=== PATIENT | female | born 1990 | race African-American/Black ===

== ENCOUNTER → 2022-02-22 | Outpatient (CLI) | payer MEDICAID, SELFPAY ==
--- NOTE | 2022-02-22 12:18 | US_ITS ---
STUDY: SECOND AND THIRD TRIMESTER OBSTETRICAL ULTRASOUND - LIMITED REASON FOR EXAM: Female, 32 years old. anatomy PRIOR ULTRASOUND: None. TECHNIQUE: Transabdominal TECHNICAL QUALITY: Adequate. FINDINGS: There is a single intrauterine fetus. The fetus is in a cephalic presentation. There is demonstrated cardiac activity with a heart rate of 144 bpm. There is a normal amniotic fluid volume. The largest amniotic fluid pocket measures 4.2 cm. The amniotic fluid index (VIVIANA) is 9.5 cm. The placenta is posterior in location and is not low lying. There are Grade 1 placental changes. The cervix measures cm in length: 5.1. BIOMETRY: BPD: 65 mm: 26 weeks, 2 days HC: 246 mm: 26 weeks, 5 days AC: 223 mm: 26 weeks, 4 days FL: 48 mm: 25 weeks, 6 days CI: 77 FL/AC: 21 FL/BPD: 72 HC/AC: 1.11 age by current US: 26 weeks, 0 days. ELISSA by current US: 11.8.22. Estimated weight: 935 grams, +/- 140 grams, 44.27 %. Age by LMP: 26 weeks, 2 days. ELISSA by LMP: 11.6.22. ANATOMY: Gender: Male Cranium: Normal lateral ventricles. Normal choroid plexus. Normal cerebellum. Normal cisterna magna. Normal face, nose and lips. Chest: Normal 4-chamber heart. Abdomen/Pelvis: Normal diaphragm. Normal stomach. Normal abdominal wall. Normal cord insertion. Normal 3 vessel cord. Normal kidneys. Normal bladder. Spine: Normal cervical spine. Normal thoracic spine. Normal lumbar spine. Normal sacrum. Extremities: Normal bilateral upper extremities. Normal bilateral lower extremities. US/OB Anatomy Scan IMPRESSION: There is a single live intrauterine with a heart rate of 144 bpm. age by current US: 26 weeks, 0 days. ELISSA by current US: 11.8.22. Estimated weight: 935 grams, +/- 140 grams, 44.27 %. Electronically Signed: Yony Sy MD at 16:20 EDT ,
== END | disposition home or self-care (01) ==
PROVIDERS: Visit Provider Obstetrics & Gynecology
DX: Z34.93 Encounter for supervision of normal pregnancy, unspecified, third trimester (principal)
CPT/HCPCS: 76805; 76817

== ENCOUNTER → 2022-02-26 | Outpatient (CLI) | payer MEDICAID, SELFPAY ==
[2022-02-26 12:20] LABS: Absolute Lymphocyte Count 2.56 X10^3/uL (0.83-4.51); Absolute Neutrophil Count 4.5 X10^3/uL (2.0-7.7); Basophil# 0.03 X10^3/uL; Basophil% 0.4 % (0-1); Eosinophil# 0.16 X10^3/uL; Hematocrit 31.3 % (37-47); Hemoglobin 9.9 g/dL (12.0-15.0); Lymphocyte # 2.56 X10^3/ul (0.83-4.51); Lymphocyte % 31.5 % (19-41); Mean Corp Hgb Conc 31.6 g/dL (32-36); Mean Corpuscular Hgb 28.3 pg (27.0-32.0); Mean Corpuscular Volume 89.4 fL (81-99); Mean Platelet Vol. 9.5 fl (6.2-12.0); Monocyte# 0.83 X10^3/uL; Monocyte% 10.2 % (0-10); NRBC Flagged by Analyzer 0 % (0-5); Neutrophil # 4.49 X10^3/uL (2.7-7.7); Neutrophil % 55.2 % (47-70); Platelet Count 293 K/mm3 (150-450); RBC Distribution Width CV 12.5 % (11.6-14.6); RBC Distribution Width SD 40.8 fl (35.1-43.9); White Blood Count 8.1 K/mm3 (4.4-11.0)
[2022-02-26 12:30] LABS: Glucose Challenge Gest 1H 50g 120 mg/dL (70-140)
== END | disposition home or self-care (01) ==
LOC: LAB 11:53
PROVIDERS: Visit Provider Obstetrics & Gynecology
DX: O09.90 Supervision of high risk pregnancy, unspecified, unspecified trimester (principal); Z3A.00 Weeks of gestation of pregnancy not specified
CPT/HCPCS: 36415; 82950; 85025

== ENCOUNTER 2022-02-28 03:36 | Outpatient (CLI) | payer MEDICAID, SELFPAY ==
[2022-02-28 03:53] VITALS: BMI 30.3
[2022-02-28 03:56] VITALS: BP 108/57; PULSE 91
[2022-02-28 03:57] VITALS: TEMP 36.7; O2SAT 99
[2022-02-28 04:15] LABS: Color, Urine Yellow (Yellow); Glucose, Dipstick Normal (Normal); Ketone-Dipstick Negative (Negative); Leukocyte Esterase-Dipstick 500 /ul (Negative); Nitrite-Dipstick Negative (Negative); Occult Blood-Urine Negative /ul (Negative); Protein-Dipstick Negative (Negative); Urine Bilirubin Dipstick Negative (Negative); Urine Clarity Sl. Cloudy (Clear); Urine Urobilinogen Normal (Normal)
[2022-02-28 04:16] LABS: Mucous, Urine 0 SEEN /hpf (<or=2+); Red Blood Cells-Urine 0 SEEN /hpf (0-5)
[2022-02-28 04:35] LABS: ROM Internal Control Test YES-OK TO RESULT pt. (Internal QC); ROM Patient Test Negative (Negative)
[2022-02-28 04:36] LABS: Bacteria 2+ /hpf (None Seen); Squamous Epithelial Cells - UA 5-10 SEEN /hpf (5-10); White Blood Cells 10-25 SEEN /hpf (0-5)
[2022-02-28] MEDS: Acetaminophen 500 MG Tablet 1000 MG PO (05:00)
[2022-02-28] MEDS: Nitrofurantoin Macrocrystals 100 MG Capsule PO (05:01)
--- NOTE | 2022-03-12 06:26 | OB.TRI.HP_ITS ---
HPI - General General Date of Admission: 02/28/22 Date of Service: 02/28/22 Chief Complaint: abdominal pain in HPI Narrative CHERYL HILTON, is a 32y/o @ 27 weeks 1 day who presents to L&D with the complaint of possible leaking fluid and lower pelvic pain and pressure Maternal Data Information ELISSA Calculator Estimated Delivery Date Method Current WG Current Estimate 05/29/22 LMP (Certain) 28w 6d PFSH PFSH Medical History Anemia Supervision of high-risk Home Medications docosahexaenoic acid 200 mg capsule ( DHA) 200 mg PO DAILY 02/08/22 [History Last Taken 02/27/22 22:00] nitrofurantoin monohydrate/macrocrystals 100 mg capsule (Macrobid) 100 mg PO BID #14 caps 02/28/22 [Rx Last Taken Unknown] Allergy/AdvReac Type Severity Reaction Status Date / Time No Known Allergies Allergy Verified 03/09/22 15:51 Family History Mother Hypertension Social History Smoking Status: Former smoker alcohol intake: never substance use type: does not use caffeine: Yes what type of physical activity do you participate in: none seatbelt use: always do you feel safe at home: Yes additional social history: - Dillan History 5 Elective abortions Hx Para 2 Spontaneous abortions Hx # Term Pregnancies Ectopic pregnancies Hx # Pregnancies Multiple births # of living children Past Pregnancies Del. Date Name GA/Weeks Outcome Route Bth Weight Infant Gen Labor Lgth Anesthesia Del Locatn Provider FOB 05/04/10 Jennifer 40 live - full term Female none Taiban Crane 02/21/21 Narindermicheldean 40 live - full term Female none [place] Delivery Date: 05/04/10 Last Updated by: Sandhya Hart No issues during or delivery Delivery Date: 02/21/21 Last Updated by: Sandhya Hart No issues during or delivery. Per patient child had water in kidney Visit Details Expected Delivery Route/Plan Labor Preferences- CB/BF classes: [] labor support person: [] labor intervention preferences: [] pain management options preferred: [] cut cord/dad catch: [] : [] PP control planned: [] discussed possible routes of delivery and associated risks: [] special requests: [] Plans Covid status: [] Flu vaccine: [] Tdap vaccine: [] Rhogam: [] LARC form signed: [] Problem list reviewed and updated with the most current plan of care details and appropriate orders placed. Relevant counseling for the gestational age provided. Continue routine care and follow up unless otherwise noted in visit notes/problem list details OB Flowsheet Initial Weight: Not Recorded Date -?-?-?-?-?-?-?-?-?-?-?-?- EGA Weight BP Urine Prot -?-?-?-?-?-?-?-?-?-?-?-?- Glucose FHR FuHt Pres Dilation -?-?-?-?-?-?-?-?-?-?-?-?- Effaced St Visit Note 02/08/22 -?-?-?-?-?-?-?-?-?-?-?-?- 24w 2d 170 lb 2 oz 100/62 -?-?-?-?-?-?-?-?-?-?-?-?- 155 -?-?-?-?-?-?-?-?-?-?-?-?- JV- new transfer of care from [place]. She is due for a repeat anatomy scan and glucola order. pt will work with nacho (social work) to help with figuring out insurance or payment plan. She does not have a SS# but does have a green card. was told that does not qualify for [place] medicaid. 03/09/22 -?-?-?-?-?-?-?-?-?-?-?-?- 28w 3d 172 lb 109/66 Negative -?-?-?-?-?-?-?-?-?-?-?-?- Negative 160 28 -?-?-?-?-?-?-?-?-?-?-?-?- JV_ normal gluco la, pt to decide on tdap. ROS Constitutional Constitutional: Reports systems reviewed and no addt'l complaints, except as documented Gastrointestinal Gastrointestinal: Denies bloating, constipation, cramping, diarrhea, nausea or vomiting Genitourinary Genitourinary: Reports other Details: Denies vaginal odor, vaginal bleeding, or vaginal discharge ; Denies difficulty urinating or flank pain Physical Exam HEENT normocephalic Resp normal respiratory effort and normal air movement no CVA tenderness Extremity normal to inspection General Extremity: edema bilateral (trace ) NST FHR Rate Baby A Baseline: 140 Variability:: Moderate Accelerations:: 10 x 10 Decelerations:: None NST Reactive:: Yes FHR Category:: Category I Assessment & Plan (1) Pelvic pain affecting : PLAN: possible UTI based on UA (500 leukocytes) Rom plus was negative, no contractions noted on monitor will treat for possible UTI and await culture PTL precautions discussed return to office in 1-2 weeks or sooner as needed (2) Anemia: COMMENT: supplement iron (3) Supervision of high-risk : COMMENT: , 2 prior vaginal deliveries at term h/o 2 miscarriages. (4) : QUALIFIERS: Weeks of gestation: 28 weeks Qualified Code(s): Z3A.28 - 28 weeks gestation of COMMENT: nl anatomy, ELISSA 06/08/22 Charges/Coding Multi Select Codes Visit Charges Office Visit/Consults: 39869 OV L3 Est Urinary/Genital Urinary/Genital CPT Codes: 19952-18 non-stress test Interp
== END 2022-02-28 05:05 | disposition home or self-care (01) ==
LOC: WPOUT 03:44 → WP 03:44
PROVIDERS: Visit Provider Obstetrics & Gynecology
DX: O99.891 Other specified diseases and conditions complicating pregnancy (principal); R10.2 Pelvic and perineal pain; O99.013 Anemia complicating pregnancy, third trimester; O26.23 Pregnancy care for patient with recurrent pregnancy loss, third trimester; Z3A.28 28 weeks gestation of pregnancy; Z87.891 Personal history of nicotine dependence
CPT/HCPCS: 59025; 59050; 81001; 84112; 99218; G0378

== ENCOUNTER → 2022-04-13 | Outpatient (CLI) | payer MEDICAID, SELFPAY ==
[2022-04-13 09:20] LABS: Absolute Lymphocyte Count 2.53 X10^3/uL (0.83-4.51); Absolute Neutrophil Count 5.1 X10^3/uL (2.0-7.7); Basophil# 0.03 X10^3/uL; Basophil% 0.3 % (0-1); Eosinophils% 2.3 % (0-5); Hematocrit 32.9 % (37-47); Hemoglobin 10.4 g/dL (12.0-15.0); Lymphocyte # 2.53 X10^3/ul (0.83-4.51); Lymphocyte % 29.2 % (19-41); Mean Corp Hgb Conc 31.6 g/dL (32-36); Mean Corpuscular Volume 88.4 fL (81-99); Mean Platelet Vol. 9.4 fl (6.2-12.0); Monocyte# 0.72 X10^3/uL; Monocyte% 8.3 % (0-10); NRBC Flagged by Analyzer 0 % (0-5); Neutrophil # 5.11 X10^3/uL (2.7-7.7); Neutrophil % 59.2 % (47-70); Platelet Count 289 K/mm3 (150-450); RBC Distribution Width CV 12.7 % (11.6-14.6); Red Blood Count 3.72 M/mm3 (4.2-5.4); White Blood Count 8.7 K/mm3 (4.4-11.0)
== END | disposition home or self-care (01) ==
LOC: PAVLAB 09:10
PROVIDERS: Referring Provider Registered Nurse; Visit Provider Registered Nurse
DX: D64.9 Anemia, unspecified (principal)
CPT/HCPCS: 36415; 85025

== ENCOUNTER → 2022-05-02 | Outpatient (CLI) | payer MEDICAID, SELFPAY ==
[2022-05-02 09:10] LABS: Absolute Lymphocyte Count 2.81 X10^3/uL (0.83-4.51); Absolute Neutrophil Count 3.5 X10^3/uL (2.0-7.7); Basophil# 0.03 X10^3/uL; Basophil% 0.4 % (0-1); Eosinophil# 0.15 X10^3/uL; Eosinophils% 2.1 % (0-5); Hematocrit 31.9 % (37-47); Hemoglobin 10.1 g/dL (12.0-15.0); Lymphocyte # 2.81 X10^3/ul (0.83-4.51); Lymphocyte % 39.4 % (19-41); Mean Corp Hgb Conc 31.7 g/dL (32-36); Mean Corpuscular Hgb 27.7 pg (27.0-32.0); Mean Corpuscular Volume 87.4 fL (81-99); Mean Platelet Vol. 9.8 fl (6.2-12.0); Monocyte# 0.65 X10^3/uL; Monocyte% 9.1 % (0-10); NRBC Flagged by Analyzer 0 % (0-5); Neutrophil # 3.46 X10^3/uL (2.7-7.7); Neutrophil % 48.6 % (47-70); Platelet Count 240 K/mm3 (150-450); RBC Distribution Width CV 13.1 % (11.6-14.6); RBC Distribution Width SD 41.5 fl (35.1-43.9); Red Blood Count 3.65 M/mm3 (4.2-5.4); White Blood Count 7.1 K/mm3 (4.4-11.0)
[2022-05-02 09:31] LABS: Protein, Urine (Random) 21.1 mg/dL (<11.9); Protein:Creat Ratio 131 mg/g CRE (0-200)
[2022-05-02 09:40] LABS: ALB/GLOB Ratio 0.7 RATIO (0.9-2.4); AST(SGOT) 24 U/L (15-37); Alanine Aminotransfer ALT/SGPT 24 U/L (13-56); Albumin, Serum 2.7 g/dL (3.2-5.0); Alkaline Phosphatase 137 U/L (45-117); Anion Gap 10 (5-15); BUN 5 mg/dL (7-18); BUN/Creat Ratio 7.8 RATIO (10-20); Calcium,Total 8.5 mg/dL (8.5-10.1); Chloride 108 mmol/L (98-107); Creatinine, Serum 0.64 mg/dL (0.55-1.02); EST Glomerular Filtration Rate 115 mL/min (>60); Est Glom Filt Rate - Afr Amer 139 mL/min (>60); Globulin 4.1 g/dL (2.2-4.2); Glucose 84 mg/dL (74-106); Potassium 3.5 mmol/L (3.5-5.1); Protein, Total 6.8 g/dL (6.4-8.2); Sodium Level 140 mmol/L (136-145)
== END | disposition home or self-care (01) ==
PROVIDERS: Referring Provider Registered Nurse; Visit Provider Registered Nurse
DX: O09.90 Supervision of high risk pregnancy, unspecified, unspecified trimester (principal); Z3A.00 Weeks of gestation of pregnancy not specified
CPT/HCPCS: 36415; 80053; 82570; 84156; 85025; 87081

== ENCOUNTER 2022-05-23 13:41 | Inpatient (IN) | payer MEDICAID, SELFPAY ==
[2022-05-23] VITALS (8 sets, daily range): BP systolic 101–124; BP diastolic 49–76; PULSE 70–98; RESP 16; TEMP 36.1–37.1; BMI 31.6
[2022-05-23] MEDS: Lactated Ringers 1,000 ML 50 ML IV (14:10)
[2022-05-23 14:29] LABS: Absolute Lymphocyte Count 3.45 X10^3/uL (0.83-4.51); Absolute Neutrophil Count 5.1 X10^3/uL (2.0-7.7); Basophil# 0.04 X10^3/uL; Basophil% 0.4 % (0-1); Eosinophil# 0.07 X10^3/uL; Eosinophils% 0.7 % (0-5); Hematocrit 33.6 % (37-47); Lymphocyte # 3.45 X10^3/ul (0.83-4.51); Lymphocyte % 36.2 % (19-41); Mean Corp Hgb Conc 32.7 g/dL (32-36); Mean Corpuscular Hgb 28.1 pg (27.0-32.0); Mean Corpuscular Volume 85.9 fL (81-99); Mean Platelet Vol. 10.6 fl (6.2-12.0); Monocyte# 0.79 X10^3/uL; Monocyte% 8.3 % (0-10); NRBC Flagged by Analyzer 0 % (0-5); Neutrophil # 5.14 X10^3/uL (2.7-7.7); POSITIVE COUNT YES; RBC Distribution Width CV 13.8 % (11.6-14.6); RBC Distribution Width SD 42.6 fl (35.1-43.9); Red Blood Count 3.91 M/mm3 (4.2-5.4); White Blood Count 9.5 K/mm3 (4.4-11.0)
[2022-05-23 14:53] LABS: Differential Indicated SCAN CRITERIA MET; Platelet Estimate ADEQUATE (ADEQ)
[2022-05-23] MEDS: Oxytocin 10 UNITS/ML Vial IM (15:05)
--- NOTE | 2022-05-23 15:57 | OP.PCM_ITS ---
Assessment & Plan (1) Headache: COMMENT: s/sx of PEC 05/02. headache not improved with tylenol, RUQ pain, visual changes. PEC workup initiated outpatient labs, normotensive. negative PEC work up (2) Supervision of high-risk : COMMENT: , 2 prior vaginal deliveries at term h/o 1 miscarriages. h/o with G1 in [place] (3) : QUALIFIERS: Weeks of gestation: 39 weeks Qualified Code(s): Z3 A.39 - 39 weeks gestation of COMMENT: nl anatomy, genetic testing nl, ELISSA 06/08/22 requesting Ariadna BARRETT at delivery Maternal Data Information ELISSA Calculator Estimated Delivery Date Method Current WG Current Estimate 05/29/22 LMP (Certain) 39w 1d Vaginal Delivery Maternal Presentation Maternal Presentation: Active Labor and Spontaneous Rupture of Membranes Operative Information Date of Procedure: 05/23/22 Pre-Operative Diagnosis: labor Post-Operative Diagnosis: Surgery / Procedure Performed: Spontaneous Vaginal Delivery Type of Anesthesia: None Estimated Blood Loss: 150 Time of Delivery: 14:46 Findings Description of Procedure: Patient began pushing and delivered the head in the EUGENE presentation. The head was delivered atraumatically and a loose nuchal cord ?1 was identified and easily reduced over the 's head. The anterior and posterior shoulders delivered without complication followed by the rest of the and the was placed on the maternal abdomen. Delayed cord clamping was employed for approximately 3 minutes. Cord was clamped and cut and gentle traction was applied to the cord and the placenta delivered spontaneously immediately following it was noted to be intact with three-vessel cord. Pitocin 10U IM provided for AMTS. The perineum and vagina were inspected and noted to have no laceration. EBL was 150 cc. Patient and infant tolerated delivery well.entered recovery phase in stable condition bonding skin to skin. Presentation: Vertex Amniotic Membrane Rupture Type: Spontaneous Amniotic Fluid Description: Clear Placental Delivery Description: Spontaneous Placenta Disposition: [facility] Cord Vessel Description: 3 Vessels Cord Entanglement: Around neck x 1, loose Nuchal Cord Compression: Without compression Infant A Gender: Male (1 minute): 8 (5 minute): 9 Delayed Cord Clamping: Yes Post Vaginal Delivery Medications Given After Delivery: - (IM pitocin) Episiotomy Description: None Laceration: None Complication Complications: None Multi Select Codes Urinary/Genital Urinary/Genital CPT Codes: 77788 Vaginal Delivery global pkg (ATTN [employer] CNM DELIVERY)
--- NOTE | 2022-05-23 16:02 | HP.PCM.OB_ITS ---
HPI - General General Date of Admission: 05/23/22 HPI Narrative CHERYL HILTON, is a 32 F at 39weeks who presents in active labor. uncomplicated transfer of care at 24 weeks from [place]. checked by RN 7cm. Maternal Data Information ELISSA Calculator Estimated Delivery Date Method Current WG Current Estimate 05/29/22 LMP (Certain) 39w 1d Final ELISSA Source: LMP PFSH PFSH Medical History Anemia Supervision of high-risk Home Medications docosahexaenoic acid 200 mg capsule ( DHA) 200 mg PO DAILY Check with primary doctor 02/08/22 [History Last Taken 05/22/22 09:00] ferrous sulfate 325 mg (65 mg iron) tablet 325 mg PO DAILY Check with primary doctor 05/23/22 [History Last Taken 05/22/22 08:00] Allergy/AdvReac Type Severity Reaction Status Date / Time No Known Allergies Allergy Verified 05/23/22 14:32 Family History Mother Hypertension no significant family history no surgical history Social History Smoking Status: Former smoker alcohol intake: never substance use type: does not use caffeine: Yes what type of physical activity do you participate in: none seatbelt use: always do you feel safe at home: Yes additional social history: - [place]illan History 5 Elective abortions Hx Para 3 Spontaneous abortions 1 Hx # Term Pregnancies Ectopic pregnancies Hx # Pregnancies Multiple births # of living children 2 Past Pregnancies Del. Date Name GA/Weeks Outcome Route Bth Weight Gen Labor Lgth Anesthesia Del Locatn Provider FOB 05/04/10 Jennifer 40 live - full term Female none [facility] 02/21/21 Gareth 40 live - full term Female none [place] Delivery Date: 05/04/10 Last Updated by: Sandhya Hart No issues during or delivery Delivery Date: 02/21/21 Last Updated by: Sandhya Hart No issues during or delivery. Per patient child had water in kidney Visit Details Expected Delivery Route/Plan Labor Preferences- CB/BF classes: none labor support person: Dillan labor intervention preferences:minimal pain management options preferred: nitrous oxide cut cord/dad catch:yes : PP control planned: Sang at 6weeks discussed possible routes of delivery and associated risks: [] special requests: [Ariadna at delivery] Plans Covid status: [] Flu vaccine:declines Tdap vaccine: obtained Rhogam: n/a LARC form signed:completed 04/13 Problem list reviewed and updated with the most current plan of care details and appropriate orders placed. Relevant counseling for the gestational age provided. Continue routine care and follow up unless otherwise noted in visit notes/problem list details OB Flowsheet Initial Weight: Not Recorded Date -?-?-?-?-?-?-?-?-?-?-?-?- EGA Weight BP Urine Prot -?-?-?-?-?-?-?-?-?-?-?-?- Glucose FHR FuHt Pres Dilation -?-?-?-?-?-?-?-?-?-?-?-?- Effaced St Visit Note 02/08/22 -?-?-?-?-?-?-?-?-?-?-?-?- 24w 2d 170 lb 2 oz 100/62 -?-?-?-?-?-?-?-?-?-?-?-?- 155 -?-?-?-?-?-?-?-?-?-?-?-?- JV- new transfer of care from [place]. She is due for a repeat anatomy scan and glucola order. pt will work with nacho (social work) to help with figuring out insurance or payment plan. She does not have a SS# but does have a green card. was told that does not qualify for [place] medicaid. 03/09/22 -?-?-?-?-?-?-?-?-?-?-?-?- 28w 3d 172 lb 109/66 Negative -?-?-?-?-?-?-?-?-?-?-?-?- Negative 160 28 -?-?-?-?-?-?-?-?-?-?-?-?- JV_ normal gluco la pt to decide on tdap. 03/31/22 -?-?-?-?-?-?-?-?-?-?-?-?- 31w 4d 174 lb 8 oz 115/70 Nega tive -?-?-?-?-?-?-?-?-?-?-?-?- Negative 147 30 -?-?-?-?-?-?-?-?-?-?-?-?- JV- rpt cbc next visit. pt is taking iron. if still low will order iron studies. encourage pelvic support belt 04/13/22 -?-?-?-?-?-?-?-?-?-?-?-?- 33w 3d 174 lb 8 oz 116/76 -?-?-?-?-?-?-?-?-?-?-?-?- 140 33 Cephalic -?-?-?-?-?-?-?-?-?-?-?-?- LC- cbc ordered, taking iron. active fetus. occ tightening, not consistent. reviewed PTL s/sx. LARC signed. 04/25/22 -?-?-?-?-?-?-?-?-?-?-?-?- 35w 1d 176 lb 116/72 Negative -?-?-?-?-?-?-?-?-?-?-?-?- Negative 142 35 Cephalic -?-?-?-?-?-?-?-?-?-?-?-?- LC- doing well. ready for baby. +FM, denies consistent ctx, no lof, vb. gbs next visit. 05/02/22 -?-?-?-?-?-?-?-?-?-?-?-?- 36w 1d 179 lb 2 oz 110/66 Nega tive -?-?-?-?-?-?-?-?-?-?-?-?- Negative 140 36 Cephalic 0 -?-?-?-?-?-?-?-?-?-?-?-?- 0 -3 LC- +FM, n o ctx, lof, vb. having headaches not improved with tylenol, spots in vision, right epigastric pain. normal reflexes. sending down to lab for stat PEC labs. LC- +FM, no ctx, lof, vb. kaur ving headaches not improved with tylenol, spots in vision, right epigastric pain. normal reflexes. sending down to lab for stat PEC labs. d/w Dr. Noriega who agrees with plan. 05/11/22 -?-?-?-?-?-?-?-?-?-?-?-?- 37w 3d 176 lb 8 oz 118/68 Nega tive -?-?-?-?-?-?-?-?-?-?-?-?- Negative 143 37 Cephalic 0 .5 -?-?-?-?-?-?-?-?-?-?-?-?- 20 -3 LC- +FM, n o ctx,lof,vb. labor precautions reviewed, will start on EPO. 05/18/22 -?-?-?-?-?-?-?-?-?-?-?-?- 38w 3d 178 lb 118/62 Negative -?-?-?-?-?-?-?-?-?-?-?-?- Negative 140 38 Cephalic 1 .5 -?-?-?-?-?-?-?-?-?-?-?-?- 50 -2 LC- no ctx ,vb,lof. good FM. cervix is soft, still posterior. 05/23/22 -?-?-?-?-?-?-?-?-?-?-?-?- 39w 1d 179 lb 4 oz 115/74 Nega tive -?-?-?-?-?-?-?-?-?-?-?-?- Negative 145 39 Cephalic 3 -?-?-?-?-?-?-?-?-?-?-?-?- 70 -2 LC. no con sistent ctx, no lof/vb. good FM. membrane swept performed today. soft, posterior. labor comfort techniques reviewed for home. 05/23/22 -?-?-?-?-?-?-?-?-?-?-?-?- 39w 1d 179 lb 114/73 124/74 -?--?-?-?-?-?-?-?-?-?-?-?- -?-?-?-?-?-?-?-?-?-?-?-?- NST FHR Rate Baby A Baseline: 140 Variability:: Moderate Accelerations:: 15 x 15 Decelerations:: None NST Reactive:: Yes FHR Category:: Category I ROS Constitutional Constitutional: Reports systems reviewed and no addt'l complaints, except as documented Gastrointestinal Gastrointestinal: Denies bloating, constipation, cramping, diarrhea, nausea or vomiting Genitourinary Genitourinary: Reports other Details: Denies vaginal odor, vaginal bleeding, or vaginal discharge ; Denies difficulty urinating or flank pain Vital Signs Vital Signs Vital Signs: 05/23/22 15:43 05/23/22 15:43 05/23/22 15:58 Pulse Rate 98 Blood Pressure 114/73 124/74 H BP Systolic 114 124 BP Diastolic 73 74 05/23/22 15:58 Pulse Rate 94 Blood Pressure BP Systolic BP Diastolic Weight Weight: 179 lb Body Mass Index (BMI) 31.6 Physical Exam Const alert, oriented x3 and no apparent distress General Appearance: cooperative, comfortable and well kempt; Negative for in distress Orientation / Consciousness: awake and oriented to person Exam Limitations: no limitations HEENT normocephalic Mouth: oral and palatal mucosa normal Neck full ROM and thyroid normal Chest inspection of chest normal Resp normal respiratory effort Effort and Inspection: able to speak in complete sentences and symmetric chest movement Cardio regular rate Peripheral Pulses: pulses 2+ throughout GI normal to inspection, nondistended, normoactive bowel sounds Inspection: gravid no CVA tenderness and appearance of the vagina normal External Female Exam: normal appearance of the urethra; Negative for external lesion OB / External & Speculum: external exam normal Manual OB Exam: estimated gestational size appropriate and presentation cephalic Uterus Palpation: Negative for uterus tender Extremity normal to inspection Skin no rashes or lesions noted Neuro deep tendon reflexes 2+ bilaterally and gait normal Motor Exam: strength 5/5 throughout and clonus absent Psych Activity / Motor Behavior: appropriate eye contact Speech: normal speech Labs Labs Labs: Blood Type AB POSITIVE Antibody Screen NEGATIVE Hct 33.6 % (37-47) L Hgb 11.0 g/dL (12.0-15.0) L Pap Smear Negative Obstetrics US Glucose 1 Hr 50 gm 120 mg/dL (70-140) 10/27/2021 negative VDRL/HIV/hep B/hep C/rubella immune pap UTD Assessment & Plan (1) Supervision of high-risk : COMMENT: , 2 prior vaginal deliveries at term h/o 1 miscarriages. h/o with G1 in [place] (2) : QUALIFIERS: Weeks of gestation: 39 weeks Qualified Code(s): Z3A.39 - 39 weeks gestation of COMMENT: nl anatomy, genetic testing nl, ELISSA 06/08/22 requesting Ariadna BARRETT at delivery PLAN: Plan Patient presents: IAL Pain management: Nitrous oxide. GBS negative Management of any complications: none I have reviewed the [facility] and made any clinically relevant updates.
[2022-05-23 21:07] LABS: Chlamydia Trachomatis by PCR Negative (Negative); Neisserai gonorrhoeae by PCR Negative (Negative); Probe Check PASS; Sample Adequacy Control PASS; Specimen Processing Control PASS
[2022-05-23] MEDS: Acetaminophen 500 MG Tablet PO (21:27)
[2022-05-24] MEDS: Ibuprofen 600 MG Tablet PO ×2 (03:28→13:30)
[2022-05-24 03:34] VITALS: BP 104/59; PULSE 85; RESP 16; TEMP 36.6
[2022-05-24 08:00] VITALS: BP 103/56; PULSE 100; RESP 16; TEMP 36.6; O2SAT 98
--- NOTE | 2022-05-24 08:11 | PCM.PN.OB ---
Subjective Subjective Patient doing well without complaints. Tolerating PO. Ambulating and voiding without difficulty. Feeding well. Denies chest pain, shortness of breath, calf pain/swelling, fevers, chills, lightheadedness. Objective Data Objective Data Vital Signs: Vital Signs Temp Pulse Resp BP Pulse Ox O2 Del Method 97.8 F 100 16 103/56 L 98 Room Air 05/24/22 08:00 05/24/22 08:00 05/24/22 08:00 05/24/22 08:00 05/24/22 08:00 05/24/22 08:00 Oxygen Delivery Method Room Air Weight: 179 lb Body Mass Index (BMI) 31.6 Intake & Output: Intake and Output for Last 24 Hours 05/22/22 05/23/22 05/24/22 23:59 23:59 23:59 Intake Total Output Total 600 / 600 Balance -570 / -570 Lab / Micro Data Result Diagrams: 05/23/22 14:10 Labs: Laboratory Results - last 24 hr 05/23/22 14:10: WBC 9.5, RBC 3.91 L, Hgb 11.0 L, Hct 33.6 L, MCV 85.9, MCH 28.1, MCHC 32.7, RDW Std Deviation 42.6, RDW Coeff of Bee 13.8, Plt Count TNP, MPV 10.6, Immature Gran % (Auto) 0.400, Neut % (Auto) 54.0, Lymph % (Auto) 36.2, [place] % (Auto) 8.3, Eos % (Auto) 0.7, Baso % (Auto) 0.4, Absolute Neuts (auto) 5.1, Absolute Lymphs (auto) 3.45, Nucleated RBC % 0, Platelet Estimate ADEQUATE 05/23/22 14:10: Blood Type AB POSITIVE, Antibody Screen NEGATIVE 05/23/22 18:00: Chlam trachomat DNA PCR Negative, N.gonorrhoeae DNA (PCR) Negative Micro: Microbiology 05/23/22 14:10 Nasal Secretion SARS-CoV-2 Antigen (Rapid) - Final Physical Exam Const alert and oriented x3 HEENT normocephalic Eyes PERRL Neck full ROM Resp normal respiratory effort GI soft to palpation GI Narrative: FF below U Assessment & Plan (1) (spontaneous vaginal delivery): COMMENT: 05/23/22 boy-Steven RODRÍGUEZ PLAN: Plan s/p PPD # 1 1. routine post delivery care 2. breast feeding- support given 3. rh positive 4. rubella immune 5. home today
[2022-05-24] MEDS: Acetaminophen 500 MG Tablet PO (08:32)
--- NOTE | 2022-05-24 10:01 | DCINST_ITS ---
Discharge Instructions Diet Discharge Diet: No restrictions Activity Discharge Activity: Return to Normal Activity and May Take a Tub Bath (after 2 weeks) May resume sexual activity in: 6 weeks and - (after 6 week visit) Weight Bearing Status: Full weight bearing Dressing / Incision Call your doctor if your incision/area has: Sudden Increased Bleeding, Increased Pain/ Swelling and Foul Smelling Discharge Call your doctor if you observe: Fever of 101 or Higher, Coldness, Increased Pain, Numbness or Tingling, Change in Color, Inability to urinate, Inability to have a bowel movement, Using more than 1 pad per hour, Shortness of breath, Dizziness, Fainting spells, Chest pain, Calf discomfort and Uncontrolled pain Follow Up Care Test Results: Test results from this visit will be discussed in further detail at your follow- up appointment, if applicable. Discharge Plan Admission Admit Date/Time: 05/23/22 13:41 Attending Provider: Ariadna San Primary Care Provider: Guerrero Physician,Ange Primary Discharge Orders/Prescriptions Prescriptions: No Action DHA 200 mg capsule 200 mg PO DAILY ferrous sulfate 325 mg (65 mg iron) tablet 325 mg PO DAILY Referrals / Follow Up: Care Physician,No Primary [Primary Care Provider] - Disposition Disposition (needs filled in before D/C Order can be placed): Home, Self Care
[2022-05-24 13:24] VITALS: BP 110/53; PULSE 106; RESP 16; TEMP 36.9; O2SAT 100
[2022-05-24 16:00] VITALS: BP 106/61; PULSE 92; RESP 16; TEMP 36.5; O2SAT 99
--- NOTE | 2022-05-24 18:15 | CASEMGMT ---
Social Work Labor and Delivery Records reviewed after initial consult due to mother of baby (MOB) answering yes to food insecurity question. Noted that family lives in [place], [place], MOB immigrated to the [place] from [place], moved from [place] to [place] during this with a late transfer of care at 24 weeks. This assembly instructions writer researched resources for [facility] to be able to provide to family for food assistance and other social service agencies. Additional consult then placed today due to PHQ9 trigger. PHQ9 Score is 12, falling in the moderate range of depression. Researched mental health treatment options for this family as well. This assembly instructions writer to room to see mother of baby/patient for consult and assessment. Found patient room empty. Spoke with gas analyst to find that patient had been discharged. Due to patient being discharged without social work consult completed will attempt to try patient at home to explore whether basic resources are in place for this family, as well as knowledge of resources for depression. -VIVI Wheatley, LOADER HELPER
== END 2022-05-24 17:15 | disposition home or self-care (01) | DRG 560 ==
LOC: WPOUT 13:47 → WP 13:48 → WPOUT 13:56 → WP 13:56
PROVIDERS: Admitting Provider Registered Nurse; Referring Provider Registered Nurse; Visit Provider Registered Nurse
DX: O42.90 Premature rupture of membranes, unspecified as to length of time between rupture and onset of labor, unspecified weeks of gestation (principal); Z37.0 Single live birth; O26.23 Pregnancy care for patient with recurrent pregnancy loss, third trimester; O99.892 Other specified diseases and conditions complicating childbirth; R51.9 Headache, unspecified; O99.02 Anemia complicating childbirth; O69.81X0 Labor and delivery complicated by cord around neck, without compression, not applicable or unspecified; Z3A.39 39 weeks gestation of pregnancy; Z87.891 Personal history of nicotine dependence
CPT/HCPCS: 59025; 59050; 85025; 86850; 86900; 86901; 87426; 87491; 87591; 99218; J7120; G0378

== ENCOUNTER → 2022-09-07 | Outpatient (CLI) | payer MEDICAID, SELFPAY ==
[2022-09-07 12:06] LABS: Absolute Lymphocyte Count 3.17 X10^3/uL (0.83-4.51); Absolute Neutrophil Count 2.4 X10^3/uL (2.0-7.7); Basophil# 0.03 X10^3/uL; Basophil% 0.5 % (0-1); Eosinophil# 0.21 X10^3/uL; Eosinophils% 3.4 % (0-5); Hematocrit 36.2 % (37-47); Lymphocyte # 3.17 X10^3/ul (0.83-4.51); Lymphocyte % 51.1 % (19-41); Mean Corp Hgb Conc 30.4 g/dL (32-36); Mean Corpuscular Hgb 26.6 pg (27.0-32.0); Mean Corpuscular Volume 87.7 fL (81-99); Mean Platelet Vol. 8.7 fl (6.2-12.0); Monocyte# 0.39 X10^3/uL; Monocyte% 6.3 % (0-10); NRBC Flagged by Analyzer 0 % (0-5); Neutrophil # 2.38 X10^3/uL (2.7-7.7); Neutrophil % 38.4 % (47-70); Platelet Count 303 K/mm3 (150-450); RBC Distribution Width CV 13.3 % (11.6-14.6); RBC Distribution Width SD 42.6 fl (35.1-43.9); Red Blood Count 4.13 M/mm3 (4.2-5.4); White Blood Count 6.2 K/mm3 (4.4-11.0)
[2022-09-07 12:27] LABS: AST(SGOT) 16 U/L (15-37); Bilirubin, Direct 0.15 mg/dL (0.00-0.30); LDH 202 U/L (84-246)
== END | disposition home or self-care (01) ==
PROVIDERS: Referring Provider Registered Nurse; Visit Provider Registered Nurse
DX: Z39.2 Encounter for routine postpartum follow-up (principal); Z30.9 Encounter for contraceptive management, unspecified; D64.9 Anemia, unspecified
CPT/HCPCS: 36415; 82247; 82248; 83615; 84450; 85025

== ENCOUNTER → 2022-09-16 | Outpatient (CLI) | payer MEDICAID, SELFPAY ==
--- NOTE | 2022-09-16 15:13 | US_ITS ---
INDICATION: pelvic pain EXAMINATION: Ultrasound US Pelvis Non OB Complete With Transvaginal Imaging TECHNIQUE: Transabdominal and transvaginal pelvic ultrasound was performed. Grayscale, spectral waveform, and color flow Doppler evaluation of the adnexa. COMPARISON: None. FINDINGS: UTERUS: The uterus measures 7.8 x 3.3 x 5.4 cm. The myometrium is mildly heterogenous. There is no uterine mass. The endometrial stripe measures 3.6 mm in AP diameter which is within normal limits. RIGHT OVARY: The right ovary measures 3.2 x 1.5 x 1.4 cm. Non-enlarged, normal echogenicity. There is normal arterial inflow and venous outflow present in the right ovary. LEFT OVARY: The left ovary measures 3.1 x 1.7 x 1.6 cm. Non-enlarged, normal echogenicity. There is normal arterial inflow and venous outflow present in the left ovary. FREE FLUID: None. US/Pelvic (Non ) IMPRESSION: Mildly heterogenous myometrium may be secondary to adenomyosis. Electronically Signed: Bhavna Kaufman MD at 10:29 EST ,
== END | disposition home or self-care (01) ==
LOC: US 15:12
PROVIDERS: Referring Provider Registered Nurse; Visit Provider Registered Nurse
DX: Z39.2 Encounter for routine postpartum follow-up (principal); Z30.9 Encounter for contraceptive management, unspecified; D64.9 Anemia, unspecified
CPT/HCPCS: 76830; 76856

== ENCOUNTER → 2024-05-30 | Outpatient (CLI) | payer MEDICAID, SELFPAY ==
[2024-06-03 21:07] LABS: Chlamydia By Nucleic Acid AMP Negative (Negative); Gonococcus By Nucleic Acid AMP Negative (Negative)
== END | disposition home or self-care (01) ==
LOC: BWCLAB 13:53 → LABSPEC 13:53
PROVIDERS: Referring Provider Advanced Practice Midwife; Visit Provider Advanced Practice Midwife
DX: O09.90 Supervision of high risk pregnancy, unspecified, unspecified trimester (principal); Z3A.39 39 weeks gestation of pregnancy
CPT/HCPCS: 87086; 87491; 87591

== ENCOUNTER → 2024-06-28 | Outpatient (CLI) | payer MEDICAID, SELFPAY ==
[2024-06-28 16:07] LABS: Absolute Lymphocyte Count 2.52 X10^3/uL (0.83-4.51); Absolute Neutrophil Count 4.7 X10^3/uL (2.0-7.7); Basophil# 0.03 X10^3/uL; Basophil% 0.4 % (0-1); Eosinophil# 0.13 X10^3/uL; Eosinophils% 1.6 % (0-5); Hematocrit 33.1 % (37-47); Hemoglobin 10.5 g/dL (12.0-15.0); Lymphocyte # 2.52 X10^3/ul (0.83-4.51); Lymphocyte % 31.6 % (19-41); Mean Corp Hgb Conc 31.7 g/dL (32-36); Mean Corpuscular Hgb 27.5 pg (27.0-32.0); Mean Corpuscular Volume 86.6 fL (81-99); Mean Platelet Vol. 9.4 fl (6.2-12.0); Monocyte# 0.56 X10^3/uL; NRBC Flagged by Analyzer 0 % (0-5); Neutrophil # 4.71 X10^3/uL (2.7-7.7); Neutrophil % 59.1 % (47-70); Platelet Count 340 K/mm3 (150-450); RBC Distribution Width CV 12.4 % (11.6-14.6); RBC Distribution Width SD 39.4 fl (35.1-43.9); Red Blood Count 3.82 M/mm3 (4.2-5.4)
[2024-06-28 17:06] LABS: HIV - WCH Non-Reactive (Nonreactive); Hepatitis B Surface Antigen Non-Reactive (Nonreactive); Hepatitis C Antibody Non-Reactive (Nonreactive); Rubella IgG Reactive (Nonreactive); Syphilis Antibodies Non-reactive
== END | disposition home or self-care (01) ==
LOC: BWCLAB 14:08
PROVIDERS: Advanced Practice Midwife; Referring Provider Obstetrics & Gynecology; Visit Provider Obstetrics & Gynecology
DX: O09.90 Supervision of high risk pregnancy, unspecified, unspecified trimester (principal); Z3A.39 39 weeks gestation of pregnancy
CPT/HCPCS: 36415; 85025; 86703; 86762; 86780; 86803; 86850; 86900; 86901; 87340

== ENCOUNTER → 2024-08-30 | Outpatient (CLI) | payer MEDICAID, SELFPAY ==
--- NOTE | 2024-08-30 13:32 | US_ITS ---
PROCEDURE: ultrasound. REASON FOR EXAM: Anatomy scan. COMPARISON: None available. FINDINGS Single live intrauterine gestation in breech presentation. The cervix is 5.1 cm, closed. The placenta is anterior. The distal tip of the placenta extends within 3.2 cm of the internal cervical os. No gross anomalies are demonstrated. heart rate 155 beats per minute. Amniotic fluid level is subjectively normal with a maximum vertical pocket of 5.7 cm. Biparietal diameter 5.4 cm. Head circumference 20 cm. Abdominal circumference 16.7 cm. Femur length 3.5 cm. Facial features appear intact. There appears to be a three-vessel cord and a suggestion of a four-chamber heart. cord insertion unremarkable. Visualized extremities and spine grossly unremarkable. Portions of the umbilical cord are present near the upper thorax/cervical region. US/OB Anatomy w/ Transvaginal IMPRESSION: Single live intrauterine gestation in breech presentation. Estimated gestation al age by ultrasound 21 weeks, 5 days. Estimated date of confinement 01/05/2025. No gross anomalies are demonstrated. Subjectively normal amniotic fluid level. Portions of the umbilical cord are present near the upper thorax/cervical regio n, but do not appear closely approximated to the skin. Anterior placenta. The distal tip of the placenta extends within 3.2 cm of the internal cervical os. Reading Location: [facility]
== END | disposition home or self-care (01) ==
LOC: US 13:31
PROVIDERS: Referring Provider Obstetrics & Gynecology; Visit Provider Obstetrics & Gynecology
DX: O09.90 Supervision of high risk pregnancy, unspecified, unspecified trimester (principal); Z3A.00 Weeks of gestation of pregnancy not specified
CPT/HCPCS: 76805; 76817

== ENCOUNTER 2024-10-16 10:55 | Outpatient (CLI) | payer MEDICAID, SELFPAY ==
[2024-10-16 11:15] VITALS: BMI 32.4
[2024-10-16 11:19] VITALS: BP 102/58; PULSE 106; RESP 16; TEMP 36.6
[2024-10-16 12:03] LABS: Color, Urine Yellow (Yellow); Glucose, Dipstick Normal (Normal); Ketone-Dipstick Negative (Negative); Leukocyte Esterase-Dipstick 25 /ul (Negative); Nitrite-Dipstick Negative (Negative); Occult Blood-Urine 10 /ul (Negative); Protein-Dipstick 30 mg/dl (Negative); Urine Bilirubin Dipstick Negative (Negative); Urine Clarity Sl. Cloudy (Clear); Urine Urobilinogen Normal (Normal); Urine pH 6.5 (5.0 - 8.0)
[2024-10-16 12:23] LABS: Hematocrit 29.9 % (37-47); Hemoglobin 9.7 g/dL (12.0-15.0); Mean Corp Hgb Conc 32.4 g/dL (32-36); Mean Corpuscular Hgb 27.7 pg (27.0-32.0); Mean Corpuscular Volume 85.4 fL (81-99); Platelet Count 293 K/mm3 (150-450); RBC Distribution Width CV 12.8 % (11.6-14.6); RBC Distribution Width SD 39.3 fl (35.1-43.9); White Blood Count 9.4 K/mm3 (4.4-11.0)
--- NOTE | 2024-10-16 12:38 | OB.TRI.HP_ITS ---
HPI - General HPI Narrative CHERYL FRY, is a 34 y/o who presents to L&D with right lower side pain radiating across her abdomen. Feels like a burning sensation. no lof, vaginal bleeding, or dec fm. no flank pain, fevers, nausea, vomiting, or diarrhea. Maternal Data Information ELISSA Calculator Estimated Delivery Date Method Current WG Current Estimate 01/05/25 Ultrasound #1 28w 3d PFSH PFSH Medical History Pelvic pain Adenomyosis of uterus (spontaneous vaginal delivery) Pelvic pain affecting Anemia Supervision of high-risk Home Medications ?Medication ?Instructions ?Recorded ?Last Taken ?Type docosahexaenoic acid 200 mg 200 mg PO DAILY Check with primary 02/08/22 05/22/22 09:00 History capsule ( [facility]) doctor cyclobenzaprine 10 mg tablet 10 mg PO TID PRN muscle s pasm #30 10/04/24 10/16/24 02:00 Rx tabs nitrofurantoin 100 mg PO BID #14 caps 10/16 Unknown Rx monohydrate/macrocrystals 100 mg capsule (Macrobid) Allergy/AdvReac Type Severity Reaction Status Date / Time No Known Allergies Allergy Verified 10/16/24 11:19 Family History Mother Hypertension Uncle CVA (cerebral vascular accident) Social History adopted: No household members: family housing: house number of children: 3 current occupational status: employed and unemployed current occupation: [employer] current occupational exposures/hazards: No pets and animals: Yes history of recent travel: No sexually active: Yes Smoking Status: Former smoker second hand exposure: No alcohol intake: never details: not while substance use type: does not use well-balanced diet: rarely or never caffeine: Yes what type of physical activity do you participate in: none seatbelt use: always do you feel safe at home: Yes additional social history: Yue Grimaldo History 6 Elective abortions Hx Para 4 Spontaneous abortions 1 Hx # Term Pregnancies Ectopic pregnancies Hx # Pregnancies Multiple births # of living children 4 Past Pregnancies Del. Date Name GA/Weeks Outcome Route Bth Weight Infant Gen Labor Lgth Anesthesia Del Locatn Provider FOB 07/24/08 delivered 2009 son 1 week 40 live - full term 05/04/10 Jennifer 40 live - full term Female none Sarina Cross 02/21/21 Gareth 40 live - full term Female none SERINA Grimaldo 05/23/22 Rashida 40 live - full term 7lb6oz Male [facility] Jaswinder Delivery Date: 05/04/10 Last Updated by: Sandhya Hart No issues during or delivery Delivery Date: 02/21/21 Last Updated by: Sandhya Hart No issues during or delivery. Per patient child had water in kidney Delivery Date: 05/23/22 Last Updated by: Zee BEEBE Visit Details Expected Delivery Route/Plan Labor Preferences- CB/BF classes: [] labor support person: [] labor intervention preferences: [] pain management options preferred: [] cut cord/dad catch: [] : [] PP control planned:pp tubal desired. discussed possible routes of delivery and associated risks: [] special requests: [] Plans Covid status: declines Flu vaccine: declines Tdap vaccine: declines Rhogam: na LARC form signed: [] Problem list reviewed and updated with the most current plan of care details and appropriate orders placed. Relevant counseling for the gestational age provided. Continue routine care and follow up unless otherwise noted in visit notes/problem list details OB Flowsheet Initial Weight: 178 lb Date -?-?-?-?-?-?-?-?-?-?-?-?- EGA Weight BP Urine Prot -?-?-?-?-?-?-?-?-?-?-?-?- Glucose FHR FuHt Pres Dilation -?-?-?-?-?-?-?-?-?-?-?-?- Effaced St Visit Note 05/30/24 -?-?-?--?-?-?-?-?-?-?-?-?- 8w 4d 178 lb (+0 oz) 98/64 -?-?-?-?-?-?-?-?-?-?-?-?- 175 -?-?-?-?-?-?-?-?-?-?-?-?- KW- CRL cons wit h PCC US per pt. Accepts NIPT. 06/28/24 -?-?-?-?-?-?-?-?-?-?-?-?- 12w 5d 175 lb 6 oz (-2 lb 10 oz) 95/59 Trace -?-?-?-?-?-?-?-?-?-?-?-?- Negative 157 -?-?-?-?-?-?-?-?-?-?-?-?- JV- pt complains of lower pelvic cramping and nausea. sending in zofran and recommending tylenol. ultrasound today appears normal. CRL measuring 13 weeks. nipt and carrier screen ordered. 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 no uti symptoms. 09/20/24 -?-?-?-?-?-?-?-?-?-?-?-?- 24w 5d 179 lb 8 oz (+1 lb 8 oz) 93/59 Negative -?-?-?-?-?-?-?-?-?-?-?-?- Negative 150 24 -?-?-?-?-?-?-?-?-?-?-?-?- LC-no vb/crampin g. LC-no vb/cramping. normal an atomy. 28 week labs ordered. plans to decline tdap. 10/04/24 -?-?-?-?-?-?-?-?-?-?-?-?- 26w 5d 179 lb 8 oz (+1 lb 8 oz) 179 lb 8 oz (+1 lb 8 oz) Negative -?-?-?-?-?-?-?-?-?-?-?-?- Negative 145 27 -?-?-?-?-?-?-?-?-?-?-?-?- SM- no vb lof go od fm no regualr ctx co pelvic pubic symphi=ysis pain and low back pain, unable to do exercises suggested, declined PT consult, recommend chiropractor. ROS Constitutional Constitutional: Reports systems reviewed and no addt'l complaints, except as documented Gastrointestinal Gastrointestinal: Denies bloating, constipation, cramping, diarrhea, nausea or vomiting Genitourinary Genitourinary: Reports other Details: Denies vaginal odor, vaginal bleeding, or vaginal discharge ; Denies difficulty urinating or flank pain NST FHR Rate Baby A Baseline: 150 Variability:: Moderate Accelerations:: 15 x 15 Decelerations:: None NST Reactive:: Yes and Appropriate for gestational age FHR Category:: Category I Uterine Activity:: no contractions Assessment & Plan (1) Right lower quadrant abdominal pain affecting : PLAN: normal white count urine shows signs of a UTI. starting macrobid and sending for culture Ok to dc to home return if develops flank pain or fever or unable to keep antibiotic down. Charges/Coding Multi Select Codes Urinary/Genital Urinary/Genital CPT Codes: 77134-90 non-stress test Interp
[2024-10-16] MEDS: Nitrofurantoin Macrocrystals 100 MG Capsule PO (12:57)
== END 2024-10-16 13:00 | disposition home or self-care (01) ==
LOC: WPOUT 11:04 → WP 11:05
PROVIDERS: Referring Provider Obstetrics & Gynecology; Visit Provider Obstetrics & Gynecology
DX: O99.891 Other specified diseases and conditions complicating pregnancy (principal); R10.31 Right lower quadrant pain; Z3A.28 28 weeks gestation of pregnancy
CPT/HCPCS: 59050; 81002; 85027; 87086; 99221; G0378

== ENCOUNTER → 2024-10-18 | Outpatient (CLI) | payer MEDICAID, SELFPAY ==
[2024-10-18 12:21] LABS: Absolute Lymphocyte Count 2.75 X10^3/uL (0.83-4.51); Basophil# 0.03 X10^3/uL; Basophil% 0.3 % (0-1); Eosinophil# 0.23 X10^3/uL; Eosinophils% 2.6 % (0-5); Hematocrit 30.5 % (37-47); Lymphocyte # 2.75 X10^3/ul (0.83-4.51); Lymphocyte % 31.6 % (19-41); Mean Corp Hgb Conc 32.8 g/dL (32-36); Mean Corpuscular Hgb 28.2 pg (27.0-32.0); Mean Corpuscular Volume 86.2 fL (81-99); Mean Platelet Vol. 9.9 fl (6.2-12.0); Monocyte# 0.63 X10^3/uL; Monocyte% 7.2 % (0-10); NRBC Flagged by Analyzer 0 % (0-5); Neutrophil # 4.95 X10^3/uL (2.7-7.7); Neutrophil % 57.1 % (47-70); Platelet Count 328 K/mm3 (150-450); RBC Distribution Width SD 40.5 fl (35.1-43.9); Red Blood Count 3.54 M/mm3 (4.2-5.4); White Blood Count 8.7 K/mm3 (4.4-11.0)
[2024-10-18 13:12] LABS: Syphilis Antibodies Nonreactive (Nonreactive)
[2024-10-18 13:31] LABS: Glucose Challenge Gest 1H 50g 130 mg/dL (70-140); HIV Nonreactive (Nonreactive)
[2024-10-18 13:43] LABS: Ferritin 27 ng/mL (22-378); Iron 45 ug/dL (50-170); Iron Binding Capacity,Total 424 ug/dL (250-450); Iron Binding Capacity,Unsat 379 ug/dL (228-428)
== END | disposition home or self-care (01) ==
PROVIDERS: Nurse Practitioner Women's Health; Referring Provider Registered Nurse; Visit Provider Registered Nurse
DX: O99.019 Anemia complicating pregnancy, unspecified trimester (principal); Z3A.00 Weeks of gestation of pregnancy not specified; Z13.1 Encounter for screening for diabetes mellitus
CPT/HCPCS: 36415; 82728; 82950; 83540; 83550; 85025; 86703; 86780

== ENCOUNTER → 2024-12-03 | Outpatient (CLI) | payer MEDICAID, SELFPAY ==
[2024-12-03 11:56] LABS: Absolute Lymphocyte Count 2.68 X10^3/uL (0.83-4.51); Absolute Neutrophil Count 5.6 X10^3/uL (2.0-7.7); Basophil# 0.03 X10^3/uL; Basophil% 0.3 % (0-1); Eosinophil# 0.21 X10^3/uL; Eosinophils% 2.2 % (0-5); Hematocrit 29.8 % (37-47); Hemoglobin 9.5 g/dL (12.0-15.0); Lymphocyte # 2.68 X10^3/ul (0.83-4.51); Lymphocyte % 28.4 % (19-41); Mean Corp Hgb Conc 31.9 g/dL (32-36); Mean Corpuscular Hgb 26.9 pg (27.0-32.0); Mean Corpuscular Volume 84.4 fL (81-99); Mean Platelet Vol. 10.2 fl (6.2-12.0); Monocyte# 0.85 X10^3/uL; NRBC Flagged by Analyzer 0 % (0-5); Neutrophil # 5.58 X10^3/uL (2.7-7.7); Platelet Count 287 K/mm3 (150-450); RBC Distribution Width CV 13.5 % (11.6-14.6); RBC Distribution Width SD 41.9 fl (35.1-43.9); Red Blood Count 3.53 M/mm3 (4.2-5.4); White Blood Count 9.5 K/mm3 (4.4-11.0)
== END | disposition home or self-care (01) ==
PROVIDERS: Referring Provider Registered Nurse; Visit Provider Registered Nurse
DX: D50.9 Iron deficiency anemia, unspecified (principal)
CPT/HCPCS: 36415; 85025

== ENCOUNTER → 2024-12-13 | Outpatient (CLI) | payer MEDICAID, SELFPAY | END | disposition home or self-care (01) | LOC: LABSPEC 10:55 | PROVIDERS: Referring Provider Obstetrics & Gynecology; Visit Provider Obstetrics & Gynecology | DX: O09.93 Supervision of high risk pregnancy, unspecified, third trimester (principal); Z3A.00 Weeks of gestation of pregnancy not specified | CPT/HCPCS: 87081 ==

== ENCOUNTER → 2024-12-20 | Outpatient (CLI) | payer MEDICAID, SELFPAY ==
--- NOTE | 2024-12-20 13:11 | US_ITS ---
PROCEDURE: OB LIMITED WITH BIOMETRICS 12/20/2024 REASON FOR EXAM: PELVIC PAIN IN TECHNIQUE: High resolution obstetric ultrasound performed using a 2D transducer. Standard views obtained, including biometry, FINDINGS Transabdominal imaging. Single live intrauterine with cardiac activity 157 beats per minute. Presentation is cephalic. Cervix not visualized. VIVIANA 10.5 cm. Maximum vertical pocket 3.6 cm. Grade 1 anterior placenta appears within limits. Not low-lying. DIMENSIONS: Biparietal Diameter: 9.1 cm/37 weeks 9 days, 53% Head Circumference: 32.6 cm/37 weeks 0 days, 14% Abdominal Circumference: 39.9 cm/37 weeks 6 days, 70% Femur Length: 7.1 cm/36 weeks 4 days, 23% FL/AC 21%, FL/BPD 78%, FL/HC 22%, CI 81%, HC/AC 0.96 ESTIMATED WEIGHT: 3230 g +/-484 g ESTIMATED WEIGHT PERCENTILE (24+ weeks): 55% Estimated age by current ultrasound 37 weeks 1 day, ELISSA 01/09/2025 age by LMP 37 weeks 5 days, ELISSA 01/05/2025 US/OB Limited With Biometrics IMPRESSION: Single live intrauterine with biometry as above. Reading Location: [id number]
[2024-12-23 22:06] LABS: Chlamydia By Nucleic Acid AMP Negative (Negative); Gonococcus By Nucleic Acid AMP Negative (Negative)
== END | disposition home or self-care (01) ==
LOC: US 13:10
PROVIDERS: Registered Nurse; PCP Physician Assistant; Referring Provider Obstetrics & Gynecology; Visit Provider Obstetrics & Gynecology
DX: O26.893 Other specified pregnancy related conditions, third trimester (principal); R10.2 Pelvic and perineal pain; Z3A.00 Weeks of gestation of pregnancy not specified; Z20.2 Contact with and (suspected) exposure to infections with a predominantly sexual mode of transmission
CPT/HCPCS: 76816; 87491; 87591

== ENCOUNTER 2024-12-28 13:15 | Outpatient (CLI) | payer MEDICAID, SELFPAY ==
[2024-12-28 13:29] VITALS: BP 117/71; PULSE 101; PULSE 75; O2SAT 81; O2SAT 99
--- OUTSIDE RECORDS SUMMARY | 2024-12-28 13:31 | XMS RPT_ITS | CCD ---
Author Organization [facility] Care Team Providers Care Block Sealer Name Role Phone Care Physician, No Primary Primary Care Provider Unavailable Care Physician, No Primary Referring Provider Un available Dr. Felicity Vaca Attending Provider Dr. Felicity Vaca Other Provider ARNOLD San Attending Provider Care Physician, No Primary Primary Care Provider Unavailable Care Physician, No Primary Referring Provider Un available ARNOLD San Attending Provider ARNOLD San Admit Provider ARNOLD San Referring Provider ARNOLD San Other Provider Luke HELP DESK SUPPORT, HELP DESK SUPPORT-C Halina Attending Provider Tony HELP DESK SUPPORT, HELP DESK SUPPORT-C Alicia Attending Provider Unavailable Primary Care Provider UnavailDAYSI Rothman Referring Unavailable Rosalva Ridley PA-C Primary Care Provider RABIA RUGGIERO Attending Unavailable RABIA RUGGIERO Referring Unavailable ROSALVA RIDLEY Referring Unavailable ROSALVA RIDLEY F Primary Care Unavailable ROSALVA RIDLEY PA-C Primary Care Physician ROSALVA RIDLEY PA-C Primary Care Unavailable LORI HERNDON Attending LORI Fowler Attending ROSALVA Galo PA-C Primary Care Unavailable ROSALVA RIDLEY PA-C Primary Care Unavailable LORI HERNDON Attending Marianna GILLILAND MD, RUTH Hernández Attending Unavailable RIDLEY PA-C, ROSALVA F Primary Care Unavailable RIDLEY PA-C, ROSALVA F Primary Care Unavailable BEITLER LOAD BLOCKER-CNM, LORI Barboza Attending Unav ailable RIDLEY PA-C, ROSALVA F Primary Care Unavailable BEITLER LOAD BLOCKER-CNM, LORI Barboza Attending Unav ailable RIDLEY PA-C, ROSALVA F Primary Care Unavailable FABIAN MERINO, SCOTT Moore Attending Unavailable MIKALA MERINO, JOSÉ English Attending Unavailable RIDLEY PA-C, ROSALVA F Primary Care Unavailable Care Physician, No Primary Primary Care Provider Unavailable Care Physician, No Primary Referring Provider Un available Dr. Felicity Vaca DO Attending Provider Dr. Felicity Vaca DO Referring Provider Leann MERINO, Dr. Nicole Attending Provider Dr. Bonnie Noriega MD Referring Provider [phone] Ariadna San CNM Attending Provider [phone] Dr. Felicity Vaca DO Other Provider [phone] Halina Cee Attending Provider [phone] Ariadna San CNM Referring Provider [phone] Care Physician, No Primary Primary Care Provider Unavailable Care Physician, No Primary Referring Provider Un available Dr. Bonnie Noriega MD Attending Provider [phone] Dr. Felicity Vaca DO Attending Provider Dr. Felicity Vaca DO Referring Provider Dr. Arpita Servin DC Attending Provider [phone] Care Physician, No Primary Primary Care Unava ilable Steffi Jackson Attending Unavailable Steffi Jackson Referring Unavailable Care Physician, No Primary Referring Unava ilable Bonnie Noriega Attending Unavailable Care Physician, No Primary Primary Care Unava ilable Care Physician, No Primary Referring Unava ilable Halina Butler NP Attending Unavailable Care Physician, No Primary Primary Care Unava ilable Care Physician, No Primary Referring Unava ilable Bonnie Noriega Attending Unavailable Care Physician, No Primary Primary Care Unava ilable Care Physician, No Primary Primary Care Unava ilable Ariadna San Attending Unavailable Ariadna San Referring Unavailable Care Physician, No Primary Referring Unava ilable Care Physician, No Primary Primary Care Unava ilable DosArpita wilkins Attending Unavailable Felicity Vaca Attending Unavailabl e Care Physician, No Primary Referring Unava ilable Care Physician, No Primary Referring Unava ilable Care Physician, No Primary Primary Care Unava ilable DosArpita wilkins Attending Unavailable Care Physician, No Primary Referring Unava ilable Care Physician, No Primary Primary Care Unava ilable Ariadna San Attending Unavailable Care Physician, No Primary Referring Unava ilable Care Physician, No Primary Primary Care Unava ilable DosArpita wilkins Attending Unavailable Care Physician, No Primary Referring Unava ilable Care Physician, No Primary Primary Care Unava ilable DosArpita wilkins Attending Unavailable Care Physician, No Primary Referring Unava ilable Arpita Servin Attending Unavailable Felicity Vaca Referring Unavailabl e Felicity Vaca Attending Unavailabl e Care Physician, No Primary Primary Care Unava ilable Felicity Vaca Referring Unavailabl e Felicity Vaca Attending Unavailabl e Care Physician, No Primary Primary Care Unava ilable Ariadna San Referring Unavailable Ariadna San Attending Unavailable Felicity Vaca Referring Unavailabl e Rosalva Ridley Primary Care Unavailable Felicity Vaca Attending Unavailabl e Care Physician, No Primary Referring Unava ilable Care Physician, No Primary Primary Care Unava ilable Ariadna San Attending Unavailable Care Physician, No Primary Primary Care Unava ilable Care Physician, No Primary Referring Unava ilable Felicity Vaca Attending Unavailabl e Care Physician, No Primary Primary Care Unava ilable Care Physician, No Primary Referring Unava ilable Steffi Jackson Attending Unavailable Care Physician, No Primary Referring Unava ilable Bonnie Noriega Attending Unavailable Care Physician, No Primary Primary Care Unava ilable Care Physician, No Primary Referring Unava ilable Care Physician, No Primary Primary Care Unava ilable Ariadna San Attending Unavailable Felicity Vaca Referring Unavailabl e Care Physician, No Primary Primary Care Unava ilable Arpita Servin Attending Unavailable Felicity Vaca Attending Unavailabl e Care Physician, No Primary Referring Unava ilable Care Physician, No Primary Primary Care Unava ilable Bri Cortes, Felicity Referring Unavailabl e Vande Velshayne, Felicity Consulting Unavailabl e Vande Velde, Felicity Attending Unavailabl e Care Physician, No Primary Primary Care Unava ilable Rosalva Ridley Primary Care Unavailable Care Physician, No Primary Referring Unava ilable Ariadna San Attending Unavailable Rosalva Ridley Primary Care Unavailable Care Physician, No Primary Referring Unava ilable Arpita Servin Attending Unavailable Care Physician, No Primary Referring Unava ilable Ariadna San Attending Unavailable Bonnie Noriega Referring Unavailable Bonnie Noriega Attending Unavailable Care Physician, No Primary Primary Care Unava ilable Vande Velde, Felicity Referring Unavailabl e Vande Velde, Felicity Attending Unavailabl e Care Physician, No Primary Primary Care Unava ilable Care Physician, No Primary Primary Care Provider Unavailable Leann MERNIO, Dr. Nicole Attending Provider [phone] Care Physician, No Primary Referring Provider Un available Rosalva Zhang Primary Care Provider [phone] Medications Current Medications Medication Drug Class(es) Dates Sig (Normalized) Sig (Original) Albuterol (Eqv-ProAir HFA) 90 mcg/inh inhalation aerosol (4 sources) Start: 06-05-2024 Albuterol (Eqv-ProAir HFA) 90 mcg/inh inhalation aerosol 0 Refill(s) Start Date: 06/05/24 Status: Ordered Repeat number: 1 Start: 06-05-2024 Albuterol (Eqv -ProAir HFA) 90 mcg/inh inhalation aerosol 0 Refill(s) Start Date: 06/05/24 Status: Ordered Alive Gummies (4 sources) Start: 06-05-2024 Alive Gummies Chewed, qDay, 0 Refill(s) Start Date: 06/05/24 Status: Ordered Repeat number: 1 Start: 06-05-2024 Alive Gummies Chewed, qDay, 0 Refill(s) Start Date: 06/05/24 Status: Ordered ascorbic acid 250 mg oral tablet (2 sources) Vitamin C Start: 07-03-2024 ascorbic acid 250 mg oral tablet Dose : 250 mg = 1 tab(s), Oral, qDay, # 90 tab(s), 0 Refill(s), Pharmacy: [facility]/pharmacy #[id number], 162.6, cm, 07/03/24 9:22:00 EST, Height, kg, 06/14/24 9:42:00 EST, Dosing Weight Start Date: 07/03/24 Status: Ordered Quantity: 90.0 Unit: tab(s) Repeat number: 1 B Complex 50 oral tablet (2 sources) Start: 07-03-2024 take 1 tablet by mouth once daily B Complex 50 oral tablet Dose = 1 tab(s), Oral, Daily, # 90 tab(s), 0 Refill(s), Pharmacy: [facility]/pharmacy #[id number], 162.6, cm, 07/03/24 9:22:00 EST, Height, kg, 06/14/24 9:42:00 EST, Dosing Weight Start Date: 07/03/24 Status: Ordered Quantity: 90.0 Unit: tab(s) Repeat number: 1 Breast Pump device (9 sources) Start: 11-29-2024 Breast Pump device Active 0 .ROUTE .MEDSUPPLY November 29, 2024 12:00am As directed cyclobenzaprine hydrochloride 10 mg oral tablet (11 sources) Muscle Relaxant Start: 10-04-2024 take 1 tablet by mouth three times daily as needed for muscle spasms Cyclobenzaprine 10 mg tablet Active 10 mg PO THREE TIMES A DAY as needed for muscle spasm October 04, 2024 12:00am diphenhydrAMINE hydrochloride 25 mg oral tablet (4 sources) Histamine-1 Receptor Antagonist Start: 06-05-2024 Unisom 25mg oral tablet Dose : 25 mg = 1 tab(s), Oral, qHS, PRN as needed for insomnia, # 30 tab(s), 5 Refill(s), Pharmacy: [facility]/pharmacy #[id number], Secondary amenorrhea, 164, cm, 06/05/24 14:37:00 EST, Height Start Date: 06/05/24 Status: Ordered Quantity: 30.0 Unit: tab(s) Repeat number: 6 Indication: Secondary amenorrhea docosahexaenoic acid 200 mg oral capsule (15 sources) Start: 02-08-2022 take 1 capsule by mouth once daily Docosahexaenoic Acid ( Dha) 200 mg capsule Active 200 mg PO DAILY February 08, 2022 12:00am docusate sodium 100 mg oral capsule (18 sources) Start: 06-05-2024 Colace 100 mg oral capsule Dose : 100 mg = 1 cap(s), Oral, BID, PRN as needed for constipation, # 20 cap(s), 0 Refill(s), Pharmacy: [facility]/pharmacy #[id number], 162.6, cm, 07/03/24 9:22:00 EST, Height, kg, 06/14/24 9:42:00 EST, Dosing Weight Start Date: 07/03/24 Status: Ordered Quantity: 20.0 Unit: cap(s) Repeat number: 1 Start: 09-07-2022 End: 12-22-2022 take 1 capsule by mouth twice daily Docusate Sodium (Colace) 100 mg capsule Discontinued 100 mg PO TWICE A DAY 60 September 07, 2022 1:00am December 22, 2022 11:30am ferrous sulfate 324 mg delay ed release oral tablet (20 sources) Start: 07-03-2024 ferrous sulfat e 324 mg (65 mg elemental iron) oral delayed release tablet Dose : 324 mg = 1 tab(s), Oral, qDay, # 90 tab(s), 0 Refill(s), Pharmacy: [facility]/pharmacy #[id number], 162.6, cm, 07/03/24 9:22:00 EST, Height, kg, 06/14/24 9:42:00 EST, Dosing Weight Start Date: 07/03/24 Status: Ordered Quantity: 90.0 Unit: tab(s) Repeat number: 1 Start: 06-13-2022 End: 05-30-2024 take 1 tablet by mouth once daily Ferrous Sulfate 325 mg (65 mg iron) tablet Discontinued 0 .ROUTE .COMPLEX June 13, 2022 1:20pm May 30, 2024 1:02pm TAKE 1 TABLET BY MOUTH DAILY. Start: 05-02-2022 End: 06-13-2022 take 1 tablet by mouth once daily Ferrous Sulfate 325 mg (65 mg iron) tablet Discontinued 325 mg PO DAILY May 23, 2022 2:33pm June 13, 2022 1:20pm hydrOXYzine pamoate 50 mg oral capsule (9 sources) Antihistamine Start: 11-05-2024 take 1 capsule by mouth at bedtime Hydroxyzine Pamoate 50 mg capsule Active 50 mg PO AT BEDTIME November 05, 2024 12:00am pyridoxine hydrochloride 25 mg oral tablet (4 sources) Start: 06-05-2024 pyridoxine 25 mg oral tablet Dose : 25 mg = 1 tab(s), Oral, TID, # 100 tab(s), 6 Refill(s), Pharmacy: [facility]/pharmacy #[id number], Secondary amenorrhea, 164, cm, 06/05/24 14:37:00 EST, Height Start Date: 06/05/24 Status: Ordered Quantity: 100.0 Unit: tab(s) Repeat number: 7 Indication: Secondary amenorrhea Completed/Discontinued Medications Medication Drug Class(es) Dates Sig (Normalized) Sig (Original) Norethindrone-E.Estrad iol-Iron (11 sources) Estrogen Start: 08-16-19 End: 05-30-20 take 1 tablet by mouth once daily Norethindrone-E.Estrad iol-Iron (Lo Loestrin Fe) 1 mg-10 mcg (24)/10 mcg (2) tablet Discontinued 1 {tbl} PO DAILY August 16, 2023 1:00am May 30, 2024 1:02pm fluconazole 100 mg oral tablet (12 sources) Azole Antifungal Start: 08-16-19 End: 12-23-19 Fluconazole 100 mg tablet Discontinued 100 mg PO DAILY August 16, 2022 1:00am December 22, 2022 11:30am take 4 tablets on day one, then one tablet daily until 7 days without any symptoms 1 ml medroxyPROGESTERone acetate 150 mg/ml prefilled syringe (12 sources) Progestin Start: 06-29-20 End: 07-20-20 inject 150 mg by intramuscular injection every three months Medroxyprogesterone (Depo-Provera) 150 mg/mL syringe Discontinued 150 mg IM every 3 months June 29, 2022 1:00am July 20, 2023 2:08pm metroNIDAZOLE 500 mg oral tablet (11 sources) Nitroimidazole Antimicrobial Start: 07-20-20 End: 07-27-19 take 1 tablet by mouth twice daily Metronidazole 500 mg tablet Discontinued 500 mg PO TWICE A DAY 14 July 20, 2023 1:00am July 26, 2023 1:00am July 27, 2023 1:04am naproxen 500 mg oral tablet (11 sources) Nonsteroidal Anti-inflammatory Drug Start: 07-20-20 End: 05-30-20 take 1 tablet by mouth every twelve hours at mealtime Naproxen 500 mg tablet Discontinued 500 mg PO Q12H July 20, 2023 1:00am May 30, 2024 1:02pm administer with food or milk nitrofurantoin, macrocrystals 25 mg / nitrofurantoin, monohydrate 75 mg oral capsule (20 sources) Nitrofuran Antibacterial Start: 10-17-19 End: 11-06-19 take 1 capsule by mouth twice daily at mealtime Nitrofurantoin Monohyd/M-Cryst (Macrobid) 100 mg capsule Discontinued 100 mg PO TWICE A DAY October 16, 2024 12:00am November 05, 2024 9:42am must administer with a meal/food Start: 02-28-2022 End: 04-13-2022 take 1 capsule by mouth twice daily at mealtime Nitrofurantoin Monohyd/M-Cryst (Macrobid) 100 mg capsule Discontinued 100 mg PO TWICE A DAY February 28, 2022 12:00am April 13, 2022 8:24am must administer with a meal/food ondansetron 4 mg disintegrating oral tablet (17 sources) Serotonin-3 Receptor Antagonist Start: 06-28-2024 End: 10-16-2024 take 1 tablet by mouth every eight hours as needed for nausea and vomiting Ondansetron 4 mg tablet,disintegrating Discontinued 4 mg PO Q8H as needed for nausea and vomiting June 28, 2024 1:00am October 16, 2024 11:22am Start: 06-14-2024 End: 06-19-2024 ondansetron 4 mg oral tablet , disintegrating Dose : 4 mg = 1 tab(s), Oral, q8h, PRN Nausea/Vomiting, X 5 day(s), # 8 tab(s), 0 Refill(s), 06/19/24 12:32:00 PM EST, Pharmacy: [facility]/pharmacy #[id number], 162.6, cm, 06/14/24 9:42:00 EST, Height, kg, 06/14/24 9:42:00 EST, Dosing Weight Start Date: 06/14/24 Stop Date: 06/19/24 Status: Ordered Start: 06-05-2024 End: 08-23-2024 Zofran 4 mg oral tablet Dose : 4 mg = 1 tab(s), Oral, q6h, PRN Nausea/Vomiting, # 20 tab(s), 0 Refill(s), 08/23/24 4:52:00 PM EST, [id number], Secondary amenorrhea, 164, cm, 06/05/24 14:37:00 EST, Height Start Date: 06/05/24 Stop Date: 08/23/24 Status: Ordered Quantity: 20.0 Unit: tab(s) Repeat number: 1 Indication: Secondary amenorrhea polyethylene glycol 3350 26506 mg powder for oral solution (1 source) Osmotic Laxative Start: 07-10-2024 End: 08-09-2024 take 4-8 [oz_av] by mouth once daily MiraLax oral powder for reconstitution Dose : 17 gram(s) =, Oral, qDay, dissolve in 4 to 8 oz of beverage, X 30 day(s), # 510 gram(s), 0 Refill(s), 08/09/24 11:45:00 AM EST Start Date: 07/10/24 Stop Date: 08/09/24 Status: Ordered Quantity: 510.0 Unit: g Repeat number: 1 promethazine hydrochloride 12.5 mg oral tablet (13 sources) Phenothiazine Start: 09-27-2024 End: 10-16-2024 take 2 tablets by mouth every six hours as needed for nausea and vomiting Promethazine 12.5 mg tablet Discontinued 25 mg PO EVERY 6 HOURS as needed for nausea and vomiting September 27, 2024 1:00am October 16, 2024 11:22am Start: 08-13-2024 promethazine 1 2.5 mg oral tablet Dose : 12.5 mg = 1 tab(s), Oral, q6hr, PRN as needed for nausea/vomiting, # 20 tab(s), 0 Refill(s), Pharmacy: [facility]/pharmacy #[id number], 160, cm, 08/13/24 7:52:00 EST, Height, kg, 08/13/24 7:52:00 EST, Dosing Weight Start Date: 08/13/24 Status: Ordered Quantity: 20.0 Unit: tab(s) Repeat number: 1 Start: 08-13-2024 promethazine 2 5 mg rectal suppository Dose : 25 mg = 1 supp, Rectal, q6hr, # 12 supp, 0 Refill(s), Pharmacy: [facility]/pharmacy #[id number], 160, cm, 08/13/24 7:52:00 EST, Height, kg, 08/13/24 7:52:00 EST, Dosing Weight Start Date: 08/13/24 Status: Ordered Quantity: 12.0 Unit: supp Repeat number: 1 Problems Active Problems Problem Classification Problem Date Documented Da te Episodic/Chronic Abdominal pain (20 sources) Left upper quadrant pain; Translations: [Left upper quadrant pain] Onset: 10-23-2024 09-07-2022 Episodic Comment on above: [place] Asthma (20 sources) Asthma; Translations: [Unspecified asthma, uncomplicated] Onset: 12-13-2024 05-30-2024 Chronic Comment on above: albuterol Contraceptive and procreative management (20 sources) Patient encounter status; Translations: [Encounter for contraceptive management, unspecified] Onset: 12-13-2024 06-29-2022 Episodic Comment on above: Wants tubal-needs ti tle 19 signed Deficiency and other anemia (20 sources) Anemia; Translations: [Anemia, unspecified] 02-28-2022 Episodic Comment on above: supplement iron supplement iron: fur ther dec HGB. Fe studies ordered. supplement iron: fur ther dec HGB. Fe studies ordered. asymptomatic, continues on iron supplement. Deficiency and other anemia (10 sources) Anemia, unspecified; Translations: [Anemia, unspecified] Onset: 10-18-2024 Episodic Deficiency and other anemia (1 source) Iron deficiency anemia, unspecified; Translations: [Iron deficiency anemia, unspecified] Onset: 12-13-2024 Episodic Endometriosis (11 sources) Uterine adenomyosis; Translations: [Adenomyosis of uterus] 05-30-2024 Chronic Comment on above: via ultrasound. high suspicion for adenomyosis Headache; including migraine (17 sources) Headache; Translations: [Headache] Episodic Comment on above: s/sx of PEC 05/02. h eadache not improved with tylenol, RUQ pain, visual changes. PEC workup initiated outpatient labs, normotensive. negative PEC work up Menstrual disorders (2 sources) Secondary amenorrhea; Translations: [Secondary amenorrhea] Onset: 06-05-2024 Chronic Other bone disease and musculoskeletal deformities (20 sources) Segmental and somatic dysfunction; Translations: [Segmental and somatic dysfunction of sacral region] 11-14-2024 Episodic Other bone disease and musculoskeletal deformities (20 sources) Lumbar segmental dysfunction ; Translations: [Segmental and somatic dysfunction of lumbar region] 11-13-2024 Episodic Other bone disease and musculoskeletal deformities (1 source) Segmental and somatic dysfunction of sacral region; Translations: [Segmental and somatic dysfunction of sacral region] Onset: 12-25-2024 Episodic Other bone disease and musculoskeletal deformities (1 source) Segmental and somatic dysfunction of lumbar region; Translations: [Segmental and somatic dysfunction of lumbar region] Onset: 12-25-2024 Episodic Other complications of ; puerperium affecting management of mother (1 source) Other disorders of breast associated with and the puerperium; Translations: [Other and unspecified disorder of breast associated with childbirth, condition or complication] 05-25-2022 Episodic Other complications of (1 source) Anemia complicating , unspecified trimester; Translations: [Anemia complicating , unspecified trimester] Onset: 10-22-2024 Chronic Other complications of (20 sources) High risk ; Translations: [Supervision of high risk , unspecified, unspecified trimester] 06-02-2022 Episodic Comment on above: PRR, ELISSA 5 PC Amrit Rodriguez (in [place]), Amaya Servin, [place] , 2 prior vagina l deliveries at termh/o 1 miscarriages. h/o with G1 in [place] PRR, GBS neg, E DD 01/05/25 Amrit Cole (in [place]), Amaya Servin, [place] Other complications of (20 sources) Pain in female pelvis; Translations: [Other specified related conditions, unspecified trimester] 06-02-2022 Episodic Comment on above: stretching reviewed encouraged to wear l oose fitting clothes, tamir pants Other complications of (7 sources) Other specified related conditions, unspecified trimester; Translations: [Other specified complications of , unspecified as to episode of care or not applicable] Onset: 10-23-2024 Episodic Other complications of (20 sources) Right lower quadrant pain; Translations: [Other specified related conditions, unspecified trimester] 10-16-2024 Episodic Other complications of (20 sources) Vomiting of , unspecified; Translations: [Nausea and vomiting during ] Onset: 12-13-2024 09-27-2024 Episodic Other complications of (1 source) Other specified related conditions, third trimester; Translations: [Other specified related conditions, third trimester] Onset: 12-26-2024 Episodic Other complications of (1 source) Supervision of high risk , unspecified, third trimester; Translations: [Supervision of high risk , unspecified, third trimester] Onset: 12-17-2024 Episodic Other injuries and conditions due to external causes (2 sources) Injury of left wrist; Translations: [Unspecified injury of left wrist, hand and finger(s), initial encounter] 06-08-2023 Episodic Other non-traumatic joint disorders (1 source) Pain of left forearm; Translations: [Pain in left wrist] 06-08-2023 Episodic Other non-traumatic joint disorders (2 sources) Pain of left wrist; Translations: [Pain in left wrist] 06-21-2023 Episodic Other and delivery including normal (20 sources) ; Translations: [Encounter for supervision of normal , unspecified, unspecified trimester] Onset: 06-05-2024 Episodic Comment on above: 05/23/22 lewis RODRÍGUEZ elects NIPT with gen mojgan, nl anatomy elects NIPT with gen mojgan, nl anatomy, girl! Residual codes; unclassified (1 source) 36 weeks gestation of ; Translations: [36 weeks gestation of ] Onset: 12-13-2024 Episodic Residual codes; unclassified (1 source) 35 weeks gestation of ; Translations: [35 weeks gestation of ] Onset: 12-04-2024 Episodic Residual codes; unclassified (1 source) 32 weeks gestation of ; Translations: [32 weeks gestation of ] Onset: 11-27-2024 Episodic Residual codes; unclassified (1 source) 31 weeks gestation of ; Translations: [31 weeks gestation of ] Onset: 12-18-2024 Episodic Spondylosis; intervertebral disc disorders; other back problems (20 sources) Backache; Translations: [Dorsalgia, unspecified] 11-14-2024 Episodic Comment on above: improving with chiro practic care. Unclassified (1 source) Adenomyosis of the uterus; Translations: [Adenomyosis of the uterus] Onset: 12-28-2023 Unclassified (1 source) Low back pain, unspecified; Translations: [Low back pain, unspecified] Onset: 12-18-2024 Unclassified (1 source) Other specified diseases and conditions complicating ; Translations: [Other specified diseases and conditions complicating ] Onset: 10-23-2024 Past or Other Problems Problem Classification Problem Date Documented Da te Episodic/Chronic Immunizations and screening for infectious disease (1 source) Encounter for screening for respiratory tuberculosis; Translations: [Encounter for screening for respiratory tuberculosis] Onset: 07-14-2023 Episodic Other complications of (13 sources) Supervision of high risk , unspecified, unspecified trimester; Translations: [Supervision of unspecified high-risk ] Onset: 09-20-2024 Episodic Other injuries and conditions due to external causes (1 source) Unspecified injury of left wrist, hand and finger(s), initial encounter; Translations: [Wrist injury, left, initial encounter] Onset: 06-08-2023 Episodic Other non-traumatic joint disorders (3 sources) Pain in left wrist; Translations: [Left wrist pain] Onset: 06-08-2023 Episodic Residual codes; unclassified (1 source) 21 weeks gestation of ; Translations: [21 weeks gestation of ] Onset: 08-26-2024 Episodic Residual codes; unclassified (1 source) 16 weeks gestation of ; Translations: [16 weeks gestation of ] Onset: 07-26-2024 Episodic Residual codes; unclassified (1 source) 12 weeks gestation of ; Translations: [12 weeks gestation of ] Onset: 06-28-2024 Episodic Residual codes; unclassified (1 source) 39 weeks gestation of ; Translations: [39 weeks gestation of ] Onset: 05-30-2024 Episodic Sprains and strains (5 sources) Sprain of left wrist; Translations: [Unspecified sprain of left wrist, initial encounter] Onset: 06-08-2023 06-08-2023 Episodic Results Test Name Value Interpretation Reference Range Facility Yarn Worker Office Visit Reporton 12-27-2024 Yarn Worker Office Visit Report [facility] [address], [address] [place] [address] OFFICE VISIT Date of Service: 12/27/24 MR#: [id number] Acct: [id number] Name: KALEY FRY Rep #: [id number] : 1990 Provider: ARNOLD aviles Age/Sex: 34/F Location: [facility] [place] Status: Signed Intake Vital Signs 12/03/24 10:27 12/20/24 11:03 12/27/24 09:12 12/27/24 09:14 Height 5 ft 3 in 5 ft 3 in 5 ft 3 in 5 ft 3 in Weight: 199 lb BMI 35.2 BP 118/68 Intake Visit Reasons: [address] Service Required: No Is patient in pain?: No Allergies No Known Allergies Allergy (Verified 12/27/24 09:12) Medications ???Medication ???Instructions ???Recorded ???Confirmed ???Type docosahexaenoic acid 200 mg 200 mg PO DAILY Check with primary 02/08/22 12/27/24 History capsule ( DHA) doctor cyclobenzaprine 10 mg tablet 10 mg PO TID PRN muscle spasm #30 10/04/24 12/27/24 Rx tabs hydroxyzine pamoate 50 mg capsule 50 mg PO QHS #30 caps 11/05/24 Rx breast pump #1 ea 11/29/24 12/27/24 Rx Last Menstrual Period: 08/22/21 Zika: Zika virus screening: Negative : No PFSH PFSH Medical History Pelvic pain affecting Pelvic pain Adenomyosis of uterus (spontaneous vaginal delivery) Anemia Supervision of high-risk Family History Mother Hypertension Uncle CVA (cerebral vascular accident) Social History adopted: No household members: family housing: house number of children: 3 current occupational status: employed and unemployed current occupation: [employer] current occupational exposures/hazards: No pets and animals: Yes history of recent travel: No sexually active: Yes Smoking Status: Former smoker second hand exposure: No alcohol intake: never details: not while substance use type: does not use well-balanced diet: rarely or never caffeine: Yes what type of physical activity do you participate in: none seatbelt use: always do you feel safe at home: Yes additional social history: - Dillan History 6 Elective abortions Hx Para 4 Spontaneous abortions 1 Hx # Term Pregnancies Ectopic pregnancies Hx # Pregnancies Multiple births # of living children 4 Past Pregnancies Del. Date Name GA/Weeks Outcome Route Bth Weight Gen Labor Lgth Anesthesia Del Locatn Provider FOEnzo 07/24/08 delivered 2008 son 1 week 40 live - full term 05/04/10 Jennifer 40 live - full term Female none Sarina Cross 02/21/21 Gareth 40 live - full term Female none CT Dillan 05/23/22 Rashida 40 live - full term 7lb6oz Male [facility] Mary ins Delivery Date: 05/04/10 Last Updated by: Sandhya Hart No issues during or delivery Delivery Date: 02/21/21 Last Updated by: Sandhya Hart No issues during or delivery. Per patient child had water in kidney Delivery Date: 05/23/22 Last Updated by: Zee Hernandez IOL HPI 38 wk ob Details: KALEY FRY is a 34 year old who presents for routine OB visit. OB Visit ELISSA Calculator Estimated Delivery Date Method Current Current Estimate 01/05/25 Ultrasound #1 38w 5d Expected Delivery Route/Plan Labor Preferences- CB/BF classes: no labor support person: Dillan labor intervention preferences: [] pain management options preferred: limited intervention/nitrous cut cord/dad catch: cord : yes PP control planned:pp tubal desired. discussed possible routes of delivery and associated risks: [] special requests: Ariadna at delivery Specific Issue/Plans Covid status: declines Flu vaccine: declines Tdap vaccine: declines Rhogam: na LARC form signed: yes Problem list reviewed and updated with the most current plan of care details and appropriate orders placed. Relevant counseling for the gestational age provided. Continue routine care and follow up unless otherwise noted in visit notes/problem list details Initial Weight: 178 lb Date -???-???-???-???-??? -???-???-???-???-??? -???-???- EGA Weight BP Urine Prot -???-???-???-???-??? -???-???-???-???-??? -???-???- Glucose FHR FuHt Pres Dilation -???-???-???-???-??? -???-???-???-???-??? -???-???- Effaced St Visit Note 05/30/24 -???-???-???-???-??? -???-???-???-???-??? -???-???- 8w 4d 178 lb (+0 oz) 98/64 -???-???-???-???-??? -???-???-???-???-??? -???-???- 175 -???-???-???-???-??? -???-???-???-???-??? -???-???- KW- CRL cons with PCC US per pt. Accepts NIPT. 06/28/24 -???-???-???-???-??? (more content not included)... [facility] Chiropractic Reporton 2024 Chiropractic Report [facility] Chiropractic [address] [place] [address] OFFICE VISIT Date of Service: 12/25/24 MR#: [id number] Acct: [id number] Name: KALEY FRY Rep #: [id number] : 1990 Provider: RUDDY Nava Age/Sex: 34/F Location: [facility] [place] Status: Signed Intake Vital Signs 11/13/24 10:20 12/20/24 11:03 Height 5 ft 3 in 5 ft 3 in Intake Visit Reasons: ADJUSTMENT Chief Complaint: low back, pelvic and groin pain Is patient in pain?: Yes (low back pelvis, groin) Pain scale (1-10): 9 Allergies No Known Allergies Allergy (Verified 12/25/24 10:36) Medications ???Medication ???Instructions ???Recorded ???Confirmed ???Type docosahexaenoic acid 200 mg 200 mg PO DAILY Check with primary 02/08/22 12/25/24 History capsule ( DHA) doctor cyclobenzaprine 10 mg tablet 10 mg PO TID PRN muscle spasm #30 10/04/24 12/25/24 Rx tabs hydroxyzine pamoate 50 mg capsule 50 mg PO QHS #30 caps 11/05/24 Rx breast pump #1 ea 11/29/24 12/25/24 Rx PFSH Medical History Pelvic pain affecting Pelvic pain Adenomyosis of uterus (spontaneous vaginal delivery) Anemia Supervision of high-risk Family History Mother Hypertension Uncle CVA (cerebral vascular accident) Social History adopted: No household members: family housing: house number of children: 3 current occupational status: employed and unemployed current occupation: [employer] current occupational exposures/hazards: No pets and animals: Yes history of recent travel: No sexually active: Yes Smoking Status: Former smoker second hand exposure: No alcohol intake: never details: not while substance use type: does not use well-balanced diet: rarely or never caffeine: Yes what type of physical activity do you participate in: none seatbelt use: always do you feel safe at home: Yes additional social history: - Dillan [facility] ADJUSTMENT Chief Complaint: low back and pelvic pain Visit Number: 7 Details: Kaley is a 34 y/o female 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 Pt. advises she is 38 weeks with her 5th child(girl). Pt. reports her last adjustment was helpful to relieve some of her pain for several hours but it quickly returned. She continues to c/o intense low back, pelvis and groin pain. She states the low back pain extends into her bilateral glutes. She states her pelvic pain and pressure worsens when she sits down or stands up. She states the pain she is experiencing in her pelvis and bilateral groin is the worst. She rates her pain 9/10 but there are times when it is 10/10. She denies new injury, numbness, tingling or radiculopathy. She states she feels best when laying on her back. She has a difficult time transitioning from sitting to standing or rolling over in bed. She states chiropractic adjustments are helpful to relieve some of her pain temporarily. Onset: 04/01/24 Location: low back pelvis Duration: constant Aggravating or associated factors: standing, walking, sitting to standing, ADL.s Relieving factors: chiro Pain Quality: aching, dull and sharp Exam Musc General: Yes normal posture, muscle weakness, joint tenderness and decreased range of motion; No normal gait Thoracic/Lumber: No thoracic and lumbar spine normal to inspection (R post rotated pelvis), Yes paraspinal tenderness on the right greater than left (lumbopelvic), Yes thoraco-lumbar spasm on the right greater than left (glute med, psoas) and on the left greater than right (lumbar paraspinal) and Yes misalignment L3, L4, L5 and RIL Sacroiliac joints: on the right tender to palpation Sacrum: Yes tenderness and Yes misalignment (right) Yes Office Procedures Procedures - Chiropractic Procedures Manipulation: Lumbar L4 and Sacrum (right) Manipulation: 1-2 regions Patient Response: positive Assessment and Plan Assessment and Plan (1) Pelvic pain affecting : Status: Acute Qualifiers: Trimester: third trimester Qualified Code(s): O26.893 - Other specified related conditions, third trimester; R10.2 - Pelvic and perineal pain Comment: encouraged to wear loose fitting clothes, tamir pants (2) Back pain: Status: Acute Qualifiers: Back pain location: low back pain Chronicity: acute Back pain laterality: right Sciatica presence: without sciatica Qualified Code(s): M54.50 - Low back pain, unspecified Comment: improving with 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 (3) Segmental and somatic dysfunction of sacral region: Status: Acute (4) Segmental dysfunction of lumbar region: Status: Acute Orders: Orders Chiroprac (more content not included)... [facility] Chlamydia/GC NELLY aptimaon CHLAMY,NUC ACID Negative [facility] Comment on above: Performed By: #### M 100.2200, L7000.1800 #### [facility] [address] [facility]. [place], [place], [address] GC BY NUC ACID Negative [facility] Comment on above: Result Comment: Perf ormed at: =G - [facility] [address] [id number] High Risk Ob: Tiana Hayes MD, Phone: [phone] Performed By: #### M 100.2200, L7000.1800 #### [facility] [address] [place], [place], [id number] Chlamydia trachomatis rRNA d etection by probe and target amplification methodOrdered By: Ariadna San on 12-20-2024 C. trachomatis rRNA NELLY+probe Ql (Unsp spec) Negative [facility] - Chemistry and C hemistry - challengeOrdered By: Ariadna San on 12-20-2024 Glucose Ql (U) Negative [facility] - UrinalysisOrder ed By: Ariadna San on 12-20-2024 Protein Ql (U) [facility] Neisseria gonorrhoeae nuclei c acid detection by amplified probe techniqueOrdered By: Ariadna San on 12-20-2024 N. gonorrhoeae DNA NELLY+probe Ql (Unsp spec) Negative [facility] Comment on above: Performed at: =G - [facility] [place], [place] [id number] Director: Tiana Hayes MD, Phone: [phone] OB Limited With Biometricson 12-20-2024 OB Limited With Biometrics [facility] Imaging Services [address] [place], [place] [address] OB Limited With Biometrics MR#: [id number] Acct: [id number] Name: KALEY FRY Rep #: [id number] : 1990 F 34 From: Billy Paulson MD PCP: KOFI Juan Status: REG CLI Study: OB Limited With Biometrics Date of Exam: 12/20 Exam# [id number] Ordering Dr: Felicity Vaca DO PROCEDURE: OB LIMITED WITH BIOMETRICS 12/20/2024 REASON FOR EXAM: PELVIC PAIN IN TECHNIQUE: High resolution obstetric ultrasound performed using a 2D transducer. Standard views obtained, including biometry, FINDINGS Transabdominal imaging. Single live intrauterine with cardiac activity 157 beats per minute. Presentation is cephalic. Cervix not visualized. VIVIANA 10.5 cm. Maximum vertical pocket 3.6 cm. Grade 1 anterior placenta appears within limits. Not low-lying. DIMENSIONS: Biparietal Diameter: 9.1 cm/37 weeks 9 days, 53% Head Circumference: 32.6 cm/37 weeks 0 days, 14% Abdominal Circumference: 39.9 cm/37 weeks 6 days, 70% Femur Length: 7.1 cm/36 weeks 4 days, 23% FL/AC 21%, FL/BPD 78%, FL/HC 22%, CI 81%, HC/AC 0.96 ESTIMATED WEIGHT: 3230 g +/-484 g ESTIMATED WEIGHT PERCENTILE (24+ weeks): 55% Estimated age by current ultrasound 37 weeks 1 day, ELISSA 01/09/2025 age by LMP 37 weeks 5 days, ELISSA 01/05/2025 US/OB Limited With Biometrics IMPRESSION: Single live intrauterine with biometry as above. Reading Location: [id number] CC: Dr. 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 [facility] Yarn Worker Office Visit Reporton 12-20-2024 Yarn Worker Office Visit Report [facility] [address], [address] [place] [address] OFFICE VISIT Date of Service: 12/20/24 MR#: [id number] Acct: [id number] Name: KALEY FRY Rep #: [id number] : 1990 Provider: ARNOLD aviles Age/Sex: 34/F Location: [facility] [place] Status: Signed Intake Vital Signs 05/30/24 11:34 12/13/24 09:46 12/20/24 11:03 12/20/24 11:03 Height 5 ft 3 in 5 ft 3 in 5 ft 3 in 5 ft 3 in Weight: 195 lb BMI 34.5 BP 104/64 Intake Visit Reasons: [address] Service Required: No Is patient in pain?: No Allergies No Known Allergies Allergy (Verified 12/20/24 11:02) Medications ???Medication ???Instructions ???Recorded ???Confirmed ???Type docosahexaenoic acid 200 mg 200 mg PO DAILY Check with primary 02/08/22 12/20/24 History capsule ( DHA) doctor cyclobenzaprine 10 mg tablet 10 mg PO TID PRN muscle spasm #30 10/04/24 12/20/24 Rx tabs hydroxyzine pamoate 50 mg capsule 50 mg PO QHS #30 caps 11/05/24 Rx breast pump #1 ea 11/29/24 12/20/24 Rx Last Menstrual Period: 08/22/21 Zika: Zika virus screening: Negative : No Have you fallen in the past year?: No PFSH PFSH Medical History Pelvic pain affecting Pelvic pain Adenomyosis of uterus (spontaneous vaginal delivery) Anemia Supervision of high-risk Family History Mother Hypertension Uncle CVA (cerebral vascular accident) Social History adopted: No household members: family housing: house number of children: 3 current occupational status: employed and unemployed current occupation: [employer] current occupational exposures/hazards: No pets and animals: Yes history of recent travel: No sexually active: Yes Smoking Status: Former smoker second hand exposure: No alcohol intake: never details: not while substance use type: does not use well-balanced diet: rarely or never caffeine: Yes what type of physical activity do you participate in: none seatbelt use: always do you feel safe at home: Yes additional social history: - Dillan History 6 Elective abortions Hx Para 4 Spontaneous abortions 1 Hx # Term Pregnancies Ectopic pregnancies Hx # Pregnancies Multiple births # of living children 4 Past Pregnancies Del. Date Name GA/Weeks Outcome Route Bth Weight Infant Gen Labor Lgth Anesthesia Del Locatn Provider ROSA 07/24/08 delivered 2009 son 1 week 40 live - full term 05/04/10 Jennifer 40 live - full term Female none Sarina Cross 02/21/21 Gareth 40 live - full term Female none CT Dillan 05/23/22 Rashida 40 live - full term 7lb6oz Male [facility] Mary ins Delivery Date: 05/04/10 Last Updated by: Sandhya Hart No issues during or delivery Delivery Date: 02/21/21 Last Updated by: Sandhya Hart No issues during or delivery. Per patient child had water in kidney Delivery Date: 05/23/22 Last Updated by: Zee Hernandez IOL HPI 37 WK OB Details: KALEY FRY is a 34 year old who presents for routine OB visit. OB Visit ELISSA Calculator Estimated Delivery Date Method Current WG Current Estimate 01/05/25 Ultrasound #1 37w 5d Expected Delivery Route/Plan Labor Preferences- CB/BF classes: no labor support person: Dillan labor intervention preferences: [] pain management options preferred: limited intervention/nitrous cut cord/dad catch: cord : yes PP control planned:pp tubal desired. discussed possible routes of delivery and associated risks: [] special requests: Ariadna at delivery Specific Issue/Plans Covid status: declines Flu vaccine: declines Tdap vaccine: declines Rhogam: na LARC form signed: yes Problem list reviewed and updated with the most current plan of care details and appropriate orders placed. Relevant counseling for the gestational age provided. Continue routine care and follow up unless otherwise noted in visit notes/problem list details Initial Weight: 178 lb Date -???-???-???-???-??? -???-???-???-???-??? -???-???- EGA Weight BP Urine Prot -???-???-???-???-??? -???-???-???-???-??? -???-???- Glucose FHR FuHt Pres Dilation -???-???-???-???-??? -???-???-???-???-??? -???-???- Effaced St Visit Note 05/30/24 -???-???-???-???-??? -???-???-???-???-??? -???-???- 8w 4d 178 lb (+0 oz) 98/64 -???-???-???-???-??? -???-???-???-???-??? -???-???- 175 -???-???-???-???-??? -???-???-???-???-??? -???-???- KW- CRL cons with PCC US per pt. Accepts NIPT. 12/ (more content not included)... [facility] Chiropractic Reporton 2024 Chiropractic Report [facility]ropract[facility] [place] [address] OFFICE VISIT Date of Service: 12/18/24 MR#: [id number] Acct: [id number] Name: KALEY FRY Rep #: [id number] : 1990 Provider: RUDDY Palm Do ssi Age/Sex: 34/F Location: [facility] [place] Status: Signed Intake Vital Signs 11/13/24 10:20 12/13/24 09:46 Height 5 ft 3 in 5 ft 3 in Intake Visit Reasons: ADJUSTMENT Chief Complaint: low back, pelvic and groin pain Allergies No Known Allergies Allergy (Verified 12/13/24 09:43) [facility] Medical History Pelvic pain affecting Pelvic pain Adenomyosis of uterus (spontaneous vaginal delivery) Anemia Supervision of high-risk Family History Mother Hypertension Uncle CVA (cerebral vascular accident) Social History adopted: No household members: family housing: house number of children: 3 current occupational status: employed and unemployed current occupation: [employer] current occupational exposures/hazards: No pets and animals: Yes history of recent travel: No sexually active: Yes Smoking Status: Former smoker second hand exposure: No alcohol intake: never details: not while substance use type: does not use well-balanced diet: rarely or never caffeine: Yes what type of physical activity do you participate in: none seatbelt use: always do you feel safe at home: Yes additional social history: - Dillan [facility] ADJUSTMENT Chief Complaint: low back and pelvic pain Visit Number: 6 Details: Kaley is a 34 y/o female 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 Pt. advises she is 37 weeks with her 5th child(girl). Pt. reports her last adjustment was helpful to relieve some of her pain but it has returned. She continues to c/o intense low back pelvis and groin pain. She states the low back pain extends into her glutes. She states her pelvic pain and pressure worsens when she sits down or stands up. She states the pain she is experiencing in her pelvis and bilateral groin is the worst. She rates her pain 9/10 but there are times when it is 10/10. She denies new injury, numbness, tingling or radiculopathy. She states she tries to lay on her left side but her hips go numb. She states she feels best when laying on her back. She has trouble transitioning from sitting to standing or rolling over in bed. She states chiropractic adjustments are helpful to relieve some of her pain temporarily. Onset: 04/01/24 Location: low back pelvis Duration: constant Aggravating or associated factors: standing, walking, sitting to standing, ADL.s Relieving factors: chiro Pain Quality: aching, dull and sharp Exam Musc General: Yes normal posture, muscle weakness, joint tenderness and decreased range of motion; No normal gait Thoracic/Lumber: No thoracic and lumbar spine normal to inspection (R post rotated pelvis), Yes paraspinal tenderness on the right greater than left (lumbopelvic), Yes thoraco-lumbar spasm on the right greater than left (glute med, psoas) and on the left greater than right (lumbar paraspinal) and Yes misalignment L3, L4, L5 and RIL Sacroiliac joints: on the right tender to palpation Sacrum: Yes tenderness and Yes misalignment (right) Yes Office Procedures Procedures - Chiropractic Procedures Manipulation: Lumbar L4 and Sacrum (right) Manipulation: 1-2 regions Patient Response: positive Assessment and Plan Assessment and Plan (1) Pelvic pain affecting : Status: Acute Qualifiers: Trimester: third trimester Qualified Code(s): O26.893 - Other specified related conditions, third trimester; R10.2 - Pelvic and perineal pain Comment: encouraged to wear loose fitting clothes, tamir pants (2) Segmental dysfunction of lumbar region: Status: Acute (3) Segmental and somatic dysfunction of sacral region: Status: Acute (4) Back pain: Status: Acute Qualifiers: Back pain location: low back pain Chronicity: acute Back pain laterality: right Sciatica presence: without sciatica Qualified Code(s): M54.50 - Low back pain, unspecified Comment: improving with 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 Orders: Orders Chiropractic Treatments 12/18/24 M99.03 - Segmental and somatic dysfunction of lumbar region, M99.04 - Segmental and somatic dysfunction of sacral region, O26.893 - Other specified related conditions, third trimester, R10.2 - Pelvic and perineal pain Plan Patient was treated without incident. Continue care as recommended. Plan Details Goals Barriers: Goals Decrease pain Decrease spasm Improve ROM Improve ability to perform ADLs Barriers Follow (more content not included)... [facility] Rule out Beta Strep (Grp. B) on 12-16-2024 BRENDON Group B Beta Streptococcus is not isolated. [facility] Comment on above: Performed By: #### M 100.8968 #### [facility] [place], [address] Laboratory - Chemistry and C hemistry - challengeOrdered By: Felicity Cortes on 12-13-2024 Glucose Ql (U) Negative [facility] - UrinalysisOrder ed By: Felicity Cortes on 12-13-2024 Protein Ql (U) [facility] Yarn Worker Office Visit Reporton 12-13-2024 Yarn Worker Office Visit Report [facility] [address], [address] [place] [address] OFFICE VISIT Date of Service: 12/13/24 MR#: [id number] Acct: [id number] Name: EDWARD ROSSKALEY Rep #: [id number] : 1990 Provider: Dr. Felicity Henry DO Age/Sex: 34/F Location: [facility] [place] Status: Signed Intake Vital Signs 05/30/24 11:34 12/03/24 10:27 12/13/24 09:44 12/13/24 09:46 Height 5 ft 3 in 5 ft 3 in 5 ft 3 in 5 ft 3 in Weight: 191 lb 4 oz 192 lb 2 oz BMI 33.8 34.0 BP 99/65 107/68 Intake Visit Reasons: [address] Service Required: No Is patient in pain?: No Allergies No Known Allergies Allergy (Verified 12/13/24 09:43) Medications ???Medication ???Instructions ???Recorded ???Confirmed ???Type docosahexaenoic acid 200 mg 200 mg PO DAILY Check with primary 02/08/22 12/13/24 History capsule ( DHA) doctor cyclobenzaprine 10 mg tablet 10 mg PO TID PRN muscle spasm #30 10/04/24 12/13/24 Rx tabs hydroxyzine pamoate 50 mg capsule 50 mg PO QHS #30 caps 11/05/24 Rx breast pump #1 ea 11/29/24 12/13/24 Rx Last Menstrual Period: 08/22/21 Zika: Zika virus screening: Negative : No PFSH PFSH Medical History Pelvic pain Adenomyosis of uterus (spontaneous vaginal delivery) Pelvic pain affecting Anemia Supervision of high-risk Family History Mother Hypertension Uncle CVA (cerebral vascular accident) Social History adopted: No household members: family housing: house number of children: 3 current occupational status: employed and unemployed current occupation: [employer] current occupational exposures/hazards: No pets and animals: Yes history of recent travel: No sexually active: Yes Smoking Status: Former smoker second hand exposure: No alcohol intake: never details: not while substance use type: does not use well-balanced diet: rarely or never caffeine: Yes what type of physical activity do you participate in: none seatbelt use: always do you feel safe at home: Yes additional social history: - Dillan History 6 Elective abortions Hx Para 4 Spontaneous abortions 1 Hx # Term Pregnancies Ectopic pregnancies Hx # Pregnancies Multiple births # of living children 4 Past Pregnancies Del. Date Name GA/Weeks Outcome Route Bth Weight Gen Labor Lgth Anesthesia Del Locatn Provider FOB 07/24/08 delivered 2009 son 1 week 40 live - full term 05/04/10 Jennifer 40 live - full term Female none Sarina Cross 02/21/21 Samoye 40 live - full term Female none CT Dillan 05/23/22 Rashida 40 live - full term 7lb6oz Male [facility] Mary ins Delivery Date: 05/04/10 Last Updated by: Sandhya Hart No issues during or delivery Delivery Date: 02/21/21 Last Updated by: Sandhya Hart No issues during or delivery. Per patient child had water in kidney Delivery Date: 05/23/22 Last Updated by: Zee Hernandez IOL HPI 36 WK OB Details: KALEY FRY is a 34 year old who presents for routine OB visit. OB Visit ELISSA Calculator Estimated Delivery Date Method Current WG Current Estimate 01/05/25 Ultrasound #1 36w 5d Expected Delivery Route/Plan Labor Preferences- CB/BF classes: no labor support person: Dillan labor intervention preferences: [] pain management options preferred: limited intervention/nitrous cut cord/dad catch: cord : yes PP control planned:pp tubal desired. discussed possible routes of delivery and associated risks: [] special requests: Ariadna at delivery Specific Issue/Plans Covid status: declines Flu vaccine: declines Tdap vaccine: declines Rhogam: na LARC form signed: yes Problem list reviewed and updated with the most current plan of care details and appropriate orders placed. Relevant counseling for the gestational age provided. Continue routine care and follow up unless otherwise noted in visit notes/problem list details Initial Weight: 178 lb Date -???-???-???-???-??? -???-???-???-???-??? -???-???- EGA Weight BP Urine Prot -???-???-???-???-??? -???-???-???-???-??? -???-???- Glucose FHR FuHt Pres Dilation -???-???-???-???-??? -???-???-???-???-??? -???-???- Effaced St Visit Note 05/30/24 -???-???-???-???-??? -???-???-???-???-??? -???-???- 8w 4d 178 lb (+0 oz) 98/64 -???-???-???-???-??? -???-???-???-???-??? -???-???- 175 -???-???-???-???-??? -???-???-???-???-??? -???-???- KW- CRL cons with PCC US per pt. Accepts NIPT (more content not included)... [facility] Screening beta-hemolytic Str eptococcus cultureOrdered By: Felicity Cortes on 12-13-2024 Beta-hemolytic Streptococcus culture Group B Beta Streptococcus is not isolated. [facility] Chiropractic Reporton 2024 Chiropractic Report [facility] Chiropractic [address] [id number] OFFICE VISIT Date of Service: 12/11/24 MR#: [id number] Acct: [id number] Name: KALEY FRY Rep #: [id number] : 1990 Provider: RUDDY Nava Age/Sex: 34/F Location: [facility] Status: Signed Intake Vital Signs 11/13/24 10:20 12/03/24 10:27 Height 5 ft 3 in 5 ft 3 in Weight: 191 lb 4 oz BMI 33.8 BP 99/65 Intake Visit Reasons: ADJUSTMENT Chief Complaint: low back, pelvic and groin pain Is patient in pain?: Yes (low back groin and pelvis) Pain scale (1-10): 9 Allergies No Known Allergies Allergy (Verified 12/11/24 10:36) Medications ???Medication ???Instructions ???Recorded ???Confirmed ???Type docosahexaenoic acid 200 mg 200 mg PO DAILY Check with primary 02/08/22 12/11/24 History capsule ( DHA) doctor cyclobenzaprine 10 mg tablet 10 mg PO TID PRN muscle spasm #30 10/04/24 12/11/24 Rx tabs hydroxyzine pamoate 50 mg capsule 50 mg PO QHS #30 caps 11/05/24 Rx breast pump #1 ea 11/29/24 12/11/24 Rx PFSH Medical History Pelvic pain Adenomyosis of uterus (spontaneous vaginal delivery) Pelvic pain affecting Anemia Supervision of high-risk Family History Mother Hypertension Uncle CVA (cerebral vascular accident) Social History adopted: No household members: family housing: house number of children: 3 current occupational status: employed and unemployed current occupation: [employer] current occupational exposures/hazards: No pets and animals: Yes history of recent travel: No sexually active: Yes Smoking Status: Former smoker second hand exposure: No alcohol intake: never details: not while substance use type: does not use well-balanced diet: rarely or never caffeine: Yes what type of physical activity do you participate in: none seatbelt use: always do you feel safe at home: Yes additional social history: - Dillan HPI ADJUSTMENT Chief Complaint: low back and pelvic pain Visit Number: 5 Details: Kaley is a 34 y/o female 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 Pt. advises she is 36 weeks with her 5th child(girl). Pt. reports her last adjustment was helpful to relieve some of her pain but it quickly returned. She continues to c/o low back pain especially on the right side extending into her right glute. She advises her pelvic pain and pressure worsens when she sits down or stands up. She states the pain she is experiencing in her pelvis and bilateral groin is the worst. She rates her pain 9/10 but there are times when it is 10/10. She denies new injury, numbness, tingling or radiculopathy. She states she tries to lay on her left side but her hips go numb. She states she feels best when laying on her back. She has trouble transitioning from sitting to standing or rolling over in bed. She states her baby is head down and her OB may induce her December 30. Onset: 04/01/24 Location: low back pelvis Duration: constant Aggravating or associated factors: standing, walking, sitting to standing, ADL.s Relieving factors: chiro Pain Quality: aching, dull and sharp Exam Musc General: Yes normal posture, muscle weakness, joint tenderness and decreased range of motion; No normal gait Thoracic/Lumber: No thoracic and lumbar spine normal to inspection (R post rotated pelvis), Yes paraspinal tenderness on the right greater than left (lumbopelvic), Yes thoraco-lumbar spasm on the right greater than left (glute med, psoas) and on the left greater than right (lumbar paraspinal) and Yes misalignment L3, L4, L5 and RIL Sacroiliac joints: on the right tender to palpation Sacrum: Yes tenderness and Yes misalignment (right) Yes Office Procedures Procedures - Chiropractic Procedures Manipulation: Lumbar L4 and Sacrum (right) Manipulation: 1-2 regions Patient Response: positive Assessment and Plan Assessment and Plan (1) Segmental dysfunction of lumbar region: Status: Acute (2) Segmental and somatic dysfunction of sacral region: Status: Acute (3) Back pain: Status: Acute Qualifiers: Back pain location: low back pain Chronicity: acute Back pain laterality: right Sciatica presence: without sciatica Qualified Code(s): M54.50 - Low back pain, unspecified Comment: improving with 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 Orders: Orders Chiropractic Treatments Today M99.03 - Segmental and somatic dysfunction of lumbar region, M99.04 - Segmental and somatic dysfunction of sacral region Plan Patient was treated without incident. Continue care. Plan Details Goals Barriers: (more content not included)... [facility] Chiropractic Reporton 2024 Chiropractic Report [facility] [address] [place] [address] OFFICE VISIT Date of Service: 12/04/24 MR#: [id number] Acct: [id number] Name: KALEY FRY Rep #: [id number] : 1990 Provider: RUDDY Nava Age/Sex: 34/F Location: [facility] Status: Signed Intake Vital Signs 11/13/24 10:20 12/03/24 10:27 Height 5 ft 3 in 5 ft 3 in Weight: 191 lb 4 oz BMI 33.8 BP 99/65 Intake Visit Reasons: ADJUSTMENT Chief Complaint: low back, pelvic and groin pain Is patient in pain?: Yes (low back, pelvis, groin) Pain scale (1-10): 9 Allergies No Known Allergies Allergy (Verified 12/04/24 11:11) Medications ???Medication ???Instructions ???Recorded ???Confirmed ???Type docosahexaenoic acid 200 mg 200 mg PO DAILY Check with primary 02/08/22 12/04/24 History capsule ( DHA) doctor cyclobenzaprine 10 mg tablet 10 mg PO TID PRN muscle spasm #30 10/04/24 12/04/24 Rx tabs hydroxyzine pamoate 50 mg capsule 50 mg PO QHS #30 caps 11/05/24 Rx breast pump #1 ea 11/29/24 12/04/24 Rx PFSH Medical History Pelvic pain Adenomyosis of uterus (spontaneous vaginal delivery) Pelvic pain affecting Anemia Supervision of high-risk Family History Mother Hypertension Uncle CVA (cerebral vascular accident) Social History adopted: No household members: family housing: house number of children: 3 current occupational status: employed and unemployed current occupation: [employer] current occupational exposures/hazards: No pets and animals: Yes history of recent travel: No sexually active: Yes Smoking Status: Former smoker second hand exposure: No alcohol intake: never details: not while substance use type: does not use well-balanced diet: rarely or never caffeine: Yes what type of physical activity do you participate in: none seatbelt use: always do you feel safe at home: Yes additional social history: - Dillan [facility] ADJUSTMENT Chief Complaint: low back and pelvic pain Visit Number: 4 Details: Kaley is a 34 y/o female 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 Pt. advises she is 35 weeks with her 5th child(girl). Pt. reports her last adjustment gave her relief for a day but it quickly returned. She reports an increase in her pelvic pain and pressure, this is especially painful when she sits down or stands up. She also complains of right low back pain. She states the pain she is experiencing in her pelvis and groin is the worst. She rates her pain 9/10 but there are times when it is 10/10. She states she tries to lay on her left side but her hips go numb. She states her pain increases with any movement, but she feels best when laying on her back. She has trouble transitioning from sitting to standing or rolling over in bed. She states her baby is head down and her OB may induce her December 30. She denies new injury, numbness, tingling or radiculopathy. Onset: 04/01/24 Location: low back pelvis Duration: constant Aggravating or associated factors: standing, walking, sitting to standing, ADL.s Relieving factors: chiro Pain Quality: aching, dull and sharp Exam Musc General: Yes normal posture, muscle weakness, joint tenderness and decreased range of motion; No normal gait Thoracic/Lumber: No thoracic and lumbar spine normal to inspection (R post rotated pelvis), Yes paraspinal tenderness on the right greater than left (lumbopelvic), Yes thoraco-lumbar spasm on the right greater than left (glute med, psoas) and on the left greater than right (lumbar paraspinal) and Yes misalignment L3, L4, L5 and RIL Sacroiliac joints: on the right tender to palpation Sacrum: Yes tenderness and Yes misalignment (right) Yes Office Procedures Procedures - Chiropractic Procedures Manipulation: Lumbar L4 and Sacrum (right) Manipulation: 1-2 regions Patient Response: positive Assessment and Plan Assessment and Plan (1) Segmental dysfunction of lumbar region: Status: Acute (2) Segmental and somatic dysfunction of sacral region: Status: Acute (3) Back pain: Status: Acute Qualifiers: Back pain location: low back pain Chronicity: acute Back pain laterality: right Sciatica presence: without sciatica Qualified Code(s): M54.50 - Low back pain, unspecified Comment: improving with 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 Orders: Orders Chiropractic Treatments 12/04/24 M99.03 - Segmental and somatic dysfunction of lumbar region, M99.04 - Segmental and somatic dysfunction of sacral region Plan Patient was treated without incident. Continue care. Plan Details Goals Barriers: (more content not included)... [facility] Absolute lymphocyte countOrd ered By: Ariadna San on 12-03-2024 Lymphocytes Auto (Unsp spec) [#/Vol] 2.68 10*3/uL 0.83-4.51 [facility] Absolute neutrophil countOrd ered By: Ariadna San on 12-03-2024 Neutrophils (Bld) [#/Vol] 5.6 10*3/uL 2.0-7.7 [facility] Automated lymphocyte count a s percentage of total leukocytesOrdered By: Ariadna San on 12-03-2024 Lymphocytes/100 WBC Auto (Unsp spec) 28.4 % 19-41 [facility] Basophil percentageOrdered B y: Ariadna San on 12-03-2024 Basophils/100 WBC (Bld) 0.3 % 0-1 [facility] CBC W/Diff, Automatedon 11-21 Absolute Lymph 2.68 X10 3/uL Normal 0.83-4.51 [facility] Comment on above: Performed By: #### L 100.0100 ####[facility] [address] [place], [address] Absolute Neut 5.6 X10 3/uL Normal 2.0-7.7 [facility] Comment on above: Performed By: #### L 100.0100 ####[facility] [address] [place], [address] Basophils/100 WBC (Bld) 0.3 % Normal 0-1 [facility] Comment on above: Performed By: #### L 100.0100 ####[facility] [address] [place], [address] Eosinophils/100 WBC (Bld) 2.2 % Normal 0-5 [facility] Comment on above: Performed By: #### L 100.0100 ####[facility] [address] [place], [address] Erythrocyte distribution width (RBC) [Ratio] 13.5 % Normal 11.6-14.6 [facility] Comment on above: Performed By: #### L 100.0100 ####[facility] [address] [place], [address] Hematocrit (Bld) [Volume fraction] 29.8 % Low 37-47 [facility] Comment on above: Performed By: #### L 100.0100 ####[facility] [address] [place], [address] Hemoglobin (Bld) [Mass/Vol] 9.5 g/dL Low 12.0-15.0 [facility] Comment on above: Performed By: #### L 100.0100 ####[facility] [address] [place], [address] IG% 1.100 High 0.0-0.9 [facility] Comment on above: Result Comment: IG% - Immature Granulocytes (promyelocytes, myelocytes and metamyelocytes) > 1% indicates that a LEFT SHIFT is Present. Performed By: #### L 100.0100 ####[facility] [address] [place], [address] Lymphocytes/100 WBC (Bld) 28.4 % Normal 19-41 [facility] Comment on above: Performed By: #### L 100.0100 ####[facility] [address] [place], [address] MCH (RBC) [Entitic mass] 26.9 pg Low 27.0-32.0 [facility] Comment on above: Performed By: #### L 100.0100 ####[facility] [address] [place], [address] MCHC (RBC) [Mass/Vol] 31.9 g/dL Low 32-36 [facility] Comment on above: Performed By: #### L 100.0100 ####[facility] [address] [place], [address] MCV (RBC) [Entitic vol] 84.4 fL Normal 81-99 [facility] Comment on above: Performed By: #### L 100.0100 ####[facility] [address] [place], [address] Monocytes/100 WBC (Bld) 9.0 % Normal 0-10 [facility] Comment on above: Performed By: #### L 100.0100 ####[facility] [address] [place], [address] Neutrophils/100 WBC (Bld) 59.0 % Normal 47-70 [facility] Comment on above: Performed By: #### L 100.0100 ####[facility] [address] [place], [address] Nucleated RBC (Bld) [#/Vol] 0 10*3/uL Normal 0-5 [facility] Comment on above: Performed By: #### L 100.0100 ####[facility] [address] [place], [address] Platelet mean volume (Bld) [Entitic vol] 10.2 fL Normal 6.2-12.0 [facility] Comment on above: Performed By: #### L 100.0100 ####[facility] [address] [place], [address] Platelets (Bld) [#/Vol] 287 10*3/uL Normal 150-450 [facility] Comment on above: Performed By: #### L 100.0100 ####[facility] [address] [place], [address] RBC (Bld) [#/Vol] 3.53 10*6/uL Low 4.2-5.4 [facility] Comment on above: Performed By: #### L 100.0100 ####[facility] [address] [place], [address] RDW SD 41.9 fl Normal 35.1-43.9 [facility] Comment on above: Performed By: #### L 100.0100 ####[facility] [address] [place], [address] WBC (Bld) [#/Vol] 9.5 10*3/uL Normal 4.4-11.0 [facility] Comment on above: Performed By: #### L 100.0100 ####[facility] [address] [place], [address] Eosinophil percentageOrdered By: Ariadna San on 12-03-2024 Eosinophils/100 WBC (Bld) 2.2 % 0-5 [facility] Erythrocyte distribution wid th ratioOrdered By: Ariadna San on 12-03-2024 Erythrocyte distribution width (RBC) [Ratio] 13.5 % 11.6-14.6 [facility] Erythrocyte distribution wid th standard deviationOrdered By: Ariadna San on 12-03-2024 Erythrocyte distribution width (RBC) [Ratio] 41.9 fl 35.1-43.9 [facility] Hematocrit Auto (Bld) [Volum e fraction]Ordered By: Ariadna San on 12-03-2024 Hematocrit (Bld) [Volume fraction] 29.8 % Low 37-47 [facility] Hemoglobin measurementOrdere d By: Ariadna San on 12-03-2024 Hemoglobin (Bld) [Mass/Vol] 9.5 g/dL Low 12.0-15.0 [facility] Immature granulocytes/100 WB C Auto (Bld)Ordered By: Ariadna San on 12-03-2024 Immature granulocytes/100 WBC (Bld) 1.100 % High 0.0-0.9 [facility] Comment on above: IG% - Immature Granu locytes (promyelocytes, myelocytes and metamyelocytes) > 1% indicates that a LEFT SHIFT is Present. Laboratory - Chemistry and C hemistry - challengeOrdered By: Ariadna San on 12-03-2024 Glucose Ql (U) Negative [facility] Laboratory - UrinalysisOrder ed By: Ariadna San on 12-03-2024 Protein Ql (U) Negative [facility] MCV (mean corpuscular volume ) determinationOrdered By: Ariadna San on 12-03-2024 MCV (RBC) [Entitic vol] 84.4 fL 81-99 [facility] Mean corpuscular hemoglobin (MCH) determinationOrdered By: Ariadna San on 12-03-2024 MCH (RBC) [Entitic mass] 26.9 pg Low 27.0-32.0 [facility] Mean corpuscular hemoglobin concentration (MCHC) determinationOrdered By: Ariadna San on 12-03-2024 MCHC (RBC) [Mass/Vol] 31.9 g/dL Low 32-36 [facility] Mean platelet volume determi nationOrdered By: Ariadna San on 12-03-2024 Platelet mean volume (Bld) [Entitic vol] 10.2 fL 6.2-12.0 [facility] Monocyte percentageOrdered B y: Ariadnadaisy San on 12-03-2024 Monocytes/100 WBC (Bld) 9.0 % 0-10 [facility] Neutrophil percentageOrdered By: Ariadna Jaswinder on 12-03-2024 Neutrophils/100 WBC (Bld) 59.0 % 47-70 [facility] Nucleated red blood cell per centageOrdered By: Ariadna San on 12-03-2024 Nucleated RBC/100 WBC (Bld) [Ratio] 0 % 0-5 [facility] Yarn Worker Office Visit Reporton 12-03-2024 Yarn Worker Office Visit Report [facility] [address], [address] [place] [address] OFFICE VISIT Date of Service: 12/03/24 MR#: [id number] Acct: [id number] Name: KALEY FRY Rep #: [id number] : 1990 Provider: ARNOLD aviles Age/Sex: 34/F Location: [facility] Status: Signed Intake Vital Signs 05/30/24 11:34 11/15/24 11:20 12/03/24 10:27 Height 5 ft 3 in 5 ft 3 in 5 ft 3 in Weight: 187 lb 6 oz 191 lb 4 oz BMI 33.2 33.8 BP 101/61 99/65 Intake Visit Reasons: [address] Service Required: No Is patient in pain?: No Allergies No Known Allergies Allergy (Verified 12/03/24 10:26) Medications ???Medication ???Instructions ???Recorded ???Confirmed ???Type docosahexaenoic acid 200 mg 200 mg PO DAILY Check with primary 02/08/22 12/03/24 History capsule ( DHA) doctor cyclobenzaprine 10 mg tablet 10 mg PO TID PRN muscle spasm #30 10/04/24 12/03/24 Rx tabs hydroxyzine pamoate 50 mg capsule 50 mg PO QHS #30 caps 11/05/24 Rx breast pump #1 ea 11/29/24 12/03/24 Rx Last Menstrual Period: 08/22/21 Zika: Zika virus screening: Negative : No Have you fallen in the past year?: No PFSH PFSH Medical History Pelvic pain Adenomyosis of uterus (spontaneous vaginal delivery) Pelvic pain affecting Anemia Supervision of high-risk Family History Mother Hypertension Uncle CVA (cerebral vascular accident) Social History adopted: No household members: family housing: house number of children: 3 current occupational status: employed and unemployed current occupation: [employer] current occupational exposures/hazards: No pets and animals: Yes history of recent travel: No sexually active: Yes Smoking Status: Former smoker second hand exposure: No alcohol intake: never details: not while substance use type: does not use well-balanced diet: rarely or never caffeine: Yes what type of physical activity do you participate in: none seatbelt use: always do you feel safe at home: Yes additional social history: - Dillan History 6 Elective abortions Hx Para 4 Spontaneous abortions 1 Hx # Term Pregnancies Ectopic pregnancies Hx # Pregnancies Multiple births # of living children 4 Past Pregnancies Del. Date Name GA/Weeks Outcome Route Bth Weight Infant Gen Labor Lgth Anesthesia Del Locatn Provider ROSA 07/24/08 delivered 2009 son 1 week 40 live - full term 05/04/10 Jennifer 40 live - full term Female none Sarina Tay 02/21/21 Samoye 40 live - full term Female none CT Dillan 05/23/22 Rashida 40 live - full term 7lb6oz Male [facility] Mary ins Delivery Date: 05/04/10 Last Updated by: Sandhya Hart No issues during or delivery Delivery Date: 02/21/21 Last Updated by: Sandhya Hart No issues during or delivery. Per patient child had water in kidney Delivery Date: 05/23/22 Last Updated by: Zee Hernandez IOL HPI 34 WK OB Details: KALEY FRY is a 34 year old who presents for routine OB visit. OB Visit ELISSA Calculator Estimated Delivery Date Method Current WG Current Estimate 01/05/25 Ultrasound #1 35w 2d Expected Delivery Route/Plan Labor Preferences- CB/BF classes: no labor support person: Dillan labor intervention preferences: [] pain management options preferred: limited intervention/nitrous cut cord/dad catch: cord : yes PP control planned:pp tubal desired. discussed possible routes of delivery and associated risks: [] special requests: Ariadna at delivery Specific Issue/Plans Covid status: declines Flu vaccine: declines Tdap vaccine: declines Rhogam: na LARC form signed: yes Problem list reviewed and updated with the most current plan of care details and appropriate orders placed. Relevant counseling for the gestational age provided. Continue routine care and follow up unless otherwise noted in visit notes/problem list details Initial Weight: 178 lb Date -???-???-???-???-??? -???-???-???-???-??? -???-???- EGA Weight BP Urine Prot -???-???-???-???-??? -???-???-???-???-??? -???-???- Glucose FHR FuHt Pres Dilation -???-???-???-???-??? -???-???-???-???-??? -???-???- Effaced St Visit Note 05/30/24 -???-???-???-???-??? -???-???-???-???-??? -???-???- 8w 4d 178 lb (+0 oz) 98/64 -???-???-???-???-??? -???-???-???-???-??? -???-???- 175 -???-???-???-???-??? -???-???-???-???-??? -???-???- KW- CRL cons with PCC US per pt. Accepts NIPT. 12 (more content not included)... [facility] Platelet countOrdered By: Homa San on 12-03-2024 Platelets (Bld) [#/Vol] 287 10*3/uL 150-450 [facility] RBC Auto (Bld) [#/Vol]Ordere d By: Ariadna San on 12-03-2024 RBC (Bld) [#/Vol] 3.53 10*6/uL Low 4.2-5.4 [facility] White blood cell (WBC) count Ordered By: Ariadna San on 12-03-2024 WBC (Bld) [#/Vol] 9.5 10*3/uL 4.4-11.0 [facility] Chiropractic Reporton 2024 Chiropractic Report [facility] [address] [place] [id number] OFFICE VISIT Date of Service: 11/27/24 MR#: [id number] Acct: [id number] Name: KALEY FRY Rep #: [id number] : 1990 Provider: RUDDY Nava Age/Sex: 34/F Location: [facility] Status: Signed Intake Vital Signs 11/13/24 10:20 11/15/24 11:20 Height 5 ft 3 in 5 ft 3 in Weight: 188 lb 9 oz 187 lb 6 oz BMI 33.4 33.2 BP 114/64 101/61 Intake Visit Reasons: ADJUSTMENT Chief Complaint: low back, pelvic pain Is patient in pain?: Yes (LBP, pelvis) Pain scale (1-10): 8 Allergies No Known Allergies Allergy (Verified 11/27/24 10:39) Medications ???Medication ???Instructions ???Recorded ???Confirmed ???Type docosahexaenoic acid 200 mg 200 mg PO DAILY Check with primary 02/08/22 11/27/24 History capsule ( DHA) doctor cyclobenzaprine 10 mg tablet 10 mg PO TID PRN muscle spasm #30 10/04/24 11/27/24 Rx tabs hydroxyzine pamoate 50 mg capsule 50 mg PO QHS #30 caps 11/05/24 Rx PFSH Medical History Pelvic pain Adenomyosis of uterus (spontaneous vaginal delivery) Pelvic pain affecting Anemia Supervision of high-risk Family History Mother Hypertension Uncle CVA (cerebral vascular accident) Social History adopted: No household members: family housing: house number of children: 3 current occupational status: employed and unemployed current occupation: [employer] current occupational exposures/hazards: No pets and animals: Yes history of recent travel: No sexually active: Yes Smoking Status: Former smoker second hand exposure: No alcohol intake: never details: not while substance use type: does not use well-balanced diet: rarely or never caffeine: Yes what type of physical activity do you participate in: none seatbelt use: always do you feel safe at home: Yes additional social history: - Dillan [facility] ADJUSTMENT Chief Complaint: low back and pelvic pain Visit Number: 3 Details: Kaley is a 34 y/o female 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 Pt. advises she is 34 weeks with her 5th child(girl). Pt. reports she did get relief after her adjustment but it only last a day. She reports an increase in her pelvic pain and pressure, this is especially painful when she sits down or stands up. She also complains of low back pain and pressure which is equal bilaterally. She states the pain she is experiencing in her pelvis and groin is the worst. She rates her pain 8/10 but there are times when it is 10/10. She states she tries to lay on her left side but her hips go numb. She states her pain increases with any movement, but she feels best when laying on her back. She has trouble transitioning from sitting to standing or rolling over in bed. She states all her deliveries were natural, no C-sections. She denies new injury, numbness, tingling or other associated symptoms. Onset: 04/01/24 Location: low back pelvis Duration: constant Aggravating or associated factors: standing, walking, sitting to standing, ADL.s Relieving factors: chiro Pain Quality: aching, dull and sharp Exam Musc General: Yes normal posture, muscle weakness, joint tenderness and decreased range of motion; No normal gait Thoracic/Lumber: No thoracic and lumbar spine normal to inspection (R post rotated pelvis), Yes paraspinal tenderness on the right greater than left (lumbopelvic), Yes thoraco-lumbar spasm on the right greater than left (glute med, psoas) and on the left greater than right (lumbar paraspinal) and Yes misalignment L3, L4, L5 and RIL Sacroiliac joints: on the right tender to palpation Sacrum: Yes tenderness and Yes misalignment (right) Yes Office Procedures Procedures - Chiropractic Procedures Manipulation: Lumbar L4 and Sacrum (Right) Manipulation: 1-2 regions Patient Response: positive Assessment and Plan Assessment and Plan (1) : Status: Acute Qualifiers: Weeks of gestation: 32 weeks Qualified Code(s): Z3A.32 - 32 weeks gestation of Comment: elects NIPT with gender, nl anatomy (2) Segmental dysfunction of lumbar region: Status: Acute (3) Segmental and somatic dysfunction of sacral region: Status: Acute (4) Back pain: Status: Acute Qualifiers: Back pain laterality: right Back pain location: low back pain Chronicity: acute Sciatica presence: without sciatica Qualified Code(s): M54.50 - Low back pain, unspecified Orders: Orders Chiropractic Treatments 11/27/24 M54.50 - Low back pain, unspecified, M99.03 - Segmental and somatic dysfunction of lumba (more content not included)... [facility] Chiropractic Reporton 2024 Chiropractic Report [facility] [address] [place] [address] OFFICE VISIT Date of Service: 11/20/24 MR#: [id number] Acct: [id number] Name: KALEY FRY Rep #: [id number] : 1990 Provider: RUDDY Nava Age/Sex: 34/F Location: [facility] [place] Status: Signed Intake Vital Signs 11/13/24 10:20 11/15/24 11:20 Height 5 ft 3 in 5 ft 3 in Weight: 188 lb 9 oz 187 lb 6 oz BMI 33.4 33.2 BP 114/64 101/61 Intake Visit Reasons: ADJUSTMENT Chief Complaint: low back, pelvic pain Is patient in pain?: Yes (low back, pelvis) Pain scale (1-10): 6 Allergies No Known Allergies Allergy (Verified 11/20/24 10:12) Medications ???Medication ???Instructions ???Recorded ???Confirmed ???Type docosahexaenoic acid 200 mg 200 mg PO DAILY Check with primary 02/08/22 11/20/24 History capsule ( DHA) doctor cyclobenzaprine 10 mg tablet 10 mg PO TID PRN muscle spasm #30 10/04/24 11/20/24 Rx tabs hydroxyzine pamoate 50 mg capsule 50 mg PO QHS #30 caps 11/05/24 Rx PFSH Medical History Pelvic pain Adenomyosis of uterus (spontaneous vaginal delivery) Pelvic pain affecting Anemia Supervision of high-risk Family History Mother Hypertension Uncle CVA (cerebral vascular accident) Social History adopted: No household members: family housing: house number of children: 3 current occupational status: employed and unemployed current occupation: [employer] current occupational exposures/hazards: No pets and animals: Yes history of recent travel: No sexually active: Yes Smoking Status: Former smoker second hand exposure: No alcohol intake: never details: not while substance use type: does not use well-balanced diet: rarely or never caffeine: Yes what type of physical activity do you participate in: none seatbelt use: always do you feel safe at home: Yes additional social history: - Dillan [facility] ADJUSTMENT Chief Complaint: low back and pelvic pain Visit Number: 2 Details: Kaley is a 34 y/o female 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 Pt. advises she is 33 weeks with her 5th child(girl). Pt. reports relief for a few hours after her last adjustment and her pain returned. She states she continues to experience low back, pelvic and bilateral groin pain. She states her low back is sore and achy but her groin/pelvic pain is the worst. She rates her pain 6/10 and is equal bilaterally. She states she tries to lay on her left side but her hips go numb. She states her pain increases with any movement, but she feels best when laying on her back. She has trouble transitioning from sitting to standing or rolling over in bed. She states all her deliveries were natural, no C-sections. She denies new injury, numbness, tingling or other associated symptoms. Onset: 04/01/24 Location: low back pelvis Duration: constant Aggravating or associated factors: standing, walking, sitting to standing, ADL.s Relieving factors: chiro Pain Quality: aching, dull and sharp Exam Musc General: Yes normal posture, muscle weakness, joint tenderness and decreased range of motion; No normal gait Thoracic/Lumber: No thoracic and lumbar spine normal to inspection (R post rotated pelvis), Yes paraspinal tenderness on the right greater than left (lumbopelvic), Yes thoraco-lumbar spasm on the right greater than left (glute med, psoas) and on the left greater than right (lumbar paraspinal) and Yes misalignment L3, L4, L5 and RIL Sacroiliac joints: on the right tender to palpation Sacrum: Yes tenderness and Yes misalignment (right) Yes Office Procedures Procedures - Chiropractic Procedures Manipulation: Lumbar L4 and Sacrum (right) Manipulation: 1-2 regions Patient Response: positive Assessment and Plan Assessment and Plan (1) Segmental dysfunction of lumbar region: Status: Acute (2) Segmental and somatic dysfunction of sacral region: Status: Acute (3) Back pain: Status: Acute Qualifiers: Back pain location: low back pain Chronicity: acute Back pain laterality: right Sciatica presence: without sciatica Qualified Code(s): M54.50 - Low back pain, unspecified (4) : Status: Acute Qualifiers: Weeks of gestation: 32 weeks Qualified Code(s): Z3A.32 - 32 weeks gestation of Comment: elects NIPT with gender, nl anatomy Orders: Orders Chiropractic Treatments 11/20/24 M99.03 - Segmental and somatic dysfunction of lumbar region Plan Patient was treated without incident and improves shortly after visit. Discussed patient wearing tight jeans and suggested she (more content not included)... Normal [facility] - Chemistry and C hemistry - challengeOrdered By: Ariadna San on 11-15-2024 Glucose Ql (U) Negative [facility] - UrinalysisOrder ed By: Ariadna San on 11-15-2024 Protein Ql (U) Negative [facility] Yarn Worker Office Visit Reporton 11-15-2024 Yarn Worker Office Visit Report [facility] [address], [address] [place] [address] OFFICE VISIT Date of Service: 11/15/24 MR#: [id number] Acct: [id number] Name: KALEY FRY Rep #: [id number] : 1990 Provider: ARNOLD aviles Age/Sex: 34/F Location: [facility] [place] Status: Signed Intake Vital Signs 05/30/24 11:34 11/13/24 10:20 11/15/24 11:20 Height 5 ft 3 in 5 ft 3 in 5 ft 3 in Weight: 187 lb 6 oz BMI 33.2 BP 101/61 Intake Visit Reasons: [address] Service Required: No Is patient in pain?: No Allergies No Known Allergies Allergy (Verified 11/15/24 11:18) Medications ???Medication ???Instructions ???Recorded ???Confirmed ???Type docosahexaenoic acid 200 mg 200 mg PO DAILY Check with primary 02/08/22 11/15/24 History capsule ( DHA) doctor cyclobenzaprine 10 mg tablet 10 mg PO TID PRN muscle spasm #30 10/04/24 11/15/24 Rx tabs hydroxyzine pamoate 50 mg capsule 50 mg PO QHS #30 caps 11/05/24 Rx Last Menstrual Period: 08/22/21 Zika: Zika virus screening: Negative : No Have you fallen in the past year?: No PFSH PFSH Medical History Pelvic pain Adenomyosis of uterus (spontaneous vaginal delivery) Pelvic pain affecting Anemia Supervision of high-risk Family History Mother Hypertension Uncle CVA (cerebral vascular accident) Social History adopted: No household members: family housing: house number of children: 3 current occupational status: employed and unemployed current occupation: [employer] current occupational exposures/hazards: No pets and animals: Yes history of recent travel: No sexually active: Yes Smoking Status: Former smoker second hand exposure: No alcohol intake: never details: not while substance use type: does not use well-balanced diet: rarely or never caffeine: Yes what type of physical activity do you participate in: none seatbelt use: always do you feel safe at home: Yes additional social history: - Dillan History 6 Elective abortions Hx Para 4 Spontaneous abortions 1 Hx # Term Pregnancies Ectopic pregnancies Hx # Pregnancies Multiple births # of living children 4 Past Pregnancies Del. Date Name GA/Weeks Outcome Route Bth Weight Gen Labor Lgth Anesthesia Del Locatn Provider FOEnzo 07/24/08 delivered 2009 son 1 week 40 live - full term 05/04/10 Jennifer 40 live - full term Female none Sarina Cross 02/21/21 Gareth 40 live - full term Female none CT Dillan 05/23/22 Rashida 40 live - full term 7lb6oz Male [facility] Mary ins Delivery Date: 05/04/10 Last Updated by: Sandhya Hart No issues during or delivery Delivery Date: 02/21/21 Last Updated by: Sandhya Hart No issues during or delivery. Per patient child had water in kidney Delivery Date: 05/23/22 Last Updated by: Zee Hernandez IOL HPI 32 WK OB Details: KALEY FRY is a 34 year old who presents for routine OB visit. OB Visit ELISSA Calculator Estimated Delivery Date Method Current Current Estimate 01/05/25 Ultrasound #1 32w 5d Expected Delivery Route/Plan Labor Preferences- CB/BF classes: no labor support person: Dillan labor intervention preferences: [] pain management options preferred: limited intervention/nitrous cut cord/dad catch: cord : yes PP control planned:pp tubal desired. discussed possible routes of delivery and associated risks: [] special requests: [] Specific Issue/Plans Covid status: declines Flu vaccine: declines Tdap vaccine: declines Rhogam: na LARC form signed: yes Problem list reviewed and updated with the most current plan of care details and appropriate orders placed. Relevant counseling for the gestational age provided. Continue routine care and follow up unless otherwise noted in visit notes/problem list details Initial Weight: 178 lb Date -???-???-???-???-??? -???-???-???-???-??? -???-???- EGA Weight BP Urine Prot -???-???-???-???-??? -???-???-???-???-??? -???-???- Glucose FHR FuHt Pres Dilation -???-???-???-???-??? -???-???-???-???-??? -???-???- Effaced St Visit Note 05/30/24 -???-???-???-???-??? -???-???-???-???-??? -???-???- 8w 4d 178 lb (+0 oz) 98/64 -???-???-???-???-??? -???-???-???-???-??? -???-???- 175 -???-???-???-???-??? -???-???-???-???-??? -???-???- KW- CRL cons with PCC US per pt. Accepts NIPT. 06/28/24 -???-???-???-???-??? -???-???-???-???-??? -???-???- 12w 5d 175 lb 6 oz ( (more content not included)... [facility] Chiropractic Reporton 2024 Chiropractic Report [facility] [address] [place] [address] OFFICE VISIT Date of Service: 11/13/24 MR#: [id number] Acct: [id number] Name: KALEY FRY Rep #: [id number] : 1990 Provider: RUDDY Nava Age/Sex: 34/F Location: [facility] [place] Status: Signed Intake Vital Signs 10/04/24 10:19 11/05/24 09:41 11/13/24 10:20 Height 5 ft 3 in 5 ft 3 in 5 ft 3 in Weight: 187 lb 4 oz 188 lb 9 oz BMI 33.1 33.4 BP 84/46 L 114/64 Intake Visit Reasons: EST CARE/ Allergies No Known Allergies Allergy (Verified 11/05/24 09:41) PFSH Medical History Pelvic pain Adenomyosis of uterus (spontaneous vaginal delivery) Pelvic pain affecting Anemia Supervision of high-risk Family History Mother Hypertension Uncle CVA (cerebral vascular accident) Social History adopted: No household members: family housing: house number of children: 3 current occupational status: employed and unemployed current occupation: [employer] current occupational exposures/hazards: No pets and animals: Yes history of recent travel: No sexually active: Yes Smoking Status: Former smoker second hand exposure: No alcohol intake: never details: not while substance use type: does not use well-balanced diet: rarely or never caffeine: Yes what type of physical activity do you participate in: none seatbelt use: always do you feel safe at home: Yes additional social history: - Dillan HPI EST CARE/ Chief Complaint: low back, pelvis and groin pain Visit Number: 1 Details: Kaley is a 34 y/o female here to establish for 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 Pt. advises she is 32 weeks with her 5th child(girl). She states she experienced low back pain with her 2020 but not as bad as this. She states she has had low back back for this entire but it has been worsening as the baby is growing. She states her low back is sore and achy but her groin/pelvic pain is a deep severe, sharp pains with audible cracking at times. She rates her pain 9/10 and is equal bilaterally. She states she tries to lay on her left side but her hips go numb. She states her pain increases with any movement, but she feels best when laying on her back. She has trouble transitioning from sitting to standing or rolling over in bed. She states all her deliveries were natural, no C-sections. Denies numbness, tingling or other associated symptoms. She also denies previous back injury or surgeries. Onset: 05/27/24 Location: Low back Duration: constant Aggravating or associated factors: walking, standing,ADLs Relieving factors: none Pain Quality: aching, dull and sharp Current Sensation: locking/clicking Exam Musc General: Yes normal posture, muscle weakness, joint tenderness and decreased range of motion; No normal gait Thoracic/Lumber: No thoracic and lumbar spine normal to inspection (R post rotated pelvis), Yes Lasegue's sign positive on the right, Yes pain with thoraco-lumbar ROM with forward flexion, with lateral flexion to the right, with lateral flexion to the left, with rotation to the right and with rotation to the left, Yes paraspinal tenderness on the right greater than left (lumbopelvic), Yes thoraco-lumbar ROM limited with forward flexion, with lateral flexion to the right, with lateral flexion to the left, with rotation to the right and with rotation to the left, Yes thoraco-lumbar spasm on the right greater than left (glute med, psoas) and on the left greater than right (lumbar paraspinal) and Yes misalignment L3, L4, L5 and RIL Sacroiliac joints: on the right tender to palpation Sacrum: Yes tenderness and Yes misalignment (right) Yes Neuro General: patient alert, patient awake, patient oriented x3, abnormal to light touch, pain or propio., focal motor deficits present and deep tendon reflexes 2+ bilaterally Cranial Nerves: CN's II-XI intact bilaterally Cognition: normal cognition Speech: speech normal Gait: wide-based Motor: strength abnormal (lumbar extensors) right distal lower extremity Sensory Exam: no sensory deficits noted Ortho Test CERVICAL THORACIC Alford: Negative LUMBAR Kemps: Positive and Right Valsalvas: Negative SLR: Positive and Right Braggards: Negative Iliac Compression: Positive and Right Office Procedures Procedures - Chiropractic Procedures Manipulation: Lumbar L3 and Sacrum (right) Manipulation: 1-2 regions Patient Response: positive Assessment and Plan Assessment and Plan (1) Segmental dysfunction of lumbar region: Status: Acute (2) Segmental and somatic dysfunction of sacral taj (more content not included)... Normal [facility] - Chemistry and C hemistry - challengeOrdered By: Felicity Cortes on 11-05-2024 Glucose Ql (U) Negative [facility] - UrinalysisOrder ed By: Felicity Cortes on 11-05-2024 Protein Ql (U) Negative [facility] Yarn Worker Office Visit Reporton 11-05-2024 Yarn Worker Office Visit Report [facility] [address], [address] [place] [address] OFFICE VISIT Date of Service: 11/05/24 MR#: [id number] Acct: [id number] Name: EDWARD ROSSKALEY Francine Rep #: [id number] : 1990 Provider: Dr. Felicity Henry DO Age/Sex: 34/F Location: [facility] [place] Status: Signed Intake Vital Signs 05/30/24 11:34 10/18/24 10:51 11/05/24 09:41 Height 5 ft 3 in 5 ft 3 in 5 ft 3 in Weight: 187 lb 4 oz BMI 33.1 BP 84/46 L Intake Visit Reasons: [address] Service Required: No Is patient in pain?: No Allergies No Known Allergies Allergy (Verified 11/05/24 09:41) Medications ???Medication ???Instructions ???Recorded ???Confirmed ???Type docosahexaenoic acid 200 mg 200 mg PO DAILY Check with primary 02/08/22 11/05/24 History capsule ( DHA) doctor cyclobenzaprine 10 mg tablet 10 mg PO TID PRN muscle spasm #30 10/04/24 11/05/24 Rx tabs hydroxyzine pamoate 50 mg capsule 50 mg PO QHS #30 caps 11/05/24 Rx Last Menstrual Period: 08/22/21 Zika: Zika virus screening: Negative : No PFSH PFSH Medical History Pelvic pain Adenomyosis of uterus (spontaneous vaginal delivery) Pelvic pain affecting Anemia Supervision of high-risk Family History Mother Hypertension Uncle CVA (cerebral vascular accident) Social History adopted: No household members: family housing: house number of children: 3 current occupational status: employed and unemployed current occupation: [employer] current occupational exposures/hazards: No pets and animals: Yes history of recent travel: No sexually active: Yes Smoking Status: Former smoker second hand exposure: No alcohol intake: never details: not while substance use type: does not use well-balanced diet: rarely or never caffeine: Yes what type of physical activity do you participate in: none seatbelt use: always do you feel safe at home: Yes additional social history: - Dillan History 6 Elective abortions Hx Para 4 Spontaneous abortions 1 Hx # Term Pregnancies Ectopic pregnancies Hx # Pregnancies Multiple births # of living children 4 Past Pregnancies Del. Date Name GA/Weeks Outcome Route Bth Weight Infant Gen Labor Lgth Anesthesia Del Locatn Provider FOB 07/24/08 delivered 2008 son 1 week 40 live - full term 05/04/10 Jennifer 40 live - full term Female none Sarina Tay 02/21/21 Samoye 40 live - full term Female none CT Dillan 05/23/22 Nickola 40 live - full term 7lb6oz Male [facility] Mary ins Delivery Date: 05/04/10 Last Updated by: Sandhya Hart No issues during or delivery Delivery Date: 02/21/21 Last Updated by: Sandhya Hart No issues during or delivery. Per patient child had water in kidney Delivery Date: 05/23/22 Last Updated by: Zee Hernandez IOL HPI 30 WK OB Details: KALEY FRY is a 34 year old who presents for routine OB visit. OB Visit ELISSA Calculator Estimated Delivery Date Method Current WG Current Estimate 01/05/25 Ultrasound #1 31w 2d Expected Delivery Route/Plan Labor Preferences- CB/BF classes: no labor support person: Dillan labor intervention preferences: [] pain management options preferred: limited intervention/nitrous cut cord/dad catch: cord : yes PP control planned:pp tubal desired. discussed possible routes of delivery and associated risks: [] special requests: [] Specific Issue/Plans Covid status: declines Flu vaccine: declines Tdap vaccine: declines Rhogam: na LARC form signed: yes Problem list reviewed and updated with the most current plan of care details and appropriate orders placed. Relevant counseling for the gestational age provided. Continue routine care and follow up unless otherwise noted in visit notes/problem list details Initial Weight: 178 lb Date -???-???-???-???-??? -???-???-???-???-??? -???-???- EGA Weight BP Urine Prot -???-???-???-???-??? -???-???-???-???-??? -???-???- Glucose FHR FuHt Pres Dilation -???-???-???-???-??? -???-???-???-???-??? -???-???- Effaced St Visit Note 05/30/24 -???-???-???-???-??? -???-???-???-???-??? -???-???- 8w 4d 178 lb (+0 oz) 98/64 -???-???-???-???-??? -???-???-???-???-??? -???-???- 175 -???-???-???-???-??? -???-???-???-???-??? -???-???- KW- CRL cons with PCC US per pt. Accepts NIPT. 06/28/24 -???-???-???-???-??? -???-???-???-???-??? -???-???- 12w 5d 175 lb 6 oz (-2 lb 10 oz) 95/59 (more content not included)... Normal [facility] Absolute lymphocyte countOrd ered By: Ariadna San on 10-18-2024 Lymphocytes Auto (Unsp spec) [#/Vol] 2.75 10*3/uL 0.83-4.51 [facility] Absolute neutrophil countOrd ered By: Ariadna San on 10-18-2024 Neutrophils (Bld) [#/Vol] 5.0 10*3/uL 2.0-7.7 [facility] Automated blood erythrocyte countOrdered By: Ariadna San on 10-18-2024 RBC (Bld) [#/Vol] 3.54 10*6/uL Low 4.2-5.4 [facility] Comment on above: Performed By: #### L 509.8002, L501.0250, L100.0100, L3890.6006 #### [facility] [address] [place], [address] Automated blood hematocrit ( percentage)Ordered By: Ariadna San on 10-18-2024 Hematocrit (Bld) [Volume fraction] 30.5 % Low 37-47 [facility] Comment on above: Performed By: #### L 509.8002, L501.0250, L100.0100, L3890.6006 #### [facility] [address] [place], [address] Automated lymphocyte count a s percentage of total leukocytesOrdered By: Ariadna San on 10-18-2024 Lymphocytes/100 WBC (Bld) 31.6 % Normal - [facility] Comment on above: Performed By: #### L 509.8002, L501.0250, L100.0100, L3890.6006 #### [facility] [address] [place], [address] Lymphocytes/100 WBC Auto (Unsp spec) 31.6 % - [facility] Basophil percentageOrdered B y: Ariadna San on 10-18-2024 Basophils/100 WBC (Bld) 0.3 % Normal 0-1 [facility] Comment on above: Performed By: #### L 509.8002, L501.0250, L100.0100, L3890.6006 #### [facility] [address] [place], [address] CBC W/Diff, Automatedon 03-2 Absolute Lymph 2.75 X10 3/uL Normal 0.83-4.51 [facility] Comment on above: Performed By: #### L 509.8002, L501.0250, L100.0100, L3890.6006 #### [facility] [address] [place], [address] Absolute Neut 5.0 X10 3/uL Normal 2.0-7.7 [facility] Comment on above: Performed By: #### L 509.8002, L501.0250, L100.0100, L3890.6006 #### [facility] [address] [place], [address] IG% 1.200 High 0.0-0.9 [facility] Comment on above: Result Comment: IG% - Immature Granulocytes (promyelocytes, myelocytes and metamyelocytes) > 1% indicates that a LEFT SHIFT is Present. Performed By: #### L 509.8002, L501.0250, L100.0100, L3890.6006 #### [facility] [address] [place], [address] Nucleated RBC (Bld) [#/Vol] 0 10*3/uL Normal 0-5 [facility] Comment on above: Performed By: #### L 509.8002, L501.0250, L100.0100, L3890.6006 #### [facility] [address] [place], [address] RDW SD 40.5 fl Normal 35.1-43.9 [facility] Comment on above: Performed By: #### L 509.8002, L501.0250, L100.0100, L3890.6006 #### [facility] [address] [place], [place], [id number] Calculated total iron bindin g capacityOrdered By: Halina Butler on 10-18-2024 Total Iron Binding Capacity 424 ug/dL 250-450 [facility] Eosinophil percentageOrdered By: Ariadna San on 10-18-2024 Eosinophils/100 WBC (Bld) 2.6 % Normal 0-5 [facility] [facility] Comment on above: Performed By: #### L 509.8002, L501.0250, L100.0100, L3890.6006 #### [facility] [address] [place], [address] Erythrocyte distribution wid th ratioOrdered By: Ariadna San on 10-18-2024 Erythrocyte distribution width (RBC) [Ratio] 13.0 % Normal 11.6-14.6 [facility] Comment on above: Performed By: #### L 509.8002, L501.0250, L100.0100, L3890.6006 #### [facility] [address] [place], [address] Erythrocyte distribution wid th standard deviationOrdered By: Ariadna San on 10-18-2024 Erythrocyte distribution width (RBC) [Entitic vol] 40.5 fL 35.1-43.9 [facility] Erythrocyte distribution width (RBC) [Ratio] 40.5 fl 35.1-43.9 [facility] Glucose Challenge Gest 1H 50 rosalie 10-18-2024 GLU GEST 50g 1H 130 mg/dL Normal 70-140 [facility] Comment on above: Performed By: #### L 509.8002, L501.0250, L100.0100, L3890.6006 #### [facility] [address] [place], [address] Glucose measurement at 2 gail rs post-dose gestational glucose tolerance testOrdered By: Ariadna San on 10-18-2024 Glucose [Mass/Vol] 130 mg/dL 70-140 [facility] Hemoglobin measurementOrdere d By: Ariadna San on 10-18-2024 Hemoglobin (Bld) [Mass/Vol] 10.0 g/dL Low 12.0-15.0 [facility] Comment on above: Performed By: #### L 509.8002, L501.0250, L100.0100, L3890.6006 #### [facility] [address] [place], [address] Immature granulocytes/100 WB C Auto (Bld)Ordered By: Ariadna San on 10-18-2024 Immature granulocytes/100 WBC (Bld) 1.200 % High 0.0-0.9 [facility] Comment on above: IG% - Immature Granu locytes (promyelocytes, myelocytes and metamyelocytes) > 1% indicates that a LEFT SHIFT is Present. Iron measurement (mass/mass) Ordered By: Halina Butler on 10-18-2024 Iron [Mass/Vol] 45 ug/dL Low 50-170 [facility] Comment on above: Performed By: #### L 503.6550, L503.6030 #### [facility] [address] [place], [address] Iron (Unsp spec) [Mass/Mass] 45 ug/dL Low 50-170 [facility] Iron saturation [Mass fracti on]Ordered By: Halina Butler on 10-18-2024 Iron Saturation 11.0 % Low 13-59 [facility] Iron+Iron Binding Capacityon 10-18-2024 IRON SATURATION 11.0 Low 13-59 [facility] Comment on above: Performed By: #### L 503.6550, L503.6030 #### [facility] [address] [place], [address] TIBC 424 ug/dL Normal 250-450 [facility] Comment on above: Performed By: #### L 503.6550, L503.6030 #### [facility] [address] [place], [address] UIBC 379 ug/dL Normal 228-428 [facility] Comment on above: Performed By: #### L 503.6550, L503.6030 #### [facility] [address] [place], [address] L3890.6006on 10-18-2024 HIV Non-Reactive Normal Nonreactive [facility] Comment on above: Result Comment: Non- Reactive Reactive Repeatedly reactive samples must be confirmed according to CDC recommended confirmatory algorithms. The subresults for either HIVAG or AHIV can be used as an aid in the selection of the confirmation algorithm for reactive samples. Send out specimens with Reactive results to [facility] for confirmation. Order the HIV antibody detection and differentiation: lc#[id number] Performed By: #### L 509.8002, L501.0250, L100.0100, L3890.6006 ####[facility] [address] [place], [address] L509.8002on 10-18-2024 Syphilis Abs Non-Reactive Normal Nonreactive [facility] Comment on above: Performed By: #### L 509.8002, L501.0250, L100.0100, L3890.6006 #### [facility] [address] [place], [address] Laboratory - Chemistry and C hemistry - challengeOrdered By: Halina Butler on 10-18-2024 Glucose Ql (U) Negative [facility] - UrinalysisOrder ed By: Halina Butler on 10-18-2024 Protein Ql (U) Negative [facility] Lymphocytes Auto (Unsp spec) [#/Vol]Ordered By: Ariadna San on 10-18-2024 Lymphocytes (Bld) [#/Vol] 2.75 10*3/uL 0.83-4.51 [facility] MCV (mean corpuscular volume ) determinationOrdered By: Ariadna San on 10-18-2024 MCV (RBC) [Entitic vol] 86.2 fL Normal 81-99 [facility] Comment on above: Performed By: #### L 509.8002, L501.0250, L100.0100, L3890.6006 #### [facility] [address] [place], [address] Mean corpuscular hemoglobin (MCH) determinationOrdered By: Ariadna San on 10-18-2024 MCH (RBC) [Entitic mass] 28.2 pg Normal 27.0-32.0 [facility] Comment on above: Performed By: #### L 509.8002, L501.0250, L100.0100, L3890.6006 #### [facility] [address] [place] [place], [address] Mean corpuscular hemoglobin concentration (MCHC) determinationOrdered By: Ariadna San on 10-18-2024 MCHC (RBC) [Mass/Vol] 32.8 g/dL Normal 32-36 [facility] Comment on above: Performed By: #### L 509.8002, L501.0250, L100.0100, L3890.6006 #### [facility] [address] [place], [address] Mean platelet volume determi nationOrdered By: Ariadna San on 10-18-2024 Platelet mean volume (Bld) [Entitic vol] 9.9 fL Normal 6.2-12.0 [facility] Comment on above: Performed By: #### L 509.8002, L501.0250, L100.0100, L3890.6006 #### [facility] [address] [place], [address] Monocyte percentageOrdered B y: Ariadna San on 10-18-2024 Monocytes/100 WBC (Bld) 7.2 % Normal 0-10 [facility] Comment on above: Performed By: #### L 509.8002, L501.0250, L100.0100, L3890.6006 #### [facility] [address] [place], [address] Neutrophil percentageOrdered By: Ariadna San on 10-18-2024 Neutrophils/100 WBC (Bld) 57.1 % Normal 47-70 [facility] Comment on above: Performed By: #### L 509.8002, L501.0250, L100.0100, L3890.6006 #### [facility] [address] [place], [address] No Panel InformationOrdered By: Ariadna San on 10-18-2024 HIV (1&2) Antibody Non-Reactive Nonreactive [facility] Comment on above: Non-ReactiveReactive Repeatedly reactive samples must be confirmed according to CDC recommended confirmatory algorithms. The subresults for either HIVAG or AHIV can be used as an aid in the selection of the confirmation algorithm for reactive samples.Send out specimens with Reactive results to [facility] for confirmation.Order the HIV antibody detection and differentiation: #[id number] No Panel InformationOrdered By: Halina Butler on 10-18-2024 Unsaturated Iron Binding Capacity 379 ug/dL 228-428 [facility] Nucleated red blood cell per centageOrdered By: Ariadna San on 10-18-2024 Nucleated RBC/100 WBC (Bld) [Ratio] 0 % 0-5 [facility] Yarn Worker Office Visit Reporton 10-18-2024 Yarn Worker Office Visit Report [facility] [address], [address] [place] [address] OFFICE VISIT Date of Service: 10/18/24 MR#: [id number] Acct: [id number] Name: KALEY FRY Rep #: [id number] : 1990 Provider: JADIEL fulton Age/Sex: 34/F Location: [facility] Status: Signed Intake Vital Signs 05/30/24 11:34 10/16/24 11:15 10/18/24 10:51 Height 5 ft 3 in 5 ft 3 in 5 ft 3 in Weight: 186 lb 4 oz BMI 33.0 BP 98/64 Intake Visit Reasons: 28 WK OB/GLUCOSE Chief Complaint: 28 Week OB/Glucose [address] Service Required: No Is patient in pain?: No Allergies No Known Allergies Allergy (Verified 10/18/24 10:51) Medications ???Medication ???Instructions ???Recorded ???Confirmed ???Type docosahexaenoic acid 200 mg 200 mg PO DAILY Check with primary 02/08/22 10/18/24 History capsule ( DHA) doctor cyclobenzaprine 10 mg tablet 10 mg PO TID PRN muscle spasm #30 10/04/24 10/18/24 Rx tabs nitrofurantoin 100 mg PO BID #14 caps 10/16/24 Rx monohydrate/macrocry stals 100 mg capsule (Macrobid) Last Menstrual Period: 08/22/21 Zika: Zika virus screening: Negative : Yes PFSH PFSH Medical History (Updated 10/18/24 @ 11:15 by Halina Butler HELP DESK SUPPORT, HELP DESK SUPPORT-C) Pelvic pain Adenomyosis of uterus (spontaneous vaginal delivery) Pelvic pain affecting Anemia Supervision of high-risk Family History Mother Hypertension Uncle CVA (cerebral vascular accident) Social History adopted: No household members: family housing: house number of children: 3 current occupational status: employed and unemployed current occupation: [employer] current occupational exposures/hazards: No pets and animals: Yes history of recent travel: No sexually active: Yes Smoking Status: Former smoker second hand exposure: No alcohol intake: never details: not while substance use type: does not use well-balanced diet: rarely or never caffeine: Yes what type of physical activity do you participate in: none seatbelt use: always do you feel safe at home: Yes additional social history: - [place]illan History 6 Elective abortions Hx Para 4 Spontaneous abortions 1 Hx # Term Pregnancies Ectopic pregnancies Hx # Pregnancies Multiple births # of living children 4 Past Pregnancies Del. Date Name GA/Weeks Outcome Route Bth Weight Infant Gen Labor Lgth Anesthesia Del Locatn Provider FOB 07/24/08 delivered 2009 son 1 week 40 live - full term 05/04/10 Jennifer 40 live - full term Female none Sarina Cross 02/21/21 Gareth 40 live - full term Female none CT Dillan 05/23/22 Rashida 40 live - full term 7lb6oz Male [facility] Mary ins Delivery Date: 05/04/10 Last Updated by: Sandhya Hart No issues during or delivery Delivery Date: 02/21/21 Last Updated by: Sandhya Hart No issues during or delivery. Per patient child had water in kidney Delivery Date: 05/23/22 Last Updated by: Zee Hernandez IOL HPI 28 WK OB/GLUCOSE Details: KALEY FRY is a 34 year old who presents for routine OB visit. OB Visit ELISSA Calculator Estimated Delivery Date Method Current WG Current Estimate 01/05/25 Ultrasound #1 28w 5d Expected Delivery Route/Plan Labor Preferences- CB/BF classes: no labor support person: Dillan labor intervention preferences: [] pain management options preferred: limited intervention/nitrous cut cord/dad catch: cord : yes PP control planned:pp tubal desired. discussed possible routes of delivery and associated risks: [] special requests: [] Specific Issue/Plans Covid status: declines Flu vaccine: declines Tdap vaccine: declines Rhogam: na LARC form signed: yes Problem list reviewed and updated with the most current plan of care details and appropriate orders placed. Relevant counseling for the gestational age provided. Continue routine care and follow up unless otherwise noted in visit notes/problem list details Initial Weight: 178 lb Date -???-???-???-???-??? -???-???-???-???-??? -???-???- EGA Weight BP Urine Prot -???-???-???-???-??? -???-???-???-???-??? -???-???- Glucose FHR FuHt Pres Dilation -???-???-???-???-??? -???-???-???-???-??? -???-???- Effaced St Visit Note 05/30/24 -???-???-???-???-??? -???-???-???-???-??? -???-???- 8w 4d 178 lb (+0 oz) 98/64 -???-???-???-???-??? -???-???-???-???-??? -???-???- 175 -???-???-???-???-??? -???-???-???-???-??? -???-???- KW- CRL cons with PCC US per pt. Accepts NIPT. 06/28/24 (more content not included)... Normal [facility] Platelet countOrdered By: Hmoa San on 10-18-2024 Platelets (Bld) [#/Vol] 328 10*3/uL Normal 150-450 [facility] Comment on above: Performed By: #### L 509.8002, L501.0250, L100.0100, L3890.6006 #### [facility] [address] [place], [address] Serum or plasma ferritin porter surement (mass/volume)Ordered By: Halina Butler on 10-18-2024 Ferritin [Mass/Vol] 27 ng/mL Normal 22-378 [facility] Comment on above: Performed By: #### L 503.6505, L503.6030 #### [facility] [address] [place], [address] Serum or plasma iron saturat ion measurement (mass fraction)Ordered By: Halina Butler on 10-18-2024 Iron saturation [Mass fraction] 11.0 % Low 13-59 [facility] T. pallidum abOrdered By: Homa San on 10-18-2024 Syphilis Total Antibody Non-Reactive Nonreactiv e [facility] White blood cell (WBC) count Ordered By: Ariadna San on 10-18-2024 WBC (Bld) [#/Vol] 8.7 10*3/uL Normal 4.4-11.0 [facility] Comment on above: Performed By: #### L 509.8002, L501.0250, L100.0100, L3890.6006 #### [facility] [address] [place], [address] Urine Cultureon 10-17-2024 URC Culture exhibits no growth. Normal [facility] Comment on above: Performed By: #### M 100.2200, L7000.1800 #### [facility] [address] [place], [address] Bilirubin Test strip Ql (U)O rdered By: Felicity Cortes on 10-16-2024 Bilirubin Ql (U) Negative Negative [facility] CBC-Complete Blood Cnt No Di ffon 10-16-2024 Erythrocyte distribution width (RBC) [Ratio] 12.8 % Normal 11.6-14.6 [facility] Comment on above: Performed By: #### L 100.0500 ####[facility] [address] [place], [address] Hematocrit (Bld) [Volume fraction] 29.9 % Low 37-47 [facility] Comment on above: Performed By: #### L 100.0500 ####[facility] [address] [place], [address] Hemoglobin (Bld) [Mass/Vol] 9.7 g/dL Low 12.0-15.0 [facility] Comment on above: Performed By: #### L 100.0500 ####[facility] [address] [place], [address] MCH (RBC) [Entitic mass] 27.7 pg Normal 27.0-32.0 [facility] Comment on above: Performed By: #### L 100.0500 ####[facility] [address] [place], [address] MCHC (RBC) [Mass/Vol] 32.4 g/dL Normal 32-36 [facility] Comment on above: Performed By: #### L 100.0500 ####[facility] [address] [place], [address] MCV (RBC) [Entitic vol] 85.4 fL Normal 81-99 [facility] Comment on above: Performed By: #### L 100.0500 ####[facility] [address] [place], [address] Platelet mean volume (Bld) [Entitic vol] 9.0 fL Normal 6.2-12.0 [facility] Comment on above: Performed By: #### L 100.0500 ####[facility] [address] [place], [address] Platelets (Bld) [#/Vol] 293 10*3/uL Normal 150-450 [facility] Comment on above: Performed By: #### L 100.0500 ####[facility] [address] [place], [address] RBC (Bld) [#/Vol] 3.50 10*6/uL Low 4.2-5.4 [facility] Comment on above: Performed By: #### L 100.0500 ####[facility] [address] [place], [address] RDW SD 39.3 fl Normal 35.1-43.9 [facility] Comment on above: Performed By: #### L 100.0500 ####[facility] [address] [place], [address] WBC (Bld) [#/Vol] 9.4 10*3/uL Normal 4.4-11.0 [facility] Comment on above: Performed By: #### L 100.0500 ####[facility] [address] [place], [address] Erythrocyte distribution wid th ratioOrdered By: Felicity Cortes on 10-16-2024 Erythrocyte distribution width (RBC) [Ratio] 12.8 % 11.6-14.6 [facility] Erythrocyte distribution wid th standard deviationOrdered By: Felicity Cortes on 10-16-2024 Erythrocyte distribution width (RBC) [Entitic vol] 39.3 fL 35.1-43.9 [facility] Erythrocyte distribution width (RBC) [Ratio] 39.3 fl 35.1-43.9 [facility] Glucose Ql (U)Ordered By: Khoi Cortes on 10-16-2024 Urine Glucose (UA) Normal mg/dl Normal [facility] Hematocrit Auto (Bld) [Volum e fraction]Ordered By: Felicity Cortes on 10-16-2024 Hematocrit (Bld) [Volume fraction] 29.9 % Low 37-47 [facility] Hemoglobin measurementOrdere d By: Felicity Cortes on 10-16-2024 Hemoglobin (Bld) [Mass/Vol] 9.7 g/dL Low 12.0-15.0 [facility] Ketones Test strip Ql (U)Ord ered By: Felicity Cortes on 10-16-2024 Ketones Ql (U) Negative Negative [facility] MCV (mean corpuscular volume ) determinationOrdered By: Felicity Cortes on 10-16-2024 MCV (RBC) [Entitic vol] 85.4 fL 81-99 [facility] Mean corpuscular hemoglobin (MCH) determinationOrdered By: Felicity Cortes on 10-16-2024 MCH (RBC) [Entitic mass] 27.7 pg 27.0-32.0 [facility] Mean corpuscular hemoglobin concentration (MCHC) determinationOrdered By: Felicity Cortes on 10-16-2024 MCHC (RBC) [Mass/Vol] 32.4 g/dL 32-36 [facility] Mean platelet volume determi nationOrdered By: Felicity Cortes on 10-16-2024 Platelet mean volume (Bld) [Entitic vol] 9.0 fL 6.2-12.0 [facility] Nitrite Test strip Ql (U)Ord ered By: Felicity Cortes on 10-16-2024 Nitrite Ql (U) Negative Negative [facility] OB Triage Physician Noteon 0 10-16-2024 OB Triage Physician Note [facility] Medical Records Department [address] [place] [address] OB Triage Physician Note 10/16/24 1238 MR#: [id number] Acct: [id number] Name: KALEY FRY Rep #: [id number] : 1990 34 From: Felicity Vaca DO PCP: Care Physician,No Primary Status:REG CLI Y Location: [place] [id number] HPI - General HPI Narrative KALEY FRY, is a 34 y/o who presents to [facility] D with right lower side pain radiating across her abdomen. Feels like a burning sensation. no lof, vaginal bleeding, or dec fm. no flank pain, fevers, nausea, vomiting, or diarrhea. Maternal Data Information ELISSA Calculator Estimated Delivery Date Method Current WG Current Estimate 01/05/25 Ultrasound #1 28w 3d PFSH PFSH Medical History Pelvic pain Adenomyosis of uterus (spontaneous vaginal delivery) Pelvic pain affecting Anemia Supervision of high-risk Home Medications ???Medication ???Instructions ???Recorded ???Last Taken ???Type docosahexaenoic acid 200 mg 200 mg PO DAILY Check with primary 02/08/22 05/22/22 09:00 History capsule ( DHA) doctor cyclobenzaprine 10 mg tablet 10 mg PO TID PRN muscle spasm #30 10/04/24 10/16/24 02:00 Rx tabs nitrofurantoin 100 mg PO BID #14 caps 10/16/24 Un known Rx monohydrate/macrocry stals 100 mg capsule (Macrobid) Allergy/AdvReac Type Severity Reaction Status Date / Time No Known Allergies Allergy Verified 10/16/24 11:19 Family History Mother Hypertension Uncle CVA (cerebral vascular accident) Social History adopted: No household members: family housing: house number of children: 3 current occupational status: employed and unemployed current occupation: [employer] current occupational exposures/hazards: No pets and animals: Yes history of recent travel: No sexually active: Yes Smoking Status: Former smoker second hand exposure: No alcohol intake: never details: not while substance use type: does not use well-balanced diet: rarely or never caffeine: Yes what type of physical activity do you participate in: none seatbelt use: always do you feel safe at home: Yes additional social history: - Dillan History 6 Elective abortions Hx Para 4 Spontaneous abortions 1 Hx # Term Pregnancies Ectopic pregnancies Hx # Pregnancies Multiple births # of living children 4 Past Pregnancies Del. Date Name GA/Weeks Outcome Route Bth Weight Gen Labor Lgth Anesthesia Del Locatn Provider FOEnzo 07/24/08 delivered 2008 son 1 week 40 live - full term 05/04/10 Jennifer 40 live - full term Female none Sarina Cross 02/21/21 Gareth 40 live - full term Female none [place] Dillan 05/23/22 Rashida 40 live - full term 7lb6oz Male [facility] Mary ins Delivery Date: 05/04/10 Last Updated by: Sandhya Hart No issues during or delivery Delivery Date: 02/21/21 Last Updated by: Sandhya Hrat No issues during or delivery. Per patient child had water in kidney Delivery Date: 05/23/22 Last Updated by: Zee BEEBE Visit Details Expected Delivery Route/Plan Labor Preferences- CB/BF classes: [] labor support person: [] labor intervention preferences: [] pain management options preferred: [] cut cord/dad catch: [] : [] PP control planned:pp tubal desired. discussed possible routes of delivery and associated risks: [] special requests: [] Plans Covid status: declines Flu vaccine: declines Tdap vaccine: declines Rhogam: na LARC form signed: [] Problem list reviewed and updated with the most current plan of care details and appropriate orders placed. Relevant counseling for the gestational age provided. Continue routine care and follow up unless otherwise noted in visit notes/problem list details OB Flowsheet Initial Weight: 178 lb Date -???-???-???-???-??? -???-???-???-???-??? -???-???- EGA Weight BP Urine Prot -???-???-???-???-??? -???-???-???-???-??? -???-???- Glucose FHR FuHt Pres Dilation -???-???-???-???-??? -???-???-???-???-??? -???-???- Effaced St Visit Note 05/30/24 -???-???-???-???-??? -???-???-???-???-??? -???-???- 8w 4d 178 lb (+0 oz) 98/64 -???-???-???-???-??? -???-???-???-???-??? -???-???- 175 -???-???-???-???-??? -???-???-???-???-??? -???-???- KW- CRL cons with PCC US per pt. Accepts NIPT. 06/28/24 -???-???-???-???-??? -???-???-???-???-??? -???-???- 12w 5d 175 lb 6 oz (-2 lb 10 oz) 95/59 Trace -???-???-???-???-??? -???-???-???-???-??? -???-???- Negative 157 -???-???-???-???-??? -??? (more content not included)... Normal [facility] Platelet countOrdered By: Khoi Cortes on 10-16-2024 Platelets (Bld) [#/Vol] 293 10*3/uL 150-450 [facility] Protein Test strip Ql (U)Ord ered By: Felicity Cortes on 10-16-2024 Protein Ql (U) 30 mg/dl High Negative [facility] RBC Auto (Bld) [#/Vol]Ordere d By: Felicity Cortes on 10-16-2024 RBC (Bld) [#/Vol] 3.50 10*6/uL Low 4.2-5.4 [facility] Urinalysis, Routine (Dipstic k)on 10-16-2024 BILIRUBIN URINE Negative Normal Negative [facility] Comment on above: Order Comment: CLEAN CATCH Performed By: #### L 400.2010 ####[facility] [address] [place], [address] Clarity (U) Sl. Cloudy Normal Clear [facility] Comment on above: Order Comment: CLEAN CATCH Performed By: #### L 400.2010 ####[facility] [address] [place], [address] Color (U) Yellow Normal Yellow [facility] Comment on above: Order Comment: CLEAN CATCH Performed By: #### L 400.2010 ####[facility] [address] [place], [address] GLUCOSE, UR Normal Normal Normal [facility] Comment on above: Order Comment: CLEAN CATCH Performed By: #### L 400.2010 ####[facility] [address] [place], [address] KETONE UR Negative Normal Negative [facility] Comment on above: Order Comment: CLEAN CATCH Performed By: #### L 400.2010 ####[facility] [address] [place], [address] LEUK ESTERASE 25 /ul Abnormal Negative [facility] Comment on above: Order Comment: CLEAN CATCH Performed By: #### L 400.2010 ####[facility] [address] [place], [address] Nitrite Ql (U) Negative Normal Negative [facility] Comment on above: Order Comment: CLEAN CATCH Performed By: #### L 400.2010 ####[facility] [address] [place], [address] OCCULT BLOOD-UR 10 /ul Abnormal Negative [facility] Comment on above: Order Comment: CLEAN CATCH Performed By: #### L 400.2010 ####[facility] [address] [place], [address] pH UR 6.5 Normal 5.0 - 8.0 [facility] Comment on above: Order Comment: CLEAN CATCH Performed By: #### L 400.2010 ####[facility] [address] [place], [address] PROT DIPSTX 30 mg/dl Abnormal Negative [facility] Comment on above: Order Comment: CLEAN CATCH Performed By: #### L 400.2010 ####[facility] [address] [place], [address] SP.GR. DIPSTX 1.010 Normal 1.002-1.030 [facility] Comment on above: Order Comment: CLEAN CATCH Performed By: #### L 400.2010 ####[facility] [address] [place], [address] UROBILI Normal Normal Normal [facility] Comment on above: Order Comment: CLEAN CATCH Performed By: #### L 400.2010 ####[facility] [address] [place], [address] Urine blood detectionOrdered By: Felicity Cortes on 10-16-2024 Urine Occult Blood 10 /ul High Negative [facility] Urine clarityOrdered By: Connie Cortes on 10-16-2024 Clarity (U) Sl. Cloudy Clear [facility] Urine color determinationOrd ered By: Felicity Cortes on 10-16-2024 Color (U) Yellow Yellow [facility] Urine cultureOrdered By: Connie Cortes on 10-16-2024 Bacteria identified Cx Nom (U) Culture exhibits no [facility] Urine glucose detectionOrder ed By: Felicity Cortes on 10-16-2024 Glucose Ql (U) Normal mg/dl Normal [facility] Urine leukocyte esterase det ection by dipstickOrdered By: Felicity Cortes on 10-16-2024 Leukocyte esterase Test strip Ql (U) 25 /ul High Negative [facility] Urine pHOrdered By: Felicity Cortes on 10-16-2024 pH (U) 6.5 [pH] 5.0 - 8.0 [facility] Urine specific gravity measu rementOrdered By: Felicity Cortes on 10-16-2024 Specific gravity (U) [Rel density] 1.010 1.002-1.030 [facility] Urine urobilinogen measureme ntOrdered By: Felicity Cortes on 10-16-2024 Urobilinogen Ql (U) Normal mg/dl Normal [facility] Urobilinogen Ql (U)Ordered B y: Felicity Cortes on 10-16-2024 Urine Urobilinogen Normal mg/dl Normal [facility] White blood cell (WBC) count Ordered By: Felicity Cortes on 10-16-2024 WBC (Bld) [#/Vol] 9.4 10*3/uL 4.4-11.0 [facility] Laboratory - Chemistry and C hemistry - challengeOrdered By: Bonnie Noriega on 10-04-2024 Glucose Ql (U) Negative [facility] - UrinalysisOrder ed By: Bonnie Noriega on 10-04-2024 Protein Ql (U) Negative [facility] Yarn Worker Office Visit Reporton 10-04-2024 Yarn Worker Office Visit Report [facility] [address], [address] [place] [address] OFFICE VISIT Date of Service: 10/04/24 MR#: [id number] Acct: [id number] Name: KALEY FRY Rep #: [id number] : 1990 Provider: Dr. Bonnie woods MD Age/Sex: 34/F Location: [facility] [place] Status: Signed Intake Vital Signs 10/04/24 10:13 10/04/24 10:19 Height 5 ft 3 in 5 ft 3 in Weight: 179 lb 8 oz 179 lb 8 oz BMI 31.8 31.8 BP 99/61 99/61 Intake Visit Reasons: OB, pelvic pain, can't do the exercises [address] Service Required: No Is patient in pain?: Yes (pelvic pain) Allergies No Known Allergies Allergy (Verified 10/04/24 10:14) Medications ???Medication ???Instructions ???Recorded ???Confirmed ???Type docosahexaenoic acid 200 mg 200 mg PO DAILY Check with primary 02/08/22 10/04/24 History capsule ( DHA) doctor ondansetron 4 mg disintegrating 4 mg PO Q8H PRN nausea and 4 10/04/24 Rx tablet vomiting #30 tabs promethazine 12.5 mg tablet 25 mg (2 x 12.5 mg) PO Q6H PRN 02/1410/04/24 Rx nausea and vomiting #30 tabs cyclobenzaprine 10 mg tablet 10 mg PO TID PRN muscle spasm #30 10/04/24 10/04/24 Rx tabs Last Menstrual Period: 08/22/21 Zika: Zika virus screening: Negative : No PFSH PFSH Medical History Pelvic pain Adenomyosis of uterus (spontaneous vaginal delivery) Pelvic pain affecting Anemia Supervision of high-risk Family History Mother Hypertension Uncle CVA (cerebral vascular accident) Social History adopted: No household members: family housing: house number of children: 3 current occupational status: employed and unemployed current occupation: [employer] current occupational exposures/hazards: No pets and animals: Yes history of recent travel: No sexually active: Yes Smoking Status: Former smoker second hand exposure: No alcohol intake: never details: not while substance use type: does not use well-balanced diet: rarely or never caffeine: Yes what type of physical activity do you participate in: none seatbelt use: always do you feel safe at home: Yes additional social history: - Dillan History 6 Elective abortions Hx Para 4 Spontaneous abortions 1 Hx # Term Pregnancies Ectopic pregnancies Hx # Pregnancies Multiple births # of living children 4 Past Pregnancies Del. Date Name GA/Weeks Outcome Route Bth Weight Gen Labor Lgth Anesthesia Del Locatn Provider FOEnzo 07/24/08 delivered 2009 son 1 week 40 live - full term 05/04/10 Jennifer 40 live - full term Female none Sarina Cross 02/21/21 Gareth 40 live - full term Female none CT Dillan 05/23/22 Rashida 40 live - full term 7lb6oz Male [facility] Mary ins Delivery Date: 05/04/10 Last Updated by: Sandhya Hart No issues during or delivery Delivery Date: 02/21/21 Last Updated by: Sandhya Hart No issues during or delivery. Per patient child had water in kidney Delivery Date: 05/23/22 Last Updated by: Zee Hernandez IOL HPI OB, pelvic pain, can't do the exercises Details: KALEY FRY is a 34 year old who presents for routine OB visit. OB Visit ELISSA Calculator Estimated Delivery Date Method Current WG Current Estimate 01/05/25 Ultrasound #1 26w 5d Expected Delivery Route/Plan Labor Preferences- CB/BF classes: [] labor support person: [] labor intervention preferences: [] pain management options preferred: [] cut cord/dad catch: [] : [] PP control planned:pp tubal desired. discussed possible routes of delivery and associated risks: [] special requests: [] Specific Issue/Plans Covid status: declines Flu vaccine: declines Tdap vaccine: declines Rhogam: na LARC form signed: [] Problem list reviewed and updated with the most current plan of care details and appropriate orders placed. Relevant counseling for the gestational age provided. Continue routine care and follow up unless otherwise noted in visit notes/problem list details Initial Weight: 178 lb Date -???-???-???-???-??? -???-???-???-???-??? -???-???- EGA Weight BP Urine Prot -???-???-???-???-??? -???-???-???-???-??? -???-???- Glucose FHR FuHt Pres Dilation -???-???-???-???-??? -???-???-???-???-??? -???-???- Effaced St Visit Note 05/30/24 -???-???-???-???-??? -???-???-???-???-??? -???-???- 8w 4d 178 lb (+0 oz) 98/64 -???-???-???-???-??? -???-???-???-???-??? -???-???- 175 -???-???-???-???-??? -???-?? (more content not included)... Normal [facility] - Chemistry and C hemistry - challengeOrdered By: Ariadna San on 09-20-2024 Glucose Ql (U) Negative [facility] - UrinalysisOrder ed By: Ariadna San on 09-20-2024 Protein Ql (U) Negative [facility] Yarn Worker Office Visit Reporton 09-20-2024 Yarn Worker Office Visit Report [facility] [address], [address] [place] [address] OFFICE VISIT Date of Service: 09/20/24 MR#: [id number] Acct: [id number] Name: KALEY FRY Francine Rep #: [id number] : 1990 Provider: ARNOLD aviles Age/Sex: 34/F Location: [facility] [place] Status: Signed Intake Vital Signs 05/30/24 11:34 08/26/24 14:00 09/20/24 15:06 09/20/24 15:06 Height 5 ft 3 in 5 ft 3 in 5 ft 3 in Weight: 179 lb 8 oz BMI 31.8 BP 93/59 L Intake Visit Reasons: [address] Service Required: No Is patient in pain?: No Allergies No Known Allergies Allergy (Verified 09/20/24 15:05) Medications ???Medication ???Instructions ???Recorded ???Confirmed ???Type docosahexaenoic acid 200 mg 200 mg PO DAILY Check with primary 02/08/22 09/20/24 History capsule ( DHA) doctor ondansetron 4 mg disintegrating 4 mg PO Q8H PRN nausea and 4 09/20/24 Rx tablet vomiting #30 tabs Last Menstrual Period: 08/22/21 : No PFSH PFSH Medical History Pelvic pain Adenomyosis of uterus (spontaneous vaginal delivery) Pelvic pain affecting Anemia Supervision of high-risk Family History Mother Hypertension Uncle CVA (cerebral vascular accident) Social History adopted: No household members: family housing: house number of children: 3 current occupational status: employed and unemployed current occupation: [employer] current occupational exposures/hazards: No pets and animals: Yes history of recent travel: No sexually active: Yes Smoking Status: Former smoker second hand exposure: No alcohol intake: never details: not while substance use type: does not use well-balanced diet: rarely or never caffeine: Yes what type of physical activity do you participate in: none seatbelt use: always do you feel safe at home: Yes additional social history: - [place]illan History 6 Elective abortions Hx Para 4 Spontaneous abortions 1 Hx # Term Pregnancies Ectopic pregnancies Hx # Pregnancies Multiple births # of living children 4 Past Pregnancies Del. Date Name GA/Weeks Outcome Route Bth Weight Gen Labor Lgth Anesthesia Del Locatn Provider FOEnzo 07/24/08 delivered 2008 son 1 week 40 live - full term 05/04/10 Jennifer 40 live - full term Female none Sarina Cross 02/21/21 Gareth 40 live - full term Female none SERINA Grimaldo 05/23/22 Rashida 40 live - full term 7lb6oz Male [facility] Mary ins Delivery Date: 05/04/10 Last Updated by: Sandhya Hart No issues during or delivery Delivery Date: 02/21/21 Last Updated by: Sandhya Hatr No issues during or delivery. Per patient child had water in kidney Delivery Date: 05/23/22 Last Updated by: Zee Hernandez IOL HPI 24 WK OB Details: KALEY FRY is a 34 year old who presents for routine OB visit. OB Visit ELISSA Calculator Estimated Delivery Date Method Current WG Current Estimate 01/05/25 Ultrasound #1 24w 5d Expected Delivery Route/Plan Labor Preferences- CB/BF classes: [] labor support person: [] labor intervention preferences: [] pain management options preferred: [] cut cord/dad catch: [] : [] PP control planned:pp tubal desired. discussed possible routes of delivery and associated risks: [] special requests: [] Specific Issue/Plans Covid status: declines Flu vaccine: declines Tdap vaccine: declines Rhogam: na LARC form signed: [] Problem list reviewed and updated with the most current plan of care details and appropriate orders placed. Relevant counseling for the gestational age provided. Continue routine care and follow up unless otherwise noted in visit notes/problem list details Initial Weight: 178 lb Date -???-???-???-???-??? -???-???-???-???-??? -???-???- EGA Weight BP Urine Prot -???-???-???-???-??? -???-???-???-???-??? -???-???- Glucose FHR FuHt Pres Dilation -???-???-???-???-??? -???-???-???-???-??? -???-???- Effaced St Visit Note 05/30/24 -???-???-???-???-??? -???-???-???-???-??? -???-???- 8w 4d 178 lb (+0 oz) 98/64 -???-???-???-???-??? -???-???-???-???-??? -???-???- 175 -???-???-???-???-??? -???-???-???-???-??? -???-???- KW- CRL cons with PCC US per pt. Accepts NIPT. 06/28/24 -???-???-???-???-??? -???-???-???-???-??? -???-???- 12w 5d 175 lb 6 oz (-2 lb 10 oz) 95/59 Trace -???-???-???-???-??? -???-???-???-???-??? -???-???- Negative 157 -???-???-???-???-??? -???-???-???-???-??? -???-???- JV- pt compl a (more content not included)... Normal [facility] OB Anatomy w/ Transvaginalon 08-30-2024 OB Anatomy w/ Transvaginal [facility] Imaging Services [address] [place] [address] OB Anatomy w/ Transvaginal MR#: [id number] Acct: [id number] Name: ANGKALEY PONCEALFONSO Escamilla Rep #: [id number] : 1990 F 34 From: Luiz Santo i DO PCP: Care Physician,No Primary Status: [facility] Study: OB Anatomy w/ Transvaginal Date of Exam: 08/30 Exam# [id number] Ordering Dr: Bonnie Noriega PROCEDURE: ultrasound. REASON FOR EXAM: Anatomy scan. COMPARISON: None available. FINDINGS Single live intrauterine gestation in breech presentation. The cervix is 5.1 cm, closed. The placenta is anterior. The distal tip of the placenta extends within 3.2 cm of the internal cervical os. No gross anomalies are demonstrated. heart rate 155 beats per minute. Amniotic fluid level is subjectively normal with a maximum vertical pocket of 5.7 cm. Biparietal diameter 5.4 cm. Head circumference 20 cm. Abdominal circumference 16.7 cm. Femur length 3.5 cm. Facial features appear intact. There appears to be a three-vessel cord and a suggestion of a four-chamber heart. cord insertion unremarkable. Visualized extremities and spine grossly unremarkable. Portions of the umbilical cord are present near the upper thorax/cervical region. US/OB Anatomy w/ Transvaginal IMPRESSION: Single live intrauterine gestation in breech presentation. Estimated gestational age by ultrasound 21 weeks, 5 days. Estimated date of confinement 01/05/2025. No gross anomalies are demonstrated. Subjectively normal amniotic fluid level. Portions of the umbilical cord are present near the upper thorax/cervical region, but do not appear closely approximated to the skin. Anterior placenta. The distal tip of the placenta extends within 3.2 cm of the internal cervical os. Reading Location: [facility] CC: Dr. 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 Bonnie woods MD Age/Sex: 34/F Location: [facility] [place] Status: Signed Intake Vital Signs 07/26/24 14:55 08/26/24 14:00 Height 5 ft 3 in 5 ft 3 in Weight: 178 lb 8 oz BMI 31.6 BP 98/66 Intake Visit Reasons: [address] Service Required: No Is patient in pain?: Yes (ongoing pelvic pain during this ) Allergies No Known Allergies Allergy (Verified 08/26/24 14:01) Medications ???Medication ???Instructions ???Recorded ???Confirmed ???Type docosahexaenoic acid 200 mg 200 mg PO DAILY Check with primary 02/08/22 08/26/24 History capsule ( DHA) doctor ondansetron 4 mg disintegrating 4 mg PO Q8H PRN nausea and 4 08/26/24 Rx tablet vomiting #30 tabs Last Menstrual Period: 08/22/21 Zika: Zika virus screening: Negative : No Have you fallen in the past year?: No PFSH PFSH Medical History Pelvic pain Adenomyosis of uterus (spontaneous vaginal delivery) Pelvic pain affecting Anemia Supervision of high-risk Family History Mother Hypertension Uncle CVA (cerebral vascular accident) Social History adopted: No household members: family housing: house number of children: 3 current occupational status: employed and unemployed current occupation: [employer] current occupational exposures/hazards: No pets and animals: Yes history of recent travel: No sexually active: Yes Smoking Status: Former smoker second hand exposure: No alcohol intake: never details: not while substance use type: does not use well-balanced diet: rarely or never caffeine: Yes what type of physical activity do you participate in: none seatbelt use: always do you feel safe at home: Yes additional social history: Akhil Grimaldo History 6 Elective abortions Hx Para 4 Spontaneous abortions 1 Hx # Term Pregnancies Ectopic pregnancies Hx # Pregnancies Multiple births # of living children 4 Past Pregnancies Del. Date Name GA/Weeks Outcome Route Bth Weight Gen Labor Lgth Anesthesia Del Locatn Provider FOB 07/24/08 delivered 2009 son 1 week 40 live - full term 05/04/10 Jennifer 40 live - full term Female none Sarina Cross 02/21/21 Gareth 40 live - full term Female none SERINA Grimaldo 05/23/22 Rashida 40 live - full term 7lb6oz Male [facility] Mary ins Delivery Date: 05/04/10 Last Updated by: Sandhya Hart No issues during or delivery Delivery Date: 02/21/21 Last Updated by: Sandhya Hart No issues during or delivery. Per patient child had water in kidney Delivery Date: 05/23/22 Last Updated by: Zee Hernandez IOL HPI 20 wk ob Details: KALEY FRY is a 34 year old who presents for routine OB visit. OB Visit ELISSA Calculator Estimated Delivery Date Method Current WG Current Estimate 01/05/25 Ultrasound #1 21w 1d Expected Delivery Route/Plan Labor Preferences- CB/BF classes: [] labor support person: [] labor intervention preferences: [] pain management options preferred: [] cut cord/dad catch: [] : [] PP control planned: [] discussed possible routes of delivery and associated risks: [] special requests: [] Specific Issue/Plans Covid status: [] Flu vaccine: [] Tdap vaccine: [] Rhogam: [] LARC form signed: [] Problem list reviewed and updated with the most current plan of care details and appropriate orders placed. Relevant counseling for the gestational age provided. Continue routine care and follow up unless otherwise noted in visit notes/problem list details Initial Weight: 178 lb Date -???-???-???-???-??? -???-???-???-???-??? -???-???- EGA Weight BP Urine Prot -???-???-???-???-??? -???-???-???-???-??? -???-???- Glucose FHR FuHt Pres Dilation -???-???-???-???-??? -???-???-???-???-??? -???-???- Effaced St Visit Note 05/30/24 -???-???-???-???-??? -???-???-???-???-??? -???-???- 8w 4d 178 lb (+0 oz) 98/64 -???-???-???-???-??? -???-???-???-???-??? -???-???- 175 -???-???-???-???-??? -???-???-???-???-??? -???-???- KW- CRL cons with PCC US per pt. Accepts NIPT. 06/28/24 -???-???-???-???-??? -???-???-???-???-??? -???-???- 12w 5d 175 lb 6 oz (-2 lb 10 oz) 95/59 Trace -???-???-???-???-??? -???-???-???-???-??? -???-???- Negative 157 -???-???- (more content not included)... Normal [facility] .Auto Diffon 08-13-2024 Basophil, Absolute 0.0 10 3/mcL Normal 0.0-0.3 MAURIZIO HOLT Comment on above: Performed By: #### G FR, ANEU, MG, MDW, CBC, CMP, LD, APTT, ADIFF, PRO #### Char[address] [place], [place] [address] Basophils/100 WBC (Bld) 0.6 % Normal 0.0-2.5 Amador HOLT Comment on above: Performed By: #### G FR, ANEU, MG, MDW, CBC, CMP, LD, APTT, ADIFF, PRO #### Charito [address] [place], [place] [address] Eosinophil, Absolute 0.2 10 3/mcL Normal 0.0-0.7 AU LTHEALY MASSILLON Comment on above: Performed By: #### G FR, ANEU, MG, MDW, CBC, CMP, LD, APTT, ADIFF, PRO #### Charito [address] [place], [place] [address] Eosinophils/100 WBC (Bld) 2.1 % Normal 0.0-6.0 CHARITO MASSILLON Comment on above: Performed By: #### G FR, ANEU, MG, MDW, CBC, CMP, LD, APTT, ADIFF, PRO #### Charito [address] [place], [place] [address] Lymphocyte, Absolute 2.0 10 3/mcL Normal 0.9-4.3 AU [facility] MASSILLON Comment on above: Performed By: #### G FR, ANEU, MG, MDW, CBC, CMP, LD, APTT, ADIFF, PRO #### Charito [address] [place], [place] [address] Lymphocytes/100 WBC (Bld) 27.2 % Normal 20.0-40.0 CHARITO MASSILLON Comment on above: Performed By: #### G FR, ANEU, MG, MDW, CBC, CMP, LD, APTT, ADIFF, PRO #### Charito [address] [place], [place] [address] Monocyte, Absolute 0.6 10 3/mcL Normal 0.1-1.4 MAURIZIO HEALY MASSILLON Comment on above: Performed By: #### G FR, ANEU, MG, MDW, CBC, CMP, LD, APTT, ADIFF, PRO #### Charito [address] [place], [place] [address] Monocytes/100 WBC (Bld) 8.4 % Normal 2.0-13.0 A ULTMAN MASSILLON Comment on above: Performed By: #### G FR, ANEU, MG, MDW, CBC, CMP, LD, APTT, ADIFF, PRO #### Charito [address] [place], [place] [address] Neutrophils/100 WBC (Bld) 61.7 % Normal 50.0-75.0 [facility] Comment on above: Performed By: #### G FR, ANEU, MG, MDW, CBC, CMP, LD, APTT, ADIFF, PRO #### Charito [address] [place], [place] [address] .GFRon 08-13-2024 GFR 127 ml/min/1.73sqm Normal [facility] Comment on above: Result Comment: GFR Population mean for , Non- Americans Ages 20-29 = 116 mL/min/1.73 sq.m. Ages 30-39 = 107 mL/min/1.73 sq.m. Ages 40-49 = 99 mL/min/1.73 sq.m. Ages 50-59 = 93 mL/min/1.73 sq.m. Ages 60-69 = 85 mL/min/1.73 sq.m. Ages 70+ = 75 mL/min/1.73 sq.m. Chronic Kidney Disease: Less than 60 mL/min/1.73 square meters End Stage Renal Disease: Less than 15 mL/min/1.73 square meters Performed By: #### G FR, ANEU, MG, MDW, CBC, CMP, LD, APTT, ADIFF, PRO #### Charito [address] [place], [place] [address] GFR Non- 105 ml/min/1.73sqm Normal [facility] Comment on above: Result Comment: GFR Population mean for , Non- Americans Ages 20-29 = 116 mL/min/1.73 sq.m. Ages 30-39 = 107 mL/min/1.73 sq.m. Ages 40-49 = 99 mL/min/1.73 sq.m. Ages 50-59 = 93 mL/min/1.73 sq.m. Ages 60-69 = 85 mL/min/1.73 sq.m. Ages 70+ = 75 mL/min/1.73 sq.m. Chronic Kidney Disease: Less than 60 mL/min/1.73 square meters End Stage Renal Disease: Less than 15 mL/min/1.73 square meters Performed By: #### G FR, ANEU, MG, MDW, CBC, CMP, LD, APTT, ADIFF, PRO #### Charito [address] [place] [address] .MDWon 08-13-2024 Monocyte Distribution Width 18.02 Normal 0.00-20.00 [facility] Comment on above: Result Comment: For ED adult patients suspected of sepsis, MDW<=20.0 does not rule out sepsis or risk of sepsis Performed By: #### G FR, ANEU, MG, MDW, CBC, CMP, LD, APTT, ADIFF, PRO #### Charito [address] [place] [address] .NEUABSon 08-13-2024 Neutrophil, Absolute 4.5 10 3/mcL Normal 2.3-8.1 [facility] Comment on above: Performed By: #### G FR, ANEU, MG, MDW, CBC, CMP, LD, APTT, ADIFF, PRO #### Charito [address] [place] [address] APTTon 08-13-2024 aPTT Coag (Bld) [Time] 27.3 s Normal 25.0-35.0 [facility] Comment on above: Performed By: #### G FR, ANEU, MG, MDW, CBC, CMP, LD, APTT, ADIFF, PRO #### Charito Jon[address] [place] [address] CBCon 08-13-2024 Erythrocyte distribution width (RBC) [Ratio] 12.7 % Normal 11.5-15.5 [facility] Comment on above: Performed By: #### G FR, ANEU, MG, MDW, CBC, CMP, LD, APTT, ADIFF, PRO #### Charito [address] [place] [address] Hematocrit (Bld) [Volume fraction] 31.9 % Low 34.0-46.0 [facility] Comment on above: Performed By: #### G FR, ANEU, MG, MDW, CBC, CMP, LD, APTT, ADIFF, PRO #### Charitolonnie [address]aMurray [address] [place], [place] [address] Hgb 10.5 G/dL Low 12.0-16.0 [facility] Comment on above: Performed By: #### G FR, ANEU, MG, MDW, CBC, CMP, LD, APTT, ADIFF, PRO #### Charitolonnie [address]aMurray [address] [place], [place] [address] MCH (RBC) [Entitic mass] 28.1 pg Normal 27.0-33.0 [facility] Comment on above: Performed By: #### G FR, ANEU, MG, MDW, CBC, CMP, LD, APTT, ADIFF, PRO #### Charito [address] [place], [place] [address] MCHC 32.9 G/dL Normal 32.0-36.0 [facility] Comment on above: Performed By: #### G FR, ANEU, MG, MDW, CBC, CMP, LD, APTT, ADIFF, PRO #### Charito [address] [place], [place] [address] MCV (RBC) [Entitic vol] 85.4 fL Normal 80.0-99.0 A [facility] Comment on above: Performed By: #### G FR, ANEU, MG, MDW, CBC, CMP, LD, APTT, ADIFF, PRO #### [facility] [address] [place], [place] [address] Platelet 319 10 3/mcL Normal 150-450 [facility] Comment on above: Performed By: #### G FR, ANEU, MG, MDW, CBC, CMP, LD, APTT, ADIFF, PRO #### [facility] [address] [place], [place] [address] Platelet mean volume (Bld) [Entitic vol] 7.2 fL Normal 6.6-10.5 [facility] Comment on above: Performed By: #### G FR, ANEU, MG, MDW, CBC, CMP, LD, APTT, ADIFF, PRO #### Charito [address] [place], [place] [address] RBC 3.74 10 6/mcL Low 4.10-5.30 [facility] Comment on above: Performed By: #### G FR, ANEU, MG, MDW, CBC, CMP, LD, APTT, ADIFF, PRO #### Charito [address] [place], [place] [address] WBC 7.3 10 3/mcL Normal 4.5-10.8 [facility] Comment on above: Performed By: #### G FR, ANEU, MG, MDW, CBC, CMP, LD, APTT, ADIFF, PRO #### Char[address] [place], [place] [address] CMPon 08-13-2024 Albumin Level 3.3 G/dL Low 3.5-5.0 [facility] Comment on above: Performed By: #### G FR, ANEU, MG, MDW, CBC, CMP, LD, APTT, ADIFF, PRO #### Char[address] [place], [place] [address] Albumin/Globulin [Mass ratio] 0.8 {ratio} Low 1.1-2.5 [facility] Comment on above: Performed By: #### G FR, ANEU, MG, MDW, CBC, CMP, LD, APTT, ADIFF, PRO #### Charito [address] [place], [place] [address] ALP [Catalytic activity/Vol] 72 U/L Normal 40-135 [facility] Comment on above: Performed By: #### G FR, ANEU, MG, MDW, CBC, CMP, LD, APTT, ADIFF, PRO #### Char[address] [place], [place] [address] ALT [Catalytic activity/Vol] 16 U/L Normal 14-59 [facility] Comment on above: Performed By: #### G FR, ANEU, MG, MDW, CBC, CMP, LD, APTT, ADIFF, PRO #### Charito [address] [place], [place] [address] AST [Catalytic activity/Vol] 15 U/L Normal 10-40 [facility] Comment on above: Performed By: #### G FR, ANEU, MG, MDW, CBC, CMP, LD, APTT, ADIFF, PRO #### Charito Murray [address] [place], [place] [address] Bili Total 0.5 mg/dL Normal 0.2-1.0 [facility] Comment on above: Result Comment: Use of this assay is not recommended for patients undergoing treatment with eltrombopag due to the potential for falsely elevated results. Performed By: #### G FR, ANEU, MG, MDW, CBC, CMP, LD, APTT, ADIFF, PRO #### [facility] [address] [place], [place] [address] BUN/Creatinine Ratio 8 ratio Normal 7-27 [facility] Comment on above: Performed By: #### G FR, ANEU, MG, MDW, CBC, CMP, LD, APTT, ADIFF, PRO #### [facility] [address] [place], [place] [address] Calcium [Mass/Vol] 8.9 mg/dL Normal 8.4-10.2 [facility] Comment on above: Performed By: #### G FR, ANEU, MG, MDW, CBC, CMP, LD, APTT, ADIFF, PRO #### [facility] [address] [place], [place] [address] Chloride [Moles/Vol] 101 mmol/L Normal 98-107 [facility] Comment on above: Performed By: #### G FR, ANEU, MG, MDW, CBC, CMP, LD, APTT, ADIFF, PRO #### [facility] [address] [place], [place] [address] CO2 [Moles/Vol] 27 mmol/L Normal 22-29 [facility] Comment on above: Performed By: #### G FR, ANEU, MG, MDW, CBC, CMP, LD, APTT, ADIFF, PRO #### [facility] [address] [place], [place] [address] Creatinine [Mass/Vol] 0.65 mg/dL Normal 0.55-1.02 [facility] Comment on above: Result Comment: Test ing performed on Siemens Dimension EXL analyzer using a modified kinetic Larisa technique. Performed By: #### G FR, ANEU, MG, MDW, CBC, CMP, LD, APTT, ADIFF, PRO #### Charito [address] [place], [place] [address] Electrolyte Balance 8.0 mEq/L Normal 4.0-15.0 [facility] Comment on above: Performed By: #### G FR, ANEU, MG, MDW, CBC, CMP, LD, APTT, ADIFF, PRO #### Charito [address] [place], [place] [address] Globulin 4.4 G/dL Normal [facility] Comment on above: Performed By: #### G FR, ANEU, MG, MDW, CBC, CMP, LD, APTT, ADIFF, PRO #### Charito Murray [address] [place], [place] [address] Glucose [Mass/Vol] 74 mg/dL Normal 70-105 [facility] N [facility] Comment on above: Performed By: #### G FR, ANEU, MG, MDW, CBC, CMP, LD, APTT, ADIFF, PRO #### Charito Murray [address] [place], [place] [address] Potassium [Moles/Vol] 3.4 mmol/L Low 3.5-5.1 [facility] Comment on above: Performed By: #### G FR, ANEU, MG, MDW, CBC, CMP, LD, APTT, ADIFF, PRO #### Charito Murray [address] [place], [place] [address] Sodium [Moles/Vol] 136 mmol/L Normal 136-145 [facility] Comment on above: Performed By: #### G FR, ANEU, MG, MDW, CBC, CMP, LD, APTT, ADIFF, PRO #### Charito [address] [place], [place] [address] Total Protein 7.7 G/dL Normal 6.4-8.2 [facility] Comment on above: Performed By: #### G FR, ANEU, MG, MDW, CBC, CMP, LD, APTT, ADIFF, PRO #### Charito Murray [address] [place] [address] Urea nitrogen [Mass/Vol] 5 mg/dL Low 7-18 [facility] Comment on above: Performed By: #### G FR, ANEU, MG, MDW, CBC, CMP, LD, APTT, ADIFF, PRO #### Charito Murray [address] [place] [address] CVFLURVon 08-13-2024 FLU A PCR Negative Normal Negative [facility] Comment on above: Performed By: #### G FR, ANEU, MG, MDW, CBC, CMP, LD, APTT, ADIFF, PRO #### Charito [address] [place] [address] FLU B PCR Negative Normal Negative [facility] Comment on above: Performed By: #### G FR, ANEU, MG, MDW, CBC, CMP, LD, APTT, ADIFF, PRO #### Charito [address] [place] [address] RSV PCR Negative Normal Negative [facility] Comment on above: Performed By: #### G FR, ANEU, MG, MDW, CBC, CMP, LD, APTT, ADIFF, PRO #### Charito Murray [address] [place] [address] SARS-CoV-2 (COVID-19) RNA NELLY+probe Ql (Unsp spec) Negative Normal Negative [facility] Comment on above: Result Comment: This test has been authorized by FDA under an EUA for use by authorized laboratories and has not been FDA cleared or approved. Results from the Xpert Xpress SARS-CoV-2/Flu/RSV or Xpert Xpress SARS-CoV-2 only test should be correlated with the clinical history, epidemiological data, and other data available to the clinician evaluating the patient. Performance of the Xpert Xpress SARS-CoV-2/Flu/RSV or Xpert Xpress SARS-CoV-2 only test has only been established in nasopharyngeal swab specimens. Erroneous test results might occur from improper specimen collection; failure to follow the recommended sample collection, handling, and storage procedures; technical error; or sample mix-up.False negative results may occur if virus is present at levels below the analytical limit of detection. Viral nucleic acid may persist in vivo, independent of virus viability. Detection of analyte target(s) does not imply that the corresponding virus(es) are infectious or are the causative agents for clinical symptoms.Recent patient exposure to FluMist or other live attenuated influenza vaccines may cause inaccurate positive results. Performed By: #### G FR, ANEU, MG, MDW, CBC, CMP, LD, APTT, ADIFF, PRO #### [facility] [address] [place], [place] [address] LDHon 08-13-2024 LDH 149 U/L Normal 81-234 [facility] Comment on above: Performed By: #### G FR, ANEU, MG, MDW, CBC, CMP, LD, APTT, ADIFF, PRO #### [facility] [address] [place], [place] [address] MGon 08-13-2024 Magnesium [Mass/Vol] 1.9 mg/dL Normal 1.8-2.4 [facility] Comment on above: Performed By: #### G FR, ANEU, MG, MDW, CBC, CMP, LD, APTT, ADIFF, PRO #### [facility] [address] [place], [place] [address] PROon 08-13-2024 PT Coag (PPP) [Time] 12.2 s Normal 9.0-14.4 [facility] Comment on above: Performed By: #### G FR, ANEU, MG, MDW, CBC, CMP, LD, APTT, ADIFF, PRO #### [facility] [address] [place], [place] [address] PT International Ratio 1.0 Normal [facility] Comment on above: Result Comment: The [employer] (CHEST, 1992, 102:312S-25S) recommended therapeutic range for oral anticoagulant therapy is: LOW RISK: Prophylaxis of venous thrombosis INR: 2.0-3.0 Treatment of pulmonary embolism 2.0-3.0 Prevention of systemic embolism 2.0-3.0 HIGH RISK: Mechanical prosthetic valves 2.5-3.5 Performed By: #### G FR, ANEU, MG, MDW, CBC, CMP, LD, APTT, ADIFF, PRO #### [facility] [address] [place], [place] [address] UAon 08-13-2024 Color (U) Dark yellow Normal [facility] Comment on above: Performed By: #### G FR, ANEU, MG, MDW, CBC, CMP, LD, APTT, ADIFF, PRO #### Charito [address] [place] [id number] Glucose (U) [Mass/Vol] Negative Normal Negative [facility] Comment on above: Performed By: #### G FR, ANEU, MG, MDW, CBC, CMP, LD, APTT, ADIFF, PRO #### Charito Jonasn [address] [place] [id number] Ketones Ql (U) Trace Normal Neg-Trace [facility] Comment on above: Performed By: #### G FR, ANEU, MG, MDW, CBC, CMP, LD, APTT, ADIFF, PRO #### Charito [address] [place] [phone] UA Appear Clear Normal [facility] Comment on above: Performed By: #### G FR, ANEU, MG, MDW, CBC, CMP, LD, APTT, ADIFF, PRO #### Charito [address] [place] [phone] UA Blood Trace Normal Neg-Trace [facility] Comment on above: Performed By: #### G FR, ANEU, MG, MDW, CBC, CMP, LD, APTT, ADIFF, PRO #### Charito [address] [place] [phone] UA Leuk Est Negative Normal Negative [facility] Comment on above: Performed By: #### G FR, ANEU, MG, MDW, CBC, CMP, LD, APTT, ADIFF, PRO #### Charito [address] [place] [phone] UA Nitrite Negative Normal Negative [facility] Comment on above: Performed By: #### G FR, ANEU, MG, MDW, CBC, CMP, LD, APTT, ADIFF, PRO #### Charito [address] [place] [address] UA pH 6.5 Normal 5.0 - 8.0 [facility] Comment on above: Performed By: #### G FR, ANEU, MG, MDW, CBC, CMP, LD, APTT, ADIFF, PRO #### Charito Murray [address] [place] [id number] UA Protein Trace Normal Negative [facility] Comment on above: Performed By: #### G FR, ANEU, MG, MDW, CBC, CMP, LD, APTT, ADIFF, PRO #### Charito Jonasn [address] [place] [address] UA Spec Grav 1.025 Normal [facility] Comment on above: Performed By: #### G FR, ANEU, MG, MDW, CBC, CMP, LD, APTT, ADIFF, PRO #### Charito Jonasn [address] [place] [id number] UA Specimen Type Clean Catch Normal [facility] Comment on above: Performed By: #### G FR, ANEU, MG, MDW, CBC, CMP, LD, APTT, ADIFF, PRO #### Charito Jonasn [address] [place] [id number] UA Urobilinogen 1.0 E.U./dL Normal [facility] Comment on above: Performed By: #### G FR, ANEU, MG, MDW, CBC, CMP, LD, APTT, ADIFF, PRO #### Charito [address] [place] [id number] Urobilinogen (U) [Mass/Vol] Negative Normal Neg-Trace [facility] Comment on above: Performed By: #### G FR, ANEU, MG, MDW, CBC, CMP, LD, APTT, ADIFF, PRO #### Charito [address] [place] [id number] Laboratory - Chemistry and C hemistry - challengeon 07-26-2024 Glucose Ql (U) Negative [facility] - Urinalysison Protein Ql (U) Negative [facility] Yarn Worker Office Visit Reporton 07-26-2024 Yarn Worker Office Visit Report [facility] [address] [place] [address], [address] [place] [address] OFFICE VISIT Date of Service: 07/26/24 MR#: [id number] Acct: [id number] Name: KALEY FRY Rep #: [id number] : 1990 Provider: Dr. Bonnie woods MD Age/Sex: 34/F Location: [facility] Status: Signed Intake Vital Signs 05/30/24 11:34 06/28/24 13:23 07/26/24 14:55 Height 5 ft 3 in 5 ft 3 in 5 ft 3 in Weight: 177 lb 6 oz BMI 31.4 BP 98/64 Intake Visit Reasons: [address] Service Required: No Is patient in pain?: No Feel stressed/tense/nervo us/anxious/difficult y sleeping: not at all Allergies No Known Allergies Allergy (Verified 07/26/24 14:58) Medications ???Medication ???Instructions ???Recorded ???Confirmed ???Type docosahexaenoic acid 200 mg 200 mg PO DAILY Check with primary 02/08/22 07/26/24 History capsule ( DHA) doctor ondansetron 4 mg disintegrating 4 mg PO Q8H PRN nausea and 06/28/24 07/26/24 Rx tablet vomiting #30 tabs Last Menstrual Period: 08/22/21 Zika: Zika virus screening: Negative : No Have you fallen in the past year?: No PFSH PFSH Medical History Pelvic pain Adenomyosis of uterus (spontaneous vaginal delivery) Pelvic pain affecting Anemia Supervision of high-risk Family History Mother Hypertension Uncle CVA (cerebral vascular accident) Social History adopted: No household members: family housing: house number of children: 3 current occupational status: employed and unemployed current occupation: [employer] current occupational exposures/hazards: No pets and animals: Yes history of recent travel: No sexually active: Yes Smoking Status: Former smoker second hand exposure: No alcohol intake: never details: not while substance use type: does not use well-balanced diet: rarely or never caffeine: Yes what type of physical activity do you participate in: none seatbelt use: always do you feel safe at home: Yes additional social history: - [place] History 6 Elective abortions Hx Para 4 Spontaneous abortions 1 Hx # Term Pregnancies Ectopic pregnancies Hx # Pregnancies Multiple births # of living children 4 Past Pregnancies Del. Date Name GA/Weeks Outcome Route Bth Weight Infant Gen Labor Lgth Anesthesia Del Locatn Provider FOEnzo 07/24/08 delivered 2008 son 1 week 40 live - full term 05/04/10 Jennifer 40 live - full term Female none Sarina Cross 02/21/21 Gareth 40 live - full term Female none [place] 05/23/22 Rashida 40 live - full term 7lb6oz Male [facility] Mary ins Delivery Date: 05/04/10 Last Updated by: Sandhya Hart No issues during or delivery Delivery Date: 02/21/21 Last Updated by: Sandhya Hart No issues during or delivery. Per patient child had water in kidney Delivery Date: 05/23/22 Last Updated by: Zee Hernandez IOL HPI 16 WK OB Details: KALEY FRY is a 34 year old who presents for routine OB visit. OB Visit ELISSA Calculator Estimated Delivery Date Method Current WG Current Estimate 01/05/25 Ultrasound #1 16w 5d Expected Delivery Route/Plan Labor Preferences- CB/BF classes: [] labor support person: [] labor intervention preferences: [] pain management options preferred: [] cut cord/dad catch: [] : [] PP control planned: [] discussed possible routes of delivery and associated risks: [] special requests: [] Specific Issue/Plans Covid status: [] Flu vaccine: [] Tdap vaccine: [] Rhogam: [] LARC form signed: [] Problem list reviewed and updated with the most current plan of care details and appropriate orders placed. Relevant counseling for the gestational age provided. Continue routine care and follow up unless otherwise noted in visit notes/problem list details Initial Weight: 178 lb Date -???-???-???-???-??? -???-???-???-???-??? -???-???- EGA Weight BP Urine Prot -???-???-???-???-??? -???-???-???-???-??? -???-???- Glucose FHR FuHt Pres Dilation -???-???-???-???-??? -???-???-???-???-??? -???-???- Effaced St Visit Note 05/30/24 -???-???-???-???-??? -???-???-???-???-??? -???-???- 8w 4d 178 lb (+0 oz) 98/64 -???-???-???-???-??? -???-???-???-???-??? -???-???- 175 -???-???-???-???-??? -???-???-???-???-??? -???-???- KW- CRL cons with PCC US per pt. Accepts NIPT. 06/28/24 -???-???-???-???-??? -???-???-???-???-??? -???-???- 12w 5d 175 lb 6 oz (-2 lb 10 oz) 95/59 Trace -???-???-???-???-??? -???-???- (more content not included)... Normal [facility] LABORATORYOrdered By: Nat Sommers on 07-10-2024 Appearance (U) Clear (07/10/24 8:53 AM) Normal Clear Auto Urine SS Bilirubin Ql (U) Negative (07/10/24 8:53 AM) Normal Neg-Trace Auto Urine SS Color (U) Yellow (07/10/24 8:53 AM) Normal AH Auto Urine SS Glucose Test strip (U) [Mass/Vol] Negative Normal Negative Auto Urine SS Hemoglobin Auto test strip (U) [Mass/Vol] Negative (07/10/24 8:53 AM) Normal Neg-Trace Auto Urine SS Ketones Ql (U) Negative Normal Neg-Trace Auto Urine SS UA Leuk Est Trace *NA* (07/10/24 8:53 AM) Invalid Interpretation Code Negative Auto Urine SS UA Nitrite Negative (07/10/24 8:53 AM) Normal Negative Auto Urine SS UA pH 8.0 (07/10/24 8:53 AM) Normal 5.0 - 8.0 Auto Urine SS UA Protein Negative Normal Negative Auto Urine SS UA Spec Grav 1.020 (07/10/24 8:53 AM) Normal 1.006-1.029 Auto Urine SS UA Specimen Type Clean Catch (07/10/24 8:53 AM) Normal Auto Urine SS UA Urobilinogen 1.0 E.U./dL Normal 0.2-1.0 Auto Urine SS UAon 07-10-2024 Color (U) Yellow Normal [facility] Comment on above: Performed By: #### U A #### [address] [address] Glucose (U) [Mass/Vol] Negative Normal Negative [facility] Comment on above: Performed By: #### U A #### [address] [address] Ketones Ql (U) Negative Normal Neg-Trace [facility] Comment on above: Performed By: #### U A #### [place] [id number] [address] [place] [address] UA Appear Clear Normal Clear [facility] Comment on above: Performed By: #### U A #### [address] [address] UA Blood Negative Normal Neg-Trace [facility] Comment on above: Performed By: #### U A #### [place] [id number] UA Leuk Est Trace Normal Negative [facility] Comment on above: Performed By: #### U A #### [place] [id number] UA Nitrite Negative Normal Negative [facility] Comment on above: Performed By: #### U A #### [place] [address] UA pH 8.0 Normal 5.0 - 8.0 [facility] Comment on above: Performed By: #### U A #### [place] [address] UA Protein Negative Normal Negative [facility] Comment on above: Performed By: #### U A #### [place] [address] UA Spec Grav 1.020 Normal 1.006-1.029 [facility] Comment on above: Performed By: #### U A #### [place] [address] UA Specimen Type Clean Catch Normal [facility] Comment on above: Performed By: #### U A #### [place] [address] UA Urobilinogen 1.0 E.U./dL Normal 0.2-1.0 [facility] Comment on above: Performed By: #### U A #### [place] [address] Urobilinogen (U) [Mass/Vol] Negative Normal Neg-Trace [facility] Comment on above: Performed By: #### U A #### [place] [address] Absolute neutrophil countOrd ered By: Steffi Jackson on 06-28-2024 Neutrophils (Bld) [#/Vol] 4.7 10*3/uL 2.0-7.7 [facility] Basophil percentageOrdered B y: Steffi Jackson on 06-28-2024 Basophils/100 WBC (Bld) 0.4 % 0-1 [facility] CBC W/Diff, Automatedon 12-0 6-2023 Absolute Lymph 2.52 X10 3/uL Normal 0.83-4.51 [facility] Comment on above: Performed By: #### B TS, L3890.6300, L3890.6005, L509.4005, L3890.6100, L100.0100, L509.8000 ####[facility] [address] [place], [address] Absolute Neut 4.7 X10 3/uL Normal 2.0-7.7 [facility] Comment on above: Performed By: #### B TS, L3890.6300, L3890.6005, L509.4005, L3890.6100, L100.0100, L509.8000 ####[facility] [address] [place], [address] Basophils/100 WBC (Bld) 0.4 % Normal 0-1 [facility] Comment on above: Performed By: #### B TS, L3890.6300, L3890.6005, L509.4005, L3890.6100, L100.0100, L509.8000 ####[facility] [address] [place], [address] Eosinophils/100 WBC (Bld) 1.6 % Normal 0-5 [facility] Comment on above: Performed By: #### B TS, L3890.6300, L3890.6005, L509.4005, L3890.6100, L100.0100, L509.8000 ####[facility] [address] [place], [address] Erythrocyte distribution width (RBC) [Ratio] 12.4 % Normal 11.6-14.6 [facility] Comment on above: Performed By: #### B TS, L3890.6300, L3890.6005, L509.4005, L3890.6100, L100.0100, L509.8000 ####[facility] [address] [place], [address] Hematocrit (Bld) [Volume fraction] 33.1 % Low 37-47 [facility] Comment on above: Performed By: #### B TS, L3890.6300, L3890.6005, L509.4005, L3890.6100, L100.0100, L509.8000 ####[facility] [address] [place], [address] Hemoglobin (Bld) [Mass/Vol] 10.5 g/dL Low 12.0-15.0 [facility] Comment on above: Performed By: #### B TS, L3890.6300, L3890.6005, L509.4005, L3890.6100, L100.0100, L509.8000 ####[facility] [address] [place], [address] IG% 0.300 Normal 0.0-0.9 [facility] Comment on above: Result Comment: IG% - Immature Granulocytes (promyelocytes, myelocytes and metamyelocytes) > 1% indicates that a LEFT SHIFT is Present. Performed By: #### B TS, L3890.6300, L3890.6005, L509.4005, L3890.6100, L100.0100, L509.8000 ####[facility] [address] [place], [address] Lymphocytes/100 WBC (Bld) 31.6 % Normal 19-41 [facility] Comment on above: Performed By: #### B TS, L3890.6300, L3890.6005, L509.4005, L3890.6100, L100.0100, L509.8000 ####[facility] [address] [place], [address] MCH (RBC) [Entitic mass] 27.5 pg Normal 27.0-32.0 [facility] Comment on above: Performed By: #### B TS, L3890.6300, L3890.6005, L509.4005, L3890.6100, L100.0100, L509.8000 ####[facility] [address] [place], [address] MCHC (RBC) [Mass/Vol] 31.7 g/dL Low 32-36 [facility] Comment on above: Performed By: #### B TS, L3890.6300, L3890.6005, L509.4005, L3890.6100, L100.0100, L509.8000 ####[facility] [address] [place], [address] MCV (RBC) [Entitic vol] 86.6 fL Normal 81-99 [facility] Comment on above: Performed By: #### B TS, L3890.6300, L3890.6005, L509.4005, L3890.6100, L100.0100, L509.8000 ####[facility] [address] [place], [address] Monocytes/100 WBC (Bld) 7.0 % Normal 0-10 [facility] Comment on above: Performed By: #### B TS, L3890.6300, L3890.6005, L509.4005, L3890.6100, L100.0100, L509.8000 ####[facility] [address] [place], [address] Neutrophils/100 WBC (Bld) 59.1 % Normal 47-70 [facility] Comment on above: Performed By: #### B TS, L3890.6300, L3890.6005, L509.4005, L3890.6100, L100.0100, L509.8000 ####[facility] [address] [place], [address] Nucleated RBC (Bld) [#/Vol] 0 10*3/uL Normal 0-5 [facility] Comment on above: Performed By: #### B TS, L3890.6300, L3890.6005, L509.4005, L3890.6100, L100.0100, L509.8000 ####[facility] [address] [place], [address] Platelet mean volume (Bld) [Entitic vol] 9.4 fL Normal 6.2-12.0 [facility] Comment on above: Performed By: #### B TS, L3890.6300, L3890.6005, L509.4005, L3890.6100, L100.0100, L509.8000 ####[facility] [address] [place], [address] Platelets (Bld) [#/Vol] 340 10*3/uL Normal 150-450 [facility] Comment on above: Performed By: #### B TS, L3890.6300, L3890.6005, L509.4005, L3890.6100, L100.0100, L509.8000 ####[facility] [address] [place], [address] RBC (Bld) [#/Vol] 3.82 10*6/uL Low 4.2-5.4 [facility] Comment on above: Performed By: #### B TS, L3890.6300, L3890.6005, L509.4005, L3890.6100, L100.0100, L509.8000 ####[facility] [address] [place], [address] RDW SD 39.4 fl Normal 35.1-43.9 [facility] Comment on above: Performed By: #### B TS, L3890.6300, L3890.6005, L509.4005, L3890.6100, L100.0100, L509.8000 ####[facility] [address] [place], [place], [address] WBC (Bld) [#/Vol] 8.0 10*3/uL Normal 4.4-11.0 [facility] Comment on above: Performed By: #### B TS, L3890.6300, L3890.6005, L509.4005, L3890.6100, L100.0100, L509.8000 ####[facility] [address] [place], [address] Eosinophil percentageOrdered By: Steffi Jackson on 06-28-2024 Eosinophils/100 WBC (Bld) 1.6 % 0-5 [facility] Erythrocyte distribution wid th ratioOrdered By: Steffi Jackson on 06-28-2024 Erythrocyte distribution width (RBC) [Ratio] 12.4 % 11.6-14.6 [facility] Erythrocyte distribution wid th standard deviationOrdered By: Steffi Jackson on 06-28-2024 Erythrocyte distribution width (RBC) [Entitic vol] 39.4 fL 35.1-43.9 [facility] HIV - WCHon 06-28-2024 HIV Non-Reactive Normal Nonreactive [facility] Comment on above: Order Comment: Reaso n for Exam: Performed By: #### B TS, L3890.6300, L3890.6005, L509.4005, L3890.6100, L100.0100, L509.8000 ####[facility] [address] [place], [address] HIV 1+2 Ab+HIV1 p24 Ag IA Ql Ordered By: Steffi Jackson on 06-28-2024 HIV (1&2) Antibody Non-Reactive Nonreactive [facility] Hematocrit Auto (Bld) [Volum e fraction]Ordered By: Steffi Jackson on 06-28-2024 Hematocrit (Bld) [Volume fraction] 33.1 % Low 37-47 [facility] Hemoglobin measurementOrdere d By: Steffi Jackson on 06-28-2024 Hemoglobin (Bld) [Mass/Vol] 10.5 g/dL Low 12.0-15.0 [facility] Hepatitis B Surface Antigeno n 06-28-2024 HEP B Surf Ag Non-Reactive Normal Nonreactive [facility] Comment on above: Order Comment: Reaso n for Exam: Performed By: #### B TS, L3890.6300, L3890.6005, L509.4005, L3890.6100, L100.0100, L509.8000 ####[facility] [address] [place], [place], [address] Hepatitis B surface antigen detectionOrdered By: Steffi Jackson on 06-28-2024 Hepatitis B Surface Antigen Non-Reactive Nonreactive [facility] Hepatitis C Antibodyon 06-28 Hepatitis C AB [facility]active [facility] Comment on above: Order Comment: Reaso n for Exam: Result Comment: Non Reactive: < 0.8 Equivocal: >/= 0.8 to < 1.0 Reactive: >/= 1.0 The CDC requires that a reactive/equivocal HCV antibody result be sent out for confirmation. HCV Quant by PCR testing. Performed By: #### M 100.2200, L7000.1800 #### [facility] [address] [place], [place], [id number] Hepatitis C virus antibody a ssayOrdered By: Steffi Jackson on 06-28-2024 Hepatitis C Antibody Non-Reactive Nonreactive [facility] Comment on above: Non Reactive: < 0.8 Equivocal: >/= 0.8 to < 1.0 Reactive: >/= 1.0The CDC requires that a reactive/equivocal HCV antibody result be sent out for confirmation. HCV Quant by PCR testing. Immature granulocytes/100 WB C Auto (Bld)Ordered By: Stefif Jackson on 06-28-2024 Immature granulocytes/100 WBC (Bld) 0.300 % 0.0-0.9 [facility] Comment on above: IG% - Immature Granu locytes (promyelocytes, myelocytes and metamyelocytes) > 1% indicates that a LEFT SHIFT is Present. L509.8000on 06-28-2024 Syphilis Abs Non-Reactive Normal [facility] Comment on above: Order Comment: Reaso n for Exam: Performed By: #### B TS, L3890.6300, L3890.6005, L509.4005, L3890.6100, L100.0100, L509.8000 ####[facility] [id number] [place], [address] Laboratory - Chemistry and C hemistry - challengeon 06-28-2024 Glucose Ql (U) Negative [facility] Laboratory - Urinalysison Protein Ql (U) Trace [facility] Lymphocytes Auto (Unsp spec) [#/Vol]Ordered By: Steffi Jackson on 06-28-2024 Lymphocytes (Bld) [#/Vol] 2.52 10*3/uL 0.83-4.51 [facility] Lymphocytes/100 WBC Auto (Un sp spec)Ordered By: Steffi Jackson on 06-28-2024 Lymphocytes/100 WBC (Bld) 31.6 % 19-41 [facility] MCV (mean corpuscular volume ) determinationOrdered By: Steffi Jackson on 06-28-2024 MCV (RBC) [Entitic vol] 86.6 fL 81-99 [facility] MISCon 06-28-2024 Misc. Send Out See Comments Normal [facility] Comment on above: Order Comment: Airam english NIPT/Horizon Result Comment: Resu lts sent directly to physician Performed By: #### C TPCR, NGPCR1 #### [place] [address] Mean corpuscular hemoglobin (MCH) determinationOrdered By: Steffi Jackson on 06-28-2024 MCH (RBC) [Entitic mass] 27.5 pg 27.0-32.0 [facility] Mean corpuscular hemoglobin concentration (MCHC) determinationOrdered By: Steffi Jackson on 06-28-2024 MCHC (RBC) [Mass/Vol] 31.7 g/dL Low 32-36 [facility] Mean platelet volume determi nationOrdered By: Steffi Jackson on 06-28-2024 Platelet mean volume (Bld) [Entitic vol] 9.4 fL 6.2-12.0 [facility] Monocyte percentageOrdered B y: Steffi Jackson on 06-28-2024 Monocytes/100 WBC (Bld) 7.0 % 0-10 [facility] Neutrophil percentageOrdered By: Steffi Jackson on 06-28-2024 Neutrophils/100 WBC (Bld) 59.1 % 47-70 [facility] Nucleated red blood cell per centageOrdered By: Steffi Jackson on 06-28-2024 Nucleated RBC/100 WBC (Bld) [Ratio] 0 % 0-5 [facility] Yarn Worker Office Visit Reporton 06-28-2024 Yarn Worker Office Visit Report [facility] [address], [address] [place] [address] OFFICE VISIT Date of Service: 06/28/24 MR#: [id number] Acct: [id number] Name: KALEY FRY Rep #: [id number] : 1990 Provider: Dr. Felicity Henry DO Age/Sex: 34/F Location: [facility] [place] Status: Signed Intake Vital Signs 05/30/24 11:34 06/28/24 13:23 06/28/24 13:23 Height 5 ft 3 in 5 ft 3 in 5 ft 3 in Weight: 175 lb 6 oz BMI 31.0 BP 95/59 L Intake Visit Reasons: [address] Service Required: No Is patient in pain?: No Allergies No Known Allergies Allergy (Verified 05/30/24 11:25) Medications ???Medication ???Instructions ???Recorded ???Confirmed ???Type docosahexaenoic acid 200 mg 200 mg PO DAILY Check with primary 02/08/22 06/28/24 History capsule ( DHA) doctor Last Menstrual Period: 08/22/21 Zika: Zika virus screening: Negative : No PFSH PFSH Medical History Pelvic pain Adenomyosis of uterus (spontaneous vaginal delivery) Pelvic pain affecting Anemia Supervision of high-risk Family History Mother Hypertension Uncle CVA (cerebral vascular accident) Social History adopted: No household members: family housing: house number of children: 3 current occupational status: employed and unemployed current occupation: [employer] current occupational exposures/hazards: No pets and animals: Yes history of recent travel: No sexually active: Yes Smoking Status: Former smoker second hand exposure: No alcohol intake: never details: not while substance use type: does not use well-balanced diet: rarely or never caffeine: Yes what type of physical activity do you participate in: none seatbelt use: always do you feel safe at home: Yes additional social history: - [place] History 6 Elective abortions Hx Para 4 Spontaneous abortions 1 Hx # Term Pregnancies Ectopic pregnancies Hx # Pregnancies Multiple births # of living children 4 Past Pregnancies Del. Date Name GA/Weeks Outcome Route Bth Weight Infant Gen Labor Lgth Anesthesia Del Locatn Provider FOB 05/04/10 Jennifer 40 live - full term Female none Sarina Cross 02/21/21 Gareth 40 live - full term Female none MI Dillan 05/23/22 Rashida 40 live - full term 7lb6oz Male [facility] Mary ins Delivery Date: 05/04/10 Last Updated by: Sandhya Hart No issues during or delivery Delivery Date: 02/21/21 Last Updated by: Sandhya Hart No issues during or delivery. Per patient child had water in kidney Delivery Date: 05/23/22 Last Updated by: Zee Hernandez IOL HPI 12 WK OB Details: KALEY FRY is a 34 year old who presents for routine OB visit. OB Visit ELISSA Calculator Estimated Delivery Date Method Current WG Current Estimate 01/05/25 Ultrasound #1 12w 5d Expected Delivery Route/Plan Labor Preferences- CB/BF classes: [] labor support person: [] labor intervention preferences: [] pain management options preferred: [] cut cord/dad catch: [] : [] PP control planned: [] discussed possible routes of delivery and associated risks: [] special requests: [] Specific Issue/Plans Covid status: [] Flu vaccine: [] Tdap vaccine: [] Rhogam: [] LARC form signed: [] Problem list reviewed and updated with the most current plan of care details and appropriate orders placed. Relevant counseling for the gestational age provided. Continue routine care and follow up unless otherwise noted in visit notes/problem list details Initial Weight: 178 lb Date -???-???-???-???-??? -???-???-???-???-??? -???-???- EGA Weight BP Urine Prot -???-???-???-???-??? -???-???-???-???-??? -???-???- Glucose FHR FuHt Pres Dilation -???-???-???-???-??? -???-???-???-???-??? -???-???- Effaced St Visit Note 05/30/24 -???-???-???-???-??? -???-???-???-???-??? -???-???- 8w 4d 178 lb (+0 oz) 98/64 -???-???-???-???-??? -???-???-???-???-??? -???-???- 175 -???-???-???-???-??? -???-???-???-???-??? -???-???- KW- CRL cons with PCC US per pt. Accepts NIPT. 06/28/24 -???-???-???-???-??? -???-???-???-???-??? -???-???- 12w 5d 175 lb 6 oz (-2 lb 10 oz) 95/59 Trace -???-???-???-???-??? -???-???-???-???-??? -???-???- Negative 157 -???-???-???-???-??? -???-???-???-???-??? -???-???- JV- pt compl ains of lower pelvic cramping and nausea. sending in zofran and recommending tylenol. ultrasound today appears normal. CRL measuring 13 weeks. nipt and carrier screen ordered. (more content not included)... Normal [facility] Platelet countOrdered By: Daniele Jackson on 06-28-2024 Platelets (Bld) [#/Vol] 340 10*3/uL 150-450 [facility] RBC Auto (Bld) [#/Vol]Ordere d By: Steffi Jackson on 06-28-2024 RBC (Bld) [#/Vol] 3.82 10*6/uL Low 4.2-5.4 [facility] Rubella IgGon 06-28-2024 Rubella IgG Reactive Normal Nonreactive [facility] Comment on above: Order Comment: Reaso n for Exam: Result Comment: Anti body Results Interpretation of Immune Status Non Reactive Presumed Non-Immune Equivocal Equivocal Reactive Presumed Immune Performed By: #### B TS, L3890.6300, L3890.6005, L509.4005, L3890.6100, L100.0100, L509.8000 ####[facility] [id number] [place], [place], [id number] Rubella immune status IgGOrd ered By: Steffi Jackson on 06-28-2024 Rubella IgG Antibody Reactive Nonreactive [facility] Comment on above: Antibody Results Int erpretation of Immune Status Non Reactive Presumed Non-Immune Equivocal Equivocal Reactive Presumed Immune Treponema sp Ab Ql (S)Ordere d By: Steffi Jackson on 06-28-2024 Syphilis Total Antibody Non-Reactive [facility] Type AND Screenon 06-28-2024 Ab SCREEN GEL Negative Normal [facility] Comment on above: Order Comment: PN Performed By: #### B TS, L3890.6300, L3890.6005, L509.4005, L3890.6100, L100.0100, L509.8000 ####[facility] [id number] [place], [address] White blood cell (WBC) count Ordered By: Steffi Jackson on 06-28-2024 WBC (Bld) [#/Vol] 8.0 10*3/uL 4.4-11.0 [facility] RPRon 06-17-2024 Reagin Ab RPR Ql (S) Non-Reactive Normal Non-Reactive [facility] Comment on above: Result Comment: The RPR test is a non-treponemal assay useful as an aid in the diagnosis of primary and secondary syphilis. It converts to positive generally within 2 weeks after the appearance of a lesion. This test is also useful for monitoring response to antibiotic therapy. A positive RPR screening test will be followed by the FTA ABS test. False positive RPR tests may occur in 1) patients with underlying autoimmune disorders, 2) elderly patients, 3) , and 4) other conditions with abnormal serum globulins. Performed By: #### C TPCR, NGPCR1 #### [address] [address] VARISon 06-15-[address] Negative Normal [facility] Comment on above: Result Comment: INTE RPRETATION OF VARICELLA IMMUNE STATUS IgG BY EIA: Negative: No detectable VZV IgG antibody. Positive: VZV IgG antibody Detected. If clinically indicated, order Varicella IgM to rule out recent infection. Equivocal: Equivocal for antibodies to VZV. Suggest repeat testing in 10-14 days. Performed By: #### C TPCR, NGPCR1 #### [address] [address] .Auto Diffon 06-14-2024 Basophil, Absolute 0.0 10 3/mcL Normal 0.0-0.3 [facility] Comment on above: Performed By: #### H BSAG, MISC, A1C, CMP, RPR, ANEU, GFR, VARIS, CBC, ADIFF, HIV, RUBIS, ABOM, HCV1 #### [address] [address] Basophils/100 WBC (Bld) 0.5 % Normal 0.0-2.5 [facility] Comment on above: Performed By: #### H BSAG, MISC, A1C, CMP, RPR, ANEU, GFR, VARIS, CBC, ADIFF, HIV, RUBIS, ABOM, HCV1 #### [address] [address] Eosinophil, Absolute 0.1 10 3/mcL Normal 0.0-0.7 [facility] Comment on above: Performed By: #### H BSAG, MISC, A1C, CMP, RPR, ANEU, GFR, VARIS, CBC, ADIFF, HIV, RUBIS, ABOM, HCV1 #### [address] [address] Eosinophils/100 WBC (Bld) 1.9 % Normal 0.0-6.0 [facility] Comment on above: Performed By: #### H BSAG, MISC, A1C, CMP, RPR, ANEU, GFR, VARIS, CBC, ADIFF, HIV, RUBIS, ABOM, HCV1 #### [address] [address] Lymphocyte, Absolute 2.2 10 3/mcL Normal 0.9-4.3 [facility] Comment on above: Performed By: #### H BSAG, MISC, A1C, CMP, RPR, ANEU, GFR, VARIS, CBC, ADIFF, HIV, RUBIS, ABOM, HCV1 #### [address] [address] Lymphocytes/100 WBC (Bld) 37.6 % Normal 20.0-40.0 [facility] Comment on above: Performed By: #### H BSAG, MISC, A1C, CMP, RPR, ANEU, GFR, VARIS, CBC, ADIFF, HIV, RUBIS, ABOM, HCV1 #### [address] [address] Monocyte, Absolute 0.5 10 3/mcL Normal 0.1-1.4 [facility] Comment on above: Performed By: #### H BSAG, MISC, A1C, CMP, RPR, ANEU, GFR, VARIS, CBC, ADIFF, HIV, RUBIS, ABOM, HCV1 #### [address] [address] Monocytes/100 WBC (Bld) 9.4 % Normal 2.0-13.0 [facility] Comment on above: Performed By: #### H BSAG, MISC, A1C, CMP, RPR, ANEU, GFR, VARIS, CBC, ADIFF, HIV, RUBIS, ABOM, HCV1 #### [address] [address] Neutrophils/100 WBC (Bld) 50.6 % Normal 50.0-75.0 [facility] Comment on above: Performed By: #### H BSAG, MISC, A1C, CMP, RPR, ANEU, GFR, VARIS, CBC, ADIFF, HIV, RUBIS, ABOM, HCV1 #### [address] [address] .GFRon 06-14-2024 GFR >60 [facility] Comment on above: Result Comment: GFR Population mean for , Non- Americans Ages 20-29 = 116 mL/min/1.73 sq.m. Ages 30-39 = 107 mL/min/1.73 sq.m. Ages 40-49 = 99 mL/min/1.73 sq.m. Ages 50-59 = 93 mL/min/1.73 sq.m. Ages 60-69 = 85 mL/min/1.73 sq.m. Ages 70+ = 75 mL/min/1.73 sq.m. Chronic Kidney Disease: Less than 60 mL/min/1.73 square meters End Stage Renal Disease: Less than 15 mL/min/1.73 square meters Performed By: #### H BSAG, MISC, A1C, CMP, RPR, ANEU, GFR, VARIS, CBC, ADIFF, HIV, RUBIS, ABOM, HCV1 #### [address] [address] GFR Non- >60 [facility] Comment on above: Result Comment: GFR Population mean for , Non- Americans Ages 20-29 = 116 mL/min/1.73 sq.m. Ages 30-39 = 107 mL/min/1.73 sq.m. Ages 40-49 = 99 mL/min/1.73 sq.m. Ages 50-59 = 93 mL/min/1.73 sq.m. Ages 60-69 = 85 mL/min/1.73 sq.m. Ages 70+ = 75 mL/min/1.73 sq.m. Chronic Kidney Disease: Less than 60 mL/min/1.73 square meters End Stage Renal Disease: Less than 15 mL/min/1.73 square meters Performed By: #### H BSAG, MISC, A1C, CMP, RPR, ANEU, GFR, VARIS, CBC, ADIFF, HIV, RUBIS, ABOM, HCV1 #### [address] [address] .NEUABSon 06-14-2024 Neutrophil, Absolute 2.9 10 3/mcL Normal 2.3-8.1 [facility] Comment on above: Performed By: #### H BSAG, MISC, A1C, CMP, RPR, ANEU, GFR, VARIS, CBC, ADIFF, HIV, RUBIS, ABOM, HCV1 #### [address] [address] A1Con 06-14-2024 Glucose [Mass/Vol] 88 mg/dL Normal [facility] Comment on above: Result Comment: Barby mated Average Glucose calculated by equation ((28.7xA1C)-46.7) Estimated average glucose (eAG) is a calculated value from Hemoglobin A1C and is customer assistance representative of the average blood glucose level in the last 2-3 month period. Normal range: less than 114 mg/dL Performed By: #### C TPCR, NGPCR1 #### [address] [address] HbA1c (Bld) [Mass fraction] 4.7 % Normal 4.0-6.0 [facility] Comment on above: Performed By: #### C TPCR, NGPCR1 #### [address] [address] CBCon 06-14-2024 Erythrocyte distribution width (RBC) [Ratio] 12.4 % Normal 11.5-15.5 [facility] Comment on above: Performed By: #### H BSAG, MISC, A1C, CMP, RPR, ANEU, GFR, VARIS, CBC, ADIFF, HIV, RUBIS, ABOM, HCV1 #### [place] [address] Hematocrit (Bld) [Volume fraction] 31.9 % Low 34.0-46.0 [facility] Comment on above: Performed By: #### H BSAG, MISC, A1C, CMP, RPR, ANEU, GFR, VARIS, CBC, ADIFF, HIV, RUBIS, ABOM, HCV1 #### [place] [id number] Hgb 10.7 G/dL Low 12.0-16.0 [facility] Comment on above: Performed By: #### H BSAG, MISC, A1C, CMP, RPR, ANEU, GFR, VARIS, CBC, ADIFF, HIV, RUBIS, ABOM, HCV1 #### [place] [id number] MCH (RBC) [Entitic mass] 28.7 pg Normal 27.0-33.0 [facility] Comment on above: Performed By: #### H BSAG, MISC, A1C, CMP, RPR, ANEU, GFR, VARIS, CBC, ADIFF, HIV, RUBIS, ABOM, HCV1 #### [place] [id number] MCHC 33.7 G/dL Normal 32.0-36.0 [facility] Comment on above: Performed By: #### H BSAG, MISC, A1C, CMP, RPR, ANEU, GFR, VARIS, CBC, ADIFF, HIV, RUBIS, ABOM, HCV1 #### [place] [address] MCV (RBC) [Entitic vol] 85.1 fL Normal 80.0-99.0 [facility] Comment on above: Performed By: #### H BSAG, MISC, A1C, CMP, RPR, ANEU, GFR, VARIS, CBC, ADIFF, HIV, RUBIS, ABOM, HCV1 #### [place] [id number] Platelet 311 10 3/mcL Normal 150-450 [facility] Comment on above: Performed By: #### H BSAG, MISC, A1C, CMP, RPR, ANEU, GFR, VARIS, CBC, ADIFF, HIV, RUBIS, ABOM, HCV1 #### [place] [address] Platelet mean volume (Bld) [Entitic vol] 7.2 fL Normal 6.6-10.5 [facility] Comment on above: Performed By: #### H BSAG, MISC, A1C, CMP, RPR, ANEU, GFR, VARIS, CBC, ADIFF, HIV, RUBIS, ABOM, HCV1 #### [place] [address] RBC 3.75 10 6/mcL Low 4.10-5.30 [facility] Comment on above: Performed By: #### H BSAG, MISC, A1C, CMP, RPR, ANEU, GFR, VARIS, CBC, ADIFF, HIV, RUBIS, ABOM, HCV1 #### [place] [address] WBC 5.7 10 3/mcL Normal 4.5-10.8 [facility] Comment on above: Performed By: #### H BSAG, MISC, A1C, CMP, RPR, ANEU, GFR, VARIS, CBC, ADIFF, HIV, RUBIS, ABOM, HCV1 #### [place] [address] CMPon 06-14-2024 Albumin Level 3.5 G/dL Normal 3.2-4.8 [facility] Comment on above: Performed By: #### H BSAG, MISC, A1C, CMP, RPR, ANEU, GFR, VARIS, CBC, ADIFF, HIV, RUBIS, ABOM, HCV1 #### [place] [address] Albumin/Globulin [Mass ratio] 0.9 {ratio} Normal 0.9-1.6 [facility] Comment on above: Performed By: #### H BSAG, MISC, A1C, CMP, RPR, ANEU, GFR, VARIS, CBC, ADIFF, HIV, RUBIS, ABOM, HCV1 #### [address] [address] ALP [Catalytic activity/Vol] 63 U/L Normal 38-126 [facility] Comment on above: Performed By: #### H BSAG, MISC, A1C, CMP, RPR, ANEU, GFR, VARIS, CBC, ADIFF, HIV, RUBIS, ABOM, HCV1 #### [address] [address] ALT [Catalytic activity/Vol] 11 U/L Normal 10-49 [facility] Comment on above: Performed By: #### H BSAG, MISC, A1C, CMP, RPR, ANEU, GFR, VARIS, CBC, ADIFF, HIV, RUBIS, ABOM, HCV1 #### [place] [id number] AST [Catalytic activity/Vol] 18 U/L Normal 8-34 [facility] Comment on above: Performed By: #### H BSAG, MISC, A1C, CMP, RPR, ANEU, GFR, VARIS, CBC, ADIFF, HIV, RUBIS, ABOM, HCV1 #### [place] [id number] Bili Total 0.50 mg/dL Normal 0.20-1.20 [facility] Comment on above: Result Comment: Use of this assay is not recommended for patients undergoing treatment with eltrombopag due to the potential for falsely elevated results. Performed By: #### H BSAG, MISC, A1C, CMP, RPR, ANEU, GFR, VARIS, CBC, ADIFF, HIV, RUBIS, ABOM, HCV1 #### [place] [id number] BUN/Creatinine Ratio 14.3 ratio Normal 10.0-22.0 [facility] Comment on above: Performed By: #### H BSAG, MISC, A1C, CMP, RPR, ANEU, GFR, VARIS, CBC, ADIFF, HIV, RUBIS, ABOM, HCV1 #### [place] [id number] Calcium [Mass/Vol] 9.2 mg/dL Normal 8.7-10.4 [facility] Comment on above: Performed By: #### H BSAG, MISC, A1C, CMP, RPR, ANEU, GFR, VARIS, CBC, ADIFF, HIV, RUBIS, ABOM, HCV1 #### [address] [address] Chloride [Moles/Vol] 105 mmol/L Normal 98-110 [facility] Comment on above: Performed By: #### H BSAG, MISC, A1C, CMP, RPR, ANEU, GFR, VARIS, CBC, ADIFF, HIV, RUBIS, ABOM, HCV1 #### [address] [address] CO2 [Moles/Vol] 24 mmol/L Normal 22-32 [facility] Comment on above: Performed By: #### H BSAG, MISC, A1C, CMP, RPR, ANEU, GFR, VARIS, CBC, ADIFF, HIV, RUBIS, ABOM, HCV1 #### [address] [address] Creatinine [Mass/Vol] 0.63 mg/dL Normal 0.50-1.20 [facility] Comment on above: Result Comment: Test ing performed on MailTime analyzer using enzymatic creatinine methodology. Performed By: #### H BSAG, MISC, A1C, CMP, RPR, ANEU, GFR, VARIS, CBC, ADIFF, HIV, RUBIS, ABOM, HCV1 #### [address] [address] Electrolyte Balance 8.0 mEq/L Normal 4.0-15.0 [facility] Comment on above: Performed By: #### H BSAG, MISC, A1C, CMP, RPR, ANEU, GFR, VARIS, CBC, ADIFF, HIV, RUBIS, ABOM, HCV1 #### [address] [address] Globulin 3.7 G/dL Normal 1.5-3.8 [facility] Comment on above: Performed By: #### H BSAG, MISC, A1C, CMP, RPR, ANEU, GFR, VARIS, CBC, ADIFF, HIV, RUBIS, ABOM, HCV1 #### [address] [address] Glucose [Mass/Vol] 77 mg/dL Normal 70-110 [facility] Comment on above: Performed By: #### H BSAG, MISC, A1C, CMP, RPR, ANEU, GFR, VARIS, CBC, ADIFF, HIV, RUBIS, ABOM, HCV1 #### [address] [address] Potassium [Moles/Vol] 3.6 mmol/L Normal 3.5-5.0 [facility] Comment on above: Performed By: #### H BSAG, MISC, A1C, CMP, RPR, ANEU, GFR, VARIS, CBC, ADIFF, HIV, RUBIS, ABOM, HCV1 #### [address] [address] Sodium [Moles/Vol] 137 mmol/L Normal 136-145 [facility] Comment on above: Performed By: #### H BSAG, MISC, A1C, CMP, RPR, ANEU, GFR, VARIS, CBC, ADIFF, HIV, RUBIS, ABOM, HCV1 #### [address] [address] Total Protein 7.2 G/dL Normal 5.7-8.2 [facility] Comment on above: Performed By: #### H BSAG, MISC, A1C, CMP, RPR, ANEU, GFR, VARIS, CBC, ADIFF, HIV, RUBIS, ABOM, HCV1 #### [address] [address] Urea nitrogen [Mass/Vol] 9.0 mg/dL Normal 8.0-22.0 [facility] Comment on above: Performed By: #### H BSAG, MISC, A1C, CMP, RPR, ANEU, GFR, VARIS, CBC, ADIFF, HIV, RUBIS, ABOM, HCV1 #### [address] [address] HBSAGon 06-14-2024 Hep B Surf Ag Non-Reactive Normal Non-Reactive [facility] Comment on above: Performed By: #### C TPCR, NGPCR1 #### [place] [address] HCVon 06-14-2024 Hep C Ab Non-Reactive Normal Non-Reactive [facility] Comment on above: Performed By: #### C TPCR, NGPCR1 #### [place] [address] Hep C Ab Int Normal [facility] Comment on above: Result Comment: Nonr eactive: Samples with a value < 0.80 are considered nonreactive (negative) for antibodies to HCV. A negative test result does not exclude the possibility of exposure to or infection with HCV. HCV antibodies may be undetectable in some stages of the infection and in some clinical conditions. See Interp Performed By: #### C TPCR, NGPCR1 #### [place] [address] HIV 06-14-2024 HIV 1/2 Ab Non-Reactive Normal Non-Reactive [facility] Comment on above: Result Comment: Spec imen is negative for anti-HIV-1 and anti-HIV-2. Performed By: #### C TPCR, NGPCR1 #### [place] [address] LABORATORYOrdered By: Nay triplett on 06-14-2024 ABO and Rh group Nom (Bld) Blood group AB Rh(D) positive Invalid Interpretation Code BB Manual SS LABORATORYOrdered By: SYSTEM SYSTEM on 06-14-2024 Albumin BCP dye [Mass/Vol] 3.5 G/dL Normal 3.2 - 4.8 G/dL ADM SS Albumin/Globulin [Mass ratio] 0.9 {ratio} Normal 0.9 - 1.6 ratio ADM SS ALP [Catalytic activity/Vol] 63 U/L Normal 38 - 126 U/L ADM SS ALT No additional P-5'-P [Catalytic activity/Vol] 11 U/L Normal 10 - 49 U/L ADM SS AST [Catalytic activity/Vol] 18 U/L Normal 8 - 34 U/L ADM SS Basophils (Bld) [#/Vol] 0.0 103/mcL Normal 0.0 - 0.3 10^3/mcL Workflow SS Basophils/100 WBC (Bld) 0.5 % Normal 0.0 - 2.5 % Workflow SS Bilirubin [Mass/Vol] 0.50 mg/dL Normal 0.20 - 1.20 mg/dL ADM SS Comment on above: Interpretive Data: U se of this assay is not recommended for patients undergoing treatment with eltrombopag due to the potential for falsely elevated results. Calcium [Mass/Vol] 9.2 mg/dL Normal 8.7 - 10. 4 mg/dL ADM SS Chloride [Moles/Vol] 105 mmol/L Normal 98 - 110 mEq/L ADM SS CO2 [Moles/Vol] 24 mmol/L Normal 22 - 32 mEq/L ADM SS Creatinine [Mass/Vol] 0.63 mg/dL Normal 0.50 - 1.20 mg/dL ADM SS Comment on above: Interpretive Data: T esting performed on Mail[employer] analyzer using enzymatic creatinine methodology. Electrolyte Balance 8.0 mEq/L Normal 4.0 - 15 .0 mEq/L ADM SS Eosinophils (Bld) [#/Vol] 0.1 103/mcL Normal 0.0 - 0.7 10^3/mcL Workflow SS Eosinophils/100 WBC (Bld) 1.9 % Normal 0.0 - 6.0 % Workflow SS Erythrocyte distribution width (RBC) [Ratio] 12.4 % Normal 11.5 - 15.5 % Workflow SS GFR/1.73 sq M.predicted among blacks MDRD (S/P/Bld) [Vol rate/Area] ml/min/1.73sqm Invalid Interpretation Code Chemistry S Comment on above: Interpretive Data: GFR Population mean for , Non- Americans Ages 20-29 = 116 mL/min/1.73 sq.m. Ages 30-39 = 107 mL/min/1.73 sq.m. Ages 40-49 = 99 mL/min/1.73 sq.m. Ages 50-59 = 93 mL/min/1.73 sq.m. Ages 60-69 = 85 mL/min/1.73 sq.m. Ages 70+ = 75 mL/min/1.73 sq.m. Chronic Kidney Disease: Less than 60 mL/min/1.73 square meters End Stage Renal Disease: Less than 15 mL/min/1.73 square meters GFR/1.73 sq M.predicted among non-blacks MDRD (S/P/Bld) [Vol rate/Area] ml/min/1.73sqm Invalid Interpretation Code Chemistry S Comment on above: Interpretive Data: GFR Population mean for , Non- Americans Ages 20-29 = 116 mL/min/1.73 sq.m. Ages 30-39 = 107 mL/min/1.73 sq.m. Ages 40-49 = 99 mL/min/1.73 sq.m. Ages 50-59 = 93 mL/min/1.73 sq.m. Ages 60-69 = 85 mL/min/1.73 sq.m. Ages 70+ = 75 mL/min/1.73 sq.m. Chronic Kidney Disease: Less than 60 mL/min/1.73 square meters End Stage Renal Disease: Less than 15 mL/min/1.73 square meters Globulin 3.7 G/dL Normal 1.5 - 3.8 G/dL ADM SS Glucose [Mass/Vol] 77 mg/dL Normal 70 - 110 mg/dL ADM SS Glucose [Mass/Vol] 88 mg/dL Invalid Interpretation Code Auto Chem SS Comment on above: Interpretive Data: E stimated average glucose (eAG) is a calculated value from Hemoglobin A1C and is customer assistance representative of the average blood glucose level in the last 2-3 month period. Normal range: less than 114 mg/dL HbA1c (Bld) [Mass fraction] 4.7 % Normal 4.0 - 6.0 % Auto Chem SS Hematocrit (Bld) [Volume fraction] 31.9 % Low 34.0 - 46.0 % Workflow SS Hemoglobin (Bld) [Mass/Vol] 10.7 G/dL Low 12.0 - 16.0 G/dL AH Workflow SS Lymphocytes (Bld) [#/Vol] 2.2 103/mcL Normal 0.9 - 4.3 10^3/mcL AH Workflow SS Lymphocytes/100 WBC (Bld) 37.6 % Normal 20.0 - 40.0 % AH Workflow SS MCH (RBC) [Entitic mass] 28.7 pg Normal 27.0 - 33.0 pg AH Workflow SS MCHC 33.7 G/dL Normal 32.0 - 36.0 G/dL Workflow SS MCV (RBC) [Entitic vol] 85.1 fL Normal 80.0 - 99.0 fL Workflow SS Monocytes (Bld) [#/Vol] 0.5 103/mcL Normal 0.1 - 1.4 10^3/mcL AH Workflow SS Monocytes/100 WBC (Bld) 9.4 % Normal 2.0 - 13.0 % AH Workflow SS Neutrophils (Bld) [#/Vol] 2.9 103/mcL Normal 2.3 - 8.1 10^3/mcL AH Workflow SS Neutrophils/100 WBC (Bld) 50.6 % Normal 50.0 - 75.0 % AH Workflow SS Platelet mean volume (Bld) [Entitic vol] 7.2 fL Normal 6.6 - 10.5 fL Workflow SS Platelets (Bld) [#/Vol] 311 103/mcL Normal 150 - 450 10^3/mcL AH Workflow SS Potassium [Moles/Vol] 3.6 mmol/L Normal 3.5 - 5.0 mEq/L ADM SS Protein [Mass/Vol] 7.2 G/dL Normal 5.7 - 8.2 G/dL ADM SS RBC (Bld) [#/Vol] 3.75 106/mcL Low 4.10 - 5.3 0 10^6/mcL Workflow SS Sodium [Moles/Vol] 137 mmol/L Normal 136 - 145 mEq/L ADM SS Urea nitrogen [Mass/Vol] 9.0 mg/dL Normal 8.0 - 22.0 mg/dL ADM SS Urea nitrogen/Creatinine [Mass ratio] 14.3 ratio Normal 10.0 - 22.0 ratio ADM SS WBC (Bld) [#/Vol] 5.7 103/mcL Normal 4.5 - 10.8 10^3/mcL Workflow SS LABORATORYOrdered By: Horacio Teague on 06-14-2024 HBV surface Ag IA Ql Non-Reactive (06/14/24 8:24 AM) Normal Non-Reactive ADM SS HCV Ab IA Ql Non-Reactive (06/14/24 8:24 AM) Normal Non-Reactive ADM SS HCV Ab IA Ql Nonreactive: Samples with a value < 0.80 are considered nonreactive (negative) for antibodies to HCV.A negative test result does not exclude the possibility of exposure to or infection with HCV. HCV antibodies may be undetectable in some stages of the infection and in some clinical conditions. Invalid Interpretation Code Chemistry S HIV 1+2 Ab IA Ql Negative Invalid Interpretation Code AH Chemistry S HIV 1/2 Ab Non-Reactive (06/14/24 8:24 AM) Normal Non-Reactive AH ADM SS LABORATORYOrdered By: Jossy Matthew on 06-14-2024 Rubella virus Ab LA Ql (S) Positive 4 (06/14/24 8:24 AM) Normal Positive AH Man Viro/Sero SS Comment on above: Interpretive Data: T his immune status assay detects IgM and/or IgG antibody to Rubella. Interpret results in conjunction with clinical history. POS: Antibody detected; exposure at undetermined recent or distant time. If clinically indicated, order Rubella IGM to rule out recent infection. NEG: No antibody detected. MABOon 06-14-2024 ABO/Rh Interp AB POS Invalid Interpretation Code [facility] Comment on above: Performed By: #### C TPCR, NGPCR1 #### [place] [id number] RUBISon 06-14-[address] Positive Normal Positive [facility] Comment on above: Result Comment: This immune status assay detects IgM and/or IgG antibody to Rubella. Interpret results in conjunction with clinical history. POS: Antibody detected; exposure at undetermined recent or distant time. If clinically indicated, order Rubella IGM to rule out recent infection. NEG: No antibody detected. Performed By: #### C TPCR, NGPCR1 #### [place] [id number] UAon 06-14-2024 Color (U) Yellow Normal CHARITO MASSILLON Comment on above: Performed By: #### U A #### [place] [address] [place], [place] [address] Glucose (U) [Mass/Vol] Negative Normal Negative AU LTMAN MASSILLON Comment on above: Performed By: #### U A #### [facility] [address] [place], [place] [address] Ketones Ql (U) Negative Normal Neg-Trace CHARITO MASSILLON Comment on above: Performed By: #### U A #### [facility] [address] [place], [place] [address] UA Appear Clear Normal CHARITO MASSILLON Comment on above: Performed By: #### U A #### [facility] [address] [place] [id number] UA Blood Negative Normal Neg-Trace CHARITO MASSILLON Comment on above: Performed By: #### U A #### [facility] [address] [place] [id number] UA Leuk Est Negative Normal Negative CHARITO MASSILLON Comment on above: Performed By: #### U A #### [facility] [address] [place] [address] UA Nitrite Negative Normal Negative CHARITO MASSILLON Comment on above: Performed By: #### U A #### [facility] [address] [place] [address] UA pH 7.5 Normal 5.0 - 8.0 CHARITO MASSILLON Comment on above: Performed By: #### U A #### [facility] [address] [place] [address] UA Protein Negative Normal Negative CHARITO MASSILLON Comment on above: Performed By: #### U A #### [facility] [address] [place] [address] UA Spec Grav 1.020 Normal CHARITO MASSILLON Comment on above: Performed By: #### U A #### [facility] [address] [place] [address] UA Specimen Type Clean Catch Normal CHARITO MASSILLON Comment on above: Performed By: #### U A #### [facility] [address] [place] [address] UA Urobilinogen 1.0 E.U./dL Normal CHARITO MASSILLON Comment on above: Performed By: #### U A #### [facility] [address] [place] [address] Urobilinogen (U) [Mass/Vol] Negative Normal Neg-Trace CHARITO MASSILLON Comment on above: Performed By: #### U A #### [facility] [address] [place] [address] [employer] Cytology Reporton 2023 [employer] Cytology Report . Pathology Reports Accession: Collected Date/Time: Received Date/Time: Pathologist: [id number] 06/05/2024 14:52 EST 06/05/2024 18:00 EST [employer] Cytology Report SPECIMEN: Specimen Description: Liquid Prep w/ HPV Specimen: Cervical Screening or Diagnostic: Screening RELEVANT HISTORY: LMP: SPECIMEN ADEQUACY: SATISFACTORY FOR EVALUATION Endocervical/Transfo rmational zone component present INTERPRETATION/RESUL TS: NEGATIVE FOR INTRAEPITHELIAL LESION OR MALIGNANCY HIGH RISK HPV TESTING: Event Code Result HPV Interp See Interp HPVN HPV Interp Text: High Risk HPV Typing: NEGATIVE HPV types 16, 18, 31, 33, 35, 39, 45, 51, 52, 56, 58, 59, 66 and 68 DNA were undetectable or below the pre-set threshold. The viraj High-Risk HPV DNA Test is not intended for use as a screening device for Pap normal women under age 30 and is not intended to substitute for regular Pap screening. The viraj High-Risk HPV DNA Test is designed to augment existing methods for the detection of cervical disease and should be used in conjunction with clinical information derived from other diagnostic and screening tests, physical examinations and full medical history in accordance with appropriate patient management procedures. NOTE: A negative result does not preclude the presence of HPV infection because results depend on adequate specimen collection, absence of inhibitors and sufficient DNA to be detected. As of: 06/11/24 14:39 EST COMMENT: This Pap Test was successfully processed and evaluated with the assistance of the [employer] ThinPrep Test Imaging System. Pathology Reports Accession: Collected Date/Time: Received Date/Time: Pathologist: [id number] 06/05/2024 14:52 EST 06/05/2024 18:00 EST Electronically Signed by Pathology report verified by [facility] Screened by: KK Electronically signed by Raiza SMALLS (ASCP) Sign-Out Date: 06/11/2024 14:39 Performing Lab: [facility], [address] [place] [address] Pathology Dept Disclaimer The Pap test is a screening test for cervical cancer. As evidenced by published data, it is subject to both inherent false negative and false positive results. Your patient's results should be interpreted in context with pertinent clinical history including gynecological examination. Normal [facility] HPVon 06-10-2024 HPV Interp Normal See Interp HPVN [facility] Comment on above: Order Comment: Order placed by AP_HPV_ORDER rule from [id number] Result Comment: High Risk HPV Typing: NEGATIVE HPV types 16, 18, 31, 33, 35, 39, 45, 51, 52, 56, 58, 59, 66 and 68 DNA were undetectable or below the pre-set threshold. The viraj High-Risk HPV DNA Test is not intended for use as a screening device for Pap normal women under age 30 and is not intended to substitute for regular Pap screening. The viraj High-Risk HPV DNA Test is designed to augment existing methods for the detection of cervical disease and should be used in conjunction with clinical information derived from other diagnostic and screening tests, physical examinations and full medical history in accordance with appropriate patient management procedures. NOTE: A negative result does not preclude the presence of HPV infection because results depend on adequate specimen collection, absence of inhibitors and sufficient DNA to be detected. See Interp HPVN Performed By: #### H PV #### [place] [address] HPV Source Cervix Normal [facility] Comment on above: Order Comment: Order placed by AP_HPV_ORDER rule from [id number] Performed By: #### H PV #### [place] [address] CTPCRon 06-07-2024 C. trachomatis Interp Normal See CT Interp N [facility] Comment on above: Result Comment: C. t rachomatis DNA not detected. Specimen is presumptive negative for C. trachomatis. A negative result does not preclude C. trachomatis infection because results depend on adequate specimen collection, absence of inhibitors, and sufficient DNA to be detected. See CT Interp N Performed By: #### C TPCR, NGPCR1 #### [place] [id number] C.trachomatis PCR Negative Normal Negative [facility] Comment on above: Result Comment: Mole j luisar (PCR) assay performed on the [employer] 4800 system. Performed By: #### C TPCR, NGPCR1 #### [place] [id number] Chlam Source Cervix Normal [facility] Comment on above: Performed By: #### C TPCR, NGPCR1 #### [place] [address] [id number] 06-07-2024 GC PCR Source Cervix Normal [facility] Comment on above: Performed By: #### C TPCR, NGPCR1 #### [place] [address] N. gonorrhoeae (PCR) Negative Normal Negative [facility] Comment on above: Result Comment: Mole cular (PCR) assay performed on the [employer] 4800 System. Performed By: #### C TPCR, NGPCR1 #### [place] [address] N. gonorrhoeae Interp Normal See NG Interp N [facility] Comment on above: Result Comment: N. g onorrhoeae DNA not detected. Specimen is presumptive negative for N. gonorrhoeae. A negative result does not preclude Neisseria gonorrhoeae infection because results depend on adequate specimen collection, absence of inhibitors, and sufficient DNA to be detected. See NG Interp N Performed By: #### C TPCR, NGPCR1 #### [place] [address] DRUGUon 06-05-2024 Amphetamine (u) Negative Normal Negative [facility] Comment on above: Performed By: #### D RUGU #### [place] [address] Barbiturate (u) Negative Normal Negative [facility] Comment on above: Performed By: #### D RUGU #### [place] [address] Benzodiazepine (u) Negative Normal Negative [facility] Comment on above: Performed By: #### D RUGU #### [place] [id number] Cannabinoid (u) Negative Normal Negative [facility] Comment on above: Performed By: #### D RUGU #### [place] [address] Cocaine Ql (U) Negative Normal Negative [facility] Comment on above: Performed By: #### D RUGU #### [address] [address] Fentanyl (u) Negative Normal Negative [facility] Comment on above: Result Comment: Test ing has been performed FOR MEDICAL PURPOSES ONLY. Performed By: #### D RUGU #### [address] [address] Methadone Ql (U) Negative Normal Negative [facility] Comment on above: Performed By: #### D RUGU #### [place] [id number] Opiate (u) Negative Normal Negative [facility] Comment on above: Performed By: #### D RUGU #### [place] [address] Oxycodone (u) Negative Normal Negative [facility] Comment on above: Result Comment: Test ing has been performed FOR MEDICAL PURPOSES ONLY. Performed By: #### Sharda RUGU #### [place] [address] PCP (u) Negative Normal Negative [facility] Comment on above: Performed By: #### D RUGU #### [place] [id number] Propoxyphene (u) Negative Normal Negative [facility] Comment on above: Performed By: #### D RUGU #### [place] [id number] U pH Drug Scrn 6.0 Normal 5.0-8.0 [facility] Comment on above: Performed By: #### D RUGU #### [place] [id number] Urine Drugs screened: See Below Normal [facility] Comment on above: Result Comment: This drug screen is a presumptive screening only. No confirmation will be performed unless requested. Drugs screened include: Threshold Amphetamines/Methamphetamines 1,000 ng/mL Barbiturates 200 ng/mL Benzodiazepine metabolites 200 ng/mL Cannabinoids (THC metabolites) 50 ng/mL Benzoylecognine (Cocaine metab) 300 ng/mL Opiates 300 ng/mL Phencyclidine (PCP) 25 ng/mL Methadone 300 ng/mL Propoxyphene 300 ng/mL Fentanyl 1.0 ng/mL Oxycodone 100 ng/mL Testing has been performed FOR MEDICAL PURPOSES ONLY. Performed By: #### D JEVON #### [facility] [address] [place] [address] Chlamydia/GC NELLY aptimaon CHLAMY,NUC ACID Negative Normal Negative [facility] Comment on above: Performed By: #### M 100.2200, L7000.1800 #### [facility] [address] [place], [place], [id number] GC BY NUC ACID Negative Normal Negative [facility] Comment on above: Result Comment: Perf ormed at: =G - [facility] [address] [id number] High Risk Ob: Tiana Hayes MD, Phone: [phone] Performed By: #### M 100.2200, L7000.1800 #### [facility] [address] [place], [address] Urine Cultureon 05-31-2024 URC Culture exhibits no growth. Normal [facility] Comment on above: Performed By: #### M 100.2200, L7000.1800 #### [facility] [address] [place], [place], [address] Yarn Worker Office Visit Reporton 05-30-2024 Yarn Worker Office Visit Report [facility] [address], [address] [place] [address] OFFICE VISIT Date of Service: 05/30/24 MR#: [id number] Acct: [id number] Name: EDWARD ROSSKALEY JESUS Francine Rep #: [id number] : 1990 Provider: ARNOLD Brooks ams Age/Sex: 34/F Location: [facility] Status: Signed Intake Vital Signs 08/16/23 10:04 05/30/24 11:22 05/30/24 11:34 Height 5 ft 3 in 5 ft 3 in 5 ft 3 in Weight: 178 lb BMI 31.5 BP 98/64 Intake Visit Reasons: NOB ELISSA 01/[address] Service Required: No Is patient in pain?: No Allergies No Known Allergies Allergy (Verified 05/30/24 11:25) Medications ???Medication ???Instructions ???Recorded ???Confirmed ???Type docosahexaenoic acid 200 mg 200 mg PO DAILY Check with primary 02/08/22 05/30/24 History capsule ( DHA) doctor Last Menstrual Period: 08/22/21 Zika: Zika virus screening: Negative : No Have you fallen in the past year?: No PFSH PFSH Medical History (Updated 05/30/24 @ 12:06 by Steffi Jackson CNM) Pelvic pain Adenomyosis of uterus (spontaneous vaginal delivery) Pelvic pain affecting Anemia Supervision of high-risk Family History Mother Hypertension Uncle CVA (cerebral vascular accident) Social History (Updated 05/30/24 @ 11:44 by Steffi Jackson CNM) adopted: No household members: family housing: house number of children: 3 current occupational status: employed and unemployed current occupation: [employer] current occupational exposures/hazards: No pets and animals: Yes history of recent travel: No sexually active: Yes Smoking Status: Former smoker second hand exposure: No alcohol intake: never details: not while substance use type: does not use well-balanced diet: rarely or never caffeine: Yes what type of physical activity do you participate in: none seatbelt use: always do you feel safe at home: Yes additional social history: - [place] History 6 Elective abortions Hx Para 4 Spontaneous abortions 1 Hx # Term Pregnancies Ectopic pregnancies Hx # Pregnancies Multiple births # of living children 4 Past Pregnancies Del. Date Name GA/Weeks Outcome Route Bth Weight Infant Gen Labor Lgth Anesthesia Del Locatn Provider ROSA 05/04/10 Jennifer 40 live - full term Female none Sarina Cross 02/21/21 Gareth 40 live - full term Female none SERINA Grimaldo 05/23/22 Rashida 40 live - full term 7lb6oz Male [facility] Mary ins Delivery Date: 05/04/10 Last Updated by: Sandhya Hart No issues during or delivery Delivery Date: 02/21/21 Last Updated by: Sandhya Hart No issues during or delivery. Per patient child had water in kidney Delivery Date: 05/23/22 Last Updated by: Zee Hernandez IOL HPI NOB ELISSA 01/05 Details: KALEY FRY is a 34 year old who presents for New OB visit. OB Visit ELISSA Calculator Estimated Delivery Date Method Current WG Current Estimate 01/05/25 Ultrasound #1 8w 4d Estimated Due Date: 01/05/25 Expected Delivery Route/Plan Labor Preferences- CB/BF classes: [] labor support person: [] labor intervention preferences: [] pain management options preferred: [] cut cord/dad catch: [] : [] PP control planned: [] discussed possible routes of delivery and associated risks: [] special requests: [] Specific Issue/Plans Covid status: [] Flu vaccine: [] Tdap vaccine: [] Rhogam: [] LARC form signed: [] Problem list reviewed and updated with the most current plan of care details and appropriate orders placed. Relevant counseling for the gestational age provided. Continue routine care and follow up unless otherwise noted in visit notes/problem list details Initial Weight: 178 lb Date -???-???-???-???-??? -???-???-???-???-??? -???-???- EGA Weight BP Urine Prot -???-???-???-???-??? -???-???-???-???-??? -???-???- Glucose FHR FuHt Pres Dilation -???-???-???-???-??? -???-???-???-???-??? -???-???- Effaced St Visit Note 05/30/24 -???-???-???-???-??? -???-???-???-???-??? -???-???- 8w 4d 178 lb (+0 oz) 98/64 -???-???-???-???-??? -???-???-???-???-??? -???-???- 175 -???-???-???-???-??? -???-???-???-???-??? -???-???- KW- CRL cons with PCC US per pt. Accepts NIPT. Menstrual History Last Menstrual Period: 08/22/21 Reported LMP: unknown Normal amount/duration: No On hormonal BC at conception: No Antepartum Record Genetic Screening: Congenital Heart Defect: Other, Neural Tube Defect: Other, Hemoglobinopathy Or Carrier: Other, Cystic Fibrosis: Other, Chromosome Abnormality: Other, Vlad-Sachs: Other, Hemophili (more content not included)... Normal [facility] FEMALE PELV TRANSABD COMP HARSHAEon 12-28-2023 FEMALE PELV TRANSABD COMPLETE * * *Final Report* * * DATE OF EXAM: Dec 28 2023 1:57PM U [id number] - US FEMALE PELV TRANSABD COMPLETE / PROCEDURE REASON: Adenomyosis of the uterus * * * * Physician Interpretation * * * * EXAMINATION: TRANSABDOMINAL FEMALE PELVIC ULTRASOUND CLINICAL HISTORY: Adenomyosis of the uterus. TECHNIQUE: Sonography of the pelvis was performed by transabdominal technique Images were obtained and stored in a permanent archive. MQ: [facility]_2021 COMPARISON: None RESULT: Uterus: -Size: 8.6 x 3.3 x 5.2 cm -Orientation: Anteverted -Endometrial echo complex: Evaluation of the endometrium was adequate. No endometrial abnormality. The endometrial echo complex measured 0.2 cm. Trace endometrial fluid noted. -Cervix: Unremarkable. -Adenomyosis assessment: There are no sonographic findings of adenomyosis. -Fibroids: There are no fibroids. Right Ovary: 3.3 x 1.7 x 2.1 cm - Normal sonographic appearance with physiologic follicles. Left Ovary: 3.8 x 2.5 x 1.6 cm - Normal sonographic appearance with physiologic follicles. Free Fluid: No abnormal free fluid is present. IMPRESSION: Trace endometrial fluid, likely physiologic. Otherwise, unremarkable uterus. There are no sonographic features of uterine adenomyosis. Unremarkable ovaries. Gas Plant Operator: PSCB Transcribe Date/Time: Dec 28 2023 2:00P Dictated by : DAYSI CAMEJO MD This examination was interpreted and the report reviewed and electronically signed by: DAYSI CAMEJO MD on Dec 28 2023 2:03PM EST [id number] Normal US Pelvison 12-28-2023 IMPRESSION: Trace endometrial fluid, likely physiologic. Otherwise, unremarkable uterus. There are no sonographic features of uterine adenomyosis. Unremarkable ovaries. Gas Plant Operator: [facility] Transcribe Date/Time: Dec 28 2023 2:00P Dictated by : DAYSI CAMEJO MD This examination was interpreted and the report reviewed and electronically signed by: DAYSI CAMEJO MD on Dec 28 2023 2:03PM EST [facility] * * *Final Report* * * DATE OF EXAM: Dec 28 2023 1:57PM [id number] - US FEMALE PELV TRANSABD COMPLETE / PROCEDURE REASON: Adenomyosis of the uterus * * * * Physician Interpretation * * * * EXAMINATION: TRANSABDOMINAL FEMALE PELVIC ULTRASOUND CLINICAL HISTORY: Adenomyosis of the uterus. TECHNIQUE: Sonography of the pelvis was performed by transabdominal technique Images were obtained and stored in a permanent archive. MQ: _2021 COMPARISON: None RESULT: Uterus: -Size: 8.6 x 3.3 x 5.2 cm -Orientation: Anteverted -Endometrial echo complex: Evaluation of the endometrium was adequate. No endometrial abnormality. The endometrial echo complex measured 0.2 cm. Trace endometrial fluid noted. -Cervix: Unremarkable. -Adenomyosis assessment: There are no sonographic findings of adenomyosis. -Fibroids: There are no fibroids. Right Ovary: 3.3 x 1.7 x 2.1 cm - Normal sonographic appearance with physiologic follicles. Left Ovary: 3.8 x 2.5 x 1.6 cm - Normal sonographic appearance with physiologic follicles. Free Fluid: No abnormal free fluid is present. [facility] Provider, [facility] [place] - 12/28/2023 * * *Final Report* * * DATE OF EXAM: Dec 28 2023 1:57PM [id number] - US FEMALE PELV TRANSABD COMPLETE / PROCEDURE REASON: Adenomyosis of the uterus * * * * Physician Interpretation * * * * EXAMINATION: TRANSABDOMINAL FEMALE PELVIC ULTRASOUND CLINICAL HISTORY: Adenomyosis of the uterus. TECHNIQUE: Sonography of the pelvis was performed by transabdominal technique Images were obtained and stored in a permanent archive. MQ: [facility]_2021 COMPARISON: None RESULT: Uterus: -Size: 8.6 x 3.3 x 5.2 cm -Orientation: Anteverted -Endometrial echo complex: Evaluation of the endometrium was adequate. No endometrial abnormality. The endometrial echo complex measured 0.2 cm. Trace endometrial fluid noted. -Cervix: Unremarkable. -Adenomyosis assessment: There are no sonographic findings of adenomyosis. -Fibroids: There are no fibroids. Right Ovary: 3.3 x 1.7 x 2.1 cm - Normal sonographic appearance with physiologic follicles. Left Ovary: 3.8 x 2.5 x 1.6 cm - Normal sonographic appearance with physiologic follicles. Free Fluid: No abnormal free fluid is present. IMPRESSION IMPRESSION: Trace endometrial fluid, likely physiologic. Otherwise, unremarkable uterus. There are no sonographic features of uterine adenomyosis. Unremarkable ovaries. Gas Plant Operator: PSCB Transcribe Date/Time: Dec 28 2023 2:00P Dictated by : DAYSI CAMEJO MD This examination was interpreted and the report reviewed and electronically signed by: DAYSI CAMEJO MD on Dec 28 2023 2:03PM [facility] Radiology Study observation (narrative) [facility] US PelvisOrdered By: Mukul Pro vider on 12-28-2023 [facility] CNPNon 07-25-2023 CNPN Telephone ([facility]) KALEY COFFEY ([id number]) 1990 F [facility] Date Time Provider Department 07/25/23 IRVIN LAUREANO [facility] During your visit today, we recorded the following information about you: Diann Lane RN 07/25/2023 12:21 PM Signed Patient Name: Kaley Coffey Date of : 1990 Primary Care Physician: No primary care provider on file. Service Date: 07/25/2023 Service Time: 12:18 PM Symptomatic Caregiver COVID Call - confirmed: Yes -Caregiver employee ID:[id number] -Symptom onset:07/23/23 Covid Immunization Dates Overdue - Covid-19 Vaccine (1) Never done No completion, postpone, frequency change, or communication history exists for this topic. Recent travel outside [place]: Cares for COVID-19 positive patients: Known positive COVID-19 contacts: Previously positive for COVID: Comorbidities: [] Obesity [] Diabetes Mellitus [] Asthma/COPD [] [] Other: Symptoms: [x] Mild [] Moderate [] Severe Myalgias, GODWIN, dizzy, congestion, runny nose. Cg does not have health insurance. Client Customer Manager # given. Will schedule after she speaks with them. Kaley meets criteria for Caregiver COVID19 testing. [facility] covers the test 100% Testing will be billed to their insurance; the CG will be balance billed (i.e. They will be billed for the amount not covered by insurance, sometimes it is the full amount). Information Provided to Cg. Cg verbalized understanding. Discussed that COVID19 test will be billed through patient's own personal insurance, as Occupational [employer] no longer covering cost. Verified insurance with CG -- no insurance. If insurance is different than what is listed, CG informed to present insurance card at time of service to update. Caregiver aware they may be responsible for cost of test/copay. Discussed referral to the Patient Client Customer Manager if needed ([phone]). CG consents to testing. I will be accessing your [facility] medical record to place the COVID test order and to view the test results. You will be able to view your results in deltaDNA. [facility] will also be communicating with you through deltaDNA about your COVID test results and your return to work. Plan -Caregiver COVID19 test ordered and scheduled -Reinforced self-isolation, avoiding public areas and gatherings, pending COVID19 result -Mask while home with family and not isolated alone -Advised no work pending COVID19 result -Advised to seek evaluation by primary care provider, [facility], or ED with worsening or escalating symptoms -Advised to call the [facility] with outstanding questions/comments/c oncerns Signature: Diann Lane RN Patient Name: Kaley Coffey Date: 07/25/2023 Time: 12:18 PM Pager/Contact: Allergies As of Date: 07/25/2023 (No Known Allergies) Date Reviewed: 06/08/2023 Reviewed by: Rabia Ruggiero APRN.VEGETABLE GROWER - Fully Assessed Reason for Visit: [facility] [[id number]] Problem List As Of Date: 07/25/2023 (None) Encounter Status:Closed by DIANN LNAE on 07/25/23 Normal [facility] XR CHEST 2V FRONTAL/LATon XR CHEST 2V FRONTAL/LAT * * *Final Repor t* * * DATE OF EXAM: Jul 14 2023 12:57PM [id number] - XR CHEST 2V FRONTAL/LAT / PROCEDURE REASON: RULE OUT INDERTERMINATE TB GOLD PLATE RESULTS * * * * Physician Interpretation * * * * EXAMINATION: CHEST RADIOGRAPH (2 VIEW FRONTAL and LATERAL) CLINICAL HISTORY: TB positive MQ: XC2_6 EXAM DATE/TIME: 07/14/2023 12:57 PM COMPARISON: No relevant prior studies available. RESULT: Lines, tubes, and devices: None. Lungs and pleura: No consolidation. No lung mass. No pleural effusion. No pneumothorax. Cardiomediastinal silhouette: Normal cardiomediastinal silhouette. Bones and soft tissues: Unremarkable. IMPRESSION: No acute radiographic abnormality. Gas Plant Operator: PSCB Transcribe Date/Time: Jul 15 2023 7:40A Dictated by : CECILLE KAUR MD This examination was interpreted and the report reviewed and electronically signed by: CECILLE KAUR MD on Jul 15 2023 7:40AM EST [id number] [facility] CNOVon 06-30-2023 CNOV Office Visit (CCWRNC) KALEY COFFEY ([id number]) 1990 F [facility] Date Time Provider Department 06/30/23 10:[address] [facility] During your visit today, we recorded the following information about you: Referring Provider: SELF [[id number]] Allergies As of Date: 06/30/2023 (No Known Allergies) Date Reviewed: 06/08/2023 Reviewed by: Rabia Ruggiero APRN.VEGETABLE GROWER - Fully Assessed Reason for Visit: Pain [78] Primary Visit Diagnosis:Unspecifie d sprain of left wrist, initial encounter [S63.502A] Problem List As Of Date: 06/30/2023 (None) Encounter Status:Closed by LANDON CHAO on 07/03/23 [facility] MRI WRIST WO IVCON LTon 12-0 MRI WRIST WO IVCON LT * * *Final Report* * * DATE OF EXAM: Jun 27 2023 10:07AM [id number] - MRI WRIST WO IVCON LT / PROCEDURE REASON: Left wrist pain * * * * Physician Interpretation * * * * MRI LEFT WRIST CLINICAL INDICATION: Left wrist pain COMPARISON: Radiographs left wrist 06/08/2023 TECHNIQUE: Coronal and axial T1, coronal, axial and sagittal fat saturated T1 sequences of the right wrist. FINDINGS: Lunotriquetral coalition noted. Bone marrow signal intensity is normal. No fracture. Triangular fibrocartilage complex appears intact. Scapholunate ligament appears grossly intact. Scapholunate space is normal. A 0.8 x 0.3 x 1.0 cm ganglion cyst is present volar to the distal radius. Flexor and extensor tendons demonstrate normal morphology without tendinosis or tenosynovitis. Contents of the carpal tunnel appear normal. Median and ulnar nerves are identified and appear normal. Musculature shows normal bulk and signal intensity. IMPRESSION: 1. Lunotriquetral coalition. 2. 0.8 x 0.3 x 1.0 cm ganglion cyst volar to the distal radius. 3. No fracture. No evidence of a ligament or tendon tear. Gas Plant Operator: PSCB Transcribe Date/Time: Jun 28 2023 7:40A Dictated by : DEXTER SEXTON MD This examination was interpreted and the report reviewed and electronically signed by: DEXTER SEXTON MD on Jun 28 2023 7:53AM EST [id number] CN [facility] 06-21-2023 CN Office Visit (CCWRNC) KALEY COFFEY ([id number]) 1990 [facility] Date Time Provider Department 06/21/23 9:[address] [facility] During your visit today, we recorded the following information about you: Allergies As of Date: 06/21/2023 (No Known Allergies) Date Reviewed: 06/08/2023 Reviewed by: Rabia Ruggiero APRN.VEGETABLE GROWER - Fully Assessed Reason for Visit: Pain [78] Primary Visit Diagnosis:Left wrist pain [M25.532] Other Visit Diagnosis:Unspecifie d sprain of left wrist, initial encounter [S63.502A] Order(s):MRI WRIST WO IVCON LEFT [[id number]] Order #: [id number] FUTURE Problem List As Of Date: 06/21/2023 (None) Encounter Status:Closed by LANDON CHAO on 06/21/23 [facility] CNOV 06-09-2023 CN Office Visit (CCWRNC) KALEY COFFEY ([id number]) 1990 F Date Time Provider Department 06/09/23 1[facility] PM [facility] During your visit today, we recorded the following information about you: Allergies As of Date: 06/09/2023 (No Known Allergies) Date Reviewed: 06/08/2023 Reviewed by: Rabia Ruggiero APRN.CNP - Fully Assessed Reason for Visit: Pain [78] Primary Visit Diagnosis:Unspecifie d sprain of left wrist, initial encounter [S63.502A] Problem List As Of Date: 06/09/2023 (None) Encounter Status:Closed by LANDON CHAO on 06/12/23 [facility] Office Visit ([facility]) KALEY COFFEY ([id number]) 1990 F Date Time Provider Department 06/08/23 7:55 AM RABIA RUGGIERO [facility] During your visit today, we recorded the following information about you: Temperature Pulse Respiration Blood pressure 99.1 degrees 83/minute 16/minute 122/76 Weight Last Period 78.2 kg 06/07/23 Rabia Ruggiero APRN.CNP 06/08/2023 9:21 AM Signed Kaley Coffey is a 33 year old female who presents with Wrist Pain (Left, Work injury, pts that a box bent wrist backwards, appears swollen, pain with movement, no serenity of wrist pain ) Kaley Coffey is a 33 year old female who presents with left Wrist Pain Worker's Comp., patient works for [employer] hand / wrist: Left Location: wrist and FA Radiation: No Onset: Today yesterday 20 5 AM Trauma or injury: Yes, patient was putting a package on top of the shelf when the weight of it became too much and came down on her left wrist after she tried to brace it from falling Repetitive Activity at work or home: Yes Describe the pain: aching and stabbing How bad is the pain: Moderate How often is the pain present: constant Elbow or forearm pain: Yes, forearm Numbness or tingling in the hands: No Weakness in the hands: No Dropping things: No Decreased Range of Motion: Yes Alleviating factors Rest: Yes Analgesic medications:No Ice: Yes Heat: No Has tried:anything Worsened by: movement Previous problems: {No Previous xrays or other imaging: No PAST MEDICAL HISTORY Diagnosis Date Anemia There is no problem list on file for this patient. No current outpatient medications on file. No current facility-administere d medications for this visit. Social History Tobacco Use Smoking status: Former Types: Cigarettes Smokeless tobacco: Never Vaping Use Vaping Use: Never used Alcohol Use: Not on file Tobacco Use: Types: Cigarettes History reviewed. No pertinent family history. Review of Systems Constitutional: Negative for chills and fever. Eyes: Negative for blurred vision. Respiratory: Negative for shortness of breath. Cardiovascular: Negative for chest pain and palpitations. Gastrointestinal: Negative for abdominal pain, nausea and vomiting. Musculoskeletal: Positive for joint pain. Left wrist and forearm arm pain and swelling Neurological: Negative for dizziness, loss of consciousness and headaches. BP 122/76 Pulse 83 Temp 99.1 Resp 16 Wt 172 lb 6.4 oz (78.2kg) SpO2 100% LMP 06/07/2023 Physical Exam Vitals and nursing note reviewed. Constitutional: Appearance: Normal appearance. HENT: Head: Normocephalic and atraumatic. Cardiovascular: Rate and Rhythm: Normal rate and regular rhythm. Pulmonary: Effort: Pulmonary effort is normal. Breath sounds: Normal breath sounds. Musculoskeletal: Right wrist: Normal. Left wrist: Swelling, tenderness and snuff box tenderness present. No deformity, effusion or crepitus. Decreased range of motion. Cervical back: Normal range of motion. Comments: Left wrist; swelling and tender to palpation around snuffbox and lateral aspect of the wrist, also swelling and pain around forearm arm, no deformity, no erythema, no ecchymosis, no rash. Capillary refill less than 2 seconds, positive sensation, positive radial pulses, neurovascular intact. Decreased range of motion with extension flexion inversion and eversion. Skin: General: Skin is warm and dry. Neurological: General: No focal deficit present. Mental Status: She is alert. Mental status is at baseline. ASSESSMENT/PLAN: 1. Wrist sprain, left, initial encounter - ICD9: 842.00, ICD10: S63.502A (primary diagnosis) 2. Wrist injury, left, initial encounter - ICD9: 959.3, ICD10: S69.92XA 3. Forearm joint pain, left - ICD9: 719.43, ICD10: M25.532 - WRIST SPLINT - XR WRIST INJURY 4V PA/LAT/OBL/SCAPH LEFT - FROI form completed No fracture on x-rays for the official reading by radiology MD. Patient will be treated for an acute wrist sprain and forearm pain . Wrist brace, applied in the clinic . Patient to RICE (rest, ice, compression, and elevation )limb . Go to the emergency room for new symptoms. Patient was plan of care verbalized understanding instructions. Call [facility] phone number is [phone] tomorrow before 9 AM to schedule a follow-up appointment. Follow-up medical condition/release report will be given by the [facility] This note was partially generated using DXY voice recognition system. Rabia Ruggiero APRN.Rabia Parkinson APRN.CNP 06/08/2023 9:11 AM Signed Call [facility] phone number is [phone] tomorrow before 9 AM to schedule a follow-up appointment. Follow-up medical condition/release report will be given by the [facility] SPRAINS / STRAINS GENE (more content not included)... Normal XR WRIST 4V PA/LAT/OBL/SCAPH LTon 06-08-2023 XR WRIST 4V PA/LAT/OBL/SCAPH LT * * *Final Report* * * DATE OF EXAM: Jun 08 2023 9:17AM [id number] - XR WRIST 4V PA/LAT/OBL/SCAPH LT / PROCEDURE REASON: Wrist injury, left, initial encounter * * * * Physician Interpretation * * * * XR WRIST 4V PA/LAT/OBL/SCAPH LT Ordering Physician: RABIA RUGGIERO LEFT WRIST 5 VIEWS Clinical Statement: Injury with decreased range of motion FINDINGS: No acute fracture or dislocation. The osseous structures are intact. The carpal rows demonstrate normal alignment. 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 Transcribe Date/Time: Jun 10 2023 9:41A Dictated by : JESÚS LE MD This examination was interpreted and the report reviewed and electronically signed by: JESÚS LE MD on Jun 10 2023 9:43AM EST [id number] CN [facility] Absolute lymphocyte countOrd ered By: Ariadna San on 09-07-2022 Lymphocytes Auto (Unsp spec) [#/Vol] 3.17 10*3/uL 0.83-4.51 [facility] Basophil percentageOrdered B y: Ariadna San on 09-07-2022 Basophils/100 WBC (Bld) 0.5 % 0-1 [facility] Bilirubin [Mass/Vol] 0.40 mg/dL 0.20-1.00 [facility] Comment on above: For patients on eltr ombopag therapy, use of Dimension [place] TBIL is not recommended. Eosinophils/100 WBC (Bld) 3.4 % 0-5 [facility] LDH [Catalytic activity/Vol] 202 U/L 84-246 [facility] Neutrophils (Bld) [#/Vol] 2.4 10*3/uL 2.0-7.7 [facility] Neutrophils/100 WBC (Bld) 38.4 % 47-70 [facility] WBC (Bld) [#/Vol] 6.2 10*3/uL 4.4-11.0 [facility] Blood erythrocytes count (nu mber/volume)Ordered By: Ariadna San on 09-07-2022 RBC (Bld) [#/Vol] 4.13 10*6/uL 4.2-5.4 [facility] Blood hemoglobin measurement (mass/volume)Ordered By: Ariadna San on 09-07-2022 Hemoglobin (Bld) [Mass/Vol] 11.0 g/dL 12.0-15.0 [facility] Blood lymphocytes/100 leukoc ytesOrdered By: Ariadna San on 09-07-2022 Lymphocytes/100 WBC (Bld) 51.1 % 19-41 [facility] Blood monocytes/100 leukocyt esOrdered By: Ariadna San on 09-07-2022 Monocytes/100 WBC (Bld) 6.3 % 0-10 [facility] Blood platelet mean volumeOr dered By: Ariadna San on 09-07-2022 Platelet mean volume (Bld) [Entitic vol] 8.7 fL 6.2-12.0 [facility] Determination of erythrocyte mean corpuscular volume (MCV)Ordered By: Ariadna San on 09-07-2022 MCV (RBC) [Entitic vol] 87.7 fL 81-99 [facility] Direct bilirubinOrdered By: Ariadna San on 09-07-2022 Bilirubin.direct [Mass/Vol] 0.15 mg/dL 0.00-0.30 [facility] Hematocrit Auto (Bld) [Volum e fraction]Ordered By: Ariadna San on 09-07-2022 Hematocrit (Bld) [Volume fraction] 36.2 % 37-47 [facility] Laboratory - Hematology and Cell countsOrdered By: Ariadna San on 09-07-2022 Erythrocyte distribution width (RBC) [Entitic vol] 42.6 fL 35.1-43.9 [facility] Erythrocyte distribution width (RBC) [Ratio] 13.3 % 11.6-14.6 [facility] Immature granulocytes/100 WBC (Bld) 0.300 % 0.0-0.9 [facility] Comment on above: IG% - Immature Granu locytes (promyelocytes, myelocytes and metamyelocytes) > 1% indicates that a LEFT SHIFT is Present. MCH (RBC) [Entitic mass] 26.6 pg 27.0-32.0 [facility] Nucleated RBC/100 WBC (Bld) [Ratio] 0 % 0-5 [facility] MCHC Auto (RBC) [Mass/Vol]Or dered By: Ariadna San on 09-07-2022 MCHC (RBC) [Mass/Vol] 30.4 g/dL 32-36 [facility] Platelets bldOrdered By: Elena San on 09-07-2022 Platelets (Bld) [#/Vol] 303 10*3/uL 150-450 [facility] Serum or plasma non-glucuron idated bilirubin measurement (mass/volume)Ordered By: Ariadna San on 09-07-2022 Bilirubin.indirect [Mass/Vol] 0.20 mg/dL 0.00-1.00 [facility] Thin prep Papanicolaou smear with manual screeningOrdered By: Ariadna San on 09-07-2022 Thin prep Papanicolaou smear with manual screening 16 U/L 15-37 [facility] Absolute lymphocyte countOrd ered By: Ariadna San on 05-23-2022 Lymphocytes Auto (Unsp spec) [#/Vol] 3.45 10*3/uL 0.83-4.51 [facility] Basophil percentageOrdered B y: Ariadna San on 05-23-2022 C. trachomatis DNA NELLY+probe Ql (Unsp spec) Negative Negative [facility] Basophils/100 WBC (Bld) 0.4 % 0-1 [facility] Eosinophils/100 WBC (Bld) 0.7 % 0-5 [facility] Neutrophils (Bld) [#/Vol] 5.1 10*3/uL 2.0-7.7 [facility] Neutrophils/100 WBC (Bld) 54.0 % 47-70 [facility] WBC (Bld) [#/Vol] 9.5 10*3/uL 4.4-11.0 [facility] Blood erythrocytes count (nu mber/volume)Ordered By: Ariadna San on 05-23-2022 RBC (Bld) [#/Vol] 3.91 10*6/uL 4.2-5.4 [facility] Blood hemoglobin measurement (mass/volume)Ordered By: Ariadna San on 05-23-2022 Hemoglobin (Bld) [Mass/Vol] 11.0 g/dL 12.0-15.0 [facility] Blood lymphocytes/100 leukoc ytesOrdered By: Ariadna San on 05-23-2022 Lymphocytes/100 WBC (Bld) 36.2 % 19-41 [facility] Blood monocytes/100 leukocyt esOrdered By: Ariadna San on 05-23-2022 Monocytes/100 WBC (Bld) 8.3 % 0-10 [facility] Blood platelet adequacy dete ction by light microscopyOrdered By: Ariadna San on 05-23-2022 Platelets LM Ql (Bld) ADEQUATE ADEQ [facility] Blood platelet mean volumeOr dered By: Ariadna San on 05-23-2022 Platelet mean volume (Bld) [Entitic vol] 10.6 fL 6.2-12.0 [facility] COVID-19 virus antigen assay Ordered By: Ariadna San on 05-23-2022 SARS-CoV-2 (COVID-19) Ag IA.rapid Ql (Resp) [facility] Determination of erythrocyte mean corpuscular volume (MCV)Ordered By: Ariadna San on 05-23-2022 MCV (RBC) [Entitic vol] 85.9 fL 81-99 [facility] Hematocrit Auto (Bld) [Volum e fraction]Ordered By: Ariadna San on 05-23-2022 Hematocrit (Bld) [Volume fraction] 33.6 % 37-47 [facility] Laboratory - Chemistry and C hemistry - challengeon 05-23-2022 Glucose Ql (U) Negative [facility] - Hematology and Cell countsOrdered By: Ariadna San on 05-23-2022 Erythrocyte distribution width (RBC) [Entitic vol] 42.6 fL 35.1-43.9 [facility] Erythrocyte distribution width (RBC) [Ratio] 13.8 % 11.6-14.6 [facility] Immature granulocytes/100 WBC (Bld) 0.400 % 0.0-0.9 [facility] Comment on above: IG% - Immature Granu locytes (promyelocytes, myelocytes and metamyelocytes) > 1% indicates that a LEFT SHIFT is Present. MCH (RBC) [Entitic mass] 28.1 pg 27.0-32.0 [facility] Nucleated RBC/100 WBC (Bld) [Ratio] 0 % 0-5 [facility] Laboratory - Urinalysison Protein Ql (U) Negative [facility] MCHC Auto (RBC) [Mass/Vol]Or dered By: Ariadna San on 05-23-2022 MCHC (RBC) [Mass/Vol] 32.7 g/dL 32-36 [facility] Neisseria gonorrhoeae detect ion by PCROrdered By: Ariadna San on 05-23-2022 N. gonorrhoeae DNA NELLY+probe Ql (Cervical mucus) Negative Negative [facility] Platelets bldOrdered By: Elena nickydaisy San on 05-23-2022 Platelets (Bld) [#/Vol] TNP [facility] Comment on above: Test not performedPl ease note: For this sample, a platelet estimate is provided rather than a platelet count due to platelet clumping. Other parameters associated with this sample are not affected by platelet clumping. If a more accurate platelet count is required, a redraw of the patient will be necessary. Laboratory - Chemistry and C hemistry - challengeon 05-18-2022 Glucose Ql (U) Negative [facility] Laboratory - Urinalysison Protein Ql (U) Negative [facility] Absolute lymphocyte counton 05-02-2022 Lymphocytes Auto (Unsp spec) [#/Vol] 2.81 10*3/uL 0.83-4.51 [facility] Work Phone: Basophil percentageon 2021 Basophils/100 WBC (Bld) 0.4 % 0-1 [facility] Work Phone: Bilirubin [Mass/Vol] 0.50 mg/dL 0.20-1.00 [facility] Work Phone: Comment on above: For patients on eltr ombopag therapy, use of Dimension [place] TBIL is not recommended. Chloride [Moles/Vol] 108 mmol/L 98-107 [facility] Work Phone: Eosinophils/100 WBC (Bld) 2.1 % 0-5 [facility] Work Phone: Glucose [Mass/Vol] 84 mg/dL 74-106 [facility] Work Phone: Neutrophils (Bld) [#/Vol] 3.5 10*3/uL 2.0-7.7 [facility] Work Phone: Neutrophils/100 WBC (Bld) 48.6 % 47-70 [facility] Work Phone: Potassium [Moles/Vol] 3.5 mmol/L 3.5-5.1 [facility] Work Phone: [phone] Protein [Mass/Vol] 6.8 g/dL 6.4-8.2 [facility] Work Phone: Sodium [Moles/Vol] 140 mmol/L 136-145 [facility] Work Phone: WBC (Bld) [#/Vol] 7.1 10*3/uL 4.4-11.0 [facility] Work Phone: Blood erythrocytes count (nu mber/volume)on 05-02-2022 RBC (Bld) [#/Vol] 3.65 10*6/uL 4.2-5.4 [facility]: Blood hemoglobin measurement (mass/volume)on 05-02-2022 Hemoglobin (Bld) [Mass/Vol] 10.1 g/dL 12.0-15.0 [facility] Work Phone: Blood lymphocytes/100 leukoc yteson 05-02-2022 Lymphocytes/100 WBC (Bld) 39.4 % 19-41 [facility] Work Phone: Blood monocytes/100 leukocyt eson 05-02-2022 Monocytes/100 WBC (Bld) 9.1 % 0-10 [facility] Work Phone: Blood platelet mean volumeon 05-02-2022 Platelet mean volume (Bld) [Entitic vol] 9.8 fL 6.2-12.0 [facility] Work Phone: [phone] Determination of erythrocyte mean corpuscular volume (MCV)on 05-02-2022 MCV (RBC) [Entitic vol] 87.4 fL 81-99 [facility] Work Phone: Hematocrit Auto (Bld) [Volum e fraction]on 05-02-2022 Hematocrit (Bld) [Volume fraction] 31.9 % 37-47 [facility] Work Phone: Laboratory - Chemistry and C hemistry - challengeon 05-02-2022 ALP [Catalytic activity/Vol] 137 U/L 45-117 [facility] Work Phone: ALT [Catalytic activity/Vol] 24 U/L 13-56 [facility] Work Phone: CO2 [Moles/Vol] 22.0 mmol/L 21.0-32.0 [facility] Work Phone: Globulin (S) [Mass/Vol] 4.1 g/dL 2.2-4.2 [facility] Work Phone: Urea nitrogen/Creatinine [Mass ratio] 7.8 mg/mg 10-20 [facility] Work Phone: Glucose Ql (U) Negative [facility] Work Phone: Laboratory - Hematology and Cell countson 05-02-2022 Erythrocyte distribution width (RBC) [Entitic vol] 41.5 fL 35.1-43.9 [facility] Work Phone: Erythrocyte distribution width (RBC) [Ratio] 13.1 % 11.6-14.6 [facility] Work Phone: Immature granulocytes/100 WBC (Bld) 0.400 % 0.0-0.9 [facility] Work Phone: Comment on above: IG% - Immature Granu locytes (promyelocytes, myelocytes and metamyelocytes) > 1% indicates that a LEFT SHIFT is Present. MCH (RBC) [Entitic mass] 27.7 pg 27.0-32.0 [facility] Work Phone: Nucleated RBC/100 WBC (Bld) [Ratio] 0 % 0-5 [facility] Work Phone: Laboratory - Urinalysison Protein Ql (U) Negative [facility] Work Phone: MCHC Auto (RBC) [Mass/Vol]on 05-02-2022 MCHC (RBC) [Mass/Vol] 31.7 g/dL 32-36 [facility] Work Phone: No Panel Informationon 05-02 Estimated GFR (MDRD) Amer 139 mL/min >60 [facility] Work Phone: Comment on above: GFR Calc Estimated GFR (MDRD) Non-Af Amer 115 mL/min >60 [facility] Work Phone: Comment on above: Non- GFR Calc Platelets bldon 05-02-2022 Platelets (Bld) [#/Vol] 240 10*3/uL 150-450 [facility] Work Phone: Serum or plasma albumin spring urement (mass/volume)on 05-02-2022 Albumin [Mass/Vol] 2.7 g/dL 3.2-5.0 [facility] Work Phone: Serum or plasma albumin/glob ulin mass ratioon 05-02-2022 Albumin/Globulin [Mass ratio] 0.7 {ratio} 0.9-2.4 [facility] Work Phone: Serum or plasma calcium spring urement (mass/volume)on 05-02-2022 Calcium [Mass/Vol] 8.5 mg/dL 8.5-10.1 [facility] Work Phone: Serum or plasma creatinine m easurement (mass/volume)on 05-02-2022 Creatinine [Mass/Vol] 0.64 mg/dL 0.55-1.02 [facility] Work Phone: Comment on above: The validity of the calculated GFR & GFRAA in patients over 70 years has not been determined. Clinical correlation is essential. Serum or plasma urea nitroge n measurement (mass/volume)on 05-02-2022 Urea nitrogen [Mass/Vol] 5 mg/dL 7-18 [facility] Work Phone: Thin prep Papanicolaou smear with manual screeningon 05-02-2022 Thin prep Papanicolaou smear with manual screening 24 U/L 15-37 [facility] Work Phone: Thin prep Papanicolaou smear with manual screening 10 5-15 [facility] Work Phone: Urine creatinine measurement (mass/volume)on 05-02-2022 Creatinine (U) [Mass/Vol] 161.00 mg/dL NO RANGE EST. [facility] Work Phone: Urine protein measurement (m ass/volume)on 05-02-2022 Protein (U) [Mass/Vol] 21.1 mg/dL 0.0-11.[address] [facility] Work Phone: Urine protein/creatinine mas s ratioon 05-02-2022 Protein/Creatinine (U) [Mass ratio] 131 mg/g CRE 0-200 [facility] Work Phone: Laboratory - Chemistry and C hemistry - challengeon 04-25-2022 Glucose Ql (U) Negative [facility] Work Phone: [phone] Laboratory - Urinalysison Protein Ql (U) Negative [facility] Work Phone: Absolute lymphocyte counton 04-13-2022 Lymphocytes Auto (Unsp spec) [#/Vol] 2.53 10*3/uL 0.83-4.51 [facility] Work Phone: Basophil percentageon 2021 Basophils/100 WBC (Bld) 0.3 % 0-1 [facility] Work Phone: Eosinophils/100 WBC (Bld) 2.3 % 0-5 [facility] Work Phone: Neutrophils (Bld) [#/Vol] 5.1 10*3/uL 2.0-7.7 [facility] Work Phone: Neutrophils/100 WBC (Bld) 59.2 % 47-70 [facility] Work Phone: WBC (Bld) [#/Vol] 8.7 10*3/uL 4.4-11.0 [facility] Work Phone: [phone] Blood erythrocytes count (nu mber/volume)on 04-13-2022 RBC (Bld) [#/Vol] 3.72 10*6/uL 4.2-5.4 [facility]: Blood hemoglobin measurement (mass/volume)on 04-13-2022 Hemoglobin (Bld) [Mass/Vol] 10.4 g/dL 12.0-15.0 [facility] Work Phone: Blood lymphocytes/100 leukoc yteson 04-13-2022 Lymphocytes/100 WBC (Bld) 29.2 % 19-41 [facility] Work Phone: Blood monocytes/100 leukocyt eson 04-13-2022 Monocytes/100 WBC (Bld) 8.3 % 0-10 [facility] Work Phone: Blood platelet mean volumeon 04-13-2022 Platelet mean volume (Bld) [Entitic vol] 9.4 fL 6.2-12.0 [facility] Work Phone: Determination of erythrocyte mean corpuscular volume (MCV)on 04-13-2022 MCV (RBC) [Entitic vol] 88.4 fL 81-99 [facility] Work Phone: Hematocrit Auto (Bld) [Volum e fraction]on 04-13-2022 Hematocrit (Bld) [Volume fraction] 32.9 % 37-47 [facility] Work Phone: Laboratory - Hematology and Cell countson 04-13-2022 Erythrocyte distribution width (RBC) [Entitic vol] 41.0 fL 35.1-43.9 [facility] Work Phone: Erythrocyte distribution width (RBC) [Ratio] 12.7 % 11.6-14.6 [facility] Work Phone: Immature granulocytes/100 WBC (Bld) 0.700 % 0.0-0.9 [facility] Work Phone: Comment on above: IG% - Immature Granu locytes (promyelocytes, myelocytes and metamyelocytes) > 1% indicates that a LEFT SHIFT is Present. MCH (RBC) [Entitic mass] 28.0 pg 27.0-32.0 [facility] Work Phone: Nucleated RBC/100 WBC (Bld) [Ratio] 0 % 0-5 [facility] Work Phone: MCHC Auto (RBC) [Mass/Vol]on 04-13-2022 MCHC (RBC) [Mass/Vol] 31.6 g/dL 32-36 [facility] Work Phone: Platelets bldon 04-13-2022 Platelets (Bld) [#/Vol] 289 10*3/uL 150-450 [facility] Work Phone: Laboratory - Chemistry and C hemistry - challengeon 03-31-2022 Glucose Ql (U) Negative [facility] Work Phone: Laboratory - Urinalysison Protein Ql (U) Negative [facility] Work Phone: Laboratory - Chemistry and C hemistry - challengeon 03-09-2022 Glucose Ql (U) Negative [facility] Work Phone: Laboratory - Urinalysison Protein Ql (U) Negative [facility] Work Phone: Basophil percentageon 2021 Basophil percentage 10-25 SEEN /hpf 0-5 [facility] Work Phone: Bilirubin Test strip Ql (U)o n 02-28-2022 Bilirubin Ql (U) Negative Negative [facility] Work Phone: Ketones Test strip Ql (U)on 02-28-2022 Ketones Ql (U) Negative Negative [facility] Work Phone: Mucus LM Ql (Urine sed)on Mucus Ql (Urine sed) 0 SEEN /hpf [facility] Work Phone: Nitrite Test strip Ql (U)on 02-28-2022 Nitrite Ql (U) Negative Negative [facility] Work Phone: No Panel Informationon 02-28 Vaginal Amniotic Fluid Detection Negative Negative [facility] Work Phone: Comment on above: Amniotic fluid not p resent indicates No Rupture of FetalMembranes at time of specimen collection. Protein Test strip Ql (U)on 02-28-2022 Protein Ql (U) Negative Negative [facility] Work Phone: Squamous epithelial cells de tection in urine sediment by light microscopyon 02-28-2022 Epithelial cells.squamous LM Ql (Urine sed) 5-10 SEEN /hpf 5-10 [facility] Work Phone: [phone] Urine blood detectionon -0 RBC Ql (U) Negative Negative [facility] Work Phone: RBC Ql (U) 0 SEEN /hpf 0-5 [facility] Work Phone: Urine clarityon 02-28-2022 Clarity (U) Sl. Cloudy Clear [facility] Work Phone: Urine color determinationon 02-28-2022 Color (U) Yellow Yellow [facility] Work Phone: Urine glucose detectionon Glucose Ql (U) Normal mg/dl Normal [facility] Work Phone: Urine leukocyte esterase det ection by dipstickon 02-28-2022 Leukocyte esterase Test strip Ql (U) 500 /ul Negative [facility] Work Phone: Urine pHon 02-28-2022 pH (U) 6.0 [pH] 5.0 - 8.0 [facility] Work Phone: Urine sediment bacteria coun t by microscopy (number/high power field)on 02-28-2022 Bacteria LM.HPF (Urine sed) [#/Area] 2 /[HPF] None Seen [facility] Work Phone: Urine specific gravity measu rementon 02-28-2022 Specific gravity (U) [Rel density] 1.020 1.002-1.030 [facility] Work Phone: Urobilinogen Auto test strip Ql (U)on 02-28-2022 Urobilinogen Ql (U) Normal mg/dl Normal [facility] Work Phone: Absolute lymphocyte counton 02-26-2022 Lymphocytes Auto (Unsp spec) [#/Vol] 2.56 10*3/uL 0.83-4.51 [facility] Work Phone: Basophil percentageon 2021 Basophils/100 WBC (Bld) 0.4 % 0-1 [facility] Work Phone: Eosinophils/100 WBC (Bld) 2.0 % 0-5 [facility] Work Phone: Neutrophils (Bld) [#/Vol] 4.5 10*3/uL 2.0-7.7 [facility] Work Phone: Neutrophils/100 WBC (Bld) 55.2 % 47-70 [facility] Work Phone: WBC (Bld) [#/Vol] 8.1 10*3/uL 4.4-11.0 [facility]: [phone] Blood erythrocytes count (nu mber/volume)on 02-26-2022 RBC (Bld) [#/Vol] 3.50 10*6/uL 4.2-5.4 [facility] Work [facility]: [phone] Blood hemoglobin measurement (mass/volume)on 02-26-2022 Hemoglobin (Bld) [Mass/Vol] 9.9 g/dL 12.0-15.0 [facility] Work Phone: Blood lymphocytes/100 leukoc yteson 02-26-2022 Lymphocytes/100 WBC (Bld) 31.5 % 19-41 [facility] Work Phone: Blood monocytes/100 leukocyt eson 02-26-2022 Monocytes/100 WBC (Bld) 10.2 % 0-10 [facility] Work Phone: Blood platelet mean volumeon 02-26-2022 Platelet mean volume (Bld) [Entitic vol] 9.5 fL 6.2-12.0 [facility] Work Phone: [phone] Determination of erythrocyte mean corpuscular volume (MCV)on 02-26-2022 MCV (RBC) [Entitic vol] 89.4 fL 81-99 [facility] Work Phone: Gestational diabetes screen 1-hour screen with 50g oral glucose loadon 02-26-2022 Glucose 1 Hr post 50 g glucose PO [Mass/Vol] 120 mg/dL 70-140 [facility] Work Phone: Hematocrit Auto (Bld) [Volum e fraction]on 02-26-2022 Hematocrit (Bld) [Volume fraction] 31.3 % 37-47 [facility] Work Phone: Laboratory - Hematology and Cell countson 02-26-2022 Erythrocyte distribution width (RBC) [Entitic vol] 40.8 fL 35.1-43.9 [facility] Work Phone: Erythrocyte distribution width (RBC) [Ratio] 12.5 % 11.6-14.6 [facility] Work Phone: Immature granulocytes/100 WBC (Bld) 0.700 % 0.0-0.9 [facility] Work Phone: Comment on above: IG% - Immature Granu locytes (promyelocytes, myelocytes and metamyelocytes) > 1% indicates that a LEFT SHIFT is Present. MCH (RBC) [Entitic mass] 28.3 pg 27.0-32.0 [facility] Work Phone: Nucleated RBC/100 WBC (Bld) [Ratio] 0 % 0-5 [facility] Work Phone: MCHC Auto (RBC) [Mass/Vol]on 02-26-2022 MCHC (RBC) [Mass/Vol] 31.6 g/dL 32-36 [facility] Work Phone: Platelets bldon 02-26-2022 Platelets (Bld) [#/Vol] 293 10*3/uL 150-450 [facility] Work Phone: No Panel Information Group B Streptococcus Culture Group B Beta Streptococcus is not isolated. [facility] Work Phone: Vital Signs Date Time Vital Sign Value Performing Clinician Faci lity 12-27-2024 09:14-0400 Body height 160.02 cm No Primary Care Physician [facility] 12-27-2024 09:12-0400 Body mass index (BMI) [Ratio] 35.2 kg/m2 No Primary Care Physician [facility] 12-27-2024 09:12-0400 Body weight 90.26 kg No Primary Care Physician [facility] 12-27-2024 09:12-0400 Diastolic blood pressure 68 mm[Hg] No Primary Care Physician [facility] 12-27-2024 09:12-0400 Systolic blood pressure 118 mm[Hg] No Primary Care Physician [facility] 12-20-2024 11:03-0400 Body height 160.02 cm No Primary Care Physician [facility] 12-20-2024 11:03-0400 Body mass index (BMI) [Ratio] 34.5 kg/m2 No Primary Care Physician [facility] 12-20-2024 11:03-0400 Body weight 88.45 kg No Primary Care Physician [facility] 12-20-2024 11:03-0400 Diastolic blood pressure 64 mm[Hg] No Primary Care Physician [facility] 12-20-2024 11:03-0400 Systolic blood pressure 104 mm[Hg] No Primary Care Physician [facility] 12-13-2024 09:46-0400 Body height 160.02 cm No Primary Care Physician [facility] 12-13-2024 09:44-0400 Body mass index (BMI) [Ratio] 34 kg/m2 No Primary Care Physician [facility] 12-13-2024 09:44-0400 Body weight 87.14 kg No Primary Care Physician [facility] 12-13-2024 09:44-0400 Diastolic blood pressure 68 mm[Hg] No Primary Care Physician [facility] 12-13-2024 09:44-0400 Systolic blood pressure 107 mm[Hg] No Primary Care Physician [facility] 12-03-2024 10:27-0400 Body height 160.02 cm No Primary Care Physician [facility] 12-03-2024 10:27-0400 Body mass index (BMI) [Ratio] 33.8 kg/m2 No Primary Care Physician [facility] 12-03-2024 10:27-0400 Body weight 86.74 kg No Primary Care Physician [facility] 12-03-2024 10:27-0400 Diastolic blood pressure 65 mm[Hg] No Primary Care Physician [facility] 12-03-2024 10:27-0400 Systolic blood pressure 99 mm[Hg] No Primary Care Physician [facility] 11-15-2024 11:20-0400 Body mass index (BMI) [Ratio] 33.2 kg/m2 No Primary Care Physician [facility] 11-15-2024 11:20-0400 Body weight 84.99 kg No Primary Care Physician [facility] 11-15-2024 11:20-0400 Diastolic blood pressure 61 mm[Hg] No Primary Care Physician [facility] 11-15-2024 11:20-0400 Systolic blood pressure 101 mm[Hg] No Primary Care Physician [facility] 11-13-2024 10:20-0400 Body mass index (BMI) [Ratio] 33.4 kg/m2 No Primary Care Physician [facility] 11-13-2024 10:20-0400 Body weight 85.53 kg No Primary Care Physician [facility] 11-13-2024 10:20-0400 Diastolic blood pressure 64 mm[Hg] No Primary Care Physician [facility] 11-13-2024 10:20-0400 Systolic blood pressure 114 mm[Hg] No Primary Care Physician [facility] 11-05-2024 09:41-0400 Body mass index (BMI) [Ratio] 33.1 kg/m2 No Primary Care Physician [facility] 11-05-2024 09:41-0400 Body weight 84.93 kg No Primary Care Physician [facility] 11-05-2024 09:41-0400 Diastolic blood pressure 46 mm[Hg] No Primary Care Physician [facility] 11-05-2024 09:41-0400 Systolic blood pressure 84 mm[Hg] No Primary Care Physician [facility] 10-18-2024 10:51-0400 Body height 160.02 cm No Primary Care Physician [facility] 10-18-2024 10:51-0400 Body mass index (BMI) [Ratio] 33 kg/m2 No Primary Care Physician [facility] 10-18-2024 10:51-0400 Body weight 84.48 kg No Primary Care Physician [facility] 10-18-2024 10:51-0400 Diastolic blood pressure 64 mm[Hg] No Primary Care Physician [facility] 10-18-2024 10:51-0400 Systolic blood pressure 98 mm[Hg] No Primary Care Physician [facility] 10-16-2024 11:19-0400 Body temperature 97.8 [degF] No Primary Care Physician [facility] 10-16-2024 11:19-0400 Diastolic blood pressure 58 mm[Hg] No Primary Care Physician [facility] 10-16-2024 11:19-0400 Heart rate 106 /min No Primary Care Physician [facility] 10-16-2024 11:19-0400 Respiratory rate 16 /min No Primary Care Physician [facility] 10-16-2024 11:19-0400 Systolic blood pressure 102 mm[Hg] No Primary Care Physician [facility] 10-16-2024 11:15-0400 Body height 160.02 cm No Primary Care Physician [facility] 10-16-2024 11:15-0400 Body mass index (BMI) [Ratio] 32.4 kg/m2 No Primary Care Physician [facility] 10-16-2024 11:15-0400 Body weight 83 kg No Primary Care Physician [facility] 10-04-2024 10:19-0400 Body mass index (BMI) [Ratio] 31.8 kg/m2 No Primary Care Physician [facility] 10-04-2024 10:19-0400 Body weight 81.41 kg No Primary Care Physician [facility] 10-04-2024 10:19-0400 Diastolic blood pressure 61 mm[Hg] No Primary Care Physician [facility] 10-04-2024 10:19-0400 Systolic blood pressure 99 mm[Hg] No Primary Care Physician [facility] 09-20-2024 15:06-0500 Body mass index (BMI) [Ratio] 31.8 kg/m2 No Primary Care Physician [facility] 09-20-2024 15:06-0500 Body weight 81.41 kg No Primary Care Physician [facility] 09-20-2024 15:06-0500 Diastolic blood pressure 59 mm[Hg] No Primary Care Physician [facility] 09-20-2024 15:06-0500 Systolic blood pressure 93 mm[Hg] No Primary Care Physician [facility] 08-26-2024 14:00-0500 Body mass index (BMI) [Ratio] 31.6 kg/m2 No Primary Care Physician [facility] 08-26-2024 14:00-0500 Body weight 80.96 kg No Primary Care Physician [facility] 08-26-2024 14:00-0500 Diastolic blood pressure 66 mm[Hg] No Primary Care Physician [facility] 08-26-2024 14:00-0500 Systolic blood pressure 98 mm[Hg] No Primary Care Physician [facility] 07-26-2024 14:55-0500 Body mass index (BMI) [Ratio] 31.4 kg/m2 No Primary Care Physician [facility] 07-26-2024 14:55-0500 Body weight 80.45 kg No Primary Care Physician [facility] 07-26-2024 14:55-0500 Diastolic blood pressure 64 mm[Hg] No Primary Care Physician [facility] 07-26-2024 14:55-0500 Systolic blood pressure 98 mm[Hg] No Primary Care Physician [facility] 07-10-2024 12:03-0500 Diastolic Blood Pressure Non-Invasive 80 mm[Hg] RUTH GILLILAND MD [facility] 07-10-2024 12:03-0500 Heart rate 82 /min RUTH GILLILAND MD [facility] 07-10-2024 12:03-0500 Reason For Taking VItal Signs RUTH GILLILAND MD [facility] 07-10-2024 12:03-0500 Respiratory rate 16 /min RUTH GILLILAND MD [facility] 07-10-2024 12:03-0500 Systolic Blood Pressure Non-Invasive 124 mm[Hg] RUTH GILLILAND MD [facility] 07-10-2024 11:20-0500 Diastolic Blood Pressure Non-Invasive 72 mm[Hg] RUTH GILLILAND MD [facility] 07-10-2024 11:20-0500 Heart rate 86 /min RUTH GILLILAND MD [facility] 07-10-2024 11:20-0500 Respiratory rate 18 /min RUTH GILLILAND MD [facility] 07-10-2024 11:20-0500 Systolic Blood Pressure Non-Invasive 118 mm[Hg] RUTH GILLILAND MD [facility] 07-10-2024 07:41-0500 Body temperature 97.7 [degF] RUTH GILLILAND MD [facility] 07-10-2024 07:41-0500 Body weight 80.3 kg RUTH GILLILAND MD [facility] 07-10-2024 07:41-0500 Diastolic Blood Pressure Non-Invasive 76 mm[Hg] RUTH GILLILAND MD [facility] 07-10-2024 07:41-0500 Heart rate 93 /min RUTH GILLILAND MD [facility] 07-10-2024 07:41-0500 Respiratory rate 18 /min RUTH GILLILAND MD [facility] 07-10-2024 07:41-0500 Systolic Blood Pressure Non-Invasive 122 mm[Hg] RUTH GILLILAND MD [facility] 06-28-2024 13:23-0500 Body mass index (BMI) [Ratio] 31 kg/m2 No Primary Care Physician [facility] 06-28-2024 13:23-0500 Body weight 79.54 kg No Primary Care Physician [facility] 06-28-2024 13:23-0500 Diastolic blood pressure 59 mm[Hg] No Primary Care Physician [facility] 06-28-2024 13:23-0500 Systolic blood pressure 95 mm[Hg] No Primary Care Physician [facility] 06-08-2023 08:19-0500 Body temperature 99.1 [degF] Rabia Ruggiero APRN.CNP Work Phone: [facility] 06-08-2023 08:19-0500 Body weight 78.2 kg Rabia Ruggiero [employer] Work Phone: [facility] 06-08-2023 08:19-0500 Diastolic blood pressure 76 mm[Hg] Rabia Ruggiero [employer] Work Phone: [facility] 06-08-2023 08:19-0500 Heart rate 83 /min Rabia Ruggiero [employer] Work Phone: [facility] 06-08-2023 08:19-0500 Respiratory rate 16 /min Rabia Ruggiero [employer] Work Phone: [facility] 06-08-2023 08:19-0500 SaO2% (BldA) [Mass fraction] 100 % Rabia Ruggiero [employer] Work Phone: [facility] 06-08-2023 08:19-0500 Systolic blood pressure 122 mm[Hg] Rabia Ruggiero [employer] Work Phone: [facility] 09-07-2022 11:24-0500 Body height 160.02 cm No Primary Care Physician [facility] 09-07-2022 11:23-0500 Body mass index (BMI) [Ratio] 29 kg/m2 No Primary Care Physician [facility] 09-07-2022 11:23-0500 Body weight 74.5 kg No Primary Care Physician [facility] 09-07-2022 11:23-0500 Diastolic blood pressure 77 mm[Hg] No Primary Care Physician [facility] 09-07-2022 11:23-0500 Systolic blood pressure 131 mm[Hg] No Primary Care Physician [facility] 06-29-2022 09:42-0500 Body mass index (BMI) [Ratio] 28.3 kg/m2 No Primary Care Physician [facility] 06-29-2022 09:42-0500 Body weight 72.57 kg No Primary Care Physician [facility] 06-29-2022 09:42-0500 Diastolic blood pressure 67 mm[Hg] No Primary Care Physician [facility] 06-29-2022 09:42-0500 Systolic blood pressure 108 mm[Hg] No Primary Care Physician [facility] 05-24-2022 16:00-0400 Body temperature 97.7 [degF] No Primary Care Physician [facility] 05-24-2022 16:00-0400 Diastolic blood pressure 61 mm[Hg] No Primary Care Physician [facility] 05-24-2022 16:00-0400 Heart rate 92 /min No Primary Care Physician [facility] 05-24-2022 16:00-0400 Respiratory rate 16 /min No Primary Care Physician [facility] 05-24-2022 16:00-0400 SaO2% (BldA) [Mass fraction] 99 % No Primary Care Physician [facility] 05-24-2022 16:00-0400 Systolic blood pressure 106 mm[Hg] No Primary Care Physician [facility] 05-23-2022 13:59-0400 Body mass index (BMI) [Ratio] 31.6 kg/m2 No Primary Care Physician [facility] 05-23-2022 13:59-0400 Body weight 81.19 kg No Primary Care Physician [facility] 05-23-2022 09:00-0400 Body mass index (BMI) [Ratio] 31.7 kg/m2 No Primary Care Physician [facility] 05-23-2022 09:00-0400 Body weight 81.3 kg No Primary Care Physician [facility] 05-23-2022 09:00-0400 Diastolic blood pressure 74 mm[Hg] No Primary Care Physician [facility] 05-23-2022 09:00-0400 Systolic blood pressure 115 mm[Hg] No Primary Care Physician [facility] 05-18-2022 13:00-0400 Body mass index (BMI) [Ratio] 31.5 kg/m2 No Primary Care Physician [facility] 05-18-2022 13:00-0400 Body weight 80.73 kg No Primary Care Physician [facility] 05-18-2022 13:00-0400 Diastolic blood pressure 62 mm[Hg] No Primary Care Physician [facility] 05-18-2022 13:00-0400 Systolic blood pressure 118 mm[Hg] No Primary Care Physician [facility] 05-02-2022 08:02-0400 Body height 160.02 cm No Primary Care Physician [facility] Work Phone: 05-02-2022 08:02-0400 Body mass index (BMI) [Ratio] 31.7 kg/m2 No Primary Care Physician [facility] Work Phone: 05-02-2022 08:02-0400 Body weight 81.24 kg No Primary Care Physician [facility] Work Phone: 05-02-2022 08:02-0400 Diastolic blood pressure 66 mm[Hg] No Primary Care Physician [facility] Work Phone: 05-02-2022 08:02-0400 Systolic blood pressure 110 mm[Hg] No Primary Care Physician [facility] Work Phone: 04-25-2022 15:44-0400 Body mass index (BMI) [Ratio] 31.1 kg/m2 No Primary Care Physician [facility] Work Phone: 04-25-2022 15:44-0400 Body weight 79.83 kg No Primary Care Physician [facility] Work Phone: 04-25-2022 15:44-0400 Diastolic blood pressure 72 mm[Hg] No Primary Care Physician [facility] Work Phone: 04-25-2022 15:44-0400 Systolic blood pressure 116 mm[Hg] No Primary Care Physician [facility] Work Phone: 04-13-2022 08:23-0400 Body mass index (BMI) [Ratio] 30.9 kg/m2 No Primary Care Physician [facility] Work Phone: 04-13-2022 08:23-0400 Body weight 79.15 kg No Primary Care Physician [facility] Work Phone: 04-13-2022 08:23-0400 Diastolic blood pressure 76 mm[Hg] No Primary Care Physician [facility] Work Phone: 04-13-2022 08:23-0400 Systolic blood pressure 116 mm[Hg] No Primary Care Physician [facility] Work Phone: 03-31-2022 10:45-0400 Body mass index (BMI) [Ratio] 30.9 kg/m2 No Primary Care Physician [facility] Work Phone: 03-31-2022 10:45-0400 Body weight 79.15 kg No Primary Care Physician [facility] Work Phone: 03-31-2022 10:45-0400 Diastolic blood pressure 70 mm[Hg] No Primary Care Physician [facility] Work Phone: 03-31-2022 10:45-0400 Systolic blood pressure 115 mm[Hg] No Primary Care Physician [facility] Work Phone: 03-09-2022 15:52-0400 Body mass index (BMI) [Ratio] 30.4 kg/m2 No Primary Care Physician [facility] Work Phone: 03-09-2022 15:52-0400 Body weight 78.01 kg No Primary Care Physician [facility] Work Phone: 03-09-2022 15:52-0400 Diastolic blood pressure 66 mm[Hg] No Primary Care Physician [facility] Work Phone: 03-09-2022 15:52-0400 Systolic blood pressure 109 mm[Hg] No Primary Care Physician [facility] Work Phone: 02-28-2022 03:57-0400 Body temperature 98 [degF] No Primary Care Physician [facility] Work Phone: 02-28-2022 03:57-0400 SaO2% (BldA) [Mass fraction] 99 % No Primary Care Physician [facility] Work Phone: 02-28-2022 03:56-0400 Diastolic blood pressure 57 mm[Hg] No Primary Care Physician [facility] Work Phone: 02-28-2022 03:56-0400 Heart rate 91 /min No Primary Care Physician [facility] Work Phone: 02-28-2022 03:56-0400 Systolic blood pressure 108 mm[Hg] No Primary Care Physician [facility] Work Phone: 02-28-2022 03:53-0400 Body height 160.02 cm No Primary Care Physician [facility] Work Phone: 02-28-2022 03:53-0400 Body mass index (BMI) [Ratio] 30.3 kg/m2 No Primary Care Physician [facility] Work Phone: 02-28-2022 03:53-0400 Body weight 77.7 kg No Primary Care Physician [facility] Work Phone: 02-08-2022 16:00-0400 Body mass index (BMI) [Ratio] 30.1 kg/m2 No Primary Care Physician [facility] Work Phone: 02-08-2022 16:00-0400 Body weight 77.16 kg No Primary Care Physician [facility] Work Phone: 02-08-2022 16:00-0400 Diastolic blood pressure 62 mm[Hg] No Primary Care Physician [facility] Work Phone: 02-08-2022 16:00-0400 Systolic blood pressure 100 mm[Hg] No Primary Care Physician [facility] Work Phone: Encounters Encounter Date Encounter Type Care Provider Facility Start: 12-27-2024 End: 12-27-2024 Patient encounter procedure Ariadna San [facility] Work Phone: Start: 12-27-2024 End: 12-27-2024 ambulatory Rosalva Ridley Facility:[facility] Start: 12-25-2024 End: 12-25-[address] Arpita Servin [facility] Work Phone: Start: 12-25-2024 End: 12-25-2024 ambulatory Rosalva Ridley Facility:[facility] Start: 12-20-2024 End: 12-20-2024 ambulatory No Primary Care Physician [facility] Work Phone: Start: 12-20-2024 End: 12-20-[address] Felicity Vaca DO -[facility] Work Phone: Start: 12-20-2024 End: 12-20-2024 Patient encounter procedure Ariadnadaisy San [facility] Work Phone: Start: 12-20-2024 End: 12-20-2024 ambulatory No Primary Care Physician [facility] Work Phone: Start: 12-20-2024 End: 12-20-2024 ambulatory Felictiy Vaca Facility:[facility] Start: 12-18-2024 End: 12-18-2024 Patient encounter procedure Dr. Arpita Servin DC -[facility] Work Phone: Start: 12-18-2024 End: 12-18-2024 ambulatory No Primary Care Physician [facility] Work Phone: Start: 12-13-2024 End: 12-13-2024 ambulatory No Primary Care Physician [facility] Work Phone: Start: 12-13-2024 End: 12-13-[address] Felicity Vaca DO -[facility] Work Phone: Start: 12-13-2024 End: 12-13-[address] Felicity Vaca DO -[facility] Work Phone: Start: 12-13-2024 End: 12-13-2024 ambulatory Felicity Vaca Facility:[facility] Start: 12-13-2024 End: 12-13-2024 ambulatory Felicity Vaca Facility:[facility] Start: 12-11-2024 End: 12-11-[address] Arpita Servin DC -[facility] Work Phone: Start: 12-11-2024 End: 12-11-2024 ambulatory No Primary Care Physician [facility] Work Phone: Start: 12-04-2024 End: 12-04-[address] Arpita Servin DC -[facility] Work Phone: Start: 12-04-2024 End: 12-04-2024 ambulatory No Primary Care Physician [facility] Work Phone: Start: 12-03-2024 End: 12-03-2024 Patient encounter procedure Ariadna FARFAN -[facility] Work Phone: Start: 12-03-2024 End: 12-03-2024 ambulatory No Primary Care Physician [facility] Work Phone: Start: 12-03-2024 End: 12-03-2024 ambulatory No Primary Care Physician Facility:[facility] Start: 11-27-2024 End: 11-27-[address] Arpita Servin DC -[facility] Work Phone: Start: 11-27-2024 End: 11-27-2024 ambulatory No Primary Care Physician Facility:[facility] Start: 11-20-2024 End: 11-20-[address] Arpita Servin DC -[facility] Work Phone: Start: 11-20-2024 End: 11-20-2024 ambulatory No Primary Care Physician Facility:[facility] Start: 11-15-2024 End: 11-15-2024 Patient encounter procedure Ariadna FARFAN -[facility] Work Phone: Start: 11-15-2024 End: 11-15-2024 ambulatory No Primary Care Physician Facility:[facility] Start: 11-13-2024 End: 11-13-[address] Arpita Servin DC -[facility] Work Phone: Start: 11-13-2024 End: 11-13-2024 ambulatory Felicity Vaca Facility:[facility] Start: 11-05-2024 End: 11-05-[address] [facility] Work [facility]: Start: 11-05-2024 End: 11-05-2024 ambulatory Felicity Vaca Facility:[facility] Start: 10-18-2024 End: 10-18-2024 Patient encounter procedure Halina DUVALL -[facility] Work Phone: Start: 10-18-2024 End: 10-18-2024 ambulatory No Primary Care Physician [facility] Work Phone: Start: 10-18-2024 End: 10-18-2024 ambulatory No Primary Care Physician Facility:[facility] Start: 10-16-2024 [facility] Start: 10-16-2024 Non-patient / Non-visit Dr. Felicity Vaca DO -[facility] Start: 10-16-2024 End: 10-16-2024 ambulatory No Primary Care Physician [facility] Work Phone: Start: 10-16-2024 End: 10-16-[address] Felicity Vaca DO [facility] Work Phone: Start: 10-04-2024 End: 10-04-[address] Bonnie Noriega MD -[facility] Work Phone: Start: 10-04-2024 End: 10-04-2024 ambulatory No Primary Care Physician Facility:[facility] Start: 09-20-2024 End: 09-20-2024 Patient encounter procedure Ariadna San [facility] -[facility] Work Phone: Start: 09-20-2024 End: 09-20-2024 ambulatory No Primary Care Physician Facility:[facility] Start: 08-30-2024 End: 08-30-[address] Bonnie Noriega MD -[facility] Work Phone: Start: 08-30-2024 End: 08-30-2024 ambulatory Bonnie Noriega Facility:[facility] Start: 08-26-2024 End: 08-26-[address] Bonnie Noriega MD -[facility] Work Phone: Start: 08-26-2024 End: 08-26-2024 ambulatory No Primary Care Physician Facility:[facility] Start: 08-23-2024 ambulatory ROSALVA Russel JANY PA-C Fac ility:A Start: 08-19-2024 End: 08-19-2024 ambulatory ROSALVA Goode JANY PA-C Facility:A Start: 08-19-2024 End: 08-19-2024 Patient encounter procedure LORI BELL LOAD BLOCKER-[facility] Start: 08-13-2024 End: 08-13-2024 Emergency department patient visit ROSALVA Goode JANY PA-C Facility:A Start: 07-26-2024 End: 07-26-[address] Bonnie Noriega MD -[facility] Work Phone: Start: 07-26-2024 End: 07-26-2024 ambulatory No Primary Care Physician Facility:[facility] Start: 07-10-2024 End: 07-10-2024 Emergency department patient visit RUTH GILLILAND MD [facility] Start: 06-28-2024 End: 06-28-[address] Felicity Vaca DO -[facility] Work Phone: Start: 06-28-2024 End: 06-28-2024 ambulatory No Primary Care Physician Facility:[facility] Start: 06-28-2024 End: 06-28-2024 ambulatory Felicity Vaca Facility:[facility] Start: 06-14-2024 End: 06-14-2024 Emergency department patient visit JOSÉ BACH MD Facility:A Start: 06-14-2024 End: 06-14-2024 ambulatory ROSALVA Goode JANY KIRBY-C Facility:A Start: 06-14-2024 End: 06-14-2024 Patient encounter procedure LORI BELL LOAD BLOCKER[facility] Start: 06-05-2024 End: 06-09-2024 ambulatory ROSALVA RIDLEY PA-C Facility:A Start: 05-30-2024 End: 05-30-2024 ambulatory No Primary Care Physician Facility:[facility] Start: 05-30-2024 End: 05-30-2024 ambulatory No Primary Care Physician Facility:[facility] Start: 12-28-2023 ambulatory ROSALVA Russel JANY Facility :[id number] Start: 12-28-2023 End: 12-28-2023 Subsequent hospital visit by physician [facility] Comment on above: Adenomyosis of the u terus [N80.03] Start: 07-14-2023 ambulatory RABIA RUGGIERO Facilit y:[id number] Start: 06-30-2023 End: 06-30-2023 Patient encounter procedure [facility] Comment on above: Unspecified sprain o f left wrist, initial encounter (Primary Dx) Start: 06-30-2023 End: 06-30-2023 ambulatory RABIA RUGGIERO Facility:[id number] Start: 06-27-2023 ambulatory DAYSI SALGADO Facil ity:[facility] Start: 06-27-2023 End: 06-27-2023 Subsequent hospital visit by physician Mri [facility] (I-Stat/Lg Bore/1.5t) Work Phone: [facility] Comment on above: Left wrist pain [M25 .532] Start: 06-21-2023 End: 06-21-2023 Patient encounter procedure C[facility] Comment on above: Left wrist pain (Tiffanie stepan Dx); Unspecified sprain of left wrist, initial encounter Start: 06-21-2023 End: 06-21-2023 ambulatory RABIA RUGGIERO Facility:[id number] Start: 06-09-2023 End: 06-09-2023 Patient encounter procedure [facility] Comment on above: Unspecified sprain o f left wrist, initial encounter (Primary Dx) Start: 06-09-2023 End: 06-09-2023 ambulatory RABIA RUGGIERO Facility:[id number] Start: 06-08-2023 End: 11-16-2023 Subsequent hospital visit by physician Rodger Magallon Work Phone: [facility] Comment on above: LEFT WRIST PAIN Start: 06-08-2023 End: 06-08-2023 ambulatory RABIA RUGGIERO Facility:[id number] Start: 06-08-2023 End: 06-08-2023 Patient encounter procedure Rabia Ruggiero [employer] Work Phone: [facility] Comment on above: Wrist sprain, left, initial encounter (Primary Dx); Wrist injury, left, initial encounter; Forearm joint pain, left Start: 09-07-2022 End: 09-07-2022 ambulatory No Primary Care Physician [facility] Work Phone: Start: 09-07-2022 End: 09-07-2022 Patient encounter procedure No Primary Care Physician [facility] Start: 06-29-2022 End: 06-29-2022 Patient encounter procedure No Primary Care Physician [facility] Start: 05-25-2022 End: 05-25-2022 Patient encounter procedure No Primary Care Physician [facility] Start: 05-24-2022 Non-patient / Non-visit No Primary Care Physician [facility] Start: 05-23-2022 Non-patient / Non-visit No Primary Care Physician [facility] Start: 05-23-2022 End: 05-24-2022 Evaluation and management of inpatient No [facility] Start: 05-23-2022 End: 05-23-2022 Patient encounter procedure No Primary Care Physician [facility] Start: 05-18-2022 End: 05-18-2022 Patient encounter procedure No Primary Care Physician [facility] Start: 05-02-2022 End: 05-02-2022 ambulatory No Primary Care Physician [facility] Work Phone: Start: 05-02-2022 End: 05-02-2022 Patient encounter procedure No Primary Care Physician [facility] Start: 04-25-2022 End: 04-25-2022 Patient encounter procedure No Primary Care Physician [facility] Start: 04-13-2022 End: 04-13-2022 Patient encounter procedure No Primary Care Physician [facility] Start: 03-31-2022 End: 03-31-2022 Patient encounter procedure No Primary Care Physician [facility] Start: 03-12-2022 Non-patient / Non-visit No Primary Care Physician [facility] Start: 03-09-2022 End: 03-09-2022 Patient encounter procedure No Primary Care Physician [facility] Start: 02-28-2022 End: 02-28-2022 Patient encounter procedure No Primary Care Physician [facility] Start: 02-26-2022 End: 02-26-2022 Patient encounter procedure No Primary Care Physician [facility] Start: 02-22-2022 End: 02-22-2022 Patient encounter procedure No Primary Care Physician [facility] Start: 02-08-2022 End: 02-08-2022 Patient encounter procedure No [facility] Procedures Date Procedure Procedure Detail Performing Clinician Start: 12-20-2024 Ultrasound scan for growth No Primary Care Physician Start: 12-13-2024 Beta-hemolytic Strep tococcus culture No Primary Care Physician Start: 10-18-2024 Serologic test for syphilis No Primary Care Physician Start: 10-18-2024 Total iron binding c apacity measurement No Primary Care Physician Start: 10-16-2024 Urine culture No Primar y Care Physician Start: 10-16-2024 Urnls dip stick/tabl et reagent auto microscopy No Primary Care Physician Start: 08-30-2024 Ultrasonography in f irst trimester No Primary Care Physician Start: 12-28-2023 Us pelvic nonobstetr ic real-time image complete Rosalva Ridley PA-C Work Phone: Start: 02-22-2022 Transvaginal obstetr ic ultrasonography No Primary Care Physician Start: 02-22-2022 anatomy study No Primary Care Physician Group B Streptococcu s Culture No Primary Care Physician Viral antigen assay No Prima ry Care Physician Plan of Treatment Date Care Activity Detail Author Start: 05-30-2033 Urine microalbumin profile DTa P,Tdap,Td Vaccine (2 - Td or Tdap) [facility] Start: 10-16-2024 Bacteria identified in Urine by Culture Urine Culture [facility] Start: 10-16-2024 End: 10-16-2024 [facility] Start: 10-16-2024 Nonstress test [facility] Start: 10-16-2024 Obstetric monitoring [facility] Start: 10-16-2024 Vital signs measurements [facility] Start: 09-07-2023 Hepatitis B Vaccine (2 of 3 - 19+ 3-dose series) Hepatitis B Vaccine (2 of 3 - 19+ 3-dose series) [facility] Start: 07-24-2023 Behavioral Health Screening Behavioral Health Screening [facility] Start: 07-24-2022 Depression Assessment Depression Ass essment [facility] Start: 05-24-2022 [facility] Start: 05-24-[address] [facility] Start: 05-23-2022 Admission procedure [facility] Start: 05-23-2022 Anesthesia consultation [facility] Start: 05-23-2022 acoustic stimu lation test [facility] Start: 05-23-2022 Insertion of cathete r into peripheral vein [facility] Start: 05-23-2022 Intrauterine catheterization [facility] Start: 05-23-2022 Introduction of urin nitesh catheter [facility] Start: 05-23-2022 Obstetric monitoring [facility] Start: 05-23-2022 Provision of activit y privileges [facility] Start: 05-23-2022 Vital signs measurements [facility] Start: 05-23-2022 [facility] Start: 05-23-2022 Consultation [facility] Start: 02-28-2022 Nonstress test [facility] Work Phone: Start: 02-28-2022 Obstetric monitoring [facility] Work Phone: Start: 02-28-2022 Vital signs measurements [facility] Work Phone: Start: 02-28-2022 [facility] Work Phone: Start: 02-28-[address] [facility] Work Phone: Start: 2021 HPV Testing HPV Testing [facility] Start: 2021 Screening for malign ant neoplasm of cervix HPV Testing [facility] Start: 02-14-2012 Pap Testing Pap Testing [facility] Start: 02-14-2012 Screening for malign ant neoplasm of cervix Pap Testing [facility] Start: 2009 Hepatitis C Screening Hepatitis C [facility] Start: 2009 Hepatitis C screening Hepatitis C [facility] Start: 2009 HIV Screening HIV Screening [facility] Start: 2009 HIV screening HIV Screening [facility] Start: 1991 Covid-19 Vaccine (#1) Covid-19 Vacci ne (#1) [facility] Start: 1991 Hepatitis B Vaccine (1 of 3 - 3-dose series) Hepatitis B Vaccine (1 of 3 - 3-dose series) [facility] CBC W Auto Different ial panel - Blood [facility] CBC W Auto Different ial panel - Blood [facility] Chlamydia deoxyribon ucleic acid detection [facility] Measurement of gluco se 2 hours after glucose challenge for glucose tolerance test [facility] End: 07-21-2024 MRI WRIST WO IVCON LEFT MRI WRIST WO IVCON LEFT Radiology Routine Left wrist pain 1 Occurrences starting 06/21/2023 until 07/21/2024 [facility] Work Phone: Comment on above: 1 Occurrences starti ng 06/21/2023 until 07/21/2024 MRI WRIST WO IVCON LEFT MRI WRIS T WO IVCON LEFT Radiology Routine Left wrist pain 06/27/2023 10:07 AM EST [facility] Work Phone: Patient referral [facility] Work Phone: Serologic test for syphilis [facility] Ultrasound scan for growth [facility] Urine culture [facility] End: 07-08-2024 XR WRIST INJURY 4V PA/LAT/OBL/SCAPH LEFT XR WRIST INJURY 4V PA/LAT/OBL/SCAPH LEFT Radiology Routine Wrist injury, left, initial encounter 1 Occurrences starting 06/08/2023 until 07/08/2024 [facility] Work Phone: Comment on above: 1 Occurrences starti ng 06/08/2023 until 07/08/2024 XR WRIST INJURY 4V PA/LAT/OBL/SCAPH LEFT XR WRIST INJURY 4V PA/LAT/OBL/SCAPH LEFT Radiology Routine Wrist injury, left, initial encounter 06/08/2023 9:17 AM EST [facility] Work Phone: [facility] Immunizations Immunization Date Immunization Notes Care Provider Fa cility 05-30-2023 influenza virus vacc ine, unspecified formulation 2 [facility] Payers Date Payer Category Payer Medicaid [id number] 2024 Self-pay 2023 Unknown [id number] 2023 Unknown [id number] 1990 Unknown [id number] 2.16.8 40.1.114917.3.579.2. 1991 Unknown [id number] 2.16.8 40.1.732753.3.579.2. 1991 Unknown [id number] 2.16.8 40.1.893202.3.579.2. 1991 Unknown [id number] 2.16.8 40.1.897557.3.579.2. 1991 Unknown [id number] 2.16.8 40.1.243103.3.579.2. 1991 Unknown [id number] 2.16.8 40.1.111110.3.579.2.627 1991 Unknown [id number] 2.16.8 40.1.674682.3.579.2.627 1991 Unknown [id number] 2.16.8 40.1.971465.3.579.2.627 Unknown [id number] 2.16.8 40.1.393671.3.579.2.462 Unknown [id number] 2.16.8 40.1.405582.3.579.2.462 Unknown [id number] 2.16.8 40.1.330554.3.579.2.462 Unknown [id number] 2.16.8 40.1.250821.3.579.2.462 Unknown [id number] 2.16.8 40.1.839751.3.579.2.462 Unknown [id number] 2.16.8 40.1.908323.3.579.2.462 Unknown [id number] 2.16.8 40.1.319041.3.579.2.462 Unknown [id number] 2.16.8 40.1.014506.3.579.2.462 Unknown [id number] 2.16.8 40.1.912474.3.579.2.462 Unknown [id number] 2.16.8 40.1.665833.3.579.2.462 Unknown [id number] 2.16.8 40.1.028052.3.579.2.462 Unknown [id number] 2.16.8 40.1.088067.3.579.2.462 Unknown [id number] 2.16.8 40.1.182230.3.579.2.462 Unknown [id number] 2.16.8 40.1.023355.3.579.2.462 Unknown [id number] 2.16.8 40.1.678669.3.579.2.462 Unknown [id number] 2.16.8 40.1.597254.3.579.2.462 Unknown [id number] 2.16.8 40.1.455958.3.579.2.462 Unknown [id number] 2.16.8 40.1.332918.3.579.2.462 Unknown [id number] 2.16.8 40.1.281026.3.579.2.462 Unknown [id number] 2.16.8 40.1.792285.3.579.2.462 Unknown [id number] 2.16.8 40.1.613083.3.579.2.462 Unknown [id number] 2.16.8 40.1.996382.3.579.2.462 Unknown [id number] 2.16.8 40.1.675936.3.579.2.462 Unknown [id number] 2.16.8 40.1.079894.3.579.2.462 Unknown [id number] 2.16.8 40.1.646042.3.579.2.462 Unknown [id number] 2.16.8 40.1.574264.3.579.2.462 Unknown [id number] 2.16.8 40.1.782777.3.579.2.462 Unknown [id number] 2.16.8 40.1.438634.3.579.2.462 Unknown [id number] 2.16.8 40.1.979232.3.579.2.462 Social History Date Type Detail Facility Start: 02-08-2022 End: 09-07-2022 Tobacco smoking status MIIS Unknown if ever smoked [facility] Start: 1990 Sex Assigned At Female [facility] Start: 06-08-2023 End: 05-30-2024 Tobacco smoking status NHIS Ex-smoker [facility] History of tobacco use Current smoker [facility] History of tobacco use Cigarette Smoker [facility] Start: 06-08-2023 Tobacco use and exposure Smoke less tobacco non-user [facility] Start: 06-08-2023 End: 06-19-2023 History of Social function [facility] Start: 06-08-2023 End: 06-19-2023 Tobacco use panel [facility] Start: 1990 Sex Assigned At Not on file [facility] National Score (1-10 0), lower number is lower risk 88 [facility] Start: 06-05-2024 Tobacco smoking status Never s moked tobacco (finding) [facility] Sexual O[facility] Start: 10-16-2024 End: 10-22-2024 Sex Female (finding) [facility] Goals Date Patient Goal Desired Activity /State Functional Status Date Assessment Result Facility 07-10-2024 Functional Status Repositions self [facility] Mental Status Date Assessment Result Facility 07-10-2024 Mental Status Oriented x 4 [facility] 05-24-2022 Cognitive function Speech Pattern Clear [facility] Work Phone: Clinical Notes 06-08-2023 to 12-21-2024 Note Date & Type Note Facility 12-21-2024 Radiology Diagnostic study note [facility] Imaging Services [address], [place] [address] OB Limited With Biometrics MR#: [id number] Acct: [id number] Name: KALEY FRY Rep #: [id number] : 1990 F 34 From: Brendon Paulson MD PCP: KOFI Juan Status: REG CLI Study:OB Limited With Biometrics Date of Exam : 12/20/24 Exam# [id number] Ordering Dr: Felicity Rider DO PROCEDURE: OB LIMITED WITH BIOMETRICS 12/20/2024 REASON FOR EXAM: PELVIC PAIN IN TECHNIQUE: High resolution obstetric ultrasound performed using a 2D transducer. Standard views obtained, including biometry, FINDINGS Transabdominal imaging. Single live intrauterine with cardiac activity 157 beats per minute. Presentation is cephalic. Cervix not visualized. VIVIANA 10.5 cm. Maximum vertical pocket 3.6 cm. Grade 1 anterior placenta appears within limits. Not low-lying. DIMENSIONS: Biparietal Diameter: 9.1 cm/37 weeks 9 days, 53% Head Circumference: 32.6 cm/37 weeks 0 days, 14% Abdominal Circumference: 39.9 cm/37 weeks 6 days, 70% Femur Length: 7.1 cm/36 weeks 4 days, 23% FL/AC 21%, FL/BPD 78%, FL/HC 22%, CI 81%, HC/AC 0.96 ESTIMATED WEIGHT: 3230 g +/-484 g ESTIMATED WEIGHT PERCENTILE (24+ weeks): 55% Estimated age by current ultrasound 37 weeks 1 day, ELISSA 01/09/2025 age by LMP 37 weeks 5 days, ELISSA 01/05/2025 US/OB Limited With Biometrics IMPRESSION: Single live intrauterine with biometry as above. Reading Location: [id number] CC: Dr. 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 [facility] 10-16-2024 History and physi gi note [facility] 09-20-2024 Evaluation note Diagnosis Onset Date Resolution Anemia acute September 20, 2024 3:00pm Asthma acute September 20, 2024 3:00pm acute September 20, 2024 3:00pm Supervision of high-risk acute September 20, 3:00pm Anemia acute October 04 10:11am Asthma acute October 04 10:11am Nausea and vomiting during acute October 04 10:11am acute October 04 10:11am Supervision of high-risk acute October 04, 2024 10:11am Right lower quadrant abdominal pain affecting acute October 16, 2024 10:55am Anemia acute October 18 10:47am Asthma acute October 18 10:47am acute October 18 10:47am Supervision of high-risk acute October 18, 2024 10:47am Anemia acute November 05 9:38am Asthma acute November 05 9:38am Contraception management acute November 05, 2024 9:38am Nausea and vomiting during acute November 05 9:38am acute November 05 9:38am Right lower quadrant abdominal pain affecting acute November 05, 2024 9:38am Supervision of high-risk acute November 05, 2024 9:38am Back pain acute November 13 10:19am acute November 13 10:19am Segmental and somatic dysfunction of sacral region acute November 13, 2024 10:19am Segmental dysfunction of lumbar region acute November 13, 2024 10:19am Anemia acute November 15 11:07am Asthma acute November 15 11:07am Back pain acute November 15 11:07am Contraception management acute November 15, 2024 11:07am Nausea and vomiting during acute November 15 11:07am acute November 15 11:07am Right lower quadrant abdominal pain affecting acute November 15, 2024 11:07am Segmental and somatic dysfunction of sacral region acute November 15, 2024 11:07am Segmental dysfunction of lumbar region acute November 15, 2024 11:07am Supervision of high-risk acute November 15, 2024 11:07am Back pain acute November 20 9:59am acute November 20 9:59am Segmental and somatic dysfunction of sacral region acute November 20, 2024 9:59am Segmental dysfunction of lumbar region acute November 20, 2024 9:59am Back pain acute November 27, 2024 10:26am acute November 27, 2024 10:26am Segmental and somatic dysfunction of sacral region acute November 27, 2024 10:26am Segmental dysfunction of lumbar region acute November 27, 2024 10:26am Anemia acute December 03, 2024 10:24am Asthma acute December 03, 2024 10:24am Back pain acute December 03, 2024 10:24am Contraception management acute December 03, 2024 10:24am Nausea and vomiting during acute December 03, 2024 10:24am acute December 03, 2024 10:24am Right lower quadrant abdominal pain affecting acute December 03, 2024 10:24am Supervision of high-risk acute December 03, 2024 10:24am Back pain acute December 04, 2024 10:28am Segmental and somatic dysfunction of sacral region acute December 04, 2024 10:28am Segmental dysfunction of lumbar region acute December 04, 2024 10:28am Back pain acute December 11, 2024 10:17am Segmental and somatic dysfunction of sacral region acute December 11, 2024 10:17am Segmental dysfunction of lumbar region acute December 11, 2024 10:17am Anemia acute December 13, 2024 9:37am Asthma acute December 13, 2024 9:37am Back pain acute December 13, 2024 9:37am Contraception management acute December 13, 2024 9:37am Nausea and vomiting during acute December 13, 2024 9:37am Pelvic pain affecting acute December 13, 2024 9:37am acute December 13, 2024 9:37am Right lower quadrant abdominal pain affecting acute December 13, 2024 9:37am Segmental and somatic dysfunction of sacral region acute December 13, 2024 9:37am Segmental dysfunction of lumbar region acute December 13, 2024 9:37am Supervision of high-risk acute December 13, 2024 9:37am Back pain acute December 18, 2024 10:30am Pelvic pain affecting acute December 18, 2024 10:30am Segmental and somatic dysfunction of sacral region acute December 18, 2024 10:30am Segmental dysfunction of lumbar region acute December 18, 2024 10:30am Anemia acute December 20, 2024 10:44am Asthma acute December 20, 2024 10:44am Back pain acute December 20, 2024 10:44am Contraception management acute December 20, 2024 10:44am Nausea and vomiting during acute December 20, 2024 10:44am Pelvic pain affecting acute December 20, 2024 10:44am acute December 20, 2024 10:44am Right lower quadrant abdominal pain affecting acute December 20, 2024 10:44am Segmental and somatic dysfunction of sacral region acute December 20, 2024 10:44am Segmental dysfunction of lumbar region acute December 20, 2024 10:44am Supervision of high-risk acute December 20, 2024 10:44am [facility] Work Phone: 1(346) 330-626302-28-2025 Evaluation note* Diagnosis Onset Date Resolution Status Admit Date Anemia acute September 20, 2024 3:00pm Asthma acute September 20, 2024 3:00pm acute September 20, 2024 3:00pm Supervision of high-risk acute September 20, 2 025 3:00pm Anemia acute October 04 10:11am Asthma acute October 04 10:11am Nausea and vomiting during acute October 04, 2024 10:11am acute October 04 10:11am Supervision of high-risk acute October 04, 2024 10:11am Right lower quadrant abdomin al pain affecting acute September 222024 10:55am Anemia acute October 18 10:47am Asthma acute October 18 10:47am acute October 18 10:47am Supervision of high-risk acute October 18, 2024 10:47am Anemia acute November 05 9:38am Asthma acute November 05 9:38am Contraception management acute November 05, 2024 9:38am Nausea and vomiting during acute November 05, 2024 9:38am acute November 05 9:38am Right lower quadrant abdomin al pain affecting acute October 222024 9:38am Supervision of high-risk acute November 05, 2024 9:38am Back pain acute November 13 10:19am acute November 13 10:19am Segmental and somatic dysfunction of sacral region acute Apr 2024 10:19am Segmental dysfunction of lum bar region acute November 13, 2024 10:19am Anemia acute November 15 11:07am Asthma acute November 15 11:07am Back pain acute November 15 11:07am Contraception management acute November 15, 2024 11:07am Nausea and vomiting during acute November 15, 2024 11:07am acute November 15 11:07am Right lower quadrant abdomin al pain affecting acute October 232024 11:07am Segmental and somatic dysfunction of sacral region acute Oct 11:07am Segmental dysfunction of lum bar region acute November 15, 2024 11:07am Supervision of high-risk acute November 15, 2024 11:07am Back pain acute November 20 9:59am acute November 20 9:59am Segmental and somatic dysfunction of sacral region acute Apr 2024 9:59am Segmental dysfunction of lum bar region acute November 20, 2024 9:59am Back pain acute November 27, 2024 10:26am acute November 27, 2024 10:26am Segmental and somatic dysfunction of sacral region acute November 27, 2024 10:26am Segmental dysfunction of lum bar region acute November 27, 2024 10 :26am Anemia acute December 03, 2024 10:24am Asthma acute December 03, 2024 10:24am Back pain acute December 03, 2024 10:24am Contraception management acute December 03, 2024 10:24am Nausea and vomiting during acute December 03, 2024 1 0:24am acute December 03, 2024 10:24am Right lower quadrant abdomin al pain affecting acute November 10:24am Supervision of high-risk acute December 03, 2024 1 0:24am Back pain acute December 04, 2024 10:28am Segmental and somatic dysfunction of sacral region acute December 04, 2024 10:28am Segmental dysfunction of lum bar region acute December 04, 2024 1 0:28am Back pain acute December 11, 2024 10:17am Segmental and somatic dysfunction of sacral region acute December 11, 2024 10:17am Segmental dysfunction of lum bar region acute December 11, 2024 1 0:17am Anemia acute December 13, 2024 9:37am Asthma acute December 13, 2024 9:37am Back pain acute December 13, 2024 9:37am Contraception management acute December 13, 2024 9:37am Nausea and vomiting during acute December 13, 2024 9 :37am Pelvic pain affecting acut e December 13, 2024 9:37am acute December 13, 2024 9:37am Right lower quadrant abdomin al pain affecting acute November 9:37am Segmental and somatic dysfunction of sacral region acute December 13, 2024 9:37am Segmental dysfunction of lum bar region acute December 13, 2024 9 :37am Supervision of high-risk acute December 13, 2024 9 :37am Back pain acute December 18, 2024 10:30am Pelvic pain affecting acut e December 18, 2024 10:30am Segmental and somatic dysfunction of sacral region acute December 18, 2024 10:30am Segmental dysfunction of lum bar region acute December 18, 2024 1 0:30am Anemia acute December 20, 2024 10:44am Asthma acute December 20, 2024 10:44am Back pain acute December 20, 2024 10:44am Contraception management acute December 20, 2024 10:44am Nausea and vomiting during acute December 20, 2024 1 0:44am Pelvic pain affecting acut e December 20, 2024 10:44am acute December 20, 2024 10:44am Right lower quadrant abdomin al pain affecting acute November 10:44am Segmental and somatic dysfunction of sacral region acute December 20, 2024 10:44am Segmental dysfunction of lum bar region acute December 20, 2024 1 0:44am Supervision of high-risk acute December 20, 2024 1 0:44am Back pain acute December 25, 2024 10:27am Pelvic pain affecting acut e December 25, 2024 10:27am Segmental and somatic dysfunction of sacral region acute Dec 10:27am Segmental dysfunction of lum bar region acute December 25, 2024 1 0:27am Anemia acute December 27, 2024 9:05am Asthma acute December 27, 2024 9:05am Back pain acute December 27, 2024 9:05am Contraception management acute December 27, 2024 9:05am Nausea and vomiting during acute December 27, 2024 9 :05am Pelvic pain affecting acut e December 27, 2024 9:05am acute December 27, 2024 9:05am Right lower quadrant abdomin al pain affecting acute December 9:05am Segmental and somatic dysfunction of sacral region acute Dec 9:05am Segmental dysfunction of lum bar region acute December 27, 2024 9 :05am Supervision of high-risk acute December 27, 2024 9 :05am [facility] Work Phone: 1(666) 561-474702-03-2025 Evaluation note* Diagnosis Onset Date Resolution Status Admit Date Anemia acute August 26, 2024 1:55pm Asthma acute August 26, 2024 1:55pm acute August 26, 2024 1:55pm Supervision of high-risk acute August 26 1:55pm Anemia acute September 20, 2024 3:00pm Asthma acute September 20, 2024 3:00pm acute September 20, 2024 3:00pm Supervision of high-risk acute September 20, 025 3:00pm Anemia acute October 04 10:11am Asthma acute October 04 10:11am Nausea and vomiting during acute October 04, 2024 10:11am acute October 04 10:11am Supervision of high-risk acute October 04, 2024 10:11am Right lower quadrant abdomin al pain affecting acute September 222024 10:55am Anemia acute October 18 10:47am Asthma acute October 18 10:47am acute October 18 10:47am Supervision of high-risk acute October 18, 2024 10:47am Anemia acute November 05 9:38am Asthma acute November 05 9:38am Contraception management acute November 05, 2024 9:38am Nausea and vomiting during acute November 05, 2024 9:38am acute November 05 9:38am Right lower quadrant abdomin al pain affecting acute October 222024 9:38am Supervision of high-risk acute November 05, 2024 9:38am Back pain acute November 13 10:19am acute November 13 10:19am Segmental and somatic dysfunction of sacral region acute Apr il 2024 10:19am Segmental dysfunction of lum bar region acute November 13, 2024 10:19am Anemia acute November 15 11:07am Asthma acute November 15 11:07am Back pain acute November 15 11:07am Contraception management acute November 15, 2024 11:07am Nausea and vomiting during acute November 15, 2024 11:07am acute November 15 11:07am Right lower quadrant abdomin al pain affecting acute October 232024 11:07am Segmental and somatic dysfunction of sacral region acute Apr 2024 11:07am Segmental dysfunction of lum bar region acute November 15, 2024 11:07am Supervision of high-risk acute November 15, 2024 11:07am Back pain acute November 20 9:59am acute November 20 9:59am Segmental and somatic dysfunction of sacral region acute Apr 2024 9:59am Segmental dysfunction of lum bar region acute November 20, 2024 9:59am Back pain acute November 27, 2024 10:26am acute November 27, 2024 10:26am Segmental and somatic dysfunction of sacral region acute November 27, 2024 10:26am Segmental dysfunction of lum bar region acute November 27, 2024 10 :26am Anemia acute December 03, 2024 10:24am Asthma acute December 03, 2024 10:24am Back pain acute December 03, 2024 10:24am Contraception management acute December 03, 2024 10:24am Nausea and vomiting during acute December 03, 2024 1 0:24am acute December 03, 2024 10:24am Right lower quadrant abdomin al pain affecting acute November 10:24am Segmental and somatic dysfunction of sacral region acute December 03, 2024 10:24am Segmental dysfunction of lum bar region acute December 03, 2024 1 0:24am Supervision of high-risk acute December 03, 2024 1 0:24am [facility] Work Phone: 1(107) 546-428402-03-2025 Evaluation note* Diagnosis Onset Date Resolution Status Admit Date Anemia acute August 26, 2024 1:55pm Asthma acute August 26, 2024 1:55pm acute August 26, 2024 1:55pm Supervision of high-risk acute August 26 1:55pm Anemia acute September 20, 2024 3:00pm Asthma acute September 20, 2024 3:00pm acute September 20, 2024 3:00pm Supervision of high-risk acute September 20, 3:00pm Anemia acute October 04 10:11am Asthma acute October 04 10:11am Nausea and vomiting during acute October 04, 2024 10:11am acute October 04 10:11am Supervision of high-risk acute October 04, 2024 10:11am Right lower quadrant abdomin al pain affecting acute September 222024 10:55am Anemia acute October 18 10:47am Asthma acute October 18 10:47am acute October 18 10:47am Supervision of high-risk acute October 18, 2024 10:47am Anemia acute November 05 9:38am Asthma acute November 05 9:38am Contraception management acute November 05, 2024 9:38am Nausea and vomiting during acute November 05, 2024 9:38am acute November 05 9:38am Right lower quadrant abdomin al pain affecting acute October 222024 9:38am Supervision of high-risk acute November 05, 2024 9:38am Back pain acute November 13 10:19am acute November 13 10:19am Segmental and somatic dysfunction of sacral region acute Apr 2024 10:19am Segmental dysfunction of lum bar region acute November 13, 2024 10:19am Anemia acute November 15 11:07am Asthma acute November 15 11:07am Back pain acute November 15 11:07am Contraception management acute November 15, 2024 11:07am Nausea and vomiting during acute November 15, 2024 11:07am acute November 15 11:07am Right lower quadrant abdomin al pain affecting acute October 232024 11:07am Segmental and somatic dysfunction of sacral region acute Apr 2024 11:07am Segmental dysfunction of lum bar region acute November 15, 2024 11:07am Supervision of high-risk acute November 15, 2024 11:07am Back pain acute November 20 9:59am acute November 20 9:59am Segmental and somatic dysfunction of sacral region acute Apr 2024 9:59am Segmental dysfunction of lum bar region acute November 20, 2024 9:59am Back pain acute November 27, 2024 10:26am acute November 27, 2024 10:26am Segmental and somatic dysfunction of sacral region acute November 27, 2024 10:26am Segmental dysfunction of lum bar region acute November 27, 2024 10 :26am Anemia acute December 03, 2024 10:24am Asthma acute December 03, 2024 10:24am Back pain acute December 03, 2024 10:24am Contraception management acute December 03, 2024 10:24am Nausea and vomiting during acute December 03, 2024 1 0:24am acute December 03, 2024 10:24am Right lower quadrant abdomin al pain affecting acute November 10:24am Supervision of high-risk acute December 03, 2024 1 0:24am Segmental and somatic dysfunction of sacral region acute December 04, 2024 10:28am Segmental dysfunction of lum bar region acute December 04, 2024 1 0:28am [facility] Work Phone: 1([phone]) [phone] Evaluation note* Diagnosis Onset Date Resolution Status Admit Date Anemia acute August 26, 2024 1:55pm Asthma acute August 26, 2024 1:55pm acute August 26, 2024 1:55pm Supervision of high-risk acute August 26 1:55pm Anemia acute September 20, 2024 3:00pm Asthma acute September 20, 2024 3:00pm acute September 20, 2024 3:00pm Supervision of high-risk acute September 20, 3:00pm Anemia acute October 04 10:11am Asthma acute October 04 10:11am Nausea and vomiting during acute October 04, 2024 10:11am acute October 04 10:11am Supervision of high-risk acute October 04, 2024 10:11am Right lower quadrant abdomin al pain affecting acute September 222024 10:55am Anemia acute October 18 10:47am Asthma acute October 18 10:47am acute October 18 10:47am Supervision of high-risk acute October 18, 2024 10:47am Anemia acute November 05 9:38am Asthma acute November 05 9:38am Contraception management acute November 05, 2024 9:38am Nausea and vomiting during acute November 05, 2024 9:38am acute November 05 9:38am Right lower quadrant abdomin al pain affecting acute October 222024 9:38am Supervision of high-risk acute November 05, 2024 9:38am Back pain acute November 13 10:19am acute November 13 10:19am Segmental and somatic dysfunction of sacral region acute Apr 2024 10:19am Segmental dysfunction of lum bar region acute November 13, 2024 10:19am Anemia acute November 15 11:07am Asthma acute November 15 11:07am Back pain acute November 15 11:07am Contraception management acute November 15, 2024 11:07am Nausea and vomiting during acute November 15, 2024 11:07am acute November 15 11:07am Right lower quadrant abdomin al pain affecting acute October 232024 11:07am Segmental and somatic dysfunction of sacral region acute Apr 2024 11:07am Segmental dysfunction of lum bar region acute November 15, 2024 11:07am Supervision of high-risk acute November 15, 2024 11:07am Back pain acute November 20 9:59am acute November 20 9:59am Segmental and somatic dysfunction of sacral region acute Apr 2024 9:59am Segmental dysfunction of lum bar region acute November 20, 2024 9:59am Back pain acute November 27, 2024 10:26am acute November 27, 2024 10:26am Segmental and somatic dysfunction of sacral region acute November 27, 2024 10:26am Segmental dysfunction of lum bar region acute November 27, 2024 10 :26am Anemia acute December 03, 2024 10:24am Asthma acute December 03, 2024 10:24am Back pain acute December 03, 2024 10:24am Contraception management acute December 03, 2024 10:24am Nausea and vomiting during acute December 03, 2024 1 0:24am acute December 03, 2024 10:24am Right lower quadrant abdomin al pain affecting acute November 10:24am Supervision of high-risk acute December 03, 2024 1 0:24am Back pain acute December 04, 2024 10:28am Segmental and somatic dysfunction of sacral region acute December 04, 2024 10:28am Segmental dysfunction of lum bar region acute December 04, 2024 1 0:28am Segmental and somatic dysfunction of sacral region acute December 11, 2024 10:17am Segmental dysfunction of lum bar region acute December 11, 2024 1 0:17am [facility] Work Phone: 1(706) 176-855102-03-2025 Evaluation note* Diagnosis Onset Date Resolution Status Admit Date Anemia acute August 26, 2024 1:55pm Asthma acute August 26, 2024 1:55pm acute August 26, 2024 1:55pm Supervision of high-risk acute August 26 1:55pm Anemia acute September 20, 2024 3:00pm Asthma acute September 20, 2024 3:00pm acute September 20, 2024 3:00pm Supervision of high-risk acute September 20 3:00pm Anemia acute October 04 10:11am Asthma acute October 04 10:11am Nausea and vomiting during acute October 04, 2024 10:11am acute October 04 10:11am Supervision of high-risk acute October 04, 2024 10:11am Right lower quadrant abdomin al pain affecting acute September 222024 10:55am Anemia acute October 18 10:47am Asthma acute October 18 10:47am acute October 18 10:47am Supervision of high-risk acute October 18, 2024 10:47am Anemia acute November 05 9:38am Asthma acute November 05 9:38am Contraception management acute November 05, 2024 9:38am Nausea and vomiting during acute November 05, 2024 9:38am acute November 05 9:38am Right lower quadrant abdomin al pain affecting acute October 222024 9:38am Supervision of high-risk acute November 05, 2024 9:38am Back pain acute November 13 10:19am acute November 13 10:19am Segmental and somatic dysfunction of sacral region acute Apr 2024 10:19am Segmental dysfunction of lum bar region acute November 13, 2024 10:19am Anemia acute November 15 11:07am Asthma acute November 15 11:07am Back pain acute November 15 11:07am Contraception management acute November 15, 2024 11:07am Nausea and vomiting during acute November 15, 2024 11:07am acute November 15 11:07am Right lower quadrant abdomin al pain affecting acute October 232024 11:07am Segmental and somatic dysfunction of sacral region acute Apr 2024 11:07am Segmental dysfunction of lum bar region acute November 15, 2024 11:07am Supervision of high-risk acute November 15, 2024 11:07am Back pain acute November 20 9:59am acute November 20 9:59am Segmental and somatic dysfunction of sacral region acute Apr 2024 9:59am Segmental dysfunction of lum bar region acute November 20, 2024 9:59am Back pain acute November 27, 2024 10:26am acute November 27, 2024 10:26am Segmental and somatic dysfunction of sacral region acute November 27, 2024 10:26am Segmental dysfunction of lum bar region acute November 27, 2024 10 :26am Anemia acute December 03, 2024 10:24am Asthma acute December 03, 2024 10:24am Back pain acute December 03, 2024 10:24am Contraception management acute December 03, 2024 10:24am Nausea and vomiting during acute December 03, 2024 1 0:24am acute December 03, 2024 10:24am Right lower quadrant abdomin al pain affecting acute November 10:24am Supervision of high-risk acute December 03, 2024 1 0:24am Back pain acute December 04, 2024 10:28am Segmental and somatic dysfunction of sacral region acute December 04, 2024 10:28am Segmental dysfunction of lum bar region acute December 04, 2024 1 0:28am Back pain acute December 11, 2024 10:17am Segmental and somatic dysfunction of sacral region acute December 11, 2024 10:17am Segmental dysfunction of lum bar region acute December 11, 2024 1 0:17am Anemia acute December 13, 2024 9:37am Asthma acute December 13, 2024 9:37am Back pain acute December 13, 2024 9:37am Contraception management acute December 13, 2024 9:37am Nausea and vomiting during acute December 13, 2024 9 :37am Pelvic pain affecting acut e December 13, 2024 9:37am acute December 13, 2024 9:37am Right lower quadrant abdomin al pain affecting acute November 9:37am Segmental and somatic dysfunction of sacral region acute December 13, 2024 9:37am Segmental dysfunction of lum bar region acute December 13, 2024 9 :37am Supervision of high-risk acute December 13, 2024 9 :37am [facility] Work Phone: [phone]) 959-225502-03-2025 Evaluation note* Diagnosis Onset Date Resolution Status Admit Date Anemia acute August 26, 2024 1:55pm Asthma acute August 26, 2024 1:55pm acute August 26, 2024 1:55pm Supervision of high-risk acute August 26 1:55pm Anemia acute September 20, 2024 3:00pm Asthma acute September 20, 2024 3:00pm acute September 20, 2024 3:00pm Supervision of high-risk acute September 20, 3:00pm Anemia acute October 04 10:11am Asthma acute October 04 10:11am Nausea and vomiting during acute October 04, 2024 10:11am acute October 04 10:11am Supervision of high-risk acute October 04, 2024 10:11am Right lower quadrant abdomin al pain affecting acute September 222024 10:55am Anemia acute October 18 10:47am Asthma acute October 18 10:47am acute October 18 10:47am Supervision of high-risk acute October 18, 2024 10:47am Anemia acute November 05 9:38am Asthma acute November 05 9:38am Contraception management acute November 05, 2024 9:38am Nausea and vomiting during acute November 05, 2024 9:38am acute November 05 9:38am Right lower quadrant abdomin al pain affecting acute October 222024 9:38am Supervision of high-risk acute November 05, 2024 9:38am Back pain acute November 13 10:19am acute November 13 10:19am Segmental and somatic dysfunction of sacral region acute Apr il 2024 10:19am Segmental dysfunction of lum bar region acute November 13, 2024 10:19am Anemia acute November 15 11:07am Asthma acute November 15 11:07am Back pain acute November 15 11:07am Contraception management acute November 15, 2024 11:07am Nausea and vomiting during acute November 15, 2024 11:07am acute November 15 11:07am Right lower quadrant abdomin al pain affecting acute October 232024 11:07am Segmental and somatic dysfunction of sacral region acute Apr 2024 11:07am Segmental dysfunction of lum bar region acute November 15, 2024 11:07am Supervision of high-risk acute November 15, 2024 11:07am Back pain acute November 20 9:59am acute November 20 9:59am Segmental and somatic dysfunction of sacral region acute Apr 2024 9:59am Segmental dysfunction of lum bar region acute November 20, 2024 9:59am Back pain acute November 27, 2024 10:26am acute November 27, 2024 10:26am Segmental and somatic dysfunction of sacral region acute November 27, 2024 10:26am Segmental dysfunction of lum bar region acute November 27, 2024 10 :26am Anemia acute December 03, 2024 10:24am Asthma acute December 03, 2024 10:24am Back pain acute December 03, 2024 10:24am Contraception management acute December 03, 2024 10:24am Nausea and vomiting during acute December 03, 2024 1 0:24am acute December 03, 2024 10:24am Right lower quadrant abdomin al pain affecting acute November 10:24am Supervision of high-risk acute December 03, 2024 1 0:24am Back pain acute December 04, 2024 10:28am Segmental and somatic dysfunction of sacral region acute December 04, 2024 10:28am Segmental dysfunction of lum bar region acute December 04, 2024 1 0:28am Back pain acute December 11, 2024 10:17am Segmental and somatic dysfunction of sacral region acute December 11, 2024 10:17am Segmental dysfunction of lum bar region acute December 11, 2024 1 0:17am Anemia acute December 13, 2024 9:37am Asthma acute December 13, 2024 9:37am Back pain acute December 13, 2024 9:37am Contraception management acute December 13, 2024 9:37am Nausea and vomiting during acute December 13, 2024 9 :37am Pelvic pain affecting acut e December 13, 2024 9:37am acute December 13, 2024 9:37am Right lower quadrant abdomin al pain affecting acute November 9:37am Segmental and somatic dysfunction of sacral region acute December 13, 2024 9:37am Segmental dysfunction of lum bar region acute December 13, 2024 9 :37am Supervision of high-risk acute December 13, 2024 9 :37am Pelvic pain affecting acut e December 18, 2024 10:30am Segmental and somatic dysfunction of sacral region acute December 18, 2024 10:30am Segmental dysfunction of lum bar region acute December 18, 2024 1 0:30am [facility] Work Phone: [phone] Evaluation note* Diagnosis Onset Date Resolution Status Admit Date Anemia acute August 26, 2024 1:55pm Asthma acute August 26, 2024 1:55pm acute August 26, 2024 1:55pm Supervision of high-risk acute August 26 1:55pm Anemia acute September 20, 2024 3:00pm Asthma acute September 20, 2024 3:00pm acute September 20, 2024 3:00pm Supervision of high-risk acute September 20, 2 3:00pm Anemia acute October 04 10:11am Asthma acute October 04 10:11am Nausea and vomiting during acute October 04, 2024 10:11am acute October 04 10:11am Supervision of high-risk acute October 04, 2024 10:11am Right lower quadrant abdomin al pain affecting acute September 222024 10:55am Anemia acute October 18 10:47am Asthma acute October 18 10:47am acute October 18 10:47am Supervision of high-risk acute October 18, 2024 10:47am Anemia acute November 05 9:38am Asthma acute November 05 9:38am Contraception management acute November 05, 2024 9:38am Nausea and vomiting during acute November 05, 2024 9:38am acute November 05 9:38am Right lower quadrant abdomin al pain affecting acute October 222024 9:38am Supervision of high-risk acute November 05, 2024 9:38am Back pain acute November 13 10:19am acute November 13 10:19am Segmental and somatic dysfunction of sacral region acute Apr 2024 10:19am Segmental dysfunction of lum bar region acute November 13, 2024 10:19am Anemia acute November 15 11:07am Asthma acute November 15 11:07am Back pain acute November 15 11:07am Contraception management acute November 15, 2024 11:07am Nausea and vomiting during acute November 15, 2024 11:07am acute November 15 11:07am Right lower quadrant abdomin al pain affecting acute October 232024 11:07am Segmental and somatic dysfunction of sacral region acute Apr 2024 11:07am Segmental dysfunction of lum bar region acute November 15, 2024 11:07am Supervision of high-risk acute November 15, 2024 11:07am Back pain acute November 20 9:59am acute November 20 9:59am Segmental and somatic dysfunction of sacral region acute Apr il 2024 9:59am Segmental dysfunction of lum bar region acute November 20, 2024 9:59am Back pain acute November 27, 2024 10:26am acute November 27, 2024 10:26am Segmental and somatic dysfunction of sacral region acute November 27, 2024 10:26am Segmental dysfunction of lum bar region acute November 27, 2024 10 :26am Anemia acute December 03, 2024 10:24am Asthma acute December 03, 2024 10:24am Back pain acute December 03, 2024 10:24am Contraception management acute December 03, 2024 10:24am Nausea and vomiting during acute December 03, 2024 1 0:24am acute December 03, 2024 10:24am Right lower quadrant abdomin al pain affecting acute November 10:24am Supervision of high-risk acute December 03, 2024 1 0:24am Back pain acute December 04, 2024 10:28am Segmental and somatic dysfunction of sacral region acute December 04, 2024 10:28am Segmental dysfunction of lum bar region acute December 04, 2024 1 0:28am Back pain acute December 11, 2024 10:17am Segmental and somatic dysfunction of sacral region acute December 11, 2024 10:17am Segmental dysfunction of lum bar region acute December 11, 2024 1 0:17am Anemia acute December 13, 2024 9:37am Asthma acute December 13, 2024 9:37am Back pain acute December 13, 2024 9:37am Contraception management acute December 13, 2024 9:37am Nausea and vomiting during acute December 13, 2024 9 :37am Pelvic pain affecting acut e December 13, 2024 9:37am acute December 13, 2024 9:37am Right lower quadrant abdomin al pain affecting acute November 9:37am Segmental and somatic dysfunction of sacral region acute December 13, 2024 9:37am Segmental dysfunction of lum bar region acute December 13, 2024 9 :37am Supervision of high-risk acute December 13, 2024 9 :37am Back pain acute December 18, 2024 10:30am Pelvic pain affecting acut e December 18, 2024 10:30am Segmental and somatic dysfunction of sacral region acute December 18, 2024 10:30am Segmental dysfunction of lum bar region acute December 18, 2024 1 0:30am Anemia acute December 20, 2024 10:44am Asthma acute December 20, 2024 10:44am Back pain acute December 20, 2024 10:44am Contraception management acute December 20, 2024 10:44am Nausea and vomiting during acute December 20, 2024 1 0:44am Pelvic pain affecting acut e December 20, 2024 10:44am acute December 20, 2024 10:44am Right lower quadrant abdomin al pain affecting acute November 10:44am Segmental and somatic dysfunction of sacral region acute December 20, 2024 10:44am Segmental dysfunction of lum bar region acute December 20, 2024 1 0:44am Supervision of high-risk acute December 20, 2024 1 0:44am [facility] Work Phone: [phone] [phone] Hospital Discharge instructions Patient Education 07/10/2024 11:45:36 Adapting to : Second Trimester Adapting to : Second Trimester Keep up the healthy habits you started in your first trimester. You might be a little more tired than normal. So plan your day wisely. Look at the tips below and choose the ones that suit your lifestyle. If you have any questions, check with your healthcare provider. If you work If you can, adjust your work with your employer to fit your needs. Try these tips: If you stand for long periods, find ways to do some tasks while sitting. Also, try to stand with 1 foot resting on a low stool or ledge. Shift your weight from foot to foot often. Wear low-heeled shoes. If you sit, keep your knees level with your hips. Rest your feet on a firm surface. Sit tall with support for your low back. If you work long hours, ask about adjusting your schedule. Try taking shorter breaks more often. When you travel The second trimester may be the best time for any travel. Talk to your healthcare provider about any special plans you may need to make. Always: Wear a seat belt. Fasten the lap part under your belly. Wear the shoulder part also. Take breaks often during long trips by car or plane. Move around to stretch your legs. Drink plenty of fluids on flights. The air in plane cabins is very dry. Avoid hot climates or high altitudes if you are not used to them. Avoid places where the food and water might make you sick. Make sure you are up-to-date on all immunizations, including the flu vaccine. This is especially important when traveling overseas. Taking time to relax Find time to rest and relax at work or at home: Take short time-outs daily. Do relaxation exercises. Breathe deeply during stressful times. Try not to take on too much. Plan tasks for times when you have the most energy. Take naps when you can. Or just sit and relax. After week 16, avoid lying on your back for more than a few minutes. Instead, lie on your side. Switch sides often. Continuing as lovers Unless your healthcare provider tells you otherwise, there is no reason to stop having sex now. Blood supply increases to the pelvic area in the second trimester. Because of this, sex might be more enjoyable. Try different positions and see what s best. Also, talk to your partner about any changes in desire. Spotting may happen after sex. Be sure to let your healthcare provider know if there is heavy bleeding. Keeping your environment safe You can still clean house and use scented products. Just take some simple precautions: Wear gloves when using cleaning fluids. Open windows to let in fresh air. Use a fan if you paint. Avoid secondhand smoke. Don t breathe fumes from nail greenlandic, hair spray, cleansers, or other chemicals. [id number] The [employer]. [address] [place] [address]. All rights reserved. This information is not intended as a substitute for professional medical care. Always follow yourhealthcare professional's instructions. 07/10/2024 11:45:27 Constipation (Adult) Constipation (Adult) Constipation means that you have bowel movements that are less frequent than usual. Stools often become very hard and difficult to pass. Constipation is very common. At some point in life, it affects almost everyone. Since everyone's bowel habits are different, what is constipation to one person may not be to another. Your healthcare provider may do tests to diagnose constipation. It depends on what he or she finds when evaluating you. Symptoms of constipation include: Abdominal pain Bloating Vomiting Painful bowel movements Itching, swelling, bleeding, or pain around the anus Causes Constipation can have many causes. These include: Diet low in fiber Too much dairy Not drinking enough liquids Lack of exercise or physical activity (especially true for older adults) Changes in lifestyle or daily routine, including , aging, work, and travel Frequent use or misuse of laxatives Ignoring the urge to have a bowel movement or delaying it until later Medicines, such as certain prescription pain medicines, iron supplements, antacids, certain antidepressants, and calcium supplements Diseases like irritable bowel syndrome, bowel obstructions, stroke, diabetes, thyroid disease, Parkinson disease, hemorrhoids, and colon cancer Complications Potential complications of constipation can include: Hemorrhoids Rectal bleeding from hemorrhoids or anal fissures (skin tears) Hernias Dependency on laxatives Chronic constipation Fecal impaction, a severe form of constipation in which a large amount of hard stool is in your rectum that you can't pass Bowel obstruction or perforation Home care All treatment should be done after talking with your healthcare provider. This is especially true if you have another medical problems, are taking prescription medicines, or are an older adult. Treatment most often involves lifestyle changes. You may also need medicines. Your healthcare provider will tell you which will work best for you. Follow the advice below to help avoid this problem in the future. Lifestyle changes These lifestyle changes can help prevent constipation: Diet. Eat a high-fiber diet, with fresh fruit and vegetables, and reduce dairy intake, meats, and processed foods Fluids. It's important to get enough fluids each day. Drink plenty of water when you eat more fiber. If you are on diet that limits the amount of fluid you can have, talk about this with your healthcare provider. Regular exercise. Check with your healthcare provider first. Medicines Take any medicines as directed. Some laxatives are safe to use only every now and then. Others can be taken on a regular basis. While laxatives don't cause bowel dependence, they are treating the symptoms. So your constipation may return if you don't make other changes. Talk with your healthcare provider or pharmacist if you have questions. Prescription pain medicines can cause constipation. If you are taking this kind of medicine, ask your healthcare provider if you should also take a stool softener. Medicines you may take to treat constipation include: Fiber supplements Stool softeners Laxatives Enemas Rectal suppositories Follow-up care Follow up with your healthcare provider if symptoms don't get better in the next few days. You may need to have more tests or see a specialist. Call 911 Call 911 if any of these occur: Trouble breathing Stiff, rigid abdomen that is severely painful to touch Confusion Fainting or loss of consciousness Rapid heart rate Chest pain When to seek medical advice Call your healthcare provider right away if any of these occur: Fever of 100.4 F (38 C) or higher, or as directed by your healthcare provider Failure to resume normal bowel movements Pain in your abdomen or back gets worse Nausea or vomiting Swelling in your abdomen Blood in the stool Black, tarry stool Involuntary weight loss Weakness [id number] The [employer]. [address] [place] [address]. All rights reserved. This information is not intended as a substitute for professional medical care. Always follow yourhealthcare professional's instructions. Follow Up Care 07/10/2024 07:29:18 With:ROSALVA RIDLEY PA-C Address: [address] [place] [phone] When:2-4 days [facility] 12-18-2024 Emergency department Discharge summary Discharge Instructions Thank you for allowing [facility] to assist you with your healthcare needs. The following is importantdischarge information regarding your hospital visit. What to Do Next Instructions from Your Care Team Take miralax twice daily until normal bowel movement. Once bowel movements are soft, regular and constipation has improved may continue to take miralax daily or every other day. No qualifying data available. Post Acute Orders No qualifying data available. You Need to Schedule the Following Appointments Follow Up with ROSALVA RIDLEY PA-C When:Within 2-4 days Where:[address] [place] [phone] Allergies NKA Medications Please ask your primary doctor or pharmacist before taking any other medication not listed, including over the counter drugs, herbal medications, vitamins and or supplements as they may interact withyour home medications. What How Much When Why Instructions Last Dose New polyethylene glycol 3350 (MiraLax oral powder forreconstitution) 17 gram(s) by mouth Once a day Duration: 30 Days dissolve in 4 to 8 oz of beverage Printed Prescription Unchanged albuterol (Albuterol (Eqv-ProAir HFA) 90 mcg/ inh inhalation aerosol) Unchanged ascorbic acid (ascorbic acid 250 mg oral tablet) 1 tab(s) by mouth Once a day Unchanged diphenhydrAMINE (Unisom 25mg oral tablet) 1 tab(s) by mouth Daily at bedtime as needed for as needed for insomnia Secondary amenorrhea Unchanged docusate (Colace 100 mg oral capsule) 1 cap by mouth Two (2) times a day as needed for as needed for constipation Secondary amenorrhea Unchanged docusate (Colace 100 mg oral capsule) 1 cap by mouth Two (2) times a day as needed for as needed for constipation Unchanged ferrous sulfate (ferrous sulfate 324 mg (65 mg elemental iron) oral delayed release tablet) 1 tab(s) by mouth Once a day Unchanged multivitamin (B Complex 50 oral tablet) 1 tab(s) by mouth Every day Unchanged multivitamin, (Alive Gummies) Chewed Once a day Unchanged ondansetron (Zofran 4 mg oral tablet) 1 tab(s) by mouth Every 6 hours as needed for Nausea/Vomiting Secondary amenorrhea Unchanged pyridoxine (pyridoxine 25 mg oral tablet) 1 tab(s) by mouth Three (3) times a day Secondary amenorrhea Please take this list to your next doctor s visit. Bring all medications you take, including over the counter medications, herbals and other supplements with you to your doctor s visit. Patients and families are reminded to discard old lists and to update any records with all medication providers or retail pharmacies. Education Materials Adapting to : Second Trimester Keep up the healthy habits you started in your first trimester. You might be a little more tired than normal. So plan your day wisely. Look at the tips below and choose the ones that suit your lifestyle. If you have any questions, check with your healthcare provider. If you work If you can, adjust your work with your employer to fit your needs. Try these tips: If you stand for long periods, find ways to do some tasks while sitting. Also, try to stand with 1 foot resting on a low stool or ledge. Shift your weight from foot to foot often. Wear low-heeled shoes. If you sit, keep your knees level with your hips. Rest your feet on a firm surface. Sit tall with support for your low back. If you work long hours, ask about adjusting your schedule. Try taking shorter breaks more often. When you travel The second trimester may be the best time for any travel. Talk to your healthcare provider about any special plans you may need to make. Always: Wear a seat belt. Fasten the lap part under your belly. Wear the shoulder part also. Take breaks often during long trips by car or plane. Move around to stretch your legs. Drink plenty of fluids on flights. The air in plane cabins is very dry. Avoid hot climates or high altitudes if you are not used to them. Avoid places where the food and water might make you sick. Make sure you are up-to-date on all immunizations, including the flu vaccine. This is especially important when traveling overseas. Taking time to relax Find time to rest and relax at work or at home: Take short time-outs daily. Do relaxation exercises. Breathe deeply during stressful times. Try not to take on too much. Plan tasks for times when you have the most energy. Take naps when you can. Or just sit and relax. After week 16, avoid lying on your back for more than a few minutes. Instead, lie on your side. Switch sides often. Continuing as lovers Unless your healthcare provider tells you otherwise, there is no reason to stop having sex now. Blood supply increases to the pelvic area in the second trimester. Because of this, sex might be more enjoyable. Try different positions and see what s best. Also, talk to your partner about any changes in desire. Spotting may happen after sex. Be sure to let your healthcare provider know if there is heavy bleeding. Keeping your environment safe You can still clean house and use scented products. Just take some simple precautions: Wear gloves when using cleaning fluids. Open windows to let in fresh air. Use a fan if you paint. Avoid secondhand smoke. Don t breathe fumes from nail greenlandic, hair spray, cleansers, or other chemicals. [id number] The [employer]. [address] [place] [address], [place] [id number]. All rights reserved. This information is not intended as a substitute for professional medical care. Always follow yourhealthcare professional's instructions. Constipation (Adult) Constipation means that you have bowel movements that are less frequent than usual. Stools often become very hard and difficult to pass. Constipation is very common. At some point in life, it affects almost everyone. Since everyone's bowel habits are different, what is constipation to one person may not be to another. Your healthcare provider may do tests to diagnose constipation. It depends on what he or she finds when evaluating you. Symptoms of constipation include: Abdominal pain Bloating Vomiting Painful bowel movements Itching, swelling, bleeding, or pain around the anus Causes Constipation can have many causes. These include: Diet low in fiber Too much dairy Not drinking enough liquids Lack of exercise or physical activity (especially true for older adults) Changes in lifestyle or daily routine, including , aging, work, and travel Frequent use or misuse of laxatives Ignoring the urge to have a bowel movement or delaying it until later Medicines, such as certain prescription pain medicines, iron supplements, antacids, certain antidepressants, and calcium supplements Diseases like irritable bowel syndrome, bowel obstructions, stroke, diabetes, thyroid disease, Parkinson disease, hemorrhoids, and colon cancer Complications Potential complications of constipation can include: Hemorrhoids Rectal bleeding from hemorrhoids or anal fissures (skin tears) Hernias Dependency on laxatives Chronic constipation Fecal impaction, a severe form of constipation in which a large amount of hard stool is in your rectum that you can't pass Bowel obstruction or perforation Home care All treatment should be done after talking with your healthcare provider. This is especially true if you have another medical problems, are taking prescription medicines, or are an older adult. Treatment most often involves lifestyle changes. You may also need medicines. Your healthcare provider will tell you which will work best for you. Follow the advice below to help avoid this problem in the future. Lifestyle changes These lifestyle changes can help prevent constipation: Diet. Eat a high-fiber diet, with fresh fruit and vegetables, and reduce dairy intake, meats, and processed foods Fluids. It's important to get enough fluids each day. Drink plenty of water when you eat more fiber. If you are on diet that limits the amount of fluid you can have, talk about this with your healthcare provider. Regular exercise. Check with your healthcare provider first. Medicines Take any medicines as directed. Some laxatives are safe to use only every now and then. Others can be taken on a regular basis. While laxatives don't cause bowel dependence, they are treating the symptoms. So your constipation may return if you don't make other changes. Talk with your healthcare provider or pharmacist if you have questions. Prescription pain medicines can cause constipation. If you are taking this kind of medicine, ask your healthcare provider if you should also take a stool softener. Medicines you may take to treat constipation include: Fiber supplements Stool softeners Laxatives Enemas Rectal suppositories Follow-up care Follow up with your healthcare provider if symptoms don't get better in the next few days. You may need to have more tests or see a specialist. Call 911 Call 911 if any of these occur: Trouble breathing Stiff, rigid abdomen that is severely painful to touch Confusion Fainting or loss of consciousness Rapid heart rate Chest pain When to seek medical advice Call your healthcare provider right away if any of these occur: Fever of 100.4 F (38 C) or higher, or as directed by your healthcare provider Failure to resume normal bowel movements Pain in your abdomen or back gets worse Nausea or vomiting Swelling in your abdomen Blood in the stool Black, tarry stool Involuntary weight loss Weakness [id number] The [employer]. [address] [place] [address]. All rights reserved. This information is not intended as a substitute for professional medical care. Always follow yourhealthcare professional's instructions. Additional Information VACCINATE! IT SAVES LIVES! Members of the community who have not yet received the COVID-19 vaccine and would like to receive it can visit one of [facility] vaccine clinics. There are many vaccine clinic locations within the [facility]. For locations and available times, please visit [email or web address] It is important to note that some COVID mobile vaccine clinics are held outdoors and may be canceled in rainy or stormy conditions. To learn more about pediatric vaccinations (ages 5-11), we invite you to visit the [facility] webpage. [email or web address] learn more about the COVID-19 vaccine, we invite you to visit the CDC website for a list of frequently asked questions. https://www.cdc.gov/coronavirus/2019-ncov/vaccines/faq.html [facility] Patient Portal Access Instructions: Stay connected with your healthcare team and access your personal medical information anytime with the [facility] Patient Portal. If you would like a full copy of your medical records please contact the [facility] Medical Records Department Monday through Monday between 8a.m. and 4:30p.m. Please follow the directions below to access the portal: 1.Access the email account you provided upon registration to the [facility].2.Look for an invitation email from [facility].3.Open the email and access the invitation link: Accept Invitation to [facility].Fill in the required chamberlain to create your account. Sign into [email or web address] with your username and password that you created in the above steps to stay up to date. You can then view a summary of results, a summary of your visits, and the ability to download your summaries to your computer or send the information securely to a physician. Remember that your healthcare information is confidential, so carefully consider who you will allow to register on the [facility] Patient Portal for access to your information. You can also access the [facility] Patient Portal on the [employer]ST[employer]. Simply click on Health Records under lucierna and then click on the Likeeds logo. HOW TO SAFELY DISPOSE OF PRESCRIPTION MEDICATIONS Please use one of the following methods to safely dispose of your unused medications. 1.Use a drug disposal kit: the drug disposal pouch allows you to safely discard your old and unuseddrugs. Ask your nurse to give you one when you are discharged.2.Visit a local take-back location: Many local pharmacies and police departments have programs that collect old and unwanted prescriptiondrugs. Call your local pharmacy or go to http://[employer]/0R7Gj0o to find one close to you.3.Make use of household items: Use cat litter or old coffee grounds to dispose medications if other options arenot available. Mix your drugs with these household products, seal them in an airtight container andthrow it into the garbage. Call [facility]: [phone] to be sure your drugs can be disposed of in this way. Some medicines may require a different approach.4.Never flush your medications down the toilet. IF YOU HAVE BEEN PRESCRIBED AN OPIOIDS FOR PAIN If you have been prescribed an opioid (such as hydrocodone, oxycodone or morphine), it is critical to understand the possible side effects and risks of opioid pain medications. Even when taken as directed, opioids can have several side effects including: Tolerance, meaning you might need to take more of a medication for the same pain relief. Nausea, vomiting and/or constipation. Sleepiness, dizziness, dry mouth, confusion, depression or itching. Physical dependence, meaning you have withdrawal symptoms when a medication is stopped ? this can develop within a few days. KNOW YOUR RESPONSIBILITIES It is important to know exactly how much and how often to take the opioid pain medications you are prescribed. Never take opioids in higher amounts or more often than prescribed. Do not combine opioids with alcohol or other drugs that cause drowsiness, such as benzodiazepines, also known as benzos,including diazepam and alprazolam, muscle relaxants or sleep aids. Never sell or share prescriptionopioids. This is illegal. Store opioids in a secure place and out of reach of others (including children, family, friends and visitors). The last page(s) of this document has been signed and retained as a CHART COPY Signatures Patient Education Materials Adapting to : Second Trimester Constipation (Adult) Medication Leaflets My discharge plan and instructions have been reviewed and explained to me and I,KALEY FRYd my current condition and have read and understand these discharge instructions. I have received a written copy of the plan/instructions. If I have questions, I am aware that I should contact my doctor. Patient/Global Process Owner Signature: Date/Time: Relationship to Patient: Witness Name/Signature: Date[facility]Time[id number] Evaluation [facility]* Diagnosis Onset Date Resolution Status Admit Date Anemia acute June 28, 2024 1:16pm Asthma acute June 28, 2024 1:16pm acute June 28, 2024 1:16pm Supervision of high-risk acute June 28 1:16pm Anemia acute July 26, 2 025 2:50pm Asthma acute July 26, 2 025 2:50pm acute July 26, 2 025 2:50pm Supervision of high-risk acute July 26 2:50pm Anemia acute August 26, 2024 1:55pm Asthma acute August 26, 2024 1:55pm acute August 26, 2024 1:55pm Supervision of high-risk acute August 26 1:55pm Anemia acute September 20, 2024 3:00pm Asthma acute September 20, 2024 3:00pm acute September 20, 2024 3:00pm Supervision of high-risk acute September 20, 2 025 3:00pm Anemia acute October 04 10:11am Asthma acute October 04 10:11am Nausea and vomiting during acute October 04, 2024 10:11am acute October 04 10:11am Supervision of high-risk acute October 04, 2024 10:11am Right lower quadrant abdomin al pain affecting acute September 222024 10:55am [facility] Work Phone: 1(758) 309-135812-06-2024 Evaluation note* Diagnosis Onset Date Resolution Status Admit Date Anemia acute June 28, 2024 1:16pm Asthma acute June 28, 2024 1:16pm acute June 28, 2024 1:16pm Supervision of high-risk acute June 28 1:16pm Anemia acute July 26, 2 025 2:50pm Asthma acute July 26, 2 025 2:50pm acute July 26, 2 025 2:50pm Supervision of high-risk acute July 26 2:50pm Anemia acute August 26, 2024 1:55pm Asthma acute August 26, 2024 1:55pm acute August 26, 2024 1:55pm Supervision of high-risk acute August 26 1:55pm Anemia acute September 20, 2024 3:00pm Asthma acute September 20, 2024 3:00pm acute September 20, 2024 3:00pm Supervision of high-risk acute September 20, 2 025 3:00pm Anemia acute October 04 10:11am Asthma acute October 04 10:11am Nausea and vomiting during acute October 04, 2024 10:11am acute October 04 10:11am Supervision of high-risk acute October 04, 2024 10:11am Right lower quadrant abdomin al pain affecting acute September 222024 10:55am Anemia acute October 18 10:47am Asthma acute October 18 10:47am acute October 18 10:47am Supervision of high-risk acute October 18, 2024 10:47am [facility] Work Phone: 1(399) 772-179511-15-2024 Note. MICRO - Microbiology PROCEDURE: Urine Culture [*1] SOURCE: Urine, Clean Catch BODY SITE: COLLECTED DATE/TIME: 06/05/2024 14:51 EST RECEIVED DATE/TIME: 06/05/2024 23:14 EST START DATE/TIME: 06/05/2024 23:14 EST FREE TEXT SOURCE: FINAL REPORTS Final Report [] Verified Date/Time/Personnel: 06/07/2024 08:05 EST <10,000 cfu/ml. No Significant growth. Sensitivity not indicated. PRELIMINARY REPORTS Preliminary Report [] Verified Date/Time/Personnel: 06/06/2024 08:57 EST No growth to date Performing Locations *1: This test was performed at: [address] [id number] Note. MICRO - Microbiology PROCEDURE: Affirm Pathogens DNA Direct Probe [*1] SOURCE: Vaginal Fluid BODY SITE: Vagina COLLECTED DATE/TIME: 06/05/2024 12:00 EST RECEIVED DATE/TIME: 06/05/2024 21:59 EST START DATE/TIME: 06/05/2024 21:59 EST FREE TEXT SOURCE: FINAL REPORTS Final Report [] Verified Date/Time/Personnel: 06/06/2024 14:45 EST Gardnerella vaginalis DNA Probe Negative Catherine species DNA Probe Negative Trichomonas vaginalis DNA Probe Negative Performing Locations *1: This test was performed at: [address] [id number] NoteHNO ID: [id number] Author: Channing Gill RT(R) Service: Radiology Author Type: Technologist Type: Progress Notes Filed: 07/14/2023 12:59 PM Note Text: Radiology Service Progress Note PATIENT NAME: Kaley Coffey DATE OF SERVICE: July 14, 2023 TIME: 12:58 PM PATIENT IDENTITY VERIFICATION COMPLETED USING TWO (2) IDENTIFIERS: Name and Date of confirmed by patient verbally and Name and Date of confirmed by identification band. FALL SCREENING: Has the patient had 2 falls in the last year or 1 fall with injury or currently using an Ambulatory Assistive Device (Walker, Cane, Wheelchair, Crutches, etc.)? No PATIENT GENDER DATA: Female. status: : No status: NO. PATIENT RELEVANT IMPLANT DATA REVIEWED: Not Applicable RADIOLOGY DEPARTMENT: General X-ray: Exam(s) Completed: Chest X-Ray PERIPHERAL IV DATA: Not applicable SIGNED BY: RT Song(R) July 14, 2023 12:58 [facility]12-05-2023 NoteHNO ID: [id number] Author: Juju Pan RT(Tamra) Service: Radiology Author Type: Technologist Type: Progress Notes Filed: 06/27/2023 9:30 AM Note Text: Radiology Service Progress Note PATIENT NAME: Kaley Coffey DATE OF SERVICE: June 27, 2023 TIME: 9:29 AM PATIENT IDENTITY VERIFICATION COMPLETED USING TWO (2) IDENTIFIERS: Name and Date of confirmed by patient verbally and Name and Date of confirmed by identification band. FALL SCREENING: Has the patient had 2 falls in the last year or 1 fall with injury or currently using an Ambulatory Assistive Device (Walker, Cane, Wheelchair, Crutches, etc.)? No PATIENT GENDER DATA: Female. status: : No status: NO. PATIENT RELEVANT IMPLANT DATA REVIEWED: Yes RADIOLOGY DEPARTMENT: MR; Exam(s) Completed: Upper MSK: Wrist, left PERIPHERAL IV DATA: Not applicable SIGNED BY: RT Alva(R) June 27, 2023 [facility] History of Present illness Narrative* Juju Pan RT(R) - 06/27/2023 9:00 AM EST Radiology Service Progress Note PATIENT NAME: Kaley Coffey DATE OF SERVICE: June 27, 2023 TIME: 9:29 AM PATIENT IDENTITY VERIFICATION COMPLETED USING TWO (2) IDENTIFIERS: Name and Date of confirmedby patient verbally and Name and Date of confirmed by identification band. FALL SCREENING: Has the patient had 2 falls in the last year or 1 fall with injury or currently using an Ambulatory Assistive Device (Walker, Cane, Wheelchair, Crutches, etc.)? No PATIENT GENDER DATA: Female. status: : No status: NO. PATIENT RELEVANT IMPLANT DATA REVIEWED: Yes RADIOLOGY DEPARTMENT: MR; Exam(s) Completed: Upper MSK: Wrist, left PERIPHERAL IV DATA: Not applicable SIGNED BY: RT Alva(R) June 27, 2023 9:29 AM documented in this encounterNation[facility]11-16-2023 Instructions* Patient Instructions* Rabia Ruggiero APRN.[employer] - 06/08/2023 9:11 AM EST Call [facility]'s work health and safety center phone number is [phone] tomorrow before 9 AM to schedule a follow-up appointment. Follow-up medical condition/release report will be given by the [facility] SPRAINS / STRAINS GENERAL INFORMATION: A sprain is when the ligaments of a joint are stretched and injured. A strain is when a muscle is overstretched and some fibers are torn. These injuries can take several weeks to heal. INSTRUCTIONS: 1. To minimize swelling, keep the injured limb above the level of your heart as much as possible. If it is your leg that is injured, elevate it on some pillows whenever you are sitting or lying down. 2. Apply ice to the injury for 15 minutes each hour for the first two days. Put the ice in a plastic bag and place a thin towel between the bag of ice and your skin. 3. After the first 1 to 2 days, you may apply heat to the injury to help relieve pain. You may use a warm heating pad, whirlpool bath, or warm moist towels for 15-20 minutes every hour (while awake) for 48 hours. 4. You may use medicines for pain such as acetaminophen, ibuprofen or aspirin (unless otherwise instructed by your physician). 5. If you were given a brace, splint, or elastic bandage, wear it until otherwise instructed by your health care provider. Adjust elastic bandage for comfort. It should be tight enough for support, but not so tight that it causes numbness or tingling. Take it off and rewrap it at least once a day. 6. If you have been told to use crutches, do not bear weight until your health care provider instructs you otherwise. 7. When you are allowed to return to normal activity, warm up before exercise to avoid future muscle strains. CONTACT YOUR DOCTOR OR RETURN TO THE ED IF: 1. You have increased pain or swelling of the affected area. 2. You notice coldness or blue discoloration of the fingers or toes (depending on site of injury). documented in this encounterNationwide [facility]11-16-2023 History of Present illness Narrative* Cecille Daigle RT(R) - 06/08/2023 8:40 AM EST Radiology Service Progress Note PATIENT NAME: Kaley Coffey DATE OF SERVICE: June 08, 2023 TIME: 8:47 AM PATIENT IDENTITY VERIFICATION COMPLETED USING TWO (2) IDENTIFIERS: Name and Date of confirmedby patient verbally. FALL SCREENING: Has the patient had 2 falls in the last year or 1 fall with injury or currently using an Ambulatory Assistive Device (Walker, Cane, Wheelchair, Crutches, etc.)? No PATIENT GENDER DATA: Female. status: : No status: NO. PATIENT RELEVANT IMPLANT DATA REVIEWED: Yes RADIOLOGY DEPARTMENT: General X-ray: Exam(s) Completed: Upper Extremity X- Ray(s): Wrist, left PERIPHERAL IV DATA: Not applicable SIGNED BY: IVÁN Miller) June 08, 2023 8:47 AM documented in this encounterNationwide Children'[facility] Hospital11-16-2023 NoteHNO ID: [id number] Author: Cecille Daigle RT(Tamra) Service: Radiology Author Type: Technologist Type: Progress Notes Filed: 06/08/2023 8:47 AM Note Text: Radiology Service Progress Note PATIENT NAME: Kaley Coffey DATE OF SERVICE: June 08, 2023 TIME: 8:47 AM PATIENT IDENTITY VERIFICATION COMPLETED USING TWO (2) IDENTIFIERS: Name and Date of confirmed by patient verbally. FALL SCREENING: Has the patient had 2 falls in the last year or 1 fall with injury or currently using an Ambulatory Assistive Device (Walker, Cane, Wheelchair, Crutches, etc.)? No PATIENT GENDER DATA: Female. status: : No status: NO. PATIENT RELEVANT IMPLANT DATA REVIEWED: Yes RADIOLOGY DEPARTMENT: General X-ray: Exam(s) Completed: Upper Extremity X-Ray(s): Wrist, left PERIPHERAL IV DATA: Not applicable SIGNED BY: Cecille Daigle RT(R) June 08, 2023 8:47 [facility]11-16-2023 NoteHNO ID: [id number] Author: Rabia Ruggiero APRN.[employer] Service: ? 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., patient works for [employer] Involved hand / wrist: Left Location: wrist and FA Radiation: No Onset: Today yesterday 20 5 AM Trauma or injury: Yes, patient was putting a package on top of the shelf when the weight of it became too much and came down on her left wrist after she tried to brace it from falling Repetitive Activity at work or home: Yes Describe the pain: aching and stabbing How bad is the pain: Moderate How often is the pain present: constant Elbow or forearm pain: Yes, forearm Numbness or tingling in the hands: No Weakness in the hands: No Dropping things: No Decreased Range of Motion: Yes Alleviating factors Rest: Yes Analgesic medications:No Ice: Yes Heat: No Has tried:anything Worsened by: movement Previous problems: {No Previous xrays or other imaging: No PAST MEDICAL HISTORY Diagnosis Date Anemia There is no problem list on file for this patient. No current outpatient medications on file. No current facility-administered medications for this visit. Social History Tobacco Use Smoking status: Former Types: Cigarettes Smokeless tobacco: Never Vaping Use Vaping Use: Never used Alcohol Use: Not on file Tobacco Use: Types: Cigarettes History reviewed. No pertinent family history. Review of Systems Constitutional: Negative for chills and fever. Eyes: Negative for blurred vision. Respiratory: Negative for shortness of breath. Cardiovascular: Negative for chest pain and palpitations. Gastrointestinal: Negative for abdominal pain, nausea and vomiting. Musculoskeletal: Positive for joint pain. Left wrist and forearm arm pain and swelling Neurological: Negative for dizziness, loss of consciousness and headaches. BP 122/76 Pulse 83 Temp 99.1 Resp 16 Wt 172 lb 6.4 oz (78.2kg) SpO2 100% [facility] 06/07/2023 Physical Exam Vitals and nursing note reviewed. Constitutional: Appearance: Normal appearance. HENT: Head: Normocephalic and atraumatic. Cardiovascular: Rate and Rhythm: Normal rate and regular rhythm. Pulmonary: Effort: Pulmonary effort is normal. Breath sounds: Normal breath sounds. Musculoskeletal: Right wrist: Normal. Left wrist: Swelling, tenderness and snuff box tenderness present. No deformity, effusion or crepitus. Decreased range of motion. Cervical back: Normal range of motion. Comments: Left wrist; swelling and tender to palpation around snuffbox and lateral aspect of the wrist, also swelling and pain around forearm arm, no deformity, no erythema, no ecchymosis, no rash. Capillary refill less than 2 seconds, positive sensation, positive radial pulses, neurovascular intact. Decreased range of motion with extension flexion inversion and eversion. Skin: General: Skin is warm and dry. Neurological: General: No focal deficit present. Mental Status: She is alert. Mental status is at baseline. ASSESSMENT/PLAN: 1. Wrist sprain, left, initial encounter - ICD9: 842.00, ICD10: S63.502A (primary diagnosis) 2. Wrist injury, left, initial encounter - ICD9: 959.3, ICD10: S69.92XA 3. Forearm joint pain, left - ICD9: 719.43, ICD10: M25.532 - WRIST SPLINT - XR WRIST INJURY 4V PA/LAT/OBL/SCAPH LEFT - FROI form completed No fracture on x-rays for the official reading by radiology MD. Patient will be treated for an acute wrist sprain and forearm pain . Wrist brace, applied in the clinic . Patient to RICE (rest, ice, compression, and elevation )limb . Go to the emergency room for new symptoms. Patient was plan of care verbalized understanding instructions. Call [facility]'s work health and safety center phone number is [phone] tomorrow before 9 AM to schedule a follow-up appointment. Follow-up medical condition/release report will be given by the [facility] This note was partially generated using DXY voice recognition system. Rabia Ruggiero APRN.[facility]11-16-2023 History of Present illness Narrative* Rabia Ruggiero APRN.[facility] - 06/08/2023 8:26 AM EST Kaley Coffey is a 33 year old female who presents with Wrist Pain (Left, Work injury, pts thata box bent wrist backwards, appears swollen, pain with movement, no serenity of wrist pain ) Kaley Coffey is a 33 year old female who presents with left Wrist Pain Worker's Comp., patientworks for [employer] Involved hand / wrist: Left Location: wrist and FA Radiation: No Onset: Today yesterday 20 5 AM Trauma or injury: Yes, patient was putting a package on top of the shelf when the weight of it became too much and came down on her left wrist after she tried to brace it from falling Repetitive Activity at work or home: Yes Describe the pain: aching and stabbing How bad is the pain: Moderate How often is the pain present: constant Elbow or forearm pain: Yes, forearm Numbness or tingling in the hands: No Weakness in the hands: No Dropping things: No Decreased Range of Motion: Yes Alleviating factors Rest: Yes Analgesic medications:No Ice: Yes Heat: No Has tried:anything Worsened by: movement Previous problems: {No Previous xrays or other imaging: No PAST MEDICAL HISTORY Diagnosis Date Anemia There is no problem list on file for this patient. No current outpatient medications on file. No current facility-administered medications for this visit. Social History Tobacco Use Smoking status: Former Types: Cigarettes Smokeless tobacco: Never Vaping Use Vaping Use: Never used Alcohol Use: Not on file Tobacco Use: Types: Cigarettes History reviewed. No pertinent family history. Review of Systems Constitutional: Negative for chills and fever. Eyes: Negative for blurred vision. Respiratory: Negative for shortness of breath. Cardiovascular: Negative for chest pain and palpitations. Gastrointestinal: Negative for abdominal pain, nausea and vomiting. Musculoskeletal: Positive for joint pain. Left wrist and forearm arm pain and swelling Neurological: Negative for dizziness, loss of consciousness and headaches. BP 122/76 Pulse 83 Temp 99.1 Resp 16 Wt 172 lb 6.4 oz (78.2kg) SpO2 100% [facility] 06/07/2023 Physical Exam Vitals and nursing note reviewed. Constitutional: Appearance: Normal appearance. HENT: Head: Normocephalic and atraumatic. Cardiovascular: Rate and Rhythm: Normal rate and regular rhythm. Pulmonary: Effort: Pulmonary effort is normal. Breath sounds: Normal breath sounds. Musculoskeletal: Right wrist: Normal. Left wrist: Swelling, tenderness and snuff box tenderness present. No deformity, effusion or crepitus. Decreased range of motion. Cervical back: Normal range of motion. Comments: Left wrist; swelling and tender to palpation around snuffbox and lateral aspect of the wrist, also swelling and pain around forearm arm, no deformity, no erythema, no ecchymosis, no rash. Capillary refill less than 2 seconds, positive sensation, positive radial pulses, neurovascular intact. Decreased range of motion with extension flexion inversion and eversion. Skin: General: Skin is warm and dry. Neurological: General: No focal deficit present. Mental Status: She is alert. Mental status is at baseline. ASSESSMENT/PLAN: 1. Wrist sprain, left, initial encounter - ICD9: 842.00, ICD10: S63.502A (primary diagnosis) 2. Wrist injury, left, initial encounter - ICD9: 959.3, ICD10: S69.92XA 3. Forearm joint pain, left - ICD9: 719.43, ICD10: M25.532 - WRIST SPLINT - XR WRIST INJURY 4V PA/LAT/OBL/SCAPH LEFT - FROI form completed No fracture on x-rays for the official reading by radiology MD. Patient will be treated for an acute wrist sprain and forearm pain . Wrist brace, applied in the clinic . Patient to RICE (rest, ice, compression, and elevation )limb . Go to the emergency room for new symptoms. Patient was plan of care verbalized understanding instructions. Call [facility]'s work health and safety center phone number is [phone] tomorrow before 9 AM to schedule a follow-up appointment. Follow-up medical condition/release report will be given by the [facility] This note was partially generated using DXY voice recognition system. Rabia Ruggiero APRN.CNP documented in this encounterCotuit ClinicEvaluation + Plan note Future Appointments Appointment Date:07/03/2024 09:00:00 AM Scheduled Provider:LORI BELL Location:[facility] Appointment Type: OV OB Routine Follow Up Diagnostic Tests Pending * Urinalysis w/ C&S if Indicated 06/14/24 Future Scheduled Tests Laboratory* Type and Screen 06/05/24 [facility] Evaluation + Plan note Future Appointments Appointment Date:07/03/2024 09:00:00 AM Scheduled Provider:LORI BELL Location:[facility] Appointment Type: OV OB Routine Follow Up Diagnostic Tests Pending * [facility] Lab Send out (Blood Specimens) 06/14/24 * Rapid Plasma Reagin Test 06/14/24 * Varicella Zoster Antibody 06/14/24 Future Scheduled Tests Laboratory* Type and Screen 06/05/24 [facility] Evaluation + Plan note Future Appointments Appointment Date:07/31/2024 02:45:00 PM Scheduled Provider:LORI BELL Location:[facility] Appointment Type: OV OB Routine Follow Up Appointment Date:08/19/2024 10:00:00 AM Scheduled Provider: Location:[facility] Appointment Type:US OB > 14 wks Future Scheduled Tests Laboratory* Type and Screen 06/05/24 Radiology* US OB > 14 weeks 08/19/24 [facility] Evaluation + Plan note Future Appointments Appointment Date:08/29/2024 02:30:00 PM Scheduled Provider:JUJU GILLILAND MD Location:[facility] Appointment Type: OV OB Routine Follow Up Future Scheduled Tests Laboratory* Type and Screen 06/05/24 [facility] evaluation note* Diagnosis Onset Date Resolution Status acute Supervision of high-risk acute [facility] Work Phone: evaluation note* Diagnosis Onset Date Resolution Status acute Supervision of high-risk acute Anemia acute Pelvic pain affecting acute acute Supervision of high-risk acute Anemia acute acute Supervision of high-risk acute Anemia acute Pelvic pain affecting acute acute Supervision of high-risk acute Anemia acute Pelvic pain affecting acute acute Supervision of high-risk acute Anemia acute Pelvic pain affecting acute acute Supervision of high-risk acute Anemia acute Headache acute Pelvic pain affecting acute acute Supervision of high-risk acute [facility] Work Phone: evaluation note* Diagnosis Onset Date Resolution Status Anemia acute Headache resolved resolved Supervision of high-risk resolved Anemia acute Headache resolved resolved Supervision of high-risk resolved Headache resolved resolved Supervision of high-risk resolved nipple pain nonea ctive Care and examination of lactating mother noneactive Anemia acute Contraception management acu te Normal course acu te LUQ abdominal pain acute Pelvic pain acute [facility] Work Phone: evaluation note* Diagnosis Wrist sprain, left, initial encounter- Primary Wrist injury, left, initial encounter Forearm joint pain, left [facility] encounter [facility] Wrist injury, left, initial encounter [facility] Diagnosis Unspecified sprain of left wrist, initial encounter- Primary [facility] Diagnosis Left wrist pain- Primary Pain in joint, forearm Unspecified sprain of left wrist, initial encounter [facility] Diagnosis Left wrist pain Pain in joint, forearm [facility] Diagnosis Unspecified sprain of left wrist, initial encounter- Primary documented in this encounter [facility] Author Felicity Cortes [facility] Note Date/Time October 16, 2024 12: 40pm [facility] Medical Records Department [address] [place] [address] OB Triage Physician Note 10/16/24 1238 MR#: [id number] Acct: [id number] Name: KALEY FRY Rep # :[id number] : 1990 34 From: Felicity Vaca DO PCP: Care Physician,No Primary Status :REG CLI Y Location: [id number] HPI - General HPI Narrative KALEY FRY, is a 34 y/o who presents to L&D with right lower side pain radiating across her abdomen. Feels like a burning sensation. no lof, vaginal bleeding, or dec fm. no flank pain, fevers, nausea, vomiting, or diarrhea. Maternal Data Information ELISSA Calculator Estimated Delivery Date Method Current WG Current Estimate 01/05/25 Ultrasound #1 28w 3d PFSH PFSH Medical History Pelvic pain Adenomyosis of uterus (spontaneous vaginal delivery) Pelvic pain affecting Anemia Supervision of high-risk Home Medications ?Medication ?Instructions ?Recorded ?Last Taken ?Type docosahexaenoic acid 200 mg 200 mg PO DAILY Check with primary 02/08/22 05/22/22 09:00 History capsule ( DHA) doctor cyclobenzaprine 10 mg tablet 10 mg PO TID PRN muscle s pasm #30 10/04/24 10/16/24 02:00 Rx tabs nitrofurantoin 100 mg PO BID #14 caps 10/16 Unknown Rx monohydrate/macrocrystals 100 mg capsule (Macrobid) Allergy/AdvReac Type Severity Reaction Status Date / Time No Known Allergies Allergy Verified 10/16/24 11:19 Family History Mother Hypertension Uncle CVA (cerebral vascular accident) Social History adopted: No household members: family housing: house number of children: 3 current occupational status: employed and unemployed current occupation: [employer] [address] current occupational exposures/hazards: No pets and animals: Yes history of recent travel: No sexually active: Yes Smoking Status: Former smoker second hand exposure: No alcohol intake: never details: not while substance use type: does not use well-balanced diet: rarely or never caffeine: Yes what type of physical activity do you participate in: none seatbelt use: always do you feel safe at home: Yes additional social history: - [place] History 6 Elective abortions Hx Para 4 Spontaneous abortions 1 Hx # Term Pregnancies Ectopic pregnancies Hx # Pregnancies Multiple births # of living children 4 Past Pregnancies Del. Date Name GA/Weeks Outcome Route Bth Weight Infant Gen Labor Lgth Anesthesia Del Nagaatradha Provider ROSA 07/24/08 delivered 2009 son 1 week 40 live - full term 05/04/10 Jennifer 40 live - full term Female none Sarina Cross 02/21/21 Gareth 40 live - full term Female none CT Dillan 05/23/22 Rashida 40 live - full term 7lb6oz Male [facility] Jaswinder Delivery Date: 05/04/10 Last Updated by: Sandhya Hart No issues during or delivery Delivery Date: 02/21/21 Last Updated by: Sandhya Hart No issues during or delivery. Per patient child had water in kidney Delivery Date: 05/23/22 Last Updated by: Zee BEEBE Visit Details Expected Delivery Route/Plan Labor Preferences- CB/BF classes: [] labor support person: [] labor intervention preferences: [] pain management options preferred: [] cut cord/dad catch: [] : [] PP control planned:pp tubal desired. discussed possible routes of delivery and associated risks: [] special requests: [] Plans Covid status: declines Flu vaccine: declines Tdap vaccine: declines Rhogam: na LARC form signed: [] Problem list reviewed and updated with the most current plan of care details and appropriate orders placed. Relevant counseling for the gestational age provided. Continue routine care and follow up unless otherwise noted in visit notes/problem list details OB Flowsheet Initial Weight: 178 lb Date -?-?-?-?-?-?-?-?-?-?-?-?- EGA Weight BP Urine Prot -?-?-?-?-?-?-?-?-?-?-?-?- Glucose FHR FuHt Pres Dilation -?-?-?-?-?-?-?-?-?-?-?-?- Effaced St Visit Note 05/30/24 -?-?-?-?-?-?-?-?-?-?-?-?- 8w 4d 178 lb (+0 oz) 98/64 -?-?-?-?-?-?-?-?-?-?-?-?- 175 -?-?-?-?-?-?-?-?-?-?-?-?- KW- CRL cons wit h PCC US per pt. Accepts NIPT. 06/28/24 -?-?-?-?-?-?-?-?-?-?-?-?- 12w 5d 175 lb 6 oz (-2 lb 10 oz) 95/59 Trace -?-?-?-?-?-?-?-?-?-?-?-?- Negative 157 -?-?-?-?-?-?-?-?-?-?-?-?- JV- pt complains of lower pelvic cramping and nausea. sending in zofran and recommending tylenol. ultrasound today appears normal. CRL measuring 13 weeks. nipt and carrier screen ordered. 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 no uti symptoms. 09/20/24 -?-?-?-?-?-?-?-?-?-?-?-?- 24w 5d 179 lb 8 oz (+1 lb 8 oz) 93/59 Negative -?-?-?-?-?-?-?-?-?-?-?-?- Negative 150 24 -?-?-?-?-?-?-?-?-?-?-?-?- LC-no vb/crampin kimberly LC-no vb/cramping. normal an atomy. 28 week labs ordered. plans to decline tdap. 10/04/24 -?-?-?-?-?-?-?-?-?-?-?-?- 26w 5d 179 lb 8 oz (+1 lb 8 oz) 179 lb 8 oz (+1 lb 8 oz) 61 Negative -?-?-?-?-?-?-?-?-?-?-?-?- Negative 145 27 -?-?-?-?-?-?-?-?-?-?-?-?- SM- no vb lof go od fm no regualr ctx co pelvic pubic symphi=ysis pain and low back pain, unable to do exercises suggested, declined PT consult, recommend chiropractor. ROS Constitutional Constitutional: Reports systems reviewed and no addt'l complaints, except as documented Gastrointestinal Gastrointestinal: Denies bloating, constipation, cramping, diarrhea, nausea or vomiting Genitourinary Genitourinary: Reports other Details: Denies vaginal odor, vaginal bleeding, or vaginal discharge ; Denies difficulty urinating or flank pain NST FHR Rate Baby A Baseline: 150 Variability:: Moderate Accelerations:: 15 x 15 Decelerations:: None NST Reactive:: Yes and Appropriate for gestational age FHR Category:: Category I Uterine Activity:: no contractions Assessment & Plan (1) Right lower quadrant abdominal pain affecting : PLAN: normal white count urine shows signs of a UTI. starting macrobid and sending for culture Ok to dc to home return if develops flank pain or fever or unable to keep antibiotic down. Charges/Coding Multi Select Codes Urinary/Genital Urinary/Genital CPT Codes: 14495-54 non-stress test Interp 10/16/24 1240 <Electronically signed by Felicity Norris DO> Date _ Felicity Vaca DO Cosigner Signature (if applicable): Date CC: Dr. Felicity Vaca, ; No Primary Care Physician ~ Signed [facility] Work Phone: Hospital course Narrative No data available for this section [facility] Hospital Discharge instructions No data available for this section [facility] Progress note No data available for this section [facility] Reason for referral (narrative)* Diagnostic Procedure Only (Routine) - Pending Review Specialty Diagnoses / Procedures Referred By Contac t Referred To Contact XR IMAGING Diagnoses Wrist injury, left, initial encounter Procedures XR WRIST INJURY 4V PA/LAT/OBL/SCAPH LEFT RADEX WRIST COMPLETE MINIMUM 3 VIEWS Rabia Ruggiero APRN.[employer] [address] [place] [address] [place] [id number] Referral ID Status Reason Start Date Expiration Date Visits Requested Visits Authorized [id number] Pending Review Auto-Generate d Referral Clearance Not Met -Financial Clearance Bypassed 3 07/07/2024 1 1 [facility] for referral (narrative)No reason for referral information availableWAden[facility] Work Phone: Reason for visit Narrative* Diagnostic Procedure Only (Routine) - Pending Review Specialty Diagnoses / Procedures Referred By Contac t Referred To Contact XR IMAGING Diagnoses Wrist injury, left, initial encounter Procedures XR WRIST INJURY 4V PA/LAT/OBL/SCAPH LEFT RADEX WRIST COMPLETE MINIMUM 3 VIEWS Rabia Ruggiero APRN.[employer] [address] [place] [address] [place] [id number] Referral ID Status Reason Start Date Expiration Date Visits Requested Visits Authorized [id number] Pending Review Auto-Generate d Referral Clearance Not Met -Financial Clearance Bypassed 3 07/07/2024 1 1 [facility] Chief Complaint and Reason for Visit Chief Complaint OB xfer of care ANATOMY ONE HR GLUCOSE ABDOMINAL PAIN Reason for Visit Supervision of high-risk Chief Complaint OB xfer of care ANATOMY ONE HR GLUCOSE ABDOMINAL PAIN 28 WK OB ABDOMINAL PAIN 30wk ob 32 WK OB EORDER 34 WK OB 36wk ob Reason for Visit Supervision of high-risk Anemia Pelvic pain affecting Supervision of high-risk Anemia Supervision of high-risk Anemia Pelvic pain affecting Supervision of high-risk Anemia Pelvic pain affecting Supervision of high-risk Anemia Pelvic pain affecting Supervision of high-risk Anemia Headache Pelvic pain affecting Supervision of high-risk Chief Complaint 38 WK OB 39 WK OB VAG DELIVERY VAG DELIVERY VAG DELIVERY hx of difficulty 6wk pp pt having severe cramps eorders Reason for Visit Anemia Headache Supervision of high-risk Anemia Headache Supervision of high-risk Headache Supervision of high-risk nipple pain Care and examination of lactating mother Anemia Contraception management Normal course LUQ abdominal pain Pelvic pain Chief Complaint Admit Date 12 WK OB June 28, 2024 1 :16pm 16 WK OB July 26, 2024 2: 50pm 20 wk ob August 26, 2024 1 :55pm August 30, 2024 1 :30pm 24 WK OB September 20, 2024 3:00pm OB, pelvic pain, can't do the exercises October 04, 2024 10:11am ABDOMINAL PAIN October 16, 2024 10: 55am ABDOMINAL PAIN October 16, 2024 12: 38pm Reason for Visit Admit Date Anemia June 28, 2024 1 :16pm Asthma June 28, 2024 1 :16pm June 28, 2024 1 :16pm Supervision of high-risk Decem 2023 1:16pm Anemia July 26, 2024 2: 50pm Asthma July 26, 2024 2: 50pm July 26, 2024 2: 50pm Supervision of high-risk Janua 2024 2:50pm Anemia August 26, 2024 1 :55pm Asthma August 26, 2024 1 :55pm August 26, 2024 1 :55pm Supervision of high-risk Febru 2024 1:55pm Anemia September 20, 2024 3:00pm Asthma September 20, 2024 3:00pm September 20, 2024 3:00pm Supervision of high-risk Febru 2024 3:00pm Anemia October 04, 2024 10: 11am Asthma October 04, 2024 10: 11am Nausea and vomiting during Sep 10:11am October 04, 2024 10: 11am Supervision of high-risk October 04, 2024 10:11am Right lower quadrant abdominal pain affe cting October 16, 2024 10:55am Chief Complaint Admit Date 12 WK OB June 28, 2024 1 :16pm 16 WK OB July 26, 2024 2: 50pm 20 wk ob August 26, 2024 1 :55pm August 30, 2024 1 :30pm 24 WK OB September 20, 2024 3:00pm OB, pelvic pain, can't do the exercises October 04, 2024 10:11am ABDOMINAL PAIN October 16, 2024 10: 55am ABDOMINAL PAIN October 16, 2024 12: 38pm 28 WK OB/GLUCOSE October 18, 2024 10: 47am Reason for Visit Admit Date Anemia June 28, 2024 1 :16pm Asthma June 28, 2024 1 :16pm June 28, 2024 1 :16pm Supervision of high-risk Decem 2023 1:16pm Anemia July 26, 2024 2: 50pm Asthma July 26, 2024 2: 50pm July 26, 2024 2: 50pm Supervision of high-risk Janua 2024 2:50pm Anemia August 26, 2024 1 :55pm Asthma August 26, 2024 1 :55pm August 26, 2024 1 :55pm Supervision of high-risk Febru 2024 1:55pm Anemia September 20, 2024 3:00pm Asthma September 20, 2024 3:00pm September 20, 2024 3:00pm Supervision of high-risk Febru [email or web address] 3:00pm Anemia October 04, 2024 10: 11am Asthma October 04, 2024 10: 11am Nausea and vomiting during Mar 2024 10:11am October 04, 2024 10: 11am Supervision of high-risk October 04, 2024 10:11am Right lower quadrant abdominal pain affe cting October 16, 2024 10:55am Anemia October 18, 2024 10: 47am Asthma October 18, 2024 10: 47am October 18, 2024 10: 47am Supervision of high-risk October 18, 2024 10:47am Chief Complaint Admit Date 20 wk ob August 26, 2024 1 :55pm August 30, 2024 1 :30pm 24 WK OB September 20, 2024 3:00pm OB, pelvic pain, can't do the exercises October 04, 2024 10:11am ABDOMINAL PAIN October 16, 2024 10: 55am ABDOMINAL PAIN October 16, 2024 12: 38pm 28 WK OB/GLUCOSE October 18, 2024 10: 47am 30 WK OB November 05, 2024 9:3 8am EST CARE/ November 13, 2024 10: 19am 32 WK OB November 15, 2024 11: 07am ADJUSTMENT November 20, 2024 9:5 9am ADJUSTMENT November 27, 2024 10:26a m 34 WK OB December 03, 2024 10:24 am Reason for Visit Admit Date Anemia August 26, 2024 1 :55pm Asthma August 26, 2024 1 :55pm August 26, 2024 1 :55pm Supervision of high-risk Febru 2024 1:55pm Anemia September 20, 2024 3:00pm Asthma September 20, 2024 3:00pm September 20, 2024 3:00pm Supervision of high-risk Febru [email or web address] 3:00pm Anemia October 04, 2024 10: 11am Asthma October 04, 2024 10: 11am Nausea and vomiting during Mar 2024 10:11am October 04, 2024 10: 11am Supervision of high-risk October 04, 2024 10:11am Right lower quadrant abdominal pain affe cting October 16, 2024 10:55am Anemia October 18, 2024 10: 47am Asthma October 18, 2024 10: 47am October 18, 2024 10: 47am Supervision of high-risk October 18, 2024 10:47am Anemia November 05, 2024 9:3 8am Asthma November 05, 2024 9:3 8am Contraception management November 05 9:38am Nausea and vomiting during Apr il 2024 9:38am November 05, 2024 9:3 8am Right lower quadrant abdominal pain affe cting November 05, 2024 9:38am Supervision of high-risk November 05, 2024 9:38am Back pain November 13, 2024 10: 19am November 13, 2024 10: 19am Segmental and somatic dysfunction of sac ral region November 13, 2024 10:19am Segmental dysfunction of lumbar region A pril 2024 10:19am Anemia November 15, 2024 11: 07am Asthma November 15, 2024 11: 07am Back pain November 15, 2024 11: 07am Contraception management November 15 11:07am Nausea and vomiting during Apr il 2024 11:07am November 15, 2024 11: 07am Right lower quadrant abdominal pain affe cting November 15, 2024 11:07am Segmental and somatic dysfunction of sac ral region November 15, 2024 11:07am Segmental dysfunction of lumbar region A pril 2024 11:07am Supervision of high-risk November 15, 2024 11:07am Back pain November 20, 2024 9:5 9am November 20, 2024 9:5 9am Segmental and somatic dysfunction of sac ral region November 20, 2024 9:59am Segmental dysfunction of lumbar region A pril 2024 9:59am Back pain November 27, 2024 10:26a m November 27, 2024 10:26a m Segmental and somatic dysfunction of sac ral region November 27, 2024 10:26am Segmental dysfunction of lumbar region M ay 2024 10:26am Anemia December 03, 2024 10:24 am Asthma December 03, 2024 10:24 am Back pain December 03, 2024 10:24 am Contraception management December 03, 2024 10:24am Nausea and vomiting during December 03, 2024 10:24am December 03, 2024 10:24 am Right lower quadrant abdominal pain affe cting December 03, 2024 10:24am Segmental and somatic dysfunction of sac ral region December 03, 2024 10:24am Segmental dysfunction of lumbar region M ay 2024 10:24am Supervision of high-risk November 212024 10:24am Chief Complaint Admit Date 20 wk ob August 26, 2024 1 :55pm August 30, 2024 1 :30pm 24 WK OB September 20, 2024 3:00pm OB, pelvic pain, can't do the exercises October 04, 2024 10:11am ABDOMINAL PAIN October 16, 2024 10: 55am ABDOMINAL PAIN October 16, 2024 12: 38pm 28 WK OB/GLUCOSE October 18, 2024 10: 47am 30 WK OB November 05, 2024 9:3 8am EST CARE/ November 13, 2024 10: 19am 32 WK OB November 15, 2024 11: 07am ADJUSTMENT November 20, 2024 9:5 9am ADJUSTMENT November 27, 2024 10:26a m 34 WK OB December 03, 2024 10:24 am ADJUSTMENT December 04, 2024 10:28 am Reason for Visit Admit Date Anemia August 26, 2024 1 :55pm Asthma August 26, 2024 1 :55pm August 26, 2024 1 :55pm Supervision of high-risk u 2024 1:55pm Anemia September 20, 2024 3:00pm Asthma September 20, 2024 3:00pm September 20, 2024 3:00pm Supervision of high-risk Febru [email or web address] 3:00pm Anemia October 04, 2024 10: 11am Asthma October 04, 2024 10: 11am Nausea and vomiting during Mar 2024 10:11am October 04, 2024 10: 11am Supervision of high-risk October 04, 2024 10:11am Right lower quadrant abdominal pain affe cting October 16, 2024 10:55am Anemia October 18, 2024 10: 47am Asthma October 18, 2024 10: 47am October 18, 2024 10: 47am Supervision of high-risk October 18, 2024 10:47am Anemia November 05, 2024 9:3 8am Asthma November 05, 2024 9:3 8am Contraception management November 05 9:38am Nausea and vomiting during Apr il 2024 9:38am November 05, 2024 9:3 8am Right lower quadrant abdominal pain affe cting November 05, 2024 9:38am Supervision of high-risk November 05, 2024 9:38am Back pain November 13, 2024 10: 19am November 13, 2024 10: 19am Segmental and somatic dysfunction of sac ral region November 13, 2024 10:19am Segmental dysfunction of lumbar region A pril 2024 10:19am Anemia November 15, 2024 11: 07am Asthma November 15, 2024 11: 07am Back pain November 15, 2024 11: 07am Contraception management November 15 11:07am Nausea and vomiting during Apr il 2024 11:07am November 15, 2024 11: 07am Right lower quadrant abdominal pain affe cting November 15, 2024 11:07am Segmental and somatic dysfunction of sac ral region November 15, 2024 11:07am Segmental dysfunction of lumbar region A pril 2024 11:07am Supervision of high-risk November 15, 2024 11:07am Back pain November 20, 2024 9:5 9am November 20, 2024 9:5 9am Segmental and somatic dysfunction of sac ral region November 20, 2024 9:59am Segmental dysfunction of lumbar region A pril 2024 9:59am Back pain November 27, 2024 10:26a m November 27, 2024 10:26a m Segmental and somatic dysfunction of sac ral region November 27, 2024 10:26am Segmental dysfunction of lumbar region M ay 2024 10:26am Anemia December 03, 2024 10:24 am Asthma December 03, 2024 10:24 am Back pain December 03, 2024 10:24 am Contraception management December 03, 2024 10:24am Nausea and vomiting during December 03, 2024 10:24am December 03, 2024 10:24 am Right lower quadrant abdominal pain affe cting December 03, 2024 10:24am Supervision of high-risk November 212024 10:24am Segmental and somatic dysfunction of sac ral region December 04, 2024 10:28am Segmental dysfunction of lumbar region M ay 2024 10:28am Chief Complaint Admit Date 20 wk ob August 26, 2024 1 :55pm August 30, 2024 1 :30pm 24 WK OB September 20, 2024 3:00pm OB, pelvic pain, can't do the exercises October 04, 2024 10:11am ABDOMINAL PAIN October 16, 2024 10: 55am ABDOMINAL PAIN October 16, 2024 12: 38pm 28 WK OB/GLUCOSE October 18, 2024 10: 47am 30 WK OB November 05, 2024 9:3 8am EST CARE/ November 13, 2024 10: 19am 32 WK OB November 15, 2024 11: 07am ADJUSTMENT November 20, 2024 9:5 9am ADJUSTMENT November 27, 2024 10:26a m 34 WK OB December 03, 2024 10:24 am ADJUSTMENT December 04, 2024 10:28 am ADJUSTMENT December 11, 2024 10:17 am Reason for Visit Admit Date Anemia August 26, 2024 1 :55pm Asthma August 26, 2024 1 :55pm August 26, 2024 1 :55pm Supervision of high-risk u 2024 1:55pm Anemia September 20, 2024 3:00pm Asthma September 20, 2024 3:00pm September 20, 2024 3:00pm Supervision of high-risk Febru [email or web address] 2024 3:00pm Anemia October 04, 2024 10: 11am Asthma October 04, 2024 10: 11am Nausea and vomiting during Mar 2024 10:11am October 04, 2024 10: 11am Supervision of high-risk October 04, 2024 10:11am Right lower quadrant abdominal pain affe cting October 16, 2024 10:55am Anemia October 18, 2024 10: 47am Asthma October 18, 2024 10: 47am October 18, 2024 10: 47am Supervision of high-risk October 18, 2024 10:47am Anemia November 05, 2024 9:3 8am Asthma November 05, 2024 9:3 8am Contraception management November 05 9:38am Nausea and vomiting during Apr il 2024 9:38am November 05, 2024 9:3 8am Right lower quadrant abdominal pain affe cting November 05, 2024 9:38am Supervision of high-risk November 05, 2024 9:38am Back pain November 13, 2024 10: 19am November 13, 2024 10: 19am Segmental and somatic dysfunction of sac ral region November 13, 2024 10:19am Segmental dysfunction of lumbar region A pril 2024 10:19am Anemia November 15, 2024 11: 07am Asthma November 15, 2024 11: 07am Back pain November 15, 2024 11: 07am Contraception management November 15 11:07am Nausea and vomiting during Apr il 2024 11:07am November 15, 2024 11: 07am Right lower quadrant abdominal pain affe cting November 15, 2024 11:07am Segmental and somatic dysfunction of sac ral region November 15, 2024 11:07am Segmental dysfunction of lumbar region A pril 2024 11:07am Supervision of high-risk November 15, 2024 11:07am Back pain November 20, 2024 9:5 9am November 20, 2024 9:5 9am Segmental and somatic dysfunction of sac ral region November 20, 2024 9:59am Segmental dysfunction of lumbar region A pril 2024 9:59am Back pain November 27, 2024 10:26a m November 27, 2024 10:26a m Segmental and somatic dysfunction of sac ral region November 27, 2024 10:26am Segmental dysfunction of lumbar region M ay 2024 10:26am Anemia December 03, 2024 10:24 am Asthma December 03, 2024 10:24 am Back pain December 03, 2024 10:24 am Contraception management December 03, 2024 10:24am Nausea and vomiting during December 03, 2024 10:24am December 03, 2024 10:24 am Right lower quadrant abdominal pain affe cting December 03, 2024 10:24am Supervision of high-risk November 212024 10:24am Back pain December 04, 2024 10:28 am Segmental and somatic dysfunction of sac ral region December 04, 2024 10:28am Segmental dysfunction of lumbar region M ay 2024 10:28am Segmental and somatic dysfunction of sac ral region December 11, 2024 10:17am Segmental dysfunction of lumbar region M ay 2024 10:17am Chief Complaint Admit Date 20 wk ob August 26, 2024 1 :55pm August 30, 2024 1 :30pm 24 WK OB September 20, 2024 3:00pm OB, pelvic pain, can't do the exercises October 04, 2024 10:11am ABDOMINAL PAIN October 16, 2024 10: 55am ABDOMINAL PAIN October 16, 2024 12: 38pm 28 WK OB/GLUCOSE October 18, 2024 10: 47am 30 WK OB November 05, 2024 9:3 8am EST CARE/ November 13, 2024 10: 19am 32 WK OB November 15, 2024 11: 07am ADJUSTMENT November 20, 2024 9:5 9am ADJUSTMENT November 27, 2024 10:26a m 34 WK OB December 03, 2024 10:24 am ADJUSTMENT December 04, 2024 10:28 am ADJUSTMENT December 11, 2024 10:17 am 36 WK OB December 13, 2024 9:37a m Reason for Visit Admit Date Anemia August 26, 2024 1 :55pm Asthma August 26, 2024 1 :55pm August 26, 2024 1 :55pm Supervision of high-risk Febru 2024 1:55pm Anemia September 20, 2024 3:00pm Asthma September 20, 2024 3:00pm September 20, 2024 3:00pm Supervision of high-risk Febru nitesh 2024 3:00pm Anemia October 04, 2024 10: 11am Asthma October 04, 2024 10: 11am Nausea and vomiting during Mar 2024 10:11am October 04, 2024 10: 11am Supervision of high-risk October 04, 2024 10:11am Right lower quadrant abdominal pain affe cting October 16, 2024 10:55am Anemia October 18, 2024 10: 47am Asthma October 18, 2024 10: 47am October 18, 2024 10: 47am Supervision of high-risk October 18, 2024 10:47am Anemia November 05, 2024 9:3 8am Asthma November 05, 2024 9:3 8am Contraception management November 05 9:38am Nausea and vomiting during Apr il 2024 9:38am November 05, 2024 9:3 8am Right lower quadrant abdominal pain affe cting November 05, 2024 9:38am Supervision of high-risk November 05, 2024 9:38am Back pain November 13, 2024 10: 19am November 13, 2024 10: 19am Segmental and somatic dysfunction of sac ral region November 13, 2024 10:19am Segmental dysfunction of lumbar region A pril 2024 10:19am Anemia November 15, 2024 11: 07am Asthma November 15, 2024 11: 07am Back pain November 15, 2024 11: 07am Contraception management November 15 11:07am Nausea and vomiting during Apr 2024 11:07am November 15, 2024 11: 07am Right lower quadrant abdominal pain affe cting November 15, 2024 11:07am Segmental and somatic dysfunction of sac ral region November 15, 2024 11:07am Segmental dysfunction of lumbar region A pril 2024 11:07am Supervision of high-risk November 15, 2024 11:07am Back pain November 20, 2024 9:5 9am November 20, 2024 9:5 9am Segmental and somatic dysfunction of sac ral region November 20, 2024 9:59am Segmental dysfunction of lumbar region A pril 2024 9:59am Back pain November 27, 2024 10:26a m November 27, 2024 10:26a m Segmental and somatic dysfunction of sac ral region November 27, 2024 10:26am Segmental dysfunction of lumbar region M ay 2024 10:26am Anemia December 03, 2024 10:24 am Asthma December 03, 2024 10:24 am Back pain December 03, 2024 10:24 am Contraception management December 03, 2024 10:24am Nausea and vomiting during December 03, 2024 10:24am December 03, 2024 10:24 am Right lower quadrant abdominal pain affe cting December 03, 2024 10:24am Supervision of high-risk November 212024 10:24am Back pain December 04, 2024 10:28 am Segmental and somatic dysfunction of sac ral region December 04, 2024 10:28am Segmental dysfunction of lumbar region M ay 2024 10:28am Back pain December 11, 2024 10:17 am Segmental and somatic dysfunction of sac ral region December 11, 2024 10:17am Segmental dysfunction of lumbar region M ay 2024 10:17am Anemia December 13, 2024 9:37a m Asthma December 13, 2024 9:37a m Back pain December 13, 2024 9:37a m Contraception management December 13, 2024 9:37am Nausea and vomiting during December 13, 2024 9:37am Pelvic pain affecting November 9:37am December 13, 2024 9:37a m Right lower quadrant abdominal pain affe cting December 13, 2024 9:37am Segmental and somatic dysfunction of sac ral region December 13, 2024 9:37am Segmental dysfunction of lumbar region M ay 2024 9:37am Supervision of high-risk November 222024 9:37am Chief Complaint Admit Date 20 wk ob August 26, 2024 1 :55pm August 30, 2024 1 :30pm 24 WK OB September 20, 2024 3:00pm OB, pelvic pain, can't do the exercises October 04, 2024 10:11am ABDOMINAL PAIN October 16, 2024 10: 55am ABDOMINAL PAIN October 16, 2024 12: 38pm 28 WK OB/GLUCOSE October 18, 2024 10: 47am 30 WK OB November 05, 2024 9:3 8am EST CARE/ November 13, 2024 10: 19am 32 WK OB November 15, 2024 11: 07am ADJUSTMENT November 20, 2024 9:5 9am ADJUSTMENT November 27, 2024 10:26a m 34 WK OB December 03, 2024 10:24 am ADJUSTMENT December 04, 2024 10:28 am ADJUSTMENT December 11, 2024 10:17 am 36 WK OB December 13, 2024 9:37a m ADJUSTMENT December 18, 2024 10:30 am Reason for Visit Admit Date Anemia August 26, 2024 1 :55pm Asthma August 26, 2024 1 :55pm August 26, 2024 1 :55pm Supervision of high-risk Febru 2024 1:55pm Anemia September 20, 2024 3:00pm Asthma September 20, 2024 3:00pm September 20, 2024 3:00pm Supervision of high-risk Febru nitesh 2024 3:00pm Anemia October 04, 2024 10: 11am Asthma October 04, 2024 10: 11am Nausea and vomiting during Mar 2024 10:11am October 04, 2024 10: 11am Supervision of high-risk October 04, 2024 10:11am Right lower quadrant abdominal pain affe cting October 16, 2024 10:55am Anemia October 18, 2024 10: 47am Asthma October 18, 2024 10: 47am October 18, 2024 10: 47am Supervision of high-risk October 18, 2024 10:47am Anemia November 05, 2024 9:3 8am Asthma November 05, 2024 9:3 8am Contraception management November 05 9:38am Nausea and vomiting during Apr 2024 9:38am November 05, 2024 9:3 8am Right lower quadrant abdominal pain affe cting November 05, 2024 9:38am Supervision of high-risk November 05, 2024 9:38am Back pain November 13, 2024 10: 19am November 13, 2024 10: 19am Segmental and somatic dysfunction of sac ral region November 13, 2024 10:19am Segmental dysfunction of lumbar region A pril 2024 10:19am Anemia November 15, 2024 11: 07am Asthma November 15, 2024 11: 07am Back pain November 15, 2024 11: 07am Contraception management November 15 11:07am Nausea and vomiting during Apr il 2024 11:07am November 15, 2024 11: 07am Right lower quadrant abdominal pain affe cting November 15, 2024 11:07am Segmental and somatic dysfunction of sac ral region November 15, 2024 11:07am Segmental dysfunction of lumbar region A pril 2024 11:07am Supervision of high-risk November 15, 2024 11:07am Back pain November 20, 2024 9:5 9am November 20, 2024 9:5 9am Segmental and somatic dysfunction of sac ral region November 20, 2024 9:59am Segmental dysfunction of lumbar region A pril 2024 9:59am Back pain November 27, 2024 10:26a m November 27, 2024 10:26a m Segmental and somatic dysfunction of sac ral region November 27, 2024 10:26am Segmental dysfunction of lumbar region M ay 2024 10:26am Anemia December 03, 2024 10:24 am Asthma December 03, 2024 10:24 am Back pain December 03, 2024 10:24 am Contraception management December 03, 2024 10:24am Nausea and vomiting during December 03, 2024 10:24am December 03, 2024 10:24 am Right lower quadrant abdominal pain affe cting December 03, 2024 10:24am Supervision of high-risk November 212024 10:24am Back pain December 04, 2024 10:28 am Segmental and somatic dysfunction of sac ral region December 04, 2024 10:28am Segmental dysfunction of lumbar region M ay 2024 10:28am Back pain December 11, 2024 10:17 am Segmental and somatic dysfunction of sac ral region December 11, 2024 10:17am Segmental dysfunction of lumbar region M ay 2024 10:17am Anemia December 13, 2024 9:37a m Asthma December 13, 2024 9:37a m Back pain December 13, 2024 9:37a m Contraception management December 13, 2024 9:37am Nausea and vomiting during December 13, 2024 9:37am Pelvic pain affecting November 9:37am December 13, 2024 9:37a m Right lower quadrant abdominal pain affe cting December 13, 2024 9:37am Segmental and somatic dysfunction of sac ral region December 13, 2024 9:37am Segmental dysfunction of lumbar region M ay 2024 9:37am Supervision of high-risk November 222024 9:37am Pelvic pain affecting November 10:30am Segmental and somatic dysfunction of sac ral region December 18, 2024 10:30am Segmental dysfunction of lumbar region M ay 2024 10:30am Chief Complaint Admit Date 20 wk ob August 26, 2024 1 :55pm August 30, 2024 1 :30pm 24 WK OB September 20, 2024 3:00pm OB, pelvic pain, can't do the exercises October 04, 2024 10:11am ABDOMINAL PAIN October 16, 2024 10: 55am ABDOMINAL PAIN October 16, 2024 12: 38pm 28 WK OB/GLUCOSE October 18, 2024 10: 47am 30 WK OB November 05, 2024 9:3 8am EST CARE/ November 13, 2024 10: 19am 32 WK OB November 15, 2024 11: 07am ADJUSTMENT November 20, 2024 9:5 9am ADJUSTMENT November 27, 2024 10:26a m 34 WK OB December 03, 2024 10:24 am ADJUSTMENT December 04, 2024 10:28 am ADJUSTMENT December 11, 2024 10:17 am 36 WK OB December 13, 2024 9:37a m ADJUSTMENT December 18, 2024 10:30 am 37 WK OB December 20, 2024 10:44 am Reason for Visit Admit Date Anemia August 26, 2024 1 :55pm Asthma August 26, 2024 1 :55pm August 26, 2024 1 :55pm Supervision of high-risk u 2024 1:55pm Anemia September 20, 2024 3:00pm Asthma September 20, 2024 3:00pm September 20, 2024 3:00pm Supervision of high-risk Febru nitesh 2024 3:00pm Anemia October 04, 2024 10: 11am Asthma October 04, 2024 10: 11am Nausea and vomiting during Mar 2024 10:11am October 04, 2024 10: 11am Supervision of high-risk October 04, 2024 10:11am Right lower quadrant abdominal pain affe cting October 16, 2024 10:55am Anemia October 18, 2024 10: 47am Asthma October 18, 2024 10: 47am October 18, 2024 10: 47am Supervision of high-risk October 18, 2024 10:47am Anemia November 05, 2024 9:3 8am Asthma November 05, 2024 9:3 8am Contraception management November 05 9:38am Nausea and vomiting during Apr il 2024 9:38am November 05, 2024 9:3 8am Right lower quadrant abdominal pain affe cting November 05, 2024 9:38am Supervision of high-risk November 05, 2024 9:38am Back pain November 13, 2024 10: 19am November 13, 2024 10: 19am Segmental and somatic dysfunction of sac ral region November 13, 2024 10:19am Segmental dysfunction of lumbar region A pril 2024 10:19am Anemia November 15, 2024 11: 07am Asthma November 15, 2024 11: 07am Back pain November 15, 2024 11: 07am Contraception management November 15 11:07am Nausea and vomiting during Apr il 2024 11:07am November 15, 2024 11: 07am Right lower quadrant abdominal pain affe cting November 15, 2024 11:07am Segmental and somatic dysfunction of sac ral region November 15, 2024 11:07am Segmental dysfunction of lumbar region A pril 2024 11:07am Supervision of high-risk November 15, 2024 11:07am Back pain November 20, 2024 9:5 9am November 20, 2024 9:5 9am Segmental and somatic dysfunction of sac ral region November 20, 2024 9:59am Segmental dysfunction of lumbar region A pril 2024 9:59am Back pain November 27, 2024 10:26a m November 27, 2024 10:26a m Segmental and somatic dysfunction of sac ral region November 27, 2024 10:26am Segmental dysfunction of lumbar region M ay 2024 10:26am Anemia December 03, 2024 10:24 am Asthma December 03, 2024 10:24 am Back pain December 03, 2024 10:24 am Contraception management December 03, 2024 10:24am Nausea and vomiting during December 03, 2024 10:24am December 03, 2024 10:24 am Right lower quadrant abdominal pain affe cting December 03, 2024 10:24am Supervision of high-risk November 212024 10:24am Back pain December 04, 2024 10:28 am Segmental and somatic dysfunction of sac ral region December 04, 2024 10:28am Segmental dysfunction of lumbar region M ay 2024 10:28am Back pain December 11, 2024 10:17 am Segmental and somatic dysfunction of sac ral region December 11, 2024 10:17am Segmental dysfunction of lumbar region M ay 2024 10:17am Anemia December 13, 2024 9:37a m Asthma December 13, 2024 9:37a m Back pain December 13, 2024 9:37a m Contraception management December 13, 2024 9:37am Nausea and vomiting during December 13, 2024 9:37am Pelvic pain affecting November 9:37am December 13, 2024 9:37a m Right lower quadrant abdominal pain affe cting December 13, 2024 9:37am Segmental and somatic dysfunction of sac ral region December 13, 2024 9:37am Segmental dysfunction of lumbar region M ay 2024 9:37am Supervision of high-risk November 222024 9:37am Back pain December 18, 2024 10:30 am Pelvic pain affecting November 10:30am Segmental and somatic dysfunction of sac ral region December 18, 2024 10:30am Segmental dysfunction of lumbar region M ay 2024 10:30am Anemia December 20, 2024 10:44 am Asthma December 20, 2024 10:44 am Back pain December 20, 2024 10:44 am Contraception management December 20, 2024 10:44am Nausea and vomiting during December 20, 2024 10:44am Pelvic pain affecting November 10:44am December 20, 2024 10:44 am Right lower quadrant abdominal pain affe cting December 20, 2024 10:44am Segmental and somatic dysfunction of sac ral region December 20, 2024 10:44am Segmental dysfunction of lumbar region M ay 2024 10:44am Supervision of high-risk November 232024 10:44am Chief Complaint Admit Date August 30, 2024 1 :30pm 24 WK OB September 20, 2024 3:00pm OB, pelvic pain, can't do the exercises October 04, 2024 10:11am ABDOMINAL PAIN October 16, 2024 10: 55am ABDOMINAL PAIN October 16, 2024 12: 38pm 28 WK OB/GLUCOSE October 18, 2024 10: 47am 30 WK OB November 05, 2024 9:3 8am EST CARE/ November 13, 2024 10: 19am 32 WK OB November 15, 2024 11: 07am ADJUSTMENT November 20, 2024 9:5 9am ADJUSTMENT November 27, 2024 10:26a m 34 WK OB December 03, 2024 10:24 am ADJUSTMENT December 04, 2024 10:28 am ADJUSTMENT December 11, 2024 10:17 am 36 WK OB December 13, 2024 9:37a m ADJUSTMENT December 18, 2024 10:30 am 37 WK OB December 20, 2024 10:44 am PELVIC PAIN IN December 20, 2024 1:08pm ADJUSTMENT December 25, 2024 10:27 am Reason for Visit Admit Date Anemia September 20, 2024 3:00pm Asthma September 20, 2024 3:00pm September 20, 2024 3:00pm Supervision of high-risk Febru nitesh 2024 3:00pm Anemia October 04, 2024 10: 11am Asthma October 04, 2024 10: 11am Nausea and vomiting during Mar ch 2024 10:11am October 04, 2024 10: 11am Supervision of high-risk October 04, 2024 10:11am Right lower quadrant abdominal pain affe cting October 16, 2024 10:55am Anemia October 18, 2024 10: 47am Asthma October 18, 2024 10: 47am October 18, 2024 10: 47am Supervision of high-risk October 18, 2024 10:47am Anemia November 05, 2024 9:3 8am Asthma November 05, 2024 9:3 8am Contraception management November 05 9:38am Nausea and vomiting during Apr il 2024 9:38am November 05, 2024 9:3 8am Right lower quadrant abdominal pain affe cting November 05, 2024 9:38am Supervision of high-risk November 05, 2024 9:38am Back pain November 13, 2024 10: 19am November 13, 2024 10: 19am Segmental and somatic dysfunction of sac ral region November 13, 2024 10:19am Segmental dysfunction of lumbar region A pril 2024 10:19am Anemia November 15, 2024 11: 07am Asthma November 15, 2024 11: 07am Back pain November 15, 2024 11: 07am Contraception management November 15 11:07am Nausea and vomiting during Apr il 2024 11:07am November 15, 2024 11: 07am Right lower quadrant abdominal pain affe cting November 15, 2024 11:07am Segmental and somatic dysfunction of sac ral region November 15, 2024 11:07am Segmental dysfunction of lumbar region A pril 2024 11:07am Supervision of high-risk November 15, 2024 11:07am Back pain November 20, 2024 9:5 9am November 20, 2024 9:5 9am Segmental and somatic dysfunction of sac ral region November 20, 2024 9:59am Segmental dysfunction of lumbar region A pril 2024 9:59am Back pain November 27, 2024 10:26a m November 27, 2024 10:26a m Segmental and somatic dysfunction of sac ral region November 27, 2024 10:26am Segmental dysfunction of lumbar region M ay 2024 10:26am Anemia December 03, 2024 10:24 am Asthma December 03, 2024 10:24 am Back pain December 03, 2024 10:24 am Contraception management December 03, 2024 10:24am Nausea and vomiting during December 03, 2024 10:24am December 03, 2024 10:24 am Right lower quadrant abdominal pain affe cting December 03, 2024 10:24am Supervision of high-risk November 212024 10:24am Back pain December 04, 2024 10:28 am Segmental and somatic dysfunction of sac ral region December 04, 2024 10:28am Segmental dysfunction of lumbar region M ay 2024 10:28am Back pain December 11, 2024 10:17 am Segmental and somatic dysfunction of sac ral region December 11, 2024 10:17am Segmental dysfunction of lumbar region M ay 2024 10:17am Anemia December 13, 2024 9:37a m Asthma December 13, 2024 9:37a m Back pain December 13, 2024 9:37a m Contraception management December 13, 2024 9:37am Nausea and vomiting during December 13, 2024 9:37am Pelvic pain affecting November 9:37am December 13, 2024 9:37a m Right lower quadrant abdominal pain affe cting December 13, 2024 9:37am Segmental and somatic dysfunction of sac ral region December 13, 2024 9:37am Segmental dysfunction of lumbar region M ay 2024 9:37am Supervision of high-risk November 222024 9:37am Back pain December 18, 2024 10:30 am Pelvic pain affecting November 10:30am Segmental and somatic dysfunction of sac ral region December 18, 2024 10:30am Segmental dysfunction of lumbar region M ay 2024 10:30am Anemia December 20, 2024 10:44 am Asthma December 20, 2024 10:44 am Back pain December 20, 2024 10:44 am Contraception management December 20, 2024 10:44am Nausea and vomiting during December 20, 2024 10:44am Pelvic pain affecting November 10:44am December 20, 2024 10:44 am Right lower quadrant abdominal pain affe cting December 20, 2024 10:44am Segmental and somatic dysfunction of sac ral region December 20, 2024 10:44am Segmental dysfunction of lumbar region M ay 2024 10:44am Supervision of high-risk November 232024 10:44am Chief Complaint Admit Date August 30, 2024 1 :30pm 24 WK OB September 20, 2024 3:00pm OB, pelvic pain, can't do the exercises October 04, 2024 10:11am ABDOMINAL PAIN October 16, 2024 10: 55am ABDOMINAL PAIN October 16, 2024 12: 38pm 28 WK OB/GLUCOSE October 18, 2024 10: 47am 30 WK OB November 05, 2024 9:3 8am EST CARE/ November 13, 2024 10: 19am 32 WK OB November 15, 2024 11: 07am ADJUSTMENT November 20, 2024 9:5 9am ADJUSTMENT November 27, 2024 10:26a m 34 WK OB December 03, 2024 10:24 am ADJUSTMENT December 04, 2024 10:28 am ADJUSTMENT December 11, 2024 10:17 am 36 WK OB December 13, 2024 9:37a m ADJUSTMENT December 18, 2024 10:30 am 37 WK OB December 20, 2024 10:44 am PELVIC PAIN IN December 20, 2024 1:08pm ADJUSTMENT December 25, 2024 10:27 am 38 wk ob December 27, 2024 9:05a m Reason for Visit Admit Date Anemia September 20, 2024 3:00pm Asthma September 20, 2024 3:00pm September 20, 2024 3:00pm Supervision of high-risk Febru [email or web address] 3:00pm Anemia October 04, 2024 10: 11am Asthma October 04, 2024 10: 11am Nausea and vomiting during Mar 2024 10:11am October 04, 2024 10: 11am Supervision of high-risk October 04, 2024 10:11am Right lower quadrant abdominal pain affe cting October 16, 2024 10:55am Anemia October 18, 2024 10: 47am Asthma October 18, 2024 10: 47am October 18, 2024 10: 47am Supervision of high-risk October 18, 2024 10:47am Anemia November 05, 2024 9:3 8am Asthma November 05, 2024 9:3 8am Contraception management November 05 9:38am Nausea and vomiting during Apr il 2024 9:38am November 05, 2024 9:3 8am Right lower quadrant abdominal pain affe cting November 05, 2024 9:38am Supervision of high-risk November 05, 2024 9:38am Back pain November 13, 2024 10: 19am November 13, 2024 10: 19am Segmental and somatic dysfunction of sac ral region November 13, 2024 10:19am Segmental dysfunction of lumbar region A pril 2024 10:19am Anemia November 15, 2024 11: 07am Asthma November 15, 2024 11: 07am Back pain November 15, 2024 11: 07am Contraception management November 15 11:07am Nausea and vomiting during Apr il 2024 11:07am November 15, 2024 11: 07am Right lower quadrant abdominal pain affe cting November 15, 2024 11:07am Segmental and somatic dysfunction of sac ral region November 15, 2024 11:07am Segmental dysfunction of lumbar region A pril 2024 11:07am Supervision of high-risk November 15, 2024 11:07am Back pain November 20, 2024 9:5 9am November 20, 2024 9:5 9am Segmental and somatic dysfunction of sac ral region November 20, 2024 9:59am Segmental dysfunction of lumbar region A pril 2024 9:59am Back pain November 27, 2024 10:26a m November 27, 2024 10:26a m Segmental and somatic dysfunction of sac ral region November 27, 2024 10:26am Segmental dysfunction of lumbar region M ay 2024 10:26am Anemia December 03, 2024 10:24 am Asthma December 03, 2024 10:24 am Back pain December 03, 2024 10:24 am Contraception management December 03, 2024 10:24am Nausea and vomiting during December 03, 2024 10:24am December 03, 2024 10:24 am Right lower quadrant abdominal pain affe cting December 03, 2024 10:24am Supervision of high-risk November 212024 10:24am Back pain December 04, 2024 10:28 am Segmental and somatic dysfunction of sac ral region December 04, 2024 10:28am Segmental dysfunction of lumbar region M ay 2024 10:28am Back pain December 11, 2024 10:17 am Segmental and somatic dysfunction of sac ral region December 11, 2024 10:17am Segmental dysfunction of lumbar region M ay 2024 10:17am Anemia December 13, 2024 9:37a m Asthma December 13, 2024 9:37a m Back pain December 13, 2024 9:37a m Contraception management December 13, 2024 9:37am Nausea and vomiting during December 13, 2024 9:37am Pelvic pain affecting November 9:37am December 13, 2024 9:37a m Right lower quadrant abdominal pain affe cting December 13, 2024 9:37am Segmental and somatic dysfunction of sac ral region December 13, 2024 9:37am Segmental dysfunction of lumbar region M ay 2024 9:37am Supervision of high-risk November 222024 9:37am Back pain December 18, 2024 10:30 am Pelvic pain affecting November 10:30am Segmental and somatic dysfunction of sac ral region December 18, 2024 10:30am Segmental dysfunction of lumbar region M ay 2024 10:30am Anemia December 20, 2024 10:44 am Asthma December 20, 2024 10:44 am Back pain December 20, 2024 10:44 am Contraception management December 20, 2024 10:44am Nausea and vomiting during December 20, 2024 10:44am Pelvic pain affecting November 10:44am December 20, 2024 10:44 am Right lower quadrant abdominal pain affe cting December 20, 2024 10:44am Segmental and somatic dysfunction of sac ral region December 20, 2024 10:44am Segmental dysfunction of lumbar region M ay 2024 10:44am Supervision of high-risk November 232024 10:44am Back pain December 25, 2024 10:27 am Pelvic pain affecting December 10:27am Segmental and somatic dysfunction of sac ral region December 25, 2024 10:27am Segmental dysfunction of lumbar region J une 2024 10:27am Anemia December 27, 2024 9:05a m Asthma December 27, 2024 9:05a m Back pain December 27, 2024 9:05a m Contraception management December 27, 2024 9:05am Nausea and vomiting during Elan e 2024 9:05am Pelvic pain affecting December 9:05am December 27, 2024 9:05a m Right lower quadrant abdominal pain affe cting December 27, 2024 9:05am Segmental and somatic dysfunction of sac ral region December 27, 2024 9:05am Segmental dysfunction of lumbar region J une 2024 9:05am Supervision of high-risk December 27, 2024 9:05am Advance Directives Advance Directive Response Recorded Date/ Time Living Will No May 23 1:18pm Power of [employer] No May 23, 2022 1:18pm Reason for Referral Specialty Diagnoses / Procedures Referred By Contac t Referred To Contact MR IMAGING Diagnoses Left wrist pain Procedures MRI WRIST WO IVCON LEFT MRI ANY JT UPPER EXTREMITY W/O CONTRAST Daysi Milner PA-C [address] [place] [address] [place] [id number] Referral ID Status Reason Start Date Expiration Date Visits Requested Visits Authorized [id number] Pending Review Auto-Generat ed Referral 3 07/20/2024 1 1 Summary Purpose Family History Relationship Condition Age at Onset Recorded Date/T carine mother Hypertension Unknown uncle Cerebrovascular accident (CVA) Unknown No Family History Records Found Additional Source Comments Goals (unrecognized section and content) Goals may be documented in a n alternate sectionGoals may be documented in an alternate section No data available for this section No data available for this section No data available for this section No data available for this sectionGoals may be documented in an alternate sectionGoals may be documented in an alternate section Care Teams (unrecognized sec tion and content) Team Status: Active Member Role Status Dates No Primary Care Physician Primary Care Provider Active Team Status: Inactive Member Role Status Dates No Primary Care Physician Primary Care Provider, Refer ring Provider Active Ariadna San CNM Attending Provider Active Team Status: Active Member Role Status Dates No Primary Care Physician Primary Care Provider Active Ariadna San CNM Admit Provider, At tending Provider, Referring Provider, Other Provider Active Team Status: Active Member Role Status Dates No Primary Care Physician Primary Care Provider Active Ariadna San CNM Admit Provider, Re ferring Provider, Other Provider Active Halina Butler HELP DESK SUPPORT, HELP DESK SUPPORT-C Attending Provider Active Team Status: Inactive Member Role Status Dates No Primary Care Physician Primary Care Provider, Refer ring Provider Active Alicia Jimenez HELP DESK SUPPORT, HELP DESK SUPPORT-C Attending Provider Active Team Status: Inactive Member Role Status Dates No Primary Care Physician Primary Care Provider Active Ariadna San CNM Admit Provider, At tending Provider, Referring Provider Active Team Status: Inactive Member Role Status Dates No Primary Care Physician Primary Care Provider Active Ariadna San CNM Attending Provider, Referring Pr ovider Active [employer]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 Felicity Vaca DO Attending Provider Activ e Start: June 28, 2024 End: June 28, 2024 Team Status: Inactive Member Role Status Dates No Primary Care Physician Primary Care Provider Active Start: June 28, 2024 End: June 28, 2024 Dr. Felicity Vaca DO Attending Provider Activ e Start: June 28, 2024 End: June 28, 2024 Dr. Felicity Vaca DO Referring Provider Activ e Start: June 28, 2024 End: June 28, 2024 Team Status: Inactive Member Role Status Dates No Primary Care Physician Primary Care Provider Active Start: July 26, 2024 End: July 26, 2024 No Primary Care Physician Referring Provider Active Start: July 26, 2024 End: July 26, 2024 Dr. Bonnie Noriega MD Attending Provider Active Start: July 26, 2024 End: July 26, 2024 Team Status: Inactive Member Role Status Dates No Primary Care Physician Primary Care Provider Active Start: August 26, 2024 End: August 26, 2024 No Primary Care Physician Referring Provider Active Start: August 26, 2024 End: August 26, 2024 Dr. Bonnie Noriega MD Attending Provider Active Start: August 26, 2024 End: August 26, 2024 Team Status: Inactive Member Role Status Dates No Primary Care Physician Primary Care Provider Active Start: August 30, 2024 End: August 30, 2024 Dr. Bonnie Noriega MD Attending Provider Active Start: August 30, 2024 End: August 30, 2024 Dr. Bonnie Noriega MD Referring Provider Active Start: August 30, 2024 End: August 30, 2024 Team Status: Inactive Member Role Status Dates No Primary Care Physician Primary Care Provider Active Start: September 20, 2024 End: September 20, 2024 No Primary Care Physician Referring Provider Active Start: September 20, 2024 End: September 20, 2024 Ariadna San CNM Attending Provider Active Start: September 20, 2024 End: September 20, 2024 Team Status: Inactive Member Role Status Dates No Primary Care Physician Primary Care Provider Active Start: October 04, 2024 End: October 04, 2024 No Primary Care Physician Referring Provider Active Start: October 04, 2024 End: October 04, 2024 Dr. Bonnie Noriega MD Attending Provider Active Start: October 04, 2024 End: October 04, 2024 Team Status: Inactive Member Role Status Dates No Primary Care Physician Primary Care Provider Active Start: October 16, 2024 End: October 16, 2024 Dr. Felicity Vaca , DO Attending Provider Activ e Start: October 16, 2024 End: October 16, 2024 Dr. Felicity Vaca DO Referring Provider Activ e Start: October 16, 2024 End: October 16, 2024 Team Status: Active Member Role Status Dates No Primary Care Physician Primary Care Provider Active Start: October 16, 2024 Dr. Felicity Vaca DO Attending Provider Activ e Start: October 16, 2024 Dr. Felicity Vaca DO Referring Provider Activ e Start: October 16, 2024 Dr. Felicity Vaca DO Other Provider Active Start: October 16, 2024 Team Status: Inactive Member Role Status Dates No Primary Care Physician Primary Care Provider Active Start: October 18, 2024 End: October 18, 2024 No Primary Care Physician Referring Provider Active Start: October 18, 2024 End: October 18, 2024 JADIEL Hutchinson NP Attending Provider Active Start: October 18, 2024 End: October 18, 2024 Team Status: Inactive Member Role Status Dates No Primary Care Physician Primary Care Provider Active Start: October 18, 2024 End: October 18, 2024 Ariadna San CNM Attending Provider Active Start: October 18, 2024 End: October 18, 2024 Ariadna San CNM Referring Provider Active Start: October 18, 2024 End: October 18, 2024 Team Status: Inactive Member Role Status Dates No Primary Care Physician Primary Care Provider Active Start: November 05, 2024 End: November 05, 2024 No Primary Care Physician Referring Provider Active Start: November 05, 2024 End: November 05, 2024 Dr. Felicity Vaca DO Attending Provider Activ e Start: November 05, 2024 End: November 05, 2024 Team Status: Inactive Member Role Status Dates No Primary Care Physician Primary Care Provider Active Start: November 13, 2024 End: November 13, 2024 No Primary Care Physician Referring Provider Active Start: November 13, 2024 End: November 13, 2024 Dr. Arpita Servin DC Attending Provider Active S tart: November 13, 2024 End: November 13, 2024 Team Status: Inactive Member Role Status Dates No Primary Care Physician Primary Care Provider Active Start: November 15, 2024 End: November 15, 2024 No Primary Care Physician Referring Provider Active Start: November 15, 2024 End: November 15, 2024 Ariadna Sna CNM Attending Provider Active Start: November 15, 2024 End: November 15, 2024 Team Status: Inactive Member Role Status Dates No Primary Care Physician Primary Care Provider Active Start: November 20, 2024 End: November 20, 2024 No Primary Care Physician Referring Provider Active Start: November 20, 2024 End: November 20, 2024 Dr. Arpita Servin DC Attending Provider Active S tart: November 20, 2024 End: November 20, 2024 Team Status: Inactive Member Role Status Dates No Primary Care Physician Primary Care Provider Active Start: November 27, 2024 End: November 27, 2024 No Primary Care Physician Referring Provider Active Start: November 27, 2024 End: November 27, 2024 Dr. Arpita Servin DC Attending Provider Active S tart: November 27, 2024 End: November 27, 2024 Team Status: Inactive Member Role Status Dates No Primary Care Physician Primary Care Provider Active Start: December 03, 2024 End: December 03, 2024 No Primary Care Physician Referring Provider Active Start: December 03, 2024 End: December 03, 2024 Ariadna San CNM Attending Provider Active Start: December 03, 2024 End: December 03, 2024 Team Status: Active Member Role Status Dates No Primary Care Physician Primary Care Provider Active Start: December 03, 2024 Ariadna San CNM Attending Provider Active Start: December 03, 2024 Ariadna San CNM Referring Provider Active Start: December 03, 2024 Team Status: Inactive Member Role Status Dates No Primary Care Physician Primary Care Provider Active Start: December 04, 2024 End: December 04, 2024 No Primary Care Physician Referring Provider Active Start: December 04, 2024 End: December 04, 2024 Dr. Arpita Servin DC Attending Provider Active S tart: December 04, 2024 End: December 04, 2024 Team Status: Inactive Member Role Status Dates No Primary Care Physician Primary Care Provider Active Start: December 03, 2024 End: December 03, 2024 Ariadna San CNM Attending Provider Active Start: December 03, 2024 End: December 03, 2024 Ariadna San CNM Referring Provider Active Start: December 03, 2024 End: December 03, 2024 Team Status: Inactive Member Role Status Dates No Primary Care Physician Primary Care Provider Active Start: December 11, 2024 End: December 11, 2024 No Primary Care Physician Referring Provider Active Start: December 11, 2024 End: December 11, 2024 Dr. Arpita Servin DC Attending Provider Active S tart: December 11, 2024 End: December 11, 2024 Team Status: Inactive Member Role Status Dates No Primary Care Physician Referring Provider Active Start: December 13, 2024 End: December 13, 2024 Dr. Felicity Vaca DO Attending Provider Activ e Start: December 13, 2024 End: December 13, 2024 Team Status: Inactive Member Role Status Dates Dr. Felicity Vaca DO Attending Provider Activ e Start: December 13, 2024 End: December 13, 2024 Dr. Felicity Vaca DO Referring Provider Activ e Start: December 13, 2024 End: December 13, 2024 Team Status: Inactive Member Role Status Dates No Primary Care Physician Primary Care Provider Active Start: November 13, 2024 End: November 13, 2024 Dr. Arpita Servin DC Attending Provider Active S tart: November 13, 2024 End: November 13, 2024 Dr. Felicity Vaca , DO Referring Provider Activ e Start: November 13, 2024 End: November 13, 2024 Team Status: Inactive Member Role Status Dates No Primary Care Physician Referring Provider Active Start: December 18, 2024 End: December 18, 2024 Dr. Arpita Servin DC Attending Provider Active S tart: December 18, 2024 End: December 18, 2024 Team Status: Inactive Member Role Status Dates No Primary Care Physician Referring Provider Active Start: December 20, 2024 End: December 20, 2024 Ariadna San CNM Attending Provider Active Start: December 20, 2024 End: December 20, 2024 Team Status: Active Member Role Status Dates KOFI Juan Primary Care Provider Active Team Status: Inactive Member Role Status Dates Dr. Felicity Vaca DO Attending Provider Activ e Start: December 20, 2024 End: December 20, 2024 Dr. Felicity Vaca DO Referring Provider Activ e Start: December 20, 2024 End: December 20, 2024 KOFI Juan Primary Care Provider Active Start: December 20, 2024 End: December 20, 2024 Team Status: Inactive Member Role Status Dates No Primary Care Physician Referring Provider Active Start: December 25, 2024 End: December 25, 2024 Dr. Arpita Servin DC Attending Provider Active S tart: December 25, 2024 End: December 25, 2024 KOFI Juan Primary Care Provider Active Start: December 25, 2024 End: December 25, 2024 Team Status: Inactive Member Role Status Dates No Primary Care Physician Referring Provider Active Start: December 27, 2024 End: December 27, 2024 Ariadna San CNM Attending Provider Active Start: December 27, 2024 End: December 27, 2024 KOFI Juan Primary Care Provider Active Start: December 27, 2024 End: December 27, 2024 Source Comments (unrecognize d section and content) In the event this informatio n is protected by the Federal Confidentiality of Alcohol and Drug Abuse Patient Records regulations: The Federal rules restrict any use of the information to criminally investigate or prosecute any alcohol or drug abuse patient.[facility] the event this information is protected by the Federal Confidentiality of Alcohol and Drug Abuse Patient Records regulations: The Federal rules restrict any use of the information to criminally investigate or prosecute any alcohol or drug abuse patient.[facility] the event this information is protected by the Federal Confidentiality of Alcohol and Drug Abuse Patient Records regulations: The Federal rules restrict any use of the information to criminally investigate or prosecute any alcohol or drug abuse patient.[facility] the event this information is protected by the Federal Confidentiality of Alcohol and Drug Abuse Patient Records regulations: The Federal rules restrict any use of the information to criminally investigate or prosecute any alcohol or drug abuse patient.[facility] the event this information is protected by the Federal Confidentiality of Alcohol and Drug Abuse Patient Records regulations: The Federal rules restrict any use of the information to criminally investigate or prosecute any alcohol or drug abuse patient.[facility] the event this information is protected by the Federal Confidentiality of Alcohol and Drug Abuse Patient Records regulations: The Federal rules restrict any use of the information to criminally investigate or prosecute any alcohol or drug abuse patient.[facility] the event this information is protected by the Federal Confidentiality of Alcohol and Drug Abuse Patient Records regulations: The Federal rules restrict any use of the information to criminally investigate or prosecute any alcohol or drug abuse patient.[facility] Reason for Visit (unrecogniz ed section and content) Reason Comments Pain Specialty Diagnoses / Procedures Referred By Contac t Referred To Contact OCCUPATIONAL MEDICINE Diagnoses follow up Procedures EST WORKERS COMP Self Cc Atwork [facility] [address] [place] [address] Referral ID Status Reason Start Date Expiration Date Visits Re quested Visits Authorized [id number] Closed 06/30/2023 06/30/2023 1 1 Reason Comments Wrist Pain Left, Work injury, p ts that a box bent wrist backwards, appears swollen, pain with movement, no serenity of wrist pain Reason Comments Pain Specialty Diagnoses / Procedures Referred By Contac t Referred To Contact MR IMAGING Diagnoses Left wrist pain Procedures MRI WRIST WO IVCON LEFT MRI ANY JT UPPER EXTREMITY W/O CONTRAST MATRL REFERRAL TO [facility]CIAL COUNSEL[facility] Daysi Salgado PA-C [address] [place] [address] [place] [id number] Referral ID Status Reason Start Date Expiration Date Visits Requested Visits Authorized [id number] Pending Review Auto-Generat ed Referral 3 07/20/2024 1 1 Specialty Diagnoses / Procedures Referred By Contac t Referred To Contact [facility] DEPARTMENT Diagnoses HCAP 100% Procedures HCAP 100% Self [facility] [place] [id number] Referral ID Status Reason Start Date Expiration Date Visits Requested Visits Authorized [id number] Authorized Financial Clearance Required - Self Pay Patient Cleared - Qualified [id number] 12/14/2023 03/13/2024 99 99 INFORMATION SOURCE (unrecogn ized section and content) DATE CREATED AUTHOR 06/29/2023 [facility] DATE CREATED AUTHOR AUTHOR'S ORGANIZ ATION 07/26/2023 [facility] DATE CREATED AUTHOR AUTHOR'S ORGANIZ ATION 12/29/2023 [facility] DATE CREATED AUTHOR AUTHOR'S ORGANIZ ATION 08/25/2024 [facility] DATE CREATED AUTHOR AUTHOR'S ORGANIZ ATION 09/01/2024 [facility] DATE CREATED AUTHOR AUTHOR'S ORGANIZ ATION 12/27/2024 [facility] FOR RECORDS PERTAINING TO PATIENTS WHO ARE OR HAVE BEEN ENROLLED IN A CHEMICAL DEPENDENCY/SUBSTANCEABUSE PROGRAM, SOME INFORMATION MAY BE OMITTED. This clinical summary was aggregated from multiple sources. Caution should be exercised in using it in the provision of clinical care. This summary normalizes information from multiple sources, and as a consequence, information in this document may materially change the coding, format and clinical context of patient data. In addition, data may be omitted in some cases. CLINICAL DECISIONS SHOULD BE BASED ON THE PRIMARY CLINICAL RECORDS. [facility]. provides no warranty or guarantee of the accuracy or completeness of information in this document.
[2024-12-28 13:32] VITALS: RESP 13; TEMP 37.4; O2SAT 100
[2024-12-28 14:03] VITALS: BMI 34.0
--- NOTE | 2025-01-03 07:52 | OB.TRI.HP_ITS ---
HPI - General General Date of Service: 12/28/24 Chief Complaint: contractions HPI Narrative CHERYL FRY, is a 34 F who presents at 38.6 with painful contractions, denies lof/vb. good fm Maternal Data Information ELISSA Calculator Estimated Delivery Date Method Current WG Current Estimate 01/05/25 Ultrasound #1 39w 5d PFSH PFSH Medical History (Updated 01/03/25 @ 07:53 by Ariadna San CNM) Asthma Adenomyosis of uterus Pelvic pain (spontaneous vaginal delivery) Pelvic pain affecting Anemia Supervision of high-risk Home Medications ?Medication ?Instructions ?Recorded ?Last Taken ?Type docosahexaenoic acid 200 mg 200 mg PO DAILY Check with primary 02/08/22 12/29/24 History capsule ( DHA) doctor hydroxyzine pamoate 50 mg capsule 50 mg PO QHS insomni a #30 caps 11/05/24 12/29/24 Rx breast pump #1 ea 11/29/24 Unknown Rx ferrous sulfate 300 mg (60 mg 300 mg PO QDAY 12/28/24 12/29/24 History iron)/5 mL oral liquid prenat.vits,gi,jem-utma-ftapi tab 12/28/24 Unknown History Held on 12/30/24. Instructions: Order Changed ibuprofen 800 mg tablet 800 mg PO Q8H PRN pain #30 t abs 12/31/24 Unknown Rx oxycodone-acetaminophen 5 mg-325 1 tab PO Q4H PRN pain 7 days #15 12/31/24 Unknown Rx mg tablet (Percocet) tabs Allergy/AdvReac Type Severity Reaction Status Date / Time No Known Allergies Allergy Verified 12/30/24 03:18 Family History Mother Hypertension Uncle CVA (cerebral vascular accident) Social History adopted: No household members: family housing: house number of children: 3 current occupational status: employed and unemployed current occupation: [employer] current occupational exposures/hazards: No pets and animals: Yes history of recent travel: No sexually active: Yes Smoking Status: Never smoker second hand exposure: No alcohol intake: never details: not while substance use type: does not use well-balanced diet: rarely or never caffeine: Yes what type of physical activity do you participate in: none seatbelt use: always do you feel safe at home: Yes additional social history: - [place] History 6 Elective abortions Hx Para 4 Spontaneous abortions 1 Hx # Term Pregnancies Ectopic pregnancies Hx # Pregnancies Multiple births # of living children 4 Past Pregnancies Del. Date Name GA/Weeks Outcome Route Bth Weight Gen Labor Lgth Anesthesia Del Locatn Provider FOB 07/24/08 delivered 2009 son 1 week 40 live - full term 05/04/10 Jennifer 40 live - full term Female none [facility] 02/21/21 Gareth 40 live - full term Female none CT Dillan 05/23/22 Rashida 40 live - full term 7lb6oz Male [facility] Jaswinder Delivery Date: 05/04/10 Last Updated by: Sandhya Hart No issues during or delivery Delivery Date: 02/21/21 Last Updated by: Sandhya Hart No issues during or delivery. Per patient child had water in kidney Delivery Date: 05/23/22 Last Updated by: Zee Hernandez IOL Visit Details Expected Delivery Route/Plan Labor Preferences- CB/BF classes: no labor support person: Dillan labor intervention preferences: [] pain management options preferred: limited intervention/nitrous cut cord/dad catch: cord : yes PP control planned:pp tubal desired. discussed possible routes of delivery and associated risks: [] special requests: Ariadna at delivery Plans Covid status: declines Flu vaccine: declines Tdap vaccine: declines Rhogam: na LARC form signed: yes Problem list reviewed and updated with the most current plan of care details and appropriate orders placed. Relevant counseling for the gestational age provided. Continue routine care and follow up unless otherwise noted in visit notes/problem list details OB Flowsheet Initial Weight: 178 lb Date -?-?-?-?-?-?-?-?-?-?-?-?- EGA Weight BP Urine Prot -?-?-?-?-?-?-?-?-?-?-?-?- Glucose FHR FuHt Pres Dilation -?-?-?-?-?-?-?-?-?-?-?-?- Effaced St Visit Note 05/30/24 -?-?-?-?-?-?-?-?-?-?-?-?- 8w 4d 178 lb (+0 oz) 98/64 -?-?-?-?-?-?-?-?-?-?-?-?- 175 -?-?-?-?-?-?-?-?-?-?-?-?- KW- CRL cons wit h PCC US per pt. Accepts NIPT. 06/28/24 -?-?-?-?-?-?-?-?-?-?-?-?- 12w 5d 175 lb 6 oz (-2 lb 10 oz) 95/59 Trace -?-?-?-?--?-?-?-?-?-?-?-?- Negative 157 -?-?-?-?-?-?-?-?-?-?-?-?- JV- pt complains of lower pelvic cramping and nausea. sending in zofran and recommending tylenol. ultrasound today appears normal. CRL measuring 13 weeks. nipt and carrier screen ordered. 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 no uti symptoms. 09/20/24 -?-?-?-?-?-?-?--?-?-?-?-?- 24w 5d 179 lb 8 oz (+1 lb 8 oz) 93/59 Negative -?-?-?-?-?-?-?-?-?-?-?-?- Negative 150 24 -?-?-?-?-?-?-?-?-?-?-?-?- LC-no vb/crampin g. LC-no vb/cramping. normal an atomy. 28 week labs ordered. plans to decline tdap. 10/04/24 -?-?-?-?-?-?-?-?-?-?-?-?- 26w 5d 179 lb 8 oz (+1 lb 8 oz) 179 lb 8 oz (+1 lb 8 oz) 99/61 99/61 Negative -?-?-?-?-?-?-?-?-?-?-?-?- Negative 145 27 -?-?-?-?-?-?-?-?--?-?-?-?- SM- no vb lof go od fm no regualr ctx co pelvic pubic symphi=ysis pain and low back pain, unable to do exercises suggested, declined PT consult, recommend chiropractor. 10/18/24 -?-?-?-?-?-?-?-?-?-?-?-?- 28w 5d 186 lb 4 oz (+8 lb 4 oz) 98/64 Negative -?-?-?-?-?-?-?-?-?-?-?-?- Negative 157 29 -?-?-?-?-?-?-?-?-?-?-?-?- MH-No VB, LOF. G ood Fm. 28 wk labs pending with Fe studies. Declines tdap. Larc done 11/05/24 -?-?-?-?-?-?-?-?-?-?-?-?- 31w 2d 187 lb 4 oz (+9 lb 4 oz) 84/46 Negative -?-?-?-?-?-?-?-?-?-?-?-?- Negative 158 32 -?-?-?-?-?-?-?-?-?-?-?-?- JV- no lof, vagi nal bleeding, or dec fm. has some hip pain. may want PT eval. 11/15/24 -?-?-?-?-?-?-?-?-?-?-?-?- 32w 5d 187 lb 6 oz (+9 lb 6 oz) 101/61 Negative -?-?-?-?-?-?-?-?-?-?-?-?- Negative 140 33 -?-?-?-?-?-?-?-?-?-?-?-?- LC- no vb/ctx/lo f. good fm. declines pt, managed care manager is helping. 12/03/24 -?-?-?-?-?-?-?-?-?-?-?-?- 35w 2d 191 lb 4 oz (+13 lb 4 oz) 99/65 Negative -?-?-?-?-?-?-?-?-?-?-?-?- Negative 151 35 -?--?-?-?-?-?-?-?-?-?-?-?- LC-pain improved with weekly managed care manager. no vb/ctx/lof. good fm. desires pp tubal with JV.has appt with her next week to discuss. LC-pain improved with weekly managed care manager. no vb/ctx/lof. good fm. repeat cbc ordered today. asymptomatic anemia currently. 12/13/24 -?-?-?-?-?-?-?-?-?-?-?-?- 36w 5d 192 lb 2 oz (+14 lb 2 oz) 107/68 Negative -?-?-?-?-?-?-?-?-?-?-?-?- Negative 155 36 Cephalic 1 -?-?-?-?-?-?-?-?-?-?-?-?- 50 -2 JV_ no lof , vaginal bleeding, or dec fm. wants tubal ligation after this . 12/20/24 -?-?-?-?-?-?-?-?-?-?-?-?- 37w 5d 195 lb (+17 lb) 104/64 Negative -?-?-?-?--?-?-?-?-?-?-?-?- Negative 155 37 1.5 -?-?-?-?-?-?-?-?-?-?-?-?- 60 -2 LC- no lof /vb/ctx. good fm. gc/ct recollected per pt request for sti screening today. has growth us scheduled for this afternoon. desires elective iol at 39 weeks on 12/30. consent signed. 12/27/24 -?-?-?-?-?-?-?-?-?-?-?-?- 38w 5d 199 lb (+21 lb) 118/68 Negative -?-?-?-?-?-?-?-?-?-?-?-?- Negative 153 38 Cephalic 2 -?-?-?-?-?-?-?-?-?-?-?-?- 60 -2 LC- no vb/ ctx/lof. good fm. iol set for monday. NST FHR Rate Baby A Baseline: 150 Variability:: Moderate Accelerations:: 15 x 15 Decelerations:: None NST Reactive:: Yes FHR Category:: Category I Uterine Activity:: q4-6 minutes Assessment & Plan (1) False labor after 37 completed weeks of gestation: COMMENT: no change in cervical exam. safe for d/c home PLAN: Patient presents for triage evaluation secondary to contractions, no change in cervical exam after 2 hours FHT: Moderate variability reactive no decelerations category I tracing [place]: q4-6 Contractions Assessment and plan: Reactive NST, reassuring maternal and status patient discharged to home to follow-up prn. See problem list details for additional plan information. Charges/Coding Procedures Urinary/Genital 52xxx-59xxx: 01256-20 non-stress test Interp
--- NOTE | 2025-01-03 07:52 | OB.TRI.NOTE ---
HPI - General General Date of Service: 12/28/24 Chief Complaint: contractions HPI Narrative CHERYL FRY, is a 34 F who presents at 38.6 with painful contractions, denies lof/vb. good fm Maternal Data Information ELISSA Calculator Estimated Delivery Date Method Current WG Current Estimate 01/05/25 Ultrasound #1 39w 5d PFSH PFSH Medical History (Updated 01/03/25 @ 07:53 by Ariadna San CNM) Asthma Adenomyosis of uterus Pelvic pain (spontaneous vaginal delivery) Pelvic pain affecting Anemia Supervision of high-risk Home Medications ?Medication ?Instructions ?Recorded ?Last Taken ?Type docosahexaenoic acid 200 mg 200 mg PO DAILY Check with primary 02/08/22 12/29/24 History capsule ( DHA) doctor hydroxyzine pamoate 50 mg capsule 50 mg PO QHS insomnia #30 caps 11/05/24 12/29/24 Rx breast pump #1 ea 11/29/24 Unknown Rx ferrous sulfate 300 mg (60 mg 300 mg PO QDAY 12/28/24 12/29/24 History iron)/5 mL oral liquid prenat.vits,gi,tbg-lvdr-uievc tab 12/28/24 Unknown History Held on 12/30/24. Instructions: Order Changed ibuprofen 800 mg tablet 800 mg PO Q8H PRN pain #30 tabs 12/31/24 Unknown Rx oxycodone-acetaminophen 5 mg-325 1 tab PO Q4H PRN pain 7 days #15 12/31/24 Unknown Rx mg tablet (Percocet) tabs Allergy/AdvReac Type Severity Reaction Status Date / Time No Known Allergies Allergy Verified 12/30/24 03:18 Family History Mother Hypertension Uncle CVA (cerebral vascular accident) Social History adopted: No household members: family housing: house number of children: 3 current occupational status: employed and unemployed current occupation: [employer] current occupational exposures/hazards: No pets and animals: Yes history of recent travel: No sexually active: Yes Smoking Status: Never smoker second hand exposure: No alcohol intake: never details: not while substance use type: does not use well-balanced diet: rarely or never caffeine: Yes what type of physical activity do you participate in: none seatbelt use: always do you feel safe at home: Yes additional social history: - [place] History 6 Elective abortions Hx Para 4 Spontaneous abortions 1 Hx # Term Pregnancies Ectopic pregnancies Hx # Pregnancies Multiple births # of living children 4 Past Pregnancies Del. Date Name GA/Weeks Outcome Route Bth Weight Gen Labor Lgth Anesthesia Del Locatn Provider ROSA 07/24/08 delivered 2009 son 1 week 40 live - full term 05/04/10 Jennifer 40 live - full term Female none [place] [facility] 02/21/21 Gareth 40 live - full term Female none CT Dillan 05/23/22 Rashida 40 live - full term 7lb6oz Male [facility] Delivery Date: 05/04/10 Last Updated by: Sandhya Hart No issues during or delivery Delivery Date: 02/21/21 Last Updated by: Sandhya Hart No issues during or delivery. Per patient child had water in kidney Delivery Date: 05/23/22 Last Updated by: Zee Hernandez IOL Visit Details Expected Delivery Route/Plan Labor Preferences- CB/BF classes: no labor support person: Dillan labor intervention preferences: [] pain management options preferred: limited intervention/nitrous cut cord/dad catch: cord : yes PP control planned:pp tubal desired. discussed possible routes of delivery and associated risks: [] special requests: Ariadna at delivery Plans Covid status: declines Flu vaccine: declines Tdap vaccine: declines Rhogam: na LARC form signed: yes Problem list reviewed and updated with the most current plan of care details and appropriate orders placed. Relevant counseling for the gestational age provided. Continue routine care and follow up unless otherwise noted in visit notes/problem list details OB Flowsheet Initial Weight: 178 lb Date <del>?</del> EGA Weight BP Urine Prot <del>?</del> Glucose FHR FuHt Pres Dilation <del>?</del> Effaced St Visit Note 05/30/24 <del>?</del> 8w 4d 178 lb (+0 oz) 98/64 <del>?</del> 175 <del>?</del> KW- CRL cons with PCC US per pt. Accepts NIPT. 06/28/24 <del>?</del> 12w 5d 175 lb 6 oz (-2 lb 10 oz) 95/59 Trace <del>?</del> Negative 157 <del>?</del> JV- pt complains of lower pelvic cramping and nausea. sending in zofran and recommending tylenol. ultrasound today appears normal. CRL measuring 13 weeks. nipt and carrier screen ordered. 07/26/24 <del>?</del> 16w 5d 177 lb 6 oz (-10 oz) 98/64 Negative <del>?</del> Negative 150 <del>?</del> SM- no vb co cramping that has been present the whole , declines vaignal exam, states not a uti like symptoms or ctx 08/26/24 <del>?</del> 21w 1d 178 lb 8 oz (+8 oz) 98/66 Negative <del>?</del> Negative 165 <del>?</del> SM- no vb still having cramping, needs anatomy scan. no uti symptoms. 09/20/24 <del>?</del> 24w 5d 179 lb 8 oz (+1 lb 8 oz) 93/59 Negative <del>?</del> Negative 150 24 <del>?</del> LC-no vb/cramping. LC-no vb/cramping. normal anatomy. 28 week labs ordered. plans to decline tdap. 10/04/24 <del>?</del> 26w 5d 179 lb 8 oz (+1 lb 8 oz) 179 lb 8 oz (+1 lb 8 oz) 99/61 99/61 Negative <del>?</del> Negative 145 27 <del>?</del> SM- no vb lof good fm no regualr ctx co pelvic pubic symphi=ysis pain and low back pain, unable to do exercises suggested, declined PT consult, recommend chiropractor. 10/18/24 <del>?</del> 28w 5d 186 lb 4 oz (+8 lb 4 oz) 98/64 Negative <del>?</del> Negative 157 29 <del>?</del> MH-No VB, LOF. Good Fm. 28 wk labs pending with Fe studies. Declines tdap. Larc done 11/05/24 <del>?</del> 31w 2d 187 lb 4 oz (+9 lb 4 oz) 84/46 Negative <del>?</del> Negative 158 32 <del>?</del> JV- no lof, vaginal bleeding, or dec fm. has some hip pain. may want PT eval. 11/15/24 <del>?</del> 32w 5d 187 lb 6 oz (+9 lb 6 oz) 101/61 Negative <del>?</del> Negative 140 33 <del>?</del> LC- no vb/ctx/lof. good fm. declines pt, pharmacy customer care specialist is helping. 12/03/24 <del>?</del> 35w 2d 191 lb 4 oz (+13 lb 4 oz) 99/65 Negative <del>?</del> Negative 151 35 <del>?</del> LC-pain improved with weekly pharmacy customer care specialist. no vb/ctx/lof. good fm. desires pp tubal with JV.has appt with her next week to discuss. LC-pain improved with weekly pharmacy customer care specialist. no vb/ctx/lof. good fm. repeat cbc ordered today. asymptomatic anemia currently. 12/13/24 <del>?</del> 36w 5d 192 lb 2 oz (+14 lb 2 oz) 107/68 Negative <del>?</del> Negative 155 36 Cephalic 1 <del>?</del> 50 -2 JV_ no lof, vaginal bleeding, or dec fm. wants tubal ligation after this . 12/20/24 <del>?</del> 37w 5d 195 lb (+17 lb) 104/64 Negative <del>?</del> Negative 155 37 1.5 <del>?</del> 60 -2 LC- no lof/vb/ctx. good fm. gc/ct recollected per pt request for sti screening today. has growth us scheduled for this afternoon. desires elective iol at 39 weeks on 12/30. consent signed. 12/27/24 <del>?</del> 38w 5d 199 lb (+21 lb) 118/68 Negative <del>?</del> Negative 153 38 Cephalic 2 <del>?</del> 60 -2 LC- no vb/ctx/lof. good fm. iol set for monday. NST FHR Rate Baby A Baseline: 150 Variability:: Moderate Accelerations:: 15 x 15 Decelerations:: None NST Reactive:: Yes FHR Category:: Category I Uterine Activity:: q4-6 minutes Assessment & Plan (1) False labor after 37 completed weeks of gestation: COMMENT: no change in cervical exam. safe for d/c home PLAN: Patient presents for triage evaluation secondary to contractions, no change in cervical exam after 2 hours FHT: Moderate variability reactive no decelerations category I tracing [place]: q4-6 Contractions Assessment and plan: Reactive NST, reassuring maternal and status patient discharged to home to follow-up prn. See problem list details for additional plan information. Charges/Coding Procedures Urinary/Genital 52xxx-59xxx: 85568-47 non-stress test Interp
== END 2024-12-28 14:50 | disposition home or self-care (01) ==
LOC: WPOUT 13:27 → WP 13:28
PROVIDERS: PCP Physician Assistant; Referring Provider Registered Nurse; Visit Provider Registered Nurse
DX: O47.1 False labor at or after 37 completed weeks of gestation (principal); Z3A.38 38 weeks gestation of pregnancy
CPT/HCPCS: 59025; 59050 ×2; G0378 ×2; 99221

== ENCOUNTER 2024-12-30 03:11 | Inpatient (IN) | payer MEDICAID, SELFPAY ==
[2024-12-30] VITALS (33 sets, daily range): BP systolic 109–136; BP diastolic 51–73; PULSE 70–101; RESP 14–18; TEMP 36.7–37.1; O2SAT 98–100; BMI 34.1
--- OUTSIDE RECORDS SUMMARY | 2024-12-30 03:14 | XMS RPT_ITS | CCD ---
Author Organization [facility] Care Team Providers Care Musical String Maker Name Role Phone Care Physician, No Primary [...] Referring Provider ARNOLD San Other Provider Luke OUTSIDE REPAIRER SPECIAL, OUTSIDE REPAIRER SPECIAL-C Halina Attending Provider Tony OUTSIDE REPAIRER SPECIAL, OUTSIDE REPAIRER SPECIAL-C Alicia Attending Provider Unavailable Primary Care Provider UnavailDAYSI Rothman Referring Unavailable Rosalva Ridley PA-C Primary Care Provider [phone] RABIA RUGGIERO Attending Unavailable RABIA RUGGIERO Referring [...] PA-C, ROSALVA F Primary Care Unavailable BEITLER SHAWN-CNM, LORI Barboza Attending Unav ailable RIDLEY PA-C, ROSALVA F Primary Care Unavailable BEITGABRIELE ESCOBAR-CNM, LORI Barboza Attending Unav ailable RIDLEY PA-C, [...] Provider Leann MERINO, Dr. Nicole Attending Provider [phone] Dr. Bonnie Noriega MD Referring Provider Ariadna San CNM Attending Provider [phone] Dr. Felicity Vaca DO Other Provider [phone] Halina Cee Attending Provider [phone] Ariadna San CNM Referring Provider [phone] Care Physician, No Primary Primary Care Provider Unavailable Care Physician, No Primary Referring Provider Un available Dr. Bonnie Noriega MD Attending Provider [phone] Dr. Felicity Vaca DO Attending Provider Dr. Felicity Vaca DO Referring Provider Dr. Arpita Servin DC Attending Provider Care Physician, No Primary Primary Care Provider Unavailable Dr. Bonnie Noriega MD Attending Provider Care Physician, No Primary Referring Provider Un available Rosalva Zhang Primary Care Provider Bonnie Noriega Referring Unavailable Bonnie Noriega Attending [...] Arpita Servin Attending Unavailable Felicity Vaca Referring UnavailRosalva Burrows Primary Care Unavailable Felicity Vaca Attending Unavailabl e Care Physician, No Primary Referring Unava ilable Care Physician, No Primary Primary Care Unava ilable Ariadna San Attending Unavailable Felicity Vaca Referring Unavailabl e Felicity Vaca Attending Unavailabl e Care Physician, No Primary Referring Unava ilable Care Physician, No Primary Primary Care Unava ilable Dosfranky, Arpita Attending Unavailable Care Physician, No Primary Primary Care Unava ilable Ariadna San Referring Unavailable Ariadna San Attending Unavailable Rosalva Ridley Primary Care Unavailable Ariadna San Referring Unavailable Ariadna San Attending Unavailable Felicity Vaca Attending Unavailabl e Care Physician, No Primary Primary Care Unava ilable Felicity Vaca Referring UnavailRosalva Burrows Primary Care Unavailable Ariadna San Admitting Unavailable Ariadna San Attending Unavailable Care Physician, No Primary Referring Unava ilable Care Physician, No Primary Primary Care Unava ilable Ariadna San Attending Unavailable Care Physician, No Primary Primary Care Unava ilable Care Physician, No Primary Referring Unava ilable Steffi Jackson Attending Unavailable Care Physician, No Primary Primary Care Unava ilable Care Physician, No Primary Referring Unava ilable Felicity Vaca Attending Unavailabl e Care Physician, No Primary Referring Unava ilable Care Physician, No Primary Primary Care Unava ilable Bonnie Noriega Attending Unavailable Felicity Vaca Consulting Unavailabl e Felicity Vaca Attending Unavailabl e Care Physician, No Primary Primary Care Unava ilable Felicity Vaca Referring Unavailabl e Care Physician, No Primary Referring Unava ilable Care Physician, No Primary Primary Care Unava ilable Dosfranky, Arpita Attending Unavailable Care Physician, No Primary Referring Unava ilable Care Physician, No Primary Primary Care Unava ilable Dosfranky, Arpita Attending Unavailable Care Physician, No Primary Referring Unava ilable Care Physician, No Primary Primary Care Unava ilable Ariadna San Attending Unavailable Care Physician, No Primary Referring Unava ilable Care Physician, No Primary Primary Care Unava ilable Luke OUTSIDE REPAIRER SPECIAL, Halina Attending Unavailable Care Physician, No Primary Referring Unava ilable Ariadna San Attending Unavailable Rosalva Ridley Primary Care Unavailable Care Physician, No Primary Referring Unava ilable Dosfranky, Arpita Attending Unavailable Rosalva Ridley Primary Care Unavailable Care Physician, No Primary Referring Unava ilable Ariadna San Attending Unavailable Felicity Vaca Attending Unavailabl e Care Physician, No Primary Referring Unava ilable Care Physician, No Primary Primary Care Unava ilable Care Physician, No Primary Primary Care Unava ilable Dosfranky, Arpita Attending Unavailable Felicity Vaca Referring Unavailabl e Care Physician, No Primary Primary Care Unava ilable Steffi Jackson Attending Unavailable Steffi Jackson Referring Unavailable Medications Current Medications Medication Drug Class(es) Dates [...] qDay, # 90 tab(s), 0 Refill(s), Pharmacy: [facility]/pharmacy #[id number], 162.6, cm, 07/03/24 9:22:00 EST, Height, kg, 06/14/24 9:42:00 EST, Dosing Weight Start Date: 07/03/24 Status: Ordered Quantity: 90.0 Unit: tab(s) Repeat unspecified] Onset: 12-28-2024 06-29-2022 Episodic Comment on above: Wants tubal-needs [...] unspecified; Translations: [Iron deficiency anemia, unspecified] Onset: 12-28-2024 Episodic Endometriosis (12 sources) Uterine adenomyosis; Translations: [Adenomyosis of uterus] 05-30-2024 Chronic Comment on above: via ultrasound. high suspicion for adenomyosis Headache; including migraine (18 sources) Headache; Translations: [Headache] Episodic Comment on [...] and somatic dysfunction of sacral region] Onset: 12-28-2024 Episodic Other bone disease and musculoskeletal deformities (1 source) Segmental and somatic dysfunction of lumbar region; Translations: [Segmental and somatic dysfunction of lumbar region] Onset: 12-28-2024 Episodic Other complications of ; puerperium affecting [...] PRR, ELISSA 5 PC Amrit Rodriguez (in [place]), Amaya Servin, [place] , 2 prior vagina l deliveries at termh/o 1 miscarriages. h/o with G1 in [place] PRR, GBS neg, E DD 01/05/25 Amrit Cole (in [place]), Amaya Servin, [place] Other complications of (20 [...] Translations: [Nausea and vomiting during ] Onset: 12-28-2024 09-27-2024 Episodic Other complications of (1 source) Other specified related conditions, third trimester; Translations: [Other specified related conditions, third trimester] Onset: 12-28-2024 Episodic Other complications of (1 source) Supervision of high risk , unspecified, third trimester; Translations: [Supervision of high risk , unspecified, third trimester] Onset: 12-28-2024 Episodic Other injuries and conditions due to [...] 06-05-2024 Episodic Comment on above: 05/23/22 lewis butts LC elects NIPT with gen mojgan, nl anatomy elects NIPT with gen mojgan, nl anatomy, girl! Residual codes; unclassified (1 source) 38 weeks gestation of ; Translations: [38 weeks gestation of ] Onset: 12-28-2024 Episodic Residual codes; unclassified (1 source) 36 weeks [...] unspecified; Translations: [Low back pain, unspecified] Onset: 12-28-2024 Unclassified (1 source) Other specified diseases and [...] Test Name Value Interpretation Reference Range Facility Marketing Sales Manager Office Visit Reporton 12-27-2024 Marketing Sales Manager Office Visit Report [facility] [address], [address] [place] [address] OFFICE VISIT Date of Service: 12/27/24 MR#: [id number] Acct: [id number] Name: KALEY FRY Rep #: [id number] : 1990 Provider: ARNOLD aviles Age/Sex: 34/F Location: [facility] [place] Status: Signed Intake Vital Signs 12/03/24 10:27 12/20/24 11:03 12/27/24 09:12 12/27/24 09:14 Height 5 ft 3 in 5 ft 3 in 5 ft 3 in 5 ft 3 in Weight: 199 lb BMI 35.2 BP 118/68 Intake Visit Reasons: 38 wk ob Program Director/Air Personality Required: No Is patient in pain?: No [...] occupational status: employed and unemployed current occupation: [employer] current occupational exposures/hazards: No pets and animals: [...] 40 live - full term Female none [place] Cross 02/21/21 Gareth 40 live - full term Female none CT Dill[place] 05/23/22 Rashida 40 live - full term 7lb6oz Male [facility] Mary ins Delivery Date: 05/04/10 Last Updated [...] Current WG Current Estimate 01/05/25 Ultrasound #1 38w 5d [...] 06/28/24 -???-???-???-???-??? (more content not included)... Normal [facility] Chiropractic Reporton 2024 Chiropractic Report [facility]ic [facility] [place] [address] OFFICE VISIT Date of Service: 12/25/24 MR#: [id number] Acct: [id number] Name: KALEY FRY Rep #: [id number] : 1990 Provider: RUDDY Nava Age/Sex: 34/F [place] [facility]: Signed Intake Vital Signs 11/13/24 10:20 [...] occupational status: employed and unemployed current occupation: [employer] current occupational exposures/hazards: No pets and animals: [...] home: Yes additional social history: - [place] [facility] ADJUSTMENT Chief Complaint: low back and pelvic pain Visit Number: 7 Details: Kaley is a 34 y/o female here for client care consultant. Pt. advises she is 38 weeks with [...] Low back pain, unspecified Comment: improving with client care consultant. (3) Segmental and somatic dysfunction of sacral region: Status: Acute (4) Segmental dysfunction of lumbar region: Status: Acute Orders: Orders Chiroprac (more content not included)... Normal [facility] Chlamydia/GC NELLY aptimaon CHLAMY,NUC ACID Negative Normal Negative [facility] Comment on above: Performed By: #### M 100.2200, L7000.1800 #### [facility] [address] [place], [place], [id number] GC BY NUC ACID Negative Normal Negative [facility] Comment on above: Result Comment: Perf ormed at: =G - [facility] [address] [place], [place] [id number] Pipelines Laborer: Tiana Hayes MD, Phone: [phone] Performed By: #### M 100.2200, L7000.1800 #### [facility] [address] [place], [place], [id number] Chlamydia trachomatis rRNA d etection by probe and target amplification methodOrdered By: Ariadna San on 12-20-2024 C. trachomatis rRNA NELLY+probe Ql (Unsp spec) Negative Negative [facility] Laboratory - Chemistry and C hemistry - challengeOrdered By: Ariadna San on 12-20-2024 Glucose Ql (U) Negative [facility] - UrinalysisOrder ed By: Ariadna San on 12-20-2024 Protein Ql (U) Negative [facility] Neisseria gonorrhoeae nuclei c acid detection by amplified probe techniqueOrdered By: Ariadna San on 12-20-2024 N. gonorrhoeae DNA NELLY+probe Ql (Unsp spec) Negative Negative [facility] Comment on above: Performed at: =G - [address] [id number] Director: Tiana Hayes MD, Phone: [phone] OB Limited With Biometricson 12-20-2024 OB Limited With Biometrics [facility] Services [address] [place], [place] [id number] OB Limited With Biometrics MR#: [id number] Acct: [id number] Name: KALEY FRY Rep #: [id number] : 1990 F 34 From: Billy Paulson MD PCP: KOFI Juan Status: REG CLI Study: OB Limited With Biometrics Date of Exam: 12/20 Exam# [id number] Ordering Dr: Felicity Vaca DO PROCEDURE: OB [...] intrauterine with biometry as above. Reading Location: [id number] CC: Dr. Felicity Vaca DO; KOFI Juan Emergency Worker: Signed Normal [facility] Marketing Sales Manager Office Visit Reporton 12-20-2024 Marketing Sales Manager Office Visit Report [facility] [address], [address] [place] [address] OFFICE VISIT Date of Service: 12/20/24 MR#: [id number] Acct: [id number] Name: KALEY FRY Rep #: [id number] : 1990 Provider: ARNOLD aviles Age/Sex: 34/F Location: [facility] Status: Signed Intake Vital Signs 05/30/24 11:34 12/13/24 09:46 12/20/24 11:03 12/20/24 11:03 Height 5 ft 3 in 5 ft 3 in 5 ft 3 in 5 ft 3 in Weight: 195 lb BMI 34.5 BP 104/64 Intake Visit Reasons: 37 WK OB Program Director/Air Personality Required: No Is patient in pain?: No [...] occupational status: employed and unemployed current occupation: [employer] current occupational exposures/hazards: No pets and animals: [...] Weight Infant Gen Labor Lgth Anesthesia [place] Provider ROSA 07/24/08 delivered 2009 son 1 [...] NIPT. 12/ (more content not included)... Normal [facility] Chiropractic Reporton 2024 Chiropractic Report [facility] Chiropractic [facility] [place] [address] OFFICE VISIT Date of Service: 12/18/24 MR#: [id number] Acct: [id number] Name: KALEY FRY Rep #: [id number] : 1990 Provider: RUDDY Nava Age/Sex: 34/F [place] [facility] Status: Signed Intake Vital Signs 11/13/24 10:20 12/13/24 09:46 Height 5 ft 3 in 5 ft 3 in Intake Visit Reasons: ADJUSTMENT Chief Complaint: low back, pelvic and groin pain Allergies No Known Allergies Allergy (Verified 12/13/24 09:43) PFSH Medical History Pelvic pain affecting Pelvic pain Adenomyosis of uterus (spontaneous vaginal delivery) Anemia Supervision of high-risk Family History Mother Hypertension Uncle CVA (cerebral vascular accident) Social History adopted: No household members: family housing: house number of children: 3 current occupational status: employed and unemployed current occupation: [employer] current occupational exposures/hazards: No pets and animals: [...] home: Yes additional social history: - [place]illan SANCHEZ ADJUSTMENT Chief Complaint: low back and pelvic pain Visit Number: 6 Details: Kaley is a 34 y/o female here for client care consultant. Pt. advises she is 37 weeks with [...] Low back pain, unspecified Comment: improving with client care consultant. Orders: Orders Chiropractic Treatments 12/18/24 M99.03 - [...] Barriers Follow (more content not included)... Normal [facility] Rule out Beta Strep (Grp. B) on 12-16-2024 BRENDON Group B Beta Streptococcus is not isolated. Normal [facility] Comment on above: Performed By: #### M 100.3771 #### [facility] [address] [place], [place], [id number] Laboratory - Chemistry and C hemistry - challengeOrdered By: Felicity Cortes on 12-13-2024 Glucose Ql (U) Negative [facility] - UrinalysisOrder ed By: Felicity Cortes on 12-13-2024 Protein Ql (U) Negative [facility] Marketing Sales Manager Office Visit Reporton 12-13-2024 Marketing Sales Manager Office Visit Report [facility] [address], [address] [place] [address] OFFICE VISIT Date of Service: 12/13/24 MR#: [id number] Acct: [id number] Name: KALEY FRY Rep #: [id number] : 1990 Provider: Dr. Felicity Henry DO Age/Sex: 34/F Location: [facility] [place] Status: Signed Intake Vital Signs 05/30/24 11:34 12/03/24 10:27 12/13/24 09:44 12/13/24 09:46 Height 5 ft 3 in 5 ft 3 in 5 ft 3 in 5 ft 3 in Weight: 191 lb 4 oz 192 lb 2 oz BMI 33.8 34.0 BP 99/65 107/68 Intake Visit Reasons: 36 WK OB Program Director/Air Personality Required: No Is patient in pain?: No [...] occupational status: employed and unemployed current occupation: [employer] current occupational exposures/hazards: No pets and animals: [...] full term Female none [place] Cross 02/21/21 Annee 40 live - full term Female none CT Dillan 05/23/22 Nickfabi 40 live - full term 7lb6oz Male [facility] Mary ins Delivery Date: 05/04/10 Last Updated [...] Method Current Current Estimate 01/05/25 Ultrasound #1 36w 5d [...] Accepts NIPT (more content not included)... Normal [facility] Screening beta-hemolytic Str eptococcus cultureOrdered By: Felicity Cortes on 12-13-2024 Beta-hemolytic Streptococcus culture Group B Beta Streptococcus is not isolated. [facility] Chiropractic Reporton 2024 Chiropractic Report [facility] [address] [place] [address] OFFICE VISIT Date of Service: 12/11/24 MR#: [id number] Acct: [id number] Name: KALEY FRY Rep #: [id number] : 1990 Provider: RUDDY Nava Age/Sex: 34/F Location: [facility] Status: Signed Intake Vital Signs 11/13/24 10:20 [...] occupational status: employed and unemployed current occupation: [employer] current occupational exposures/hazards: No pets and animals: [...] home: Yes additional social history: - [place]ill[place] [facility] ADJUSTMENT Chief Complaint: low back and pelvic pain Visit Number: 5 Details: Kaley is a 34 y/o female here for client care consultant. Pt. advises she is 36 weeks with [...] Low back pain, unspecified Comment: improving with client care consultant. Orders: Orders Chiropractic Treatments Today M99.03 - Segmental and somatic dysfunction of lumbar region, M99.04 - Segmental and somatic dysfunction of sacral region Plan Patient was treated without incident. Continue care. Plan Details Goals Barriers: (more content not included)... Normal [facility] Chiropractic Reporton 2024 Chiropractic Report [facility] Chiropractic [facility] [place] [address] OFFICE VISIT Date of Service: 12/04/24 MR#: [id number] Acct: [id number] Name: KALEY FRY Rep #: [id number] : 1990 Provider: RUDDY Nava Age/Sex: 34/F Location: [facility] Status: Signed Intake Vital Signs 11/13/24 10:20 [...] occupational status: employed and unemployed current occupation: [employer] current occupational exposures/hazards: No pets and animals: [...] home: Yes additional social history: - Dillan SANCHEZ ADJUSTMENT Chief Complaint: low back and pelvic pain Visit Number: 4 Details: Kaley is a 34 y/o female here for client care consultant. Pt. advises she is 35 weeks with [...] Low back pain, unspecified Comment: improving with client care consultant. Orders: Orders Chiropractic Treatments 12/04/24 M99.03 - Segmental and somatic dysfunction of lumbar region, M99.04 - Segmental and somatic dysfunction of sacral region Plan Patient was treated without incident. Continue care. Plan Details Goals Barriers: (more content not included)... Normal [facility] Absolute lymphocyte countOrd ered By: Ariadna San on 12-03-2024 Lymphocytes Auto (Unsp spec) [#/Vol] 2.68 10*3/uL 0.83-4.51 [facility] Absolute neutrophil countOrd ered By: Ariadna San on 12-03-2024 Neutrophils (Bld) [#/Vol] 5.6 10*3/uL 2.0-7.7 [facility] Automated lymphocyte count a s percentage of total leukocytesOrdered By: Ariadna San on 12-03-2024 Lymphocytes/100 WBC Auto (Unsp spec) 28.4 % 19-41 [facility] Basophil percentageOrdered B y: Ariadna San on 12-03-2024 Basophils/100 WBC (Bld) 0.3 % 0-1 [facility] CBC W/Diff, Automatedon 11-21 Absolute Lymph 2.68 X10 3/uL Normal 0.83-4.51 [facility] Comment on above: Performed By: #### L 100.0100 ####[facility] [address] [place], [address] Absolute Neut 5.6 X10 3/uL Normal 2.0-7.7 [facility] Comment on above: Performed By: #### L 100.0100 ####[facility] [address] [place], [address] Basophils/100 WBC (Bld) 0.3 % Normal 0-1 [facility] Comment on above: Performed By: #### L 100.0100 ####[facility] [address] [place], [address] Eosinophils/100 WBC (Bld) 2.2 % Normal 0-5 [facility] Comment on above: Performed By: #### L 100.0100 ####[facility] [address] [place], [address] Erythrocyte distribution width (RBC) [Ratio] 13.5 % Normal 11.6-14.6 [facility] Comment on above: Performed By: #### L 100.0100 ####[facility] [address] [place], [address] Hematocrit (Bld) [Volume fraction] 29.8 % Low 37-47 [facility] Comment on above: Performed By: #### L 100.0100 ####[facility] [address] [place], [address] Hemoglobin (Bld) [Mass/Vol] 9.5 g/dL Low 12.0-15.0 [facility] Comment on above: Performed By: #### L 100.0100 ####[facility] [address] [place], [address] IG% 1.100 High 0.0-0.9 [facility] Comment on above: Result Comment: IG% - Immature Granulocytes (promyelocytes, myelocytes and metamyelocytes) > 1% indicates that a LEFT SHIFT is Present. Performed By: #### L 100.0100 ####[facility] [address] [place], [address] Lymphocytes/100 WBC (Bld) 28.4 % Normal 19-41 [facility] Comment on above: Performed By: #### L 100.0100 ####[facility] [address] [place], [address] MCH (RBC) [Entitic mass] 26.9 pg Low 27.0-32.0 [facility] Comment on above: Performed By: #### L 100.0100 ####[facility] [address] [place], [address] MCHC (RBC) [Mass/Vol] 31.9 g/dL Low 32-36 [facility] Comment on above: Performed By: #### L 100.0100 ####[facility] [address] [place], [address] MCV (RBC) [Entitic vol] 84.4 fL Normal 81-99 [facility] Comment on above: Performed By: #### L 100.0100 ####[facility] [address] [place], [address] Monocytes/100 WBC (Bld) 9.0 % Normal 0-10 [facility] Comment on above: Performed By: #### L 100.0100 ####[facility] [address] [place], [address] Neutrophils/100 WBC (Bld) 59.0 % Normal 47-70 [facility] Comment on above: Performed By: #### L 100.0100 ####[facility] [address] [place], [address] Nucleated RBC (Bld) [#/Vol] 0 10*3/uL Normal 0-5 [facility] Comment on above: Performed By: #### L 100.0100 ####[facility] [address] [place], [address] Platelet mean volume (Bld) [Entitic vol] 10.2 fL Normal 6.2-12.0 [facility] Comment on above: Performed By: #### L 100.0100 ####[facility] [address] [place], [address] Platelets (Bld) [#/Vol] 287 10*3/uL Normal 150-450 [facility] Comment on above: Performed By: #### L 100.0100 ####[facility] [address] [place], [address] RBC (Bld) [#/Vol] 3.53 10*6/uL Low 4.2-5.4 [facility] Comment on above: Performed By: #### L 100.0100 ####[facility] [address] [place], [address] RDW SD 41.9 fl Normal 35.1-43.9 [facility] Comment on above: Performed By: #### L 100.0100 ####[facility] [address] [place], [address] WBC (Bld) [#/Vol] 9.5 10*3/uL Normal 4.4-11.0 [facility] Comment on above: Performed By: #### L 100.0100 ####[facility] [address] [place], [address] Eosinophil percentageOrdered By: Ariadna San on 12-03-2024 Eosinophils/100 WBC (Bld) 2.2 % 0-5 [facility] Erythrocyte distribution wid th ratioOrdered By: Ariadna San on 12-03-2024 Erythrocyte distribution width (RBC) [Ratio] 13.5 % 11.6-14.6 [facility] Erythrocyte distribution wid th standard deviationOrdered By: Ariadna San on 12-03-2024 Erythrocyte distribution width (RBC) [Ratio] 41.9 fl 35.1-43.9 [facility] Hematocrit Auto (Bld) [Volum e fraction]Ordered By: Ariadna San on 12-03-2024 Hematocrit (Bld) [Volume fraction] 29.8 % Low 37-47 [facility] Hemoglobin measurementOrdere d By: Ariadna San on 12-03-2024 Hemoglobin (Bld) [Mass/Vol] 9.5 g/dL Low 12.0-15.0 [facility] Immature granulocytes/100 WB C Auto (Bld)Ordered By: Ariadna San on 12-03-2024 Immature granulocytes/100 WBC (Bld) 1.100 % High 0.0-0.9 [facility] Comment on above: IG% - Immature Granu locytes (promyelocytes, myelocytes and metamyelocytes) > 1% indicates that a LEFT SHIFT is Present. Laboratory - Chemistry and C hemistry - challengeOrdered By: Ariadna San on 12-03-2024 Glucose Ql (U) Negative [facility] Laboratory - UrinalysisOrder ed By: Ariadna San on 12-03-2024 Protein Ql (U) Negative [facility] MCV (mean corpuscular volume ) determinationOrdered By: Ariadna San on 12-03-2024 MCV (RBC) [Entitic vol] 84.4 fL 81-99 [facility] Mean corpuscular hemoglobin (MCH) determinationOrdered By: Ariadna San on 12-03-2024 MCH (RBC) [Entitic mass] 26.9 pg Low 27.0-32.0 [facility] Mean corpuscular hemoglobin concentration (MCHC) determinationOrdered By: Ariadna San on 12-03-2024 MCHC (RBC) [Mass/Vol] 31.9 g/dL Low 32-36 [facility] Mean platelet volume determi nationOrdered By: Ariadna San on 12-03-2024 Platelet mean volume (Bld) [Entitic vol] 10.2 fL 6.2-12.0 [facility] Monocyte percentageOrdered B y: Ariadna San on 12-03-2024 Monocytes/100 WBC (Bld) 9.0 % 0-10 [facility] Neutrophil percentageOrdered By: Ariadna San on 12-03-2024 Neutrophils/100 WBC (Bld) 59.0 % 47-70 [facility] Nucleated red blood cell per centageOrdered By: Ariadna San on 12-03-2024 Nucleated RBC/100 WBC (Bld) [Ratio] 0 % 0-5 [facility] Marketing Sales Manager Office Visit Reporton 12-03-2024 Marketing Sales Manager Office Visit Report [facility]'s [address], [address] [place] [address] OFFICE VISIT Date of Service: 12/03/24 MR#: [id number] Acct: [id number] Name: KALEY FRY Rep #: [id number] : 1990 Provider: ARNOLD aviles Age/Sex: 34/F Location: [facility] [place] Status: Signed Intake Vital Signs 05/30/24 11:34 11/15/24 11:20 12/03/24 10:27 Height 5 ft 3 in 5 ft 3 in 5 ft 3 in Weight: 187 lb 6 oz 191 lb 4 oz BMI 33.2 33.8 BP 101/61 99/65 Intake Visit Reasons: 34 WK OB Program Director/Air Personality Required: No Is patient in pain?: No [...] occupational status: employed and unemployed current occupation: [employer] current occupational exposures/hazards: No pets and animals: [...] 40 live - full term 7lb6oz Male [facility] Mary ins Delivery Date: 05/04/10 Last Updated [...] NIPT. 12 (more content not included)... Normal [facility] Platelet countOrdered By: Homa San on 12-03-2024 Platelets (Bld) [#/Vol] 287 10*3/uL 150-450 [facility] RBC Auto (Bld) [#/Vol]Ordere d By: Ariadna San on 12-03-2024 RBC (Bld) [#/Vol] 3.53 10*6/uL Low 4.2-5.4 [facility] White blood cell (WBC) count Ordered By: Ariadna San on 12-03-2024 WBC (Bld) [#/Vol] 9.5 10*3/uL 4.4-11.0 [facility] Chiropractic Reporton 2024 Chiropractic Report [facility] Chiropractic [facility] [place] [address] OFFICE VISIT Date of Service: 11/27/24 MR#: [id number] Acct: [id number] Name: KALEY FRY Rep #: [id number] : 1990 Provider: RUDDY Nava Age/Sex: 34/F Location: [facility] Status: Signed Intake Vital Signs 11/13/24 10:20 [...] occupational status: employed and unemployed current occupation: [employer] current occupational exposures/hazards: No pets and animals: [...] home: Yes additional social history: - [place]ill[place] [facility] ADJUSTMENT Chief Complaint: low back and pelvic pain Visit Number: 3 Details: Kaley is a 34 y/o female here for client care consultant. Pt. advises she is 34 weeks with [...] of lumba (more content not included)... Normal [facility] Chiropractic Reporton 2024 Chiropractic Report [facility] Chiropractic [facility] [place] [address] OFFICE VISIT Date of Service: 11/20/24 MR#: [id number] Acct: [id number] Name: EDWARD ROSSKALEY JESUS Francine Rep #: [id number] : 1990 Provider: RUDDY Nava Age/Sex: 34/F [place] [facility] [place]: Signed Intake Vital Signs 11/13/24 10:20 [...] occupational status: employed and unemployed current occupation: [employer] current occupational exposures/hazards: No pets and animals: [...] is a 34 y/o female here for client care consultant. Pt. advises she is 33 weeks with [...] suggested she (more content not included)... Normal [facility] Laboratory - Chemistry and C hemistry - challengeOrdered By: Ariadna San on 11-15-2024 Glucose Ql (U) Negative [facility] Laboratory - UrinalysisOrder ed By: Ariadna San on 11-15-2024 Protein Ql (U) Negative [facility] Marketing Sales Manager Office Visit Reporton 11-15-2024 Marketing Sales Manager Office Visit Report [facility]'[address], [address] [place] [address] OFFICE VISIT Date of Service: 11/15/24 MR#: [id number] Acct: [id number] Name: KALEY FRY Rep #: [id number] : 1990 Provider: ARNOLD aviles Age/Sex: 34/F Location: [facility] [place] Status: Signed Intake Vital Signs 05/30/24 11:34 11/13/24 10:20 11/15/24 11:20 Height 5 ft 3 in 5 ft 3 in 5 ft 3 in Weight: 187 lb 6 oz BMI 33.2 BP 101/61 Intake Visit Reasons: 32 WK OB Program Director/Air Personality Required: No Is patient in pain?: No [...] occupational status: employed and unemployed current occupation: [employer] current occupational exposures/hazards: No pets and animals: [...] 40 live - full term Female none [place] 02/21/21 Gareth 40 live - full term Female none CT Dillan 05/23/22 Rashida 40 live - full term 7lb6oz Male [facility] Mary ins Delivery Date: 05/04/10 Last Updated [...] Current WG Current Estimate 01/05/25 Ultrasound #1 32w 5d [...] oz ( (more content not included)... Normal [facility] Chiropractic Reporton 2024 Chiropractic Report [facility] Chiropractic [address] [place] [address] OFFICE VISIT Date of Service: 11/13/24 MR#: [id number] Acct: [id number] Name: KALEY FRY Rep #: [id number] : 1990 Provider: RUDDY Palm Do ssi Age/Sex: 34/F Location: [facility] Status: Signed Intake Vital Signs 10/04/24 10:19 11/05/24 09:41 11/13/24 10:20 Height 5 ft 3 in 5 ft 3 in 5 ft 3 in Weight: 187 lb 4 oz 188 lb 9 oz BMI 33.1 33.4 BP 84/46 L 114/64 Intake Visit Reasons: EST CARE/ Allergies No Known Allergies Allergy (Verified 11/05/24 09:41) [facility] Medical History Pelvic pain Adenomyosis of uterus (spontaneous vaginal delivery) Pelvic pain affecting Anemia Supervision of high-risk Family History Mother Hypertension Uncle CVA (cerebral vascular accident) Social History adopted: No household members: family housing: house number of children: 3 current occupational status: employed and unemployed current occupation: [employer] current occupational exposures/hazards: No pets and animals: [...] 34 y/o female here to establish for client care consultant. Pt. advises she is 32 weeks with [...] sacral taj (more content not included)... Normal [facility] Laboratory - Chemistry and C hemistry - challengeOrdered By: Felicity Cortes on 11-05-2024 Glucose Ql (U) Negative [facility] Laboratory - UrinalysisOrder ed By: Felicity Cortes on 11-05-2024 Protein Ql (U) Negative [facility] Marketing Sales Manager Office Visit Reporton 11-05-2024 Marketing Sales Manager Office Visit Report [facility] [address] [place] [address], [address] [place] [address] OFFICE VISIT Date of Service: 11/05/24 MR#: [id number] Acct: [id number] Name: KALEY FRY Rep #: [id number] : 1990 Provider: Dr. Felicity Henry DO Age/Sex: 34/F Location: [facility] [place] Status: Signed Intake Vital Signs 05/30/24 11:34 10/18/24 10:51 11/05/24 09:41 Height 5 ft 3 in 5 ft 3 in 5 ft 3 in Weight: 187 lb 4 oz BMI 33.1 BP 84/46 L Intake Visit Reasons: 30 WK OB Program Director/Air Personality Required: No Is patient in pain?: No [...] occupational status: employed and unemployed current occupation: [employer] current occupational exposures/hazards: No pets and animals: [...] live - full term Female none CT Dilaln 05/23/22 Mauryfabi 40 live - full term 7lb6oz Male [facility] Mary ins Delivery Date: 05/04/10 Last Updated [...] oz) 95/59 (more content not included)... Normal [facility] Absolute lymphocyte countOrd ered By: Ariadna aSn on 10-18-2024 Lymphocytes Auto (Unsp spec) [#/Vol] 2.75 10*3/uL 0.83-4.51 [facility] Absolute neutrophil countOrd ered By: Ariadna San on 10-18-2024 Neutrophils (Bld) [#/Vol] 5.0 10*3/uL 2.0-7.7 [facility] Automated blood erythrocyte countOrdered By: Ariadna San on 10-18-2024 RBC (Bld) [#/Vol] 3.54 10*6/uL Low 4.2-5.4 [facility] Comment on above: Performed By: #### L 509.8002, L501.0250, L100.0100, L3890.6006 #### [facility] [address] [place], [place], [id number] Automated blood hematocrit ( percentage)Ordered By: Ariadna San on 10-18-2024 Hematocrit (Bld) [Volume fraction] 30.5 % Low 37-47 [facility] Comment on above: Performed By: #### L 509.8002, L501.0250, L100.0100, L3890.6006 #### [facility] [address] [place], [place], [id number] Automated lymphocyte count a s percentage of total leukocytesOrdered By: Ariadna San on 10-18-2024 Lymphocytes/100 WBC (Bld) 31.6 % Normal - [facility] Comment on above: Performed By: #### L 509.8002, L501.0250, L100.0100, L3890.6006 #### [facility] [address] [place], [address] Lymphocytes/100 WBC Auto (Unsp spec) 31.6 % - [facility] Basophil percentageOrdered B y: Ariadna San on 10-18-2024 Basophils/100 WBC (Bld) 0.3 % Normal 0-1 [facility] Comment on above: Performed By: #### L 509.8002, L501.0250, L100.0100, L3890.6006 #### [facility] [address] [place], [address] CBC W/Diff, Automatedon 03-2 Absolute Lymph 2.75 X10 3/uL Normal 0.83-4.51 [facility] Comment on above: Performed By: #### L 509.8002, L501.0250, L100.0100, L3890.6006 #### [facility] [address] [place], [address] Absolute Neut 5.0 X10 3/uL Normal 2.0-7.7 [facility] Comment on above: Performed By: #### L 509.8002, L501.0250, L100.0100, L3890.6006 #### [facility] [address] [place], [address] IG% 1.200 High 0.0-0.9 [facility] Comment on above: Result Comment: IG% - Immature Granulocytes (promyelocytes, myelocytes and metamyelocytes) > 1% indicates that a LEFT SHIFT is Present. Performed By: #### L 509.8002, L501.0250, L100.0100, L3890.6006 #### [facility] [address] [place], [address] Nucleated RBC (Bld) [#/Vol] 0 10*3/uL Normal 0-5 [facility] Comment on above: Performed By: #### L 509.8002, L501.0250, L100.0100, L3890.6006 #### [facility] [address] [place], [address] RDW SD 40.5 fl Normal 35.1-43.9 [facility] Comment on above: Performed By: #### L 509.8002, L501.0250, L100.0100, L3890.6006 #### [facility] [address] [place], [address] Calculated total iron bindin g capacityOrdered By: Halina Butler on 10-18-2024 Total Iron Binding Capacity 424 ug/dL 250-450 [facility] Eosinophil percentageOrdered By: Ariadna San on 10-18-2024 Eosinophils/100 WBC (Bld) 2.6 % Normal 0-5 [facility] Comment on above: Performed By: #### L 509.8002, L501.0250, L100.0100, L3890.6006 #### [facility] [address] [facility] [id number] Erythrocyte distribution wid th ratioOrdered By: Ariadna San on 10-18-2024 Erythrocyte distribution width (RBC) [Ratio] 13.0 % Normal 11.6-14.6 [facility] Comment on above: Performed By: #### L 509.8002, L501.0250, L100.0100, L3890.6006 #### [facility] [address] [place], [place], [id number] Erythrocyte distribution wid th standard deviationOrdered By: Ariadna San on 10-18-2024 Erythrocyte distribution width (RBC) [Entitic vol] 40.5 fL 35.1-43.9 [facility] Erythrocyte distribution width (RBC) [Ratio] 40.5 fl 35.1-43.9 [facility] Glucose Challenge Gest 1H 50 rosalie 10-18-2024 GLU GEST 50g 1H 130 mg/dL Normal 70-140 [facility] Comment on above: Performed By: #### L 509.8002, L501.0250, L100.0100, L3890.6006 #### [facility] [address] [facility] [id number] Glucose measurement at 2 gail rs post-dose gestational glucose tolerance testOrdered By: Ariadna San on 10-18-2024 Glucose [Mass/Vol] 130 mg/dL 70-140 [facility] Hemoglobin measurementOrdere d By: Ariadna San on 10-18-2024 Hemoglobin (Bld) [Mass/Vol] 10.0 g/dL Low 12.0-15.0 [facility] Comment on above: Performed By: #### L 509.8002, L501.0250, L100.0100, L3890.6006 #### [facility] [address] [place], [address] Immature granulocytes/100 WB C Auto (Bld)Ordered By: Ariadna San on 10-18-2024 Immature granulocytes/100 WBC (Bld) 1.200 % High 0.0-0.9 [facility] Comment on above: IG% - Immature Granu locytes (promyelocytes, myelocytes and metamyelocytes) > 1% indicates that a LEFT SHIFT is Present. Iron measurement (mass/mass) Ordered By: Halina Butler on 10-18-2024 Iron [Mass/Vol] 45 ug/dL Low 50-170 [facility] Comment on above: Performed By: #### L 503.6550, L503.6030 #### [facility] [address] [place], [address] Iron (Unsp spec) [Mass/Mass] 45 ug/dL Low 50-170 [facility] Iron saturation [Mass fracti on]Ordered By: Halina Butler on 10-18-2024 Iron Saturation 11.0 % Low 13-59 [facility] Iron+Iron Binding Capacityon 10-18-2024 IRON SATURATION 11.0 Low 13-59 [facility] Comment on above: Performed By: #### L 503.6550, L503.6030 #### [facility] [address] [place], [address] TIBC 424 ug/dL Normal 250-450 [facility] Comment on above: Performed By: #### L 503.6550, L503.6030 #### [facility] [address] [place], [address] UIBC 379 ug/dL Normal 228-428 [facility] Comment on above: Performed By: #### L 503.6550, L503.6030 #### [facility] [address] [facility] [place], [place], [address] L3890.6006on 10-18-2024 HIV Non-Reactive Normal Nonreactive [facility] Comment on above: Result Comment: Non- Reactive Reactive Repeatedly reactive samples must be confirmed according to CDC recommended confirmatory algorithms. The subresults for either HIVAG or AHIV can be used as an aid in the selection of the confirmation algorithm for reactive samples. Send out specimens with Reactive results to [facility] for confirmation. Order the HIV antibody detection and differentiation: lc#[id number] Performed By: #### L 509.8002, L501.0250, L100.0100, L3890.6006 ####[facility] [address] [facility] [place], [place], [id number] L509.8002on 10-18-2024 Syphilis Abs Non-Reactive Normal Nonreactive [facility] Comment on above: Performed By: #### L 509.8002, L501.0250, L100.0100, L3890.6006 #### [facility] [address] [address] [place], [place], [address] Laboratory - Chemistry and C hemistry - challengeOrdered By: Halina Butler on 10-18-2024 Glucose Ql (U) Negative [facility] Laboratory - UrinalysisOrder ed By: Halina Butler on 10-18-2024 Protein Ql (U) Negative [facility] Lymphocytes Auto (Unsp spec) [#/Vol]Ordered By: Ariadna San on 10-18-2024 Lymphocytes (Bld) [#/Vol] 2.75 10*3/uL 0.83-4.51 [facility] MCV (mean corpuscular volume ) determinationOrdered By: Ariadna San on 10-18-2024 MCV (RBC) [Entitic vol] 86.2 fL Normal 81-99 [facility] Comment on above: Performed By: #### L 509.8002, L501.0250, L100.0100, L3890.6006 #### [facility] [address] [place], [address] Mean corpuscular hemoglobin (MCH) determinationOrdered By: Ariadna San on 10-18-2024 MCH (RBC) [Entitic mass] 28.2 pg Normal 27.0-32.0 [facility] Comment on above: Performed By: #### L 509.8002, L501.0250, L100.0100, L3890.6006 #### [facility] [address] [place], [address] Mean corpuscular hemoglobin concentration (MCHC) determinationOrdered By: Ariadna San on 10-18-2024 MCHC (RBC) [Mass/Vol] 32.8 g/dL Normal 32-36 [facility] Comment on above: Performed By: #### L 509.8002, L501.0250, L100.0100, L3890.6006 #### [facility] [address] [place], [address] Mean platelet volume determi nationOrdered By: Ariadna San on 10-18-2024 Platelet mean volume (Bld) [Entitic vol] 9.9 fL Normal 6.2-12.0 [facility] Comment on above: Performed By: #### L 509.8002, L501.0250, L100.0100, L3890.6006 #### [facility] [address] [place], [address] Monocyte percentageOrdered B y: Ariadna San on 10-18-2024 Monocytes/100 WBC (Bld) 7.2 % Normal 0-10 [facility] Comment on above: Performed By: #### L 509.8002, L501.0250, L100.0100, L3890.6006 #### [facility] [address] [place], [address] Neutrophil percentageOrdered By: Ariadna San on 10-18-2024 Neutrophils/100 WBC (Bld) 57.1 % Normal 47-70 [facility] Comment on above: Performed By: #### L 509.8002, L501.0250, L100.0100, L3890.6006 #### [facility] [address] [place], [address] No Panel InformationOrdered By: Ariadna San on 10-18-2024 HIV (1&2) Antibody Non-Reactive Nonreactive [facility] Comment on above: Non-ReactiveReactive Repeatedly reactive samples must be confirmed according to CDC recommended confirmatory algorithms. The subresults for either HIVAG or AHIV can be used as an aid in the selection of the confirmation algorithm for reactive samples.Send out specimens with Reactive results to [facility] for confirmation.Order the HIV antibody detection and differentiation: #[id number] No Panel InformationOrdered By: Halina Butler on 10-18-2024 Unsaturated Iron Binding Capacity 379 ug/dL 228-428 [facility] Nucleated red blood cell per centageOrdered By: Ariadna San on 10-18-2024 Nucleated RBC/100 WBC (Bld) [Ratio] 0 % 0-5 [facility] Marketing Sales Manager Office Visit Reporton 10-18-2024 Marketing Sales Manager Office Visit Report [facility]'[address], [address] [place] [address] OFFICE VISIT Date of Service: 10/18/24 MR#: [id number] Acct: [id number] Name: KALEY FRY Rep #: [id number] : 1990 Provider: JADIEL fulton Age/Sex: 34/F Location: [facility] [place] Status: Signed Intake Vital Signs 05/30/24 11:34 10/16/24 11:15 10/18/24 10:51 Height 5 ft 3 in 5 ft 3 in 5 ft 3 in Weight: 186 lb 4 oz BMI 33.0 BP 98/64 Intake Visit Reasons: 28 WK OB/GLUCOSE Chief Complaint: 28 Week OB/Glucose Program Director/Air Personality Required: No Is patient in pain?: No [...] Zika: Zika virus screening: Negative : [facility] History (Updated 10/18/24 @ 11:15 by Halina Butler OUTSIDE REPAIRER SPECIAL, OUTSIDE REPAIRER SPECIAL-C) Pelvic pain Adenomyosis of uterus (spontaneous vaginal delivery) Pelvic pain affecting Anemia Supervision of high-risk Family History Mother Hypertension Uncle CVA (cerebral vascular accident) Social History adopted: No household members: family housing: house number of children: 3 current occupational status: employed and unemployed current occupation: [employer] current occupational exposures/hazards: No pets and animals: [...] 40 live - full term Female none [place] 02/21/21 Anneoscar 40 live - full term Female none SERINA Grimaldo 05/23/22 Rashida 40 live - full term 7lb6oz Male [facility] Mary ins Delivery Date: 05/04/10 Last Updated [...] NIPT. 06/28/24 (more content not included)... Normal [facility] Platelet countOrdered By: Homa San on 10-18-2024 Platelets (Bld) [#/Vol] 328 10*3/uL Normal 150-450 [facility] Comment on above: Performed By: #### L 509.8002, L501.0250, L100.0100, L3890.6006 #### [facility] [address] [place], [address] Serum or plasma ferritin porter surement (mass/volume)Ordered By: Halina Butler on 10-18-2024 Ferritin [Mass/Vol] 27 ng/mL Normal 22-378 [facility] Comment on above: Performed By: #### L 503.3250, L503.6030 #### [facility] [address] [place], [address] Serum or plasma iron saturat ion measurement (mass fraction)Ordered By: Halina Butler on 10-18-2024 Iron saturation [Mass fraction] 11.0 % Low 13-59 [facility] T. pallidum abOrdered By: Homa San on 10-18-2024 Syphilis Total Antibody Non-Reactive Nonreactiv e [facility] White blood cell (WBC) count Ordered By: Ariadna San on 10-18-2024 WBC (Bld) [#/Vol] 8.7 10*3/uL Normal 4.4-11.0 [facility] Comment on above: Performed By: #### L 509.8002, L501.0250, L100.0100, L3890.6006 #### [facility] [address] [place], [address] Urine Cultureon 10-17-2024 URC Culture exhibits no growth. Normal [facility] Comment on above: Performed By: #### M 100.2200, L7000.1800 #### [facility] [address] [place], [address] Bilirubin Test strip Ql (U)O rdered By: Felicity Cortes on 10-16-2024 Bilirubin Ql (U) Negative Negative [facility] CBC-Complete Blood Cnt No Di ffon 10-16-2024 Erythrocyte distribution width (RBC) [Ratio] 12.8 % Normal 11.6-14.6 [facility] Comment on above: Performed By: #### L 100.0500 ####[facility] [address] [place], [address] Hematocrit (Bld) [Volume fraction] 29.9 % Low 37-47 [facility] Comment on above: Performed By: #### L 100.0500 ####[facility] [address] [place], [address] Hemoglobin (Bld) [Mass/Vol] 9.7 g/dL Low 12.0-15.0 [facility] Comment on above: Performed By: #### L 100.0500 ####[facility] [address] [place], [address] MCH (RBC) [Entitic mass] 27.7 pg Normal 27.0-32.0 [facility] Comment on above: Performed By: #### L 100.0500 ####[facility] [address] [place], [address] MCHC (RBC) [Mass/Vol] 32.4 g/dL Normal 32-36 [facility] Comment on above: Performed By: #### L 100.0500 ####[facility] [address] [place], [address] MCV (RBC) [Entitic vol] 85.4 fL Normal 81-99 [facility] Comment on above: Performed By: #### L 100.0500 ####[facility] [address] [place], [address] Platelet mean volume (Bld) [Entitic vol] 9.0 fL Normal 6.2-12.0 [facility] Comment on above: Performed By: #### L 100.0500 ####[facility] [address] [place], [address] Platelets (Bld) [#/Vol] 293 10*3/uL Normal 150-450 [facility] Comment on above: Performed By: #### L 100.0500 ####[facility] [address] [place], [address] RBC (Bld) [#/Vol] 3.50 10*6/uL Low 4.2-5.4 [facility] Comment on above: Performed By: #### L 100.0500 ####[facility] [address] [place], [address] RDW SD 39.3 fl Normal 35.1-43.9 [facility] Comment on above: Performed By: #### L 100.0500 ####[facility] [address] [place], [address] WBC (Bld) [#/Vol] 9.4 10*3/uL Normal 4.4-11.0 [facility] Comment on above: Performed By: #### L 100.0500 ####[facility] [address] [place], [address] Erythrocyte distribution wid th ratioOrdered By: Felicity Cortes on 10-16-2024 Erythrocyte distribution width (RBC) [Ratio] 12.8 % 11.6-14.6 [facility] Erythrocyte distribution wid th standard deviationOrdered By: Felicity Cortes on 10-16-2024 Erythrocyte distribution width (RBC) [Entitic vol] 39.3 fL 35.1-43.9 [facility] Erythrocyte distribution width (RBC) [Ratio] 39.3 fl 35.1-43.9 [facility] Glucose Ql (U)Ordered By: Khoi Cortes on 10-16-2024 Urine Glucose (UA) Normal mg/dl Normal [facility] Hematocrit Auto (Bld) [Volum e fraction]Ordered By: Felicity Cortes on 10-16-2024 Hematocrit (Bld) [Volume fraction] 29.9 % Low 37-47 [facility] Hemoglobin measurementOrdere d By: Felicity Cortes on 10-16-2024 Hemoglobin (Bld) [Mass/Vol] 9.7 g/dL Low 12.0-15.0 [facility] Ketones Test strip Ql (U)Ord ered By: Felicity Cortes on 10-16-2024 Ketones Ql (U) Negative Negative [facility] MCV (mean corpuscular volume ) determinationOrdered By: Felicity Cortes on 10-16-2024 MCV (RBC) [Entitic vol] 85.4 fL 81-99 [facility] Mean corpuscular hemoglobin (MCH) determinationOrdered By: Felicity Cortes on 10-16-2024 MCH (RBC) [Entitic mass] 27.7 pg 27.0-32.0 [facility] Mean corpuscular hemoglobin concentration (MCHC) determinationOrdered By: Felicity Cortes on 10-16-2024 MCHC (RBC) [Mass/Vol] 32.4 g/dL 32-36 [facility] Mean platelet volume determi nationOrdered By: Felicity Cortes on 10-16-2024 Platelet mean volume (Bld) [Entitic vol] 9.0 fL 6.2-12.0 [facility] Nitrite Test strip Ql (U)Ord ered By: Felicity Cortes on 10-16-2024 Nitrite Ql (U) Negative Negative [facility] OB Triage Physician Noteon 0 10-16-2024 OB Triage Physician Note [facility] Medical Records Department [address] [place] [address] OB Triage Physician Note 10/16/24 1238 MR#: [id number] Acct: [id number] Name: KALEY FRY Rep #: [id number] : 1990 34 From: Felicity Vaca DO PCP: Care Physician,No Primary Status:REG CLI Y Location: [place] [address] HPI - General HPI Narrative KALEY FRY, is a 34 y/o who presents to D with right lower side pain radiating across her abdomen. Feels like a burning sensation. no lof, vaginal bleeding, or dec fm. no flank pain, fevers, nausea, vomiting, or diarrhea. Maternal Data Information ELISSA Calculator Estimated Delivery Date Method Current Current Estimate 01/05/25 Ultrasound #1 28w 3d [...] occupational status: employed and unemployed current occupation: [employer] current occupational exposures/hazards: No pets and animals: [...] -???-???-???-???-??? -??? (more content not included)... Normal [facility] Platelet countOrdered By: Khoi Cortes on 10-16-2024 Platelets (Bld) [#/Vol] 293 10*3/uL 150-450 [facility] Protein Test strip Ql (U)Ord ered By: Felicity Cortes on 10-16-2024 Protein Ql (U) 30 mg/dl High Negative [facility] RBC Auto (Bld) [#/Vol]Ordere d By: Felicity Cortes on 10-16-2024 RBC (Bld) [#/Vol] 3.50 10*6/uL Low 4.2-5.4 [facility] Urinalysis, Routine (Dipstic k)on 10-16-2024 BILIRUBIN URINE Negative Normal Negative [facility] Comment on above: Order Comment: CLEAN CATCH Performed By: #### L 400.2010 ####[facility] [address] [facility] [address] Clarity (U) Sl. Cloudy Normal Clear [facility] Comment on above: Order Comment: CLEAN CATCH Performed By: #### L 400.2010 ####[facility] [address] [facility] [address] Color (U) Yellow Normal Yellow [facility] Comment on above: Order Comment: CLEAN CATCH Performed By: #### L 400.2010 ####[facility] [address] [place], [address] GLUCOSE, UR Normal Normal Normal [facility] Comment on above: Order Comment: CLEAN CATCH Performed By: #### L 400.2010 ####[facility] [address] [place], [address] KETONE UR Negative Normal Negative [facility] Comment on above: Order Comment: CLEAN CATCH Performed By: #### L 400.2010 ####[facility] [address] [place], [address] LEUK ESTERASE 25 /ul Abnormal Negative [facility] Comment on above: Order Comment: CLEAN CATCH Performed By: #### L 400.2010 ####[facility] [address] [place], [address] Nitrite Ql (U) Negative Normal Negative [facility] Comment on above: Order Comment: CLEAN CATCH Performed By: #### L 400.2010 ####[facility] [address] [place], [address] OCCULT BLOOD-UR 10 /ul Abnormal Negative [facility] Comment on above: Order Comment: CLEAN CATCH Performed By: #### L 400.2010 ####[facility] [address] [place], [address] pH UR 6.5 Normal 5.0 - 8.0 [facility] Comment on above: Order Comment: CLEAN CATCH Performed By: #### L 400.2010 ####[facility] [address] [place], [address] PROT DIPSTX 30 mg/dl Abnormal Negative [facility] Comment on above: Order Comment: CLEAN CATCH Performed By: #### L 400.2010 ####[facility] [address] [place], [address] SP.GR. DIPSTX 1.010 Normal 1.002-1.030 [facility] Comment on above: Order Comment: CLEAN CATCH Performed By: #### L 400.2010 ####[facility] [address] [place], [address] UROBILI Normal Normal Normal [facility] Comment on above: Order Comment: CLEAN CATCH Performed By: #### L 400.2010 ####[facility] [address] [place], [address] Urine blood detectionOrdered By: Felicity Cortes on 10-16-2024 Urine Occult Blood 10 /ul High Negative [facility] Urine clarityOrdered By: Connie Cortes on 10-16-2024 Clarity (U) Sl. Cloudy Clear [facility] Urine color determinationOrd ered By: Felicity Cortes on 10-16-2024 Color (U) Yellow Yellow [facility] Urine cultureOrdered By: Connie Cortes on 10-16-2024 Bacteria identified Cx Nom (U) Culture exhibits no growth. [facility] Urine glucose detectionOrder ed By: Felicity Cortes on 10-16-2024 Glucose Ql (U) Normal mg/dl Normal [facility] Urine leukocyte esterase det ection by dipstickOrdered By: Felicity Cortes on 10-16-2024 Leukocyte esterase Test strip Ql (U) 25 /ul High Negative [facility] Urine pHOrdered By: Felicity Cortes on 10-16-2024 pH (U) 6.5 [pH] 5.0 - 8.0 [facility] Urine specific gravity measu rementOrdered By: Felicity Cortes on 10-16-2024 Specific gravity (U) [Rel density] 1.010 1.002-1.030 [facility] Urine urobilinogen measureme ntOrdered By: Felicity Cortes on 10-16-2024 Urobilinogen Ql (U) Normal mg/dl Normal [facility] Urobilinogen Ql (U)Ordered B y: Felicity Cortes on 10-16-2024 Urine Urobilinogen Normal mg/dl Normal [facility] White blood cell (WBC) count Ordered By: Felicity Cortes on 10-16-2024 WBC (Bld) [#/Vol] 9.4 10*3/uL 4.4-11.0 [facility] Laboratory - Chemistry and C hemistry - challengeOrdered By: Bonnie Noriega on 10-04-2024 Glucose Ql (U) Negative [facility] Laboratory - UrinalysisOrder ed By: Bonnie Noriega on 10-04-2024 Protein Ql (U) Negative [facility] Marketing Sales Manager Office Visit Reporton 10-04-2024 Marketing Sales Manager Office Visit Report [facility] [address], [address] [place] [address] OFFICE VISIT Date of Service: 10/04/24 MR#: [id number] Acct: [id number] Name: KALEY FRY Rep #: [id number] : 1990 Provider: Dr. Bonnie woods MD Age/Sex: 34/F Location: [facility] Status: Signed Intake Vital Signs 10/04/24 10:13 10/04/24 10:19 Height 5 ft 3 in 5 ft 3 in Weight: 179 lb 8 oz 179 lb 8 oz BMI 31.8 31.8 BP 99/61 99/61 Intake Visit Reasons: OB, pelvic pain, can't do the exercises Program Director/Air Personality Required: No Is patient in pain?: Yes [...] occupational status: employed and unemployed current occupation: [employer] current occupational exposures/hazards: No pets and animals: [...] Weight Infant Gen Labor Lgth Anesthesia Del Nagaatn Provider ROSA 07/[birth year]/08 delivered 2009 son 1 [...] Date: 05/23/22 Last Updated by: Zee BEEBE HPI OB, pelvic pain, can't do the [...] -???-???-???-???-??? -???-?? (more content not included)... Normal [facility] Laboratory - Chemistry and C hemistry - challengeOrdered By: Ariadna San on 09-20-2024 Glucose Ql (U) Negative [facility] Laboratory - UrinalysisOrder ed By: Ariadna San on 09-20-2024 Protein Ql (U) Negative [facility] Marketing Sales Manager Office Visit Reporton 09-20-2024 Marketing Sales Manager Office Visit Report [facility] [address], [facility] [address] [place] [address] OFFICE VISIT Date of Service: 09/20/24 MR#: [id number] Acct: [id number] Name: EDWARD ROSSKALEYCAMMIE Escamilla Rep #: [id number] : 1990 Provider: ARNOLD aviles Age/Sex: 34/F Location: [facility] Status: Signed Intake Vital Signs 05/30/24 11:34 08/26/24 14:00 09/20/24 15:06 09/20/24 15:06 Height 5 ft 3 in 5 ft 3 in 5 ft 3 in Weight: 179 lb 8 oz BMI 31.8 BP 93/59 L Intake Visit Reasons: 24 WK OB Program Director/Air Personality Required: No Is patient in pain?: No [...] occupational status: employed and unemployed current occupation: [employer] current occupational exposures/hazards: No pets and animals: [...] 40 live - full term 7lb6oz Male [facility] Mary ins Delivery Date: 05/04/10 Last Updated [...] compl a (more content not included)... Normal [facility] OB Anatomy w/ Transvaginalon 08-30-2024 OB Anatomy w/ Transvaginal [facility] Imaging Services [address] [place] [address] OB Anatomy w/ Transvaginal MR#: [id number] Acct: [id number] Name: EDWARD ROSSKALEY JESUS Francine Rep #: [id number] : 1990 F 34 From: Luiz Santo i DO PCP: Care Physician,No Primary Status: [facility] Study: OB Anatomy w/ Transvaginal Date of Exam: 08/30 Exam# [id number] Ordering Dr: Bonnie Noriega PROCEDURE: ultrasound. REASON [...] Bonnie Noriega MD; No Primary Care Physician Emergency Worker: Signed Normal [facility] Laboratory - Chemistry and C hemistry - challengeOrdered By: Bonnie Noriega on 08-26-2024 Glucose Ql (U) Negative [facility] Laboratory - UrinalysisOrder ed By: Bonnie Noriega on 08-26-2024 Protein Ql (U) Negative [facility] Marketing Sales Manager Office Visit Reporton 08-26-2024 Marketing Sales Manager Office Visit Report [facility] [address], [address] [place] [address] OFFICE VISIT Date of Service: 08/26/24 MR#: [id number] Acct: [id number] Name: KALEY FRY Rep #: [id number] : 1990 Provider: Dr. Bonnie woods MD Age/Sex: 34/F Location: [facility] Status: Signed Intake Vital Signs 07/26/24 14:55 08/26/24 14:00 Height 5 ft 3 in 5 ft 3 in Weight: 178 lb 8 oz BMI 31.6 BP 98/66 Intake Visit Reasons: 20 wk ob Program Director/Air Personality Required: No Is patient in pain?: Yes [...] occupational status: employed and unemployed current occupation: [employer] current occupational exposures/hazards: No pets and animals: [...] 157 -???-???- (more content not included)... Normal [facility] .Auto Diffon 08-13-2024 Basophil, Absolute 0.0 10 3/mcL Normal 0.0-0.3 [facility] Comment on above: Performed By: #### G FR, ANEU, MG, MDW, CBC, CMP, LD, APTT, ADIFF, PRO #### [facility] [address] [place], [place] [address] Basophils/100 WBC (Bld) 0.6 % Normal 0.0-2.5 [facility] Comment on above: Performed By: #### G FR, ANEU, MG, MDW, CBC, CMP, LD, APTT, ADIFF, PRO #### [facility] [address] [place], [place] [address] Eosinophil, Absolute 0.2 10 3/mcL Normal 0.0-0.7 [facility] Comment on above: Performed By: #### G FR, ANEU, MG, MDW, CBC, CMP, LD, APTT, ADIFF, PRO #### [facility] [address] [place], [place] [address] Eosinophils/100 WBC (Bld) 2.1 % Normal 0.0-6.0 [facility] Comment on above: Performed By: #### G FR, ANEU, MG, MDW, CBC, CMP, LD, APTT, ADIFF, PRO #### [facility] [address] [place], [place] [address] Lymphocyte, Absolute 2.0 10 3/mcL Normal 0.9-4.3 [facility] Comment on above: Performed By: #### G FR, ANEU, MG, MDW, CBC, CMP, LD, APTT, ADIFF, PRO #### [facility] [address] [place], [place] [address] Lymphocytes/100 WBC (Bld) 27.2 % Normal 20.0-40.0 [facility] Comment on above: Performed By: #### G FR, ANEU, MG, MDW, CBC, CMP, LD, APTT, ADIFF, PRO #### [facility] [address] [place], [place] [address] Monocyte, Absolute 0.6 10 3/mcL Normal 0.1-1.4 [facility] Comment on above: Performed By: #### G FR, ANEU, MG, MDW, CBC, CMP, LD, APTT, ADIFF, PRO #### [facility] [address] [place], [place] [address] Monocytes/100 WBC (Bld) 8.4 % Normal 2.0-13.0 [facility] Comment on above: Performed By: #### G FR, ANEU, MG, MDW, CBC, CMP, LD, APTT, ADIFF, PRO #### [facility] [address] [place], [place] [address] Neutrophils/100 WBC (Bld) 61.7 % Normal 50.0-75.0 [facility] Comment on above: Performed By: #### G FR, ANEU, MG, MDW, CBC, CMP, LD, APTT, ADIFF, PRO #### [facility] [address] [place], [place] [address] .GFRon 08-13-2024 GFR 127 ml/min/1.73sqm Normal [facility] Comment on above: Result Comment: GFR Population [...] CMP, LD, APTT, ADIFF, PRO #### [facility] [address] [place], [place] [address] GFR Non- 105 ml/min/1.73sqm Normal [facility] Comment on above: Result Comment: GFR Population [...] CMP, LD, APTT, ADIFF, PRO #### [facility] [address] [place], [place] [address] .MDWon 01-21-2025 Monocyte Distribution Width 18.02 Normal 0.00-20.00 [facility] Comment on above: Result Comment: For ED adult patients suspected of sepsis, MDW<=20.0 does not rule out sepsis or risk of sepsis Performed By: #### G FR, ANEU, MG, MDW, CBC, CMP, LD, APTT, ADIFF, PRO #### [facility] [address] [place] [id number] .NEUABSon 08-13-2024 Neutrophil, Absolute 4.5 10 3/mcL Normal 2.3-8.1 [facility] Comment on above: Performed By: #### G FR, ANEU, MG, MDW, CBC, CMP, LD, APTT, ADIFF, PRO #### [facility] [address] [place] [address] APTTon 08-13-2024 aPTT Coag (Bld) [Time] 27.3 s Normal 25.0-35.0 [facility] Comment on above: Performed By: #### G FR, ANEU, MG, MDW, CBC, CMP, LD, APTT, ADIFF, PRO #### [facility] [address] [place] [address] CBCon 08-13-2024 Erythrocyte distribution width (RBC) [Ratio] 12.7 % Normal 11.5-15.5 [facility] Comment on above: Performed By: #### G FR, ANEU, MG, MDW, CBC, CMP, LD, APTT, ADIFF, PRO #### [facility] [address] [place] [address] Hematocrit (Bld) [Volume fraction] 31.9 % Low 34.0-46.0 [facility] Comment on above: Performed By: #### G FR, ANEU, MG, MDW, CBC, CMP, LD, APTT, ADIFF, PRO #### [facility] [facility] [address] [place] [id number] Hgb 10.5 G/dL Low 12.0-16.0 [facility] Comment on above: Performed By: #### G FR, ANEU, MG, MDW, CBC, CMP, LD, APTT, ADIFF, PRO #### [facility] [address] [place], [place] [address] MCH (RBC) [Entitic mass] 28.1 pg Normal 27.0-33.0 [facility] Comment on above: Performed By: #### G FR, ANEU, MG, MDW, CBC, CMP, LD, APTT, ADIFF, PRO #### [facility] [address] [place], [place] [address] MCHC 32.9 G/dL Normal 32.0-36.0 [facility] Comment on above: Performed By: #### G FR, ANEU, MG, MDW, CBC, CMP, LD, APTT, ADIFF, PRO #### [facility] [address] [place], [place] [address] MCV (RBC) [Entitic vol] 85.4 fL Normal 80.0-99.0 [facility] Comment on above: Performed By: #### G FR, ANEU, MG, MDW, CBC, CMP, LD, APTT, ADIFF, PRO #### [facility] [address] [place], [place] [address] Platelet 319 10 3/mcL Normal 150-450 [facility] Comment on above: Performed By: #### G FR, ANEU, MG, MDW, CBC, CMP, LD, APTT, ADIFF, PRO #### [facility] [address] [place], [place] [address] Platelet mean volume (Bld) [Entitic vol] 7.2 fL Normal 6.6-10.5 [facility] Comment on above: Performed By: #### G FR, ANEU, MG, MDW, CBC, CMP, LD, APTT, ADIFF, PRO #### [facility] [address] [place], [place] [address] RBC 3.74 10 6/mcL Low 4.10-5.30 [facility] Comment on above: Performed By: #### G FR, ANEU, MG, MDW, CBC, CMP, LD, APTT, ADIFF, PRO #### [facility] [address] [place], [place] [address] WBC 7.3 10 3/mcL Normal 4.5-10.8 [facility] Comment on above: Performed By: #### G FR, ANEU, MG, MDW, CBC, CMP, LD, APTT, ADIFF, PRO #### [facility] [address] [place], [place] [address] CMPon 08-13-2024 Albumin Level 3.3 G/dL Low 3.5-5.0 [facility] Comment on above: Performed By: #### G FR, ANEU, MG, MDW, CBC, CMP, LD, APTT, ADIFF, PRO #### [facility] [address] [place], [place] [address] Albumin/Globulin [Mass ratio] 0.8 {ratio} Low 1.1-2.5 [facility] Comment on above: Performed By: #### G FR, ANEU, MG, MDW, CBC, CMP, LD, APTT, ADIFF, PRO #### [facility] [address] [place], [place] [address] ALP [Catalytic activity/Vol] 72 U/L Normal 40-135 [facility] Comment on above: Performed By: #### G FR, ANEU, MG, MDW, CBC, CMP, LD, APTT, ADIFF, PRO #### [facility] [address] [place], [place] [address] ALT [Catalytic activity/Vol] 16 U/L Normal 14-59 [facility] Comment on above: Performed By: #### G FR, ANEU, MG, MDW, CBC, CMP, LD, APTT, ADIFF, PRO #### [facility] [address] [place], [place] [address] AST [Catalytic activity/Vol] 15 U/L Normal 10-40 [facility] Comment on above: Performed By: #### G FR, ANEU, MG, MDW, CBC, CMP, LD, APTT, ADIFF, PRO #### [facility] [address] [place], [place] [address] Bili Total 0.5 mg/dL Normal 0.2-1.0 [facility] Comment on above: Result Comment: Use of this assay is not recommended for patients undergoing treatment with eltrombopag due to the potential for falsely elevated results. Performed By: #### G FR, ANEU, MG, MDW, CBC, CMP, LD, APTT, ADIFF, PRO #### [facility] [address] [place], [place] [address] BUN/Creatinine Ratio 8 ratio Normal 7-27 [facility] Comment on above: Performed By: #### G FR, ANEU, MG, MDW, CBC, CMP, LD, APTT, ADIFF, PRO #### [facility] [address] [place], [place] [address] Calcium [Mass/Vol] 8.9 mg/dL Normal 8.4-10.2 [facility] Comment on above: Performed By: #### G FR, ANEU, MG, MDW, CBC, CMP, LD, APTT, ADIFF, PRO #### [facility] [address] [place], [place] [address] Chloride [Moles/Vol] 101 mmol/L Normal 98-107 [facility] Comment on above: Performed By: #### G FR, ANEU, MG, MDW, CBC, CMP, LD, APTT, ADIFF, PRO #### [facility] [address] [place], [place] [address] CO2 [Moles/Vol] 27 mmol/L Normal 22-29 [facility] Comment on above: Performed By: #### G FR, ANEU, MG, MDW, CBC, CMP, LD, APTT, ADIFF, PRO #### [facility] [address] [place], [place] [address] Creatinine [Mass/Vol] 0.65 mg/dL Normal 0.55-1.02 [facility] Comment on above: Result Comment: Test ing performed on Siemens Dimension EXL analyzer using a modified kinetic Larisa technique. Performed By: #### G FR, ANEU, MG, MDW, CBC, CMP, LD, APTT, ADIFF, PRO #### [facility] [address] [place], [place] [address] Electrolyte Balance 8.0 mEq/L Normal 4.0-15.0 [facility] Comment on above: Performed By: #### G FR, ANEU, MG, MDW, CBC, CMP, LD, APTT, ADIFF, PRO #### [facility] [address] [place], [place] [address] Globulin 4.4 G/dL Normal [facility] Comment on above: Performed By: #### G FR, ANEU, MG, MDW, CBC, CMP, LD, APTT, ADIFF, PRO #### [facility] [address] [place], [place] [address] Glucose [Mass/Vol] 74 mg/dL Normal 70-105 [facility] Comment on above: Performed By: #### G FR, ANEU, MG, MDW, CBC, CMP, LD, APTT, ADIFF, PRO #### [facility] [address] [place], [place] [address] Potassium [Moles/Vol] 3.4 mmol/L Low 3.5-5.1 [facility] Comment on above: Performed By: #### G FR, ANEU, MG, MDW, CBC, CMP, LD, APTT, ADIFF, PRO #### [facility] [address] [place], [place] [address] Sodium [Moles/Vol] 136 mmol/L Normal 136-145 AULTMA N MASSILLON Comment on above: Performed By: #### G FR, ANEU, MG, MDW, CBC, CMP, LD, APTT, ADIFF, PRO #### [facility] [place] [address] [place], [place] [address] Total Protein 7.7 G/dL Normal 6.4-8.2 CHARITO MASSILLO Comment on above: Performed By: #### G FR, ANEU, MG, MDW, CBC, CMP, LD, APTT, ADIFF, PRO #### [facility] [place] [address] [place], [place] [address] Urea nitrogen [Mass/Vol] 5 mg/dL Low 7-18 CHARITO MASSILLO Comment on above: Performed By: #### G FR, ANEU, MG, MDW, CBC, CMP, LD, APTT, ADIFF, PRO #### [facility] [address] [place] [id number] CVFLURVon 08-13-2024 FLU A PCR Negative Normal Negative [facility] Comment on above: Performed By: #### G FR, ANEU, MG, MDW, CBC, CMP, LD, APTT, ADIFF, PRO #### [facility] [place] [address] [place] [address] FLU B PCR Negative Normal Negative [facility] Comment on above: Performed By: #### G FR, ANEU, MG, MDW, CBC, CMP, LD, APTT, ADIFF, PRO #### [facility] [place] [address] [place] [address] RSV PCR Negative Normal Negative [facility] Comment on above: Performed By: #### G FR, ANEU, MG, MDW, CBC, CMP, LD, APTT, ADIFF, PRO #### [facility] [place] [address] [place] [address] SARS-CoV-2 (COVID-19) RNA NELLY+probe Ql (Unsp spec) Negative Normal Negative [facility] Comment on above: Result Comment: This test [...] CMP, LD, APTT, ADIFF, PRO #### [facility] [place] [address] [place], [place] [address] LDHon 08-13-2024 LDH 149 U/L Normal 81-234 [facility] Comment on above: Performed By: #### G FR, ANEU, MG, MDW, CBC, CMP, LD, APTT, ADIFF, PRO #### [facility] [address] [place], [place] [address] MGon 08-13-2024 Magnesium [Mass/Vol] 1.9 mg/dL Normal 1.8-2.4 [facility] Comment on above: Performed By: #### G FR, ANEU, MG, MDW, CBC, CMP, LD, APTT, ADIFF, PRO #### [facility] [address] [place], [place] [address] PROon 08-13-2024 PT Coag (PPP) [Time] 12.2 s Normal 9.0-14.4 [facility] Comment on above: Performed By: #### G FR, ANEU, MG, MDW, CBC, CMP, LD, APTT, ADIFF, PRO #### [facility] [address] [place], [place] [address] PT International Ratio 1.0 Normal [facility] Comment on above: Result Comment: The [employer] (CHEST, 1992, 102:312S-25S) recommended therapeutic range for oral anticoagulant therapy is: LOW RISK: Prophylaxis of venous thrombosis INR: 2.0-3.0 Treatment of pulmonary embolism 2.0-3.0 Prevention of systemic embolism 2.0-3.0 HIGH RISK: Mechanical prosthetic valves 2.5-3.5 Performed By: #### G FR, ANEU, MG, MDW, CBC, CMP, LD, APTT, ADIFF, PRO #### [facility] [address] [place], [place] [address] UAon 08-13-2024 Color (U) Dark yellow Normal CHARITO MASSILLON Comment on above: Performed By: #### G FR, ANEU, MG, MDW, CBC, CMP, LD, APTT, ADIFF, PRO #### [facility] [place] [address] [place], [place] [address] Glucose (U) [Mass/Vol] Negative Normal Negative AU LTMAN MASSILLON Comment on above: Performed By: #### G FR, ANEU, MG, MDW, CBC, CMP, LD, APTT, ADIFF, PRO #### [facility] [place] [address] [place], [place] [address] Ketones Ql (U) Trace Normal Neg-Trace CHARITO MASSILLON Comment on above: Performed By: #### G FR, ANEU, MG, MDW, CBC, CMP, LD, APTT, ADIFF, PRO #### [facility] [place] [address] [place], [place] [address] UA Appear Clear Normal [facility]ITO [facility]SILLON Comment on above: Performed By: #### G FR, ANEU, MG, MDW, CBC, CMP, LD, APTT, ADIFF, PRO #### [facility] [place] [address] [place], [place] [address] UA Blood Trace Normal Neg-Trace CHARITO MASSILLON Comment on above: Performed By: #### G FR, ANEU, MG, MDW, CBC, CMP, LD, APTT, ADIFF, PRO #### [facility] [place] [address] [place], [place] [address] UA Leuk Est Negative Normal Negative CHARITO MASSILLON Comment on above: Performed By: #### G FR, ANEU, MG, MDW, CBC, CMP, LD, APTT, ADIFF, PRO #### [facility] [address] [place], [place] [address] UA Nitrite Negative Normal Negative CHARITO MASSILLON Comment on above: Performed By: #### G FR, ANEU, MG, MDW, CBC, CMP, LD, APTT, ADIFF, PRO #### [facility] [place] [address] [place], [place] [address] UA pH 6.5 Normal 5.0 - 8.0 CHARITO MASSILLON Comment on above: Performed By: #### G FR, ANEU, MG, MDW, CBC, CMP, LD, APTT, ADIFF, PRO #### [facility] [address] [place] [phone] UA Protein Trace Normal Negative CHARITO MASSILLON Comment on above: Performed By: #### G FR, ANEU, MG, MDW, CBC, CMP, LD, APTT, ADIFF, PRO #### [facility] [address] [place] [address] UA Spec Grav 1.025 Normal CHARITO MASSILLON Comment on above: Performed By: #### G FR, ANEU, MG, MDW, CBC, CMP, LD, APTT, ADIFF, PRO #### [facility] [address] [place] [address] UA Specimen Type Clean Catch Normal CHARITO MASSILLON Comment on above: Performed By: #### G FR, ANEU, MG, MDW, CBC, CMP, LD, APTT, ADIFF, PRO #### [facility] [address] [place] [address] UA Urobilinogen 1.0 E.U./dL Normal CHARITO MASSILLON Comment on above: Performed By: #### G FR, ANEU, MG, MDW, CBC, CMP, LD, APTT, ADIFF, PRO #### [facility] [address] [place] [phone] Urobilinogen (U) [Mass/Vol] Negative Normal Neg-Trace CHARITO MASSILLON Comment on above: Performed By: #### G FR, ANEU, MG, MDW, CBC, CMP, LD, APTT, ADIFF, PRO #### [facility] [address] [place] [address] Laboratory - Chemistry and C hemistry - challengeon 07-26-2024 Glucose Ql (U) Negative [facility] Laboratory - Urinalysison Protein Ql (U) Negative [facility] Marketing Sales Manager Office Visit Reporton 07-26-2024 Marketing Sales Manager Office Visit Report [facility] [address], [address] [place] [address] OFFICE VISIT Date of Service: 07/26/24 MR#: [id number] Acct: [id number] Name: KALEY FRY Rep #: [id number] : 1990 Provider: Dr. Bonnie woods MD Age/Sex: 34/F Location: [facility] Status: Signed Intake Vital Signs 05/30/24 11:34 06/28/24 13:23 07/26/24 14:55 Height 5 ft 3 in 5 ft 3 in 5 ft 3 in Weight: 177 lb 6 oz BMI 31.4 BP 98/64 Intake Visit Reasons: 16 WK OB Program Director/Air Personality Required: No Is patient in pain?: No [...] occupational status: employed and unemployed current occupation: [employer] current occupational exposures/hazards: No pets and animals: [...] 41 live - full term 7lb6oz Male [facility] Mary ins Delivery Date: 05/04/10 Last Updated [...] -???-???-???-???-??? -???-???- (more content not included)... Normal [facility] LABORATORYOrdered By: Nat Sommers on 07-10-2024 Appearance (U) Clear (07/10/24 8:53 AM) Normal Clear AH Auto Urine SS Bilirubin Ql (U) Negative (07/10/24 8:53 AM) Normal Neg-Trace AH Auto Urine SS Color (U) Yellow (07/10/24 [...] (07/10/24 8:53 AM) Normal 1.006-1.029 Auto Urine UA Specimen Type Clean Catch (07/10/24 8:53 AM) Normal Auto Urine UA Urobilinogen 1.0 E.U./dL Normal 0.2-1.0 Auto Urine UAon 07-10-2024 Color (U) Yellow Normal [facility] Comment on above: Performed By: #### U A #### [address] [address] Glucose (U) [Mass/Vol] Negative Normal Negative [facility] Comment on above: Performed By: #### U A #### [address] [address] Ketones Ql (U) Negative Normal Neg-Trace [facility] Comment on above: Performed By: #### U A #### [address] [address] UA Appear Clear Normal Clear [facility] Comment on above: Performed By: #### U A #### [address] [address] UA Blood Negative Normal Neg-Trace [facility] Comment on above: Performed By: #### U A #### [address] [address] UA Leuk Est Trace Normal Negative [facility] Comment on above: Performed By: #### U A #### [address] [address] UA Nitrite Negative Normal Negative [facility] Comment on above: Performed By: #### U A #### [address] [address] UA pH 8.0 Normal 5.0 - 8.0 [facility] Comment on above: Performed By: #### U A #### [address] [address] UA Protein Negative Normal Negative [facility] Comment on above: Performed By: #### U A #### [address] [address] UA Spec Grav 1.020 Normal 1.006-1.029 [facility] Comment on above: Performed By: #### U A #### [place] [id number] UA Specimen Type Clean Catch Normal [facility] Comment on above: Performed By: #### U A #### [place] [id number] UA Urobilinogen 1.0 E.U./dL Normal 0.2-1.0 [facility] Comment on above: Performed By: #### U A #### [place] [id number] Urobilinogen (U) [Mass/Vol] Negative Normal Neg-Trace [facility] Comment on above: Performed By: #### U A #### [place] [address] Absolute neutrophil countOrd ered By: Steffi Jackson on 06-28-2024 Neutrophils (Bld) [#/Vol] 4.7 10*3/uL 2.0-7.7 [facility] Basophil percentageOrdered B y: Steffi Jackson on 06-28-2024 Basophils/100 WBC (Bld) 0.4 % 0-1 [facility] CBC W/Diff, Automatedon Absolute Lymph 2.52 X10 3/uL Normal 0.83-4.51 [facility] Comment on above: Performed By: #### B TS, L3890.6300, L3890.6005, L509.4005, L3890.6100, L100.0100, L509.8000 ####[facility] [address] [place], [address] Absolute Neut 4.7 X10 3/uL Normal 2.0-7.7 [facility] Comment on above: Performed By: #### B TS, L3890.6300, L3890.6005, L509.4005, L3890.6100, L100.0100, L509.8000 ####[facility] [address] [place], [address] Basophils/100 WBC (Bld) 0.4 % Normal 0-1 [facility] Comment on above: Performed By: #### B TS, L3890.6300, L3890.6005, L509.4005, L3890.6100, L100.0100, L509.8000 ####[facility] [address] [place], [address] Eosinophils/100 WBC (Bld) 1.6 % Normal 0-5 [facility] Comment on above: Performed By: #### B TS, L3890.6300, L3890.6005, L509.4005, L3890.6100, L100.0100, L509.8000 ####[facility] [address] [place], [address] Erythrocyte distribution width (RBC) [Ratio] 12.4 % Normal 11.6-14.6 [facility] Comment on above: Performed By: #### B TS, L3890.6300, L3890.6005, L509.4005, L3890.6100, L100.0100, L509.8000 ####[facility] [address] [place], [address] Hematocrit (Bld) [Volume fraction] 33.1 % Low 37-47 [facility] Comment on above: Performed By: #### B TS, L3890.6300, L3890.6005, L509.4005, L3890.6100, L100.0100, L509.8000 ####[facility] [address] [place], [address] Hemoglobin (Bld) [Mass/Vol] 10.5 g/dL Low 12.0-15.0 [facility] Comment on above: Performed By: #### B TS, L3890.6300, L3890.6005, L509.4005, L3890.6100, L100.0100, L509.8000 ####[facility] [address] [place], [address] IG% 0.300 Normal 0.0-0.9 [facility] Comment on above: Result Comment: IG% - Immature Granulocytes (promyelocytes, myelocytes and metamyelocytes) > 1% indicates that a LEFT SHIFT is Present. Performed By: #### B TS, L3890.6300, L3890.6005, L509.4005, L3890.6100, L100.0100, L509.8000 ####[facility] [address] [place], [address] Lymphocytes/100 WBC (Bld) 31.6 % Normal 19-41 [facility] Comment on above: Performed By: #### B TS, L3890.6300, L3890.6005, L509.4005, L3890.6100, L100.0100, L509.8000 ####[facility] [address] [place], [address] MCH (RBC) [Entitic mass] 27.5 pg Normal 27.0-32.0 [facility] Comment on above: Performed By: #### B TS, L3890.6300, L3890.6005, L509.4005, L3890.6100, L100.0100, L509.8000 ####[facility] [address] [place], [address] MCHC (RBC) [Mass/Vol] 31.7 g/dL Low 32-36 [facility] Comment on above: Performed By: #### B TS, L3890.6300, L3890.6005, L509.4005, L3890.6100, L100.0100, L509.8000 ####[facility] [address] [place], [address] MCV (RBC) [Entitic vol] 86.6 fL Normal 81-99 [facility] Comment on above: Performed By: #### B TS, L3890.6300, L3890.6005, L509.4005, L3890.6100, L100.0100, L509.8000 ####[facility] [address] [place], [address] Monocytes/100 WBC (Bld) 7.0 % Normal 0-10 [facility] Comment on above: Performed By: #### B TS, L3890.6300, L3890.6005, L509.4005, L3890.6100, L100.0100, L509.8000 ####[facility] [address] [place], [address] Neutrophils/100 WBC (Bld) 59.1 % Normal 47-70 [facility] Comment on above: Performed By: #### B TS, L3890.6300, L3890.6005, L509.4005, L3890.6100, L100.0100, L509.8000 ####[facility] [address] [place], [address] Nucleated RBC (Bld) [#/Vol] 0 10*3/uL Normal 0-5 [facility] Comment on above: Performed By: #### B TS, L3890.6300, L3890.6005, L509.4005, L3890.6100, L100.0100, L509.8000 ####[facility] [address] [place], [address] Platelet mean volume (Bld) [Entitic vol] 9.4 fL Normal 6.2-12.0 [facility] Comment on above: Performed By: #### B TS, L3890.6300, L3890.6005, L509.4005, L3890.6100, L100.0100, L509.8000 ####[facility] [address] [place], [address] Platelets (Bld) [#/Vol] 340 10*3/uL Normal 150-450 [facility] Comment on above: Performed By: #### B TS, L3890.6300, L3890.6005, L509.4005, L3890.6100, L100.0100, L509.8000 ####[facility] [address] [place], [address] RBC (Bld) [#/Vol] 3.82 10*6/uL Low 4.2-5.4 [facility] Comment on above: Performed By: #### B TS, L3890.6300, L3890.6005, L509.4005, L3890.6100, L100.0100, L509.8000 ####[facility] [address] [place], [address] RDW SD 39.4 fl Normal 35.1-43.9 [facility] Comment on above: Performed By: #### B TS, L3890.6300, L3890.6005, L509.4005, L3890.6100, L100.0100, L509.8000 ####[facility] [address] [place], [address] WBC (Bld) [#/Vol] 8.0 10*3/uL Normal 4.4-11.0 [facility] Comment on above: Performed By: #### B TS, L3890.6300, L3890.6005, L509.4005, L3890.6100, L100.0100, L509.8000 ####[facility] [address] [place], [address] Eosinophil percentageOrdered By: Steffi Jackson on 06-28-2024 Eosinophils/100 WBC (Bld) 1.6 % 0-5 [facility] Erythrocyte distribution wid th ratioOrdered By: Steffi Jackson on 06-28-2024 Erythrocyte distribution width (RBC) [Ratio] 12.4 % 11.6-14.6 [facility] Erythrocyte distribution wid th standard deviationOrdered By: Steffi Jackson on 06-28-2024 Erythrocyte distribution width (RBC) [Entitic vol] 39.4 fL 35.1-43.9 [facility] HIV - WCHon 06-28-2024 HIV Non-Reactive Normal Nonreactive [facility] Comment on above: Order Comment: Reaso n for Exam: Performed By: #### B TS, L3890.6300, L3890.6005, L509.4005, L3890.6100, L100.0100, L509.8000 ####[facility] [address] [place], [place], [id number] HIV 1+2 Ab+HIV1 p24 Ag IA Ql Ordered By: Steffi Jackson on 06-28-2024 HIV (1&2) Antibody Non-Reactive Nonreactive [facility] Hematocrit Auto (Bld) [Volum e fraction]Ordered By: Steffi Jackson on 06-28-2024 Hematocrit (Bld) [Volume fraction] 33.1 % Low 37-47 [facility] Hemoglobin measurementOrdere d By: Steffi Jackson on 06-28-2024 Hemoglobin (Bld) [Mass/Vol] 10.5 g/dL Low 12.0-15.0 [facility] Hepatitis B Surface Antigeno n 06-28-2024 HEP B Surf Ag Non-Reactive [facility] Comment on above: Order Comment: Reaso n for Exam: Performed By: #### B TS, L3890.6300, L3890.6005, L509.4005, L3890.6100, L100.0100, L509.8000 ####[facility] [address] [place], [place], [address] Hepatitis B surface antigen detectionOrdered By: Steffi Jackson on 06-28-2024 Hepatitis B Surface Antigen Non-Reactive Nonreactive [facility] Hepatitis C Antibodyon 06-28 Hepatitis C AB Non-Reactive Normal Nonreactive [facility] Comment on above: Order Comment: Reaso n for Exam: Result Comment: Non Reactive: < 0.8 Equivocal: >/= 0.8 to < 1.0 Reactive: >/= 1.0 The [facility] requires that a reactive/equivocal HCV antibody result be sent out for confirmation. HCV Quant by PCR testing. Performed By: #### M 100.2200, L7000.1800 #### [facility] [address] [place], [place], [id number] Hepatitis C virus antibody a ssayOrdered By: Steffi Jackson on 06-28-2024 Hepatitis C Antibody Non-Reactive Nonreactive [facility] Comment on above: Non Reactive: < 0.8 Equivocal: >/= 0.8 to < 1.0 Reactive: >/= 1.0The [facility] requires that a reactive/equivocal HCV antibody result be sent out for confirmation. HCV Quant by PCR testing. Immature granulocytes/100 WB C Auto (Bld)Ordered By: Steffi Jackson on 06-28-2024 Immature granulocytes/100 WBC (Bld) 0.300 % 0.0-0.9 [facility] Comment on above: IG% - Immature Granu locytes (promyelocytes, myelocytes and metamyelocytes) > 1% indicates that a LEFT SHIFT is Present. L509.8000on 06-28-2024 Syphilis Abs Non-Reactive Normal [facility] Comment on above: Order Comment: Reaso n for Exam: Performed By: #### B TS, L3890.6300, L3890.6005, L509.4005, L3890.6100, L100.0100, L509.8000 ####[facility] [address] [place], [address] Laboratory - Chemistry and C hemistry - challengeon 06-28-2024 Glucose Ql (U) Negative [facility] Laboratory - Urinalysison Protein Ql (U) Trace [facility] Lymphocytes Auto (Unsp spec) [#/Vol]Ordered By: Steffi Jackson on 06-28-2024 Lymphocytes (Bld) [#/Vol] 2.52 10*3/uL 0.83-4.51 [facility] Lymphocytes/100 WBC Auto (Un sp spec)Ordered By: Steffi Jackson on 06-28-2024 Lymphocytes/100 WBC (Bld) 31.6 % 19-41 [facility] MCV (mean corpuscular volume ) determinationOrdered By: Steffi Jackson on 06-28-2024 MCV (RBC) [Entitic vol] 86.6 fL 81-99 [facility] MISCon 06-28-2024 Misc. Send Out See Comments Normal [facility] Comment on above: Order Comment: Airam english NIPT/Horizon Result Comment: Resu lts sent directly to physician Performed By: #### C TPCR, NGPCR1 #### [place] [address] Mean corpuscular hemoglobin (MCH) determinationOrdered By: Steffi Jackson on 06-28-2024 MCH (RBC) [Entitic mass] 27.5 pg 27.0-32.0 [facility] Mean corpuscular hemoglobin concentration (MCHC) determinationOrdered By: Steffi Jackson on 06-28-2024 MCHC (RBC) [Mass/Vol] 31.7 g/dL Low 32-36 [facility] Mean platelet volume determi nationOrdered By: Steffi Jackson on 06-28-2024 Platelet mean volume (Bld) [Entitic vol] 9.4 fL 6.2-12.0 [facility] Monocyte percentageOrdered B y: Steffi Jackson on 06-28-2024 Monocytes/100 WBC (Bld) 7.0 % 0-10 [facility] Neutrophil percentageOrdered By: Steffi Jackson on 06-28-2024 Neutrophils/100 WBC (Bld) 59.1 % 47-70 [facility] Nucleated red blood cell per centageOrdered By: Steffi Jackson on 06-28-2024 Nucleated RBC/100 WBC (Bld) [Ratio] 0 % 0-5 [facility] Marketing Sales Manager Office Visit Reporton 06-28-2024 Marketing Sales Manager Office Visit Report [facility] [address], [address] [place] [address] OFFICE VISIT Date of Service: 06/28/24 MR#: [id number] Acct: [id number] Name: KALEY FRY Rep #: [id number] : 1990 Provider: Dr. 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 (more content not included)... Normal [facility] Platelet countOrdered By: Daniele Jackson on 06-28-2024 Platelets (Bld) [#/Vol] 340 10*3/uL 150-450 [facility] RBC Auto (Bld) [#/Vol]Ordere d By: Steffi Jackson on 06-28-2024 RBC (Bld) [#/Vol] 3.82 10*6/uL Low 4.2-5.4 [facility] Rubella IgGon 06-28-2024 Rubella IgG Reactive Normal Nonreactive [facility] Comment on above: Order Comment: Reaso n for Exam: Result Comment: Anti body Results Interpretation of Immune Status Non Reactive Presumed Non-Immune Equivocal Equivocal Reactive Presumed Immune Performed By: #### B TS, L3890.6300, L3890.6005, L509.4005, L3890.6100, L100.0100, L509.8000 ####[facility] [address] [place], [place], [id number] Rubella immune status IgGOrd ered By: Steffi Jackson on 06-28-2024 Rubella IgG Antibody Reactive Nonreactive [facility] Comment on above: Antibody Results Int erpretation of Immune Status Non Reactive Presumed Non-Immune Equivocal Equivocal Reactive Presumed Immune Treponema sp Ab Ql (S)Ordere d By: Steffi Jackson on 06-28-2024 Syphilis Total Antibody Non-Reactive [facility] Type AND Screenon 06-28-2024 Ab SCREEN GEL Negative Normal [facility] Comment on above: Order Comment: PN Performed By: #### B TS, L3890.6300, L3890.6005, L509.4005, L3890.6100, L100.0100, L509.8000 ####[facility] [address] [place], [place], [id number] White blood cell (WBC) count Ordered By: Steffi Jackson on 06-28-2024 WBC (Bld) [#/Vol] 8.0 10*3/uL 4.4-11.0 [facility] RPRon 06-17-2024 Reagin Ab RPR Ql (S) Non-Reactive Normal Non-Reactive [facility] Comment on above: Result Comment: The [...] Performed By: #### C TPCR, NGPCR1 #### [place] [address] VARISon 06-15-[address] Negative Normal [facility] Comment on above: Result Comment: INTE RPRETATION OF VARICELLA IMMUNE STATUS IgG BY EIA: Negative: No detectable VZV IgG antibody. Positive: VZV IgG antibody Detected. If clinically indicated, order Varicella IgM to rule out recent infection. Equivocal: Equivocal for antibodies to VZV. Suggest repeat testing in 10-14 days. Performed By: #### C TPCR, NGPCR1 #### [place] [address] .Auto Diffon 06-14-2024 Basophil, Absolute 0.0 10 3/mcL Normal 0.0-0.3 [facility] Comment on above: Performed By: #### H BSAG, MISC, A1C, CMP, RPR, ANEU, GFR, VARIS, CBC, ADIFF, HIV, RUBIS, ABOM, HCV1 #### [place] [address] Basophils/100 WBC (Bld) 0.5 % Normal 0.0-2.5 [facility] MAIN Comment on above: Performed By: #### H BSAG, MISC, A1C, CMP, RPR, ANEU, GFR, VARIS, CBC, ADIFF, HIV, RUBIS, ABOM, HCV1 #### [place] [address] Eosinophil, Absolute 0.1 10 3/mcL Normal 0.0-0.7 [facility] MAIN Comment on above: Performed By: #### H BSAG, MISC, A1C, CMP, RPR, ANEU, GFR, VARIS, CBC, ADIFF, HIV, RUBIS, ABOM, HCV1 #### [address] [address] Eosinophils/100 WBC (Bld) 1.9 % Normal 0.0-6.0 [facility] MAIN Comment on above: Performed By: #### H BSAG, MISC, A1C, CMP, RPR, ANEU, GFR, VARIS, CBC, ADIFF, HIV, RUBIS, ABOM, HCV1 #### [address] [address] Lymphocyte, Absolute 2.2 10 3/mcL Normal 0.9-4.3 [facility] MAIN Comment on above: Performed By: #### H BSAG, MISC, A1C, CMP, RPR, ANEU, GFR, VARIS, CBC, ADIFF, HIV, RUBIS, ABOM, HCV1 #### [address] [address] Lymphocytes/100 WBC (Bld) 37.6 % Normal 20.0-40.0 [facility] MAIN Comment on above: Performed By: #### H BSAG, MISC, A1C, CMP, RPR, ANEU, GFR, VARIS, CBC, ADIFF, HIV, RUBIS, ABOM, HCV1 #### [address] [address] Monocyte, Absolute 0.5 10 3/mcL Normal 0.1-1.4 [facility] MAIN Comment on above: Performed By: #### H BSAG, MISC, A1C, CMP, RPR, ANEU, GFR, VARIS, CBC, ADIFF, HIV, RUBIS, ABOM, HCV1 #### [address] [address] Monocytes/100 WBC (Bld) 9.4 % Normal 2.0-13.0 [facility] MAIN Comment on above: Performed By: #### H BSAG, MISC, A1C, CMP, RPR, ANEU, GFR, VARIS, CBC, ADIFF, HIV, RUBIS, ABOM, HCV1 #### [address] [place], [place] [address] Neutrophils/100 WBC (Bld) 50.6 % Normal 50.0-75.0 [facility] MAIN Comment on above: Performed By: #### H BSAG, MISC, A1C, CMP, RPR, ANEU, GFR, VARIS, CBC, ADIFF, HIV, RUBIS, ABOM, HCV1 #### [address] [address] .GFRon 06-14-2024 GFR >60 [facility] MAIN Comment on above: Result Comment: [...] CBC, ADIFF, HIV, RUBIS, ABOM, HCV1 #### [address] [address] GFR Non- >60 [facility] MAIN Comment on above: Result [...] CBC, ADIFF, HIV, RUBIS, ABOM, HCV1 #### [address] [address] .NEUABSon 06-14-2024 Neutrophil, Absolute 2.9 10 3/mcL Normal 2.3-8.1 [facility] MAIN Comment on above: Performed By: #### H BSAG, MISC, A1C, CMP, RPR, ANEU, GFR, VARIS, CBC, ADIFF, HIV, RUBIS, ABOM, HCV1 #### [place] [address] A1Con 06-14-2024 Glucose [Mass/Vol] 88 mg/dL Normal [facility] MAIN Comment on above: Result Comment: Barby mated Average Glucose calculated by equation ((28.7xA1C)-46.7) Estimated average glucose (eAG) is a calculated value from Hemoglobin A1C and is surgical sales representative of the average blood glucose level in the last 2-3 month period. Normal range: less than 114 mg/dL Performed By: #### C TPCR, NGPCR1 #### [place] [address] HbA1c (Bld) [Mass fraction] 4.7 % Normal 4.0-6.0 [facility] MAIN Comment on above: Performed By: #### C TPCR, NGPCR1 #### [place] [address] CBCon 06-14-2024 Erythrocyte distribution width (RBC) [Ratio] 12.4 % Normal 11.5-15.5 [facility] MAIN Comment on above: Performed By: #### H BSAG, MISC, A1C, CMP, RPR, ANEU, GFR, VARIS, CBC, ADIFF, HIV, RUBIS, ABOM, HCV1 #### [place] [address] Hematocrit (Bld) [Volume fraction] 31.9 % Low 34.0-46.0 [facility] MAIN Comment on above: Performed By: #### H BSAG, MISC, A1C, CMP, RPR, ANEU, GFR, VARIS, CBC, ADIFF, HIV, RUBIS, ABOM, HCV1 #### [place] [id number] Hgb 10.7 G/dL Low 12.0-16.0 [facility] MAIN Comment on above: Performed By: #### H BSAG, MISC, A1C, CMP, RPR, ANEU, GFR, VARIS, CBC, ADIFF, HIV, RUBIS, ABOM, HCV1 #### [place] [id number] MCH (RBC) [Entitic mass] 28.7 pg Normal 27.0-33.0 [facility] MAIN Comment on above: Performed By: #### H BSAG, MISC, A1C, CMP, RPR, ANEU, GFR, VARIS, CBC, ADIFF, HIV, RUBIS, ABOM, HCV1 #### [place] [id number] MCHC 33.7 G/dL Normal 32.0-36.0 [facility] MAIN Comment on above: Performed By: #### H BSAG, MISC, A1C, CMP, RPR, ANEU, GFR, VARIS, CBC, ADIFF, HIV, RUBIS, ABOM, HCV1 #### [place] [id number] MCV (RBC) [Entitic vol] 85.1 fL Normal 80.0-99.0 [facility] MAIN Comment on above: Performed By: #### H BSAG, MISC, A1C, CMP, RPR, ANEU, GFR, VARIS, CBC, ADIFF, HIV, RUBIS, ABOM, HCV1 #### [place] [id number] Platelet 311 10 3/mcL Normal 150-450 [facility] MAIN Comment on above: Performed By: #### H BSAG, MISC, A1C, CMP, RPR, ANEU, GFR, VARIS, CBC, ADIFF, HIV, RUBIS, ABOM, HCV1 #### [place] [id number] Platelet mean volume (Bld) [Entitic vol] 7.2 fL Normal 6.6-10.5 [facility] MAIN Comment on above: Performed By: #### H BSAG, MISC, A1C, CMP, RPR, ANEU, GFR, VARIS, CBC, ADIFF, HIV, RUBIS, ABOM, HCV1 #### [address] [address] RBC 3.75 10 6/mcL Low 4.10-5.30 [facility] MAIN Comment on above: Performed By: #### H BSAG, MISC, A1C, CMP, RPR, ANEU, GFR, VARIS, CBC, ADIFF, HIV, RUBIS, ABOM, HCV1 #### [place] [address] WBC 5.7 10 3/mcL Normal 4.5-10.8 [facility] MAIN Comment on above: Performed By: #### H BSAG, MISC, A1C, CMP, RPR, ANEU, GFR, VARIS, CBC, ADIFF, HIV, RUBIS, ABOM, HCV1 #### [place] [address] CMPon 06-14-2024 Albumin Level 3.5 G/dL Normal 3.2-4.8 [facility] MAIN Comment on above: Performed By: #### H BSAG, MISC, A1C, CMP, RPR, ANEU, GFR, VARIS, CBC, ADIFF, HIV, RUBIS, ABOM, HCV1 #### [place] [id number] Albumin/Globulin [Mass ratio] 0.9 {ratio} Normal 0.9-1.6 [facility] MAIN Comment on above: Performed By: #### H BSAG, MISC, A1C, CMP, RPR, ANEU, GFR, VARIS, CBC, ADIFF, HIV, RUBIS, ABOM, HCV1 #### [place] [id number] ALP [Catalytic activity/Vol] 63 U/L Normal 38-126 [facility] MAIN Comment on above: Performed By: #### H BSAG, MISC, A1C, CMP, RPR, ANEU, GFR, VARIS, CBC, ADIFF, HIV, RUBIS, ABOM, HCV1 #### [address] [address] ALT [Catalytic activity/Vol] 11 U/L Normal 10-49 [facility] MAIN Comment on above: Performed By: #### H BSAG, MISC, A1C, CMP, RPR, ANEU, GFR, VARIS, CBC, ADIFF, HIV, RUBIS, ABOM, HCV1 #### [address] [address] AST [Catalytic activity/Vol] 18 U/L Normal 8-34 [facility] MAIN Comment on above: Performed By: #### H BSAG, MISC, A1C, CMP, RPR, ANEU, GFR, VARIS, CBC, ADIFF, HIV, RUBIS, ABOM, HCV1 #### [address] [address] Bili Total 0.50 mg/dL Normal 0.20-1.20 [facility] MAIN Comment on above: Result Comment: Use of this assay is not recommended for patients undergoing treatment with eltrombopag due to the potential for falsely elevated results. Performed By: #### H BSAG, MISC, A1C, CMP, RPR, ANEU, GFR, VARIS, CBC, ADIFF, HIV, RUBIS, ABOM, HCV1 #### [address] [address] BUN/Creatinine Ratio 14.3 ratio Normal 10.0-22.0 [facility] MAIN Comment on above: Performed By: #### H BSAG, MISC, A1C, CMP, RPR, ANEU, GFR, VARIS, CBC, ADIFF, HIV, RUBIS, ABOM, HCV1 #### [address] [address] Calcium [Mass/Vol] 9.2 mg/dL Normal 8.7-10.4 [facility] MAIN Comment on above: Performed By: #### H BSAG, MISC, A1C, CMP, RPR, ANEU, GFR, VARIS, CBC, ADIFF, HIV, RUBIS, ABOM, HCV1 #### [address] [address] Chloride [Moles/Vol] 105 mmol/L Normal 98-110 [facility] MAIN Comment on above: Performed By: #### H BSAG, MISC, A1C, CMP, RPR, ANEU, GFR, VARIS, CBC, ADIFF, HIV, RUBIS, ABOM, HCV1 #### [address] [address] CO2 [Moles/Vol] 24 mmol/L Normal 22-32 [facility] MAIN Comment on above: Performed By: #### H BSAG, MISC, A1C, CMP, RPR, ANEU, GFR, VARIS, CBC, ADIFF, HIV, RUBIS, ABOM, HCV1 #### [place] [id number] Creatinine [Mass/Vol] 0.63 mg/dL Normal 0.50-1.20 [facility] MAIN Comment on above: Result Comment: Test ing performed on Ramamia analyzer using enzymatic creatinine methodology. Performed By: #### H BSAG, MISC, A1C, CMP, RPR, ANEU, GFR, VARIS, CBC, ADIFF, HIV, RUBIS, ABOM, HCV1 #### [place] [address] Electrolyte Balance 8.0 mEq/L Normal 4.0-15.0 [facility] MAIN Comment on above: Performed By: #### H BSAG, MISC, A1C, CMP, RPR, ANEU, GFR, VARIS, CBC, ADIFF, HIV, RUBIS, ABOM, HCV1 #### [place] [id number] Globulin 3.7 G/dL Normal 1.5-3.8 [facility] Comment on above: Performed By: #### H BSAG, MISC, A1C, CMP, RPR, ANEU, GFR, VARIS, CBC, ADIFF, HIV, RUBIS, ABOM, HCV1 #### [place] [id number] Glucose [Mass/Vol] 77 mg/dL Normal 70-110 [facility] MA[facility] Comment on above: Performed By: #### H BSAG, MISC, A1C, CMP, RPR, ANEU, GFR, VARIS, CBC, ADIFF, HIV, RUBIS, ABOM, HCV1 #### [place] [address] Potassium [Moles/Vol] 3.6 mmol/L Normal 3.5-5.0 [facility] MAIN Comment on above: Performed By: #### H BSAG, MISC, A1C, CMP, RPR, ANEU, GFR, VARIS, CBC, ADIFF, HIV, RUBIS, ABOM, HCV1 #### [place] [address] Sodium [Moles/Vol] 137 mmol/L Normal 136-145 [facility] MA[facility] Comment on above: Performed By: #### H BSAG, MISC, A1C, CMP, RPR, ANEU, GFR, VARIS, CBC, ADIFF, HIV, RUBIS, ABOM, HCV1 #### [place] [address] Total Protein 7.2 G/dL Normal 5.7-8.2 [facility] Comment on above: Performed By: #### H BSAG, MISC, A1C, CMP, RPR, ANEU, GFR, VARIS, CBC, ADIFF, HIV, RUBIS, ABOM, HCV1 #### [place] [id number] Urea nitrogen [Mass/Vol] 9.0 mg/dL Normal 8.0-22.0 [facility] Comment on above: Performed By: #### H BSAG, MISC, A1C, CMP, RPR, ANEU, GFR, VARIS, CBC, ADIFF, HIV, RUBIS, ABOM, HCV1 #### [place] [address] HBSAG 06-14-2024 Hep B Surf Ag Non-Reactive Normal Non-Reactive [facility] MAIN Comment on above: Performed By: #### C TPCR, NGPCR1 #### [address] 06-14-2024 Hep C Ab Non-Reactive Normal Non-Reactive [facility] MA[facility] Comment on above: Performed By: #### C TPCR, NGPCR1 #### [place] [address] Hep C Ab Int Normal [facility] Comment on above: Result Comment: Nonr eactive: Samples with a value < 0.80 are considered nonreactive (negative) for antibodies to HCV. A negative test result does not exclude the possibility of exposure to or infection with HCV. HCV antibodies may be undetectable in some stages of the infection and in some clinical conditions. See Interp Performed By: #### C TPCR, NGPCR1 #### [place] [address] HIVon 06-14-2024 HIV 1/2 Ab Non-Reactive Normal Non-Reactive [facility] Comment on above: Result Comment: Spec imen is negative for anti-HIV-1 and anti-HIV-2. Performed By: #### C TPCR, NGPCR1 #### [place] [address] LABORATORYOrdered By: Nay triplett on 06-14-2024 ABO [...] above: Interpretive Data: T esting performed on Ramamia analyzer using enzymatic creatinine methodology. Electrolyte Balance [...] (S/P/Bld) [Vol rate/Area] ml/min/1.73sqm Invalid Interpretation Code [facility]ut[facility]le[facility] Chemistry S Comment on above: Interpretive Data: [...] (S/P/Bld) [Vol rate/Area] ml/min/1.73sqm Invalid Interpretation Code Wunsch-Brautkleid Chemistry S Comment on above: Interpretive Data: [...] 77 mg/dL Normal 70 - 110 mg/dL AH ADM SS Glucose [Mass/Vol] 88 mg/dL Invalid Interpretation Code AH Auto Chem SS Comment on above: Interpretive Data: E stimated average glucose (eAG) is a calculated value from Hemoglobin A1C and is surgical sales representative of the average blood glucose level in the last 2-3 month period. Normal range: less than 114 mg/dL HbA1c (Bld) [Mass fraction] 4.7 % Normal 4.0 - 6.0 % AH Auto Chem SS Hematocrit (Bld) [Volume fraction] 31.9 % Low 34.0 - 46.0 % AH Workflow SS Hemoglobin (Bld) [Mass/Vol] 10.7 G/dL Low 12.0 - 16.0 G/dL AH Workflow SS Lymphocytes (Bld) [#/Vol] 2.2 103/mcL Normal 0.9 - 4.3 10^3/mcL AH Workflow SS Lymphocytes/100 WBC (Bld) 37.6 % Normal 20.0 - 40.0 % AH Workflow SS MCH (RBC) [Entitic mass] 28.7 pg Normal 27.0 - 33.0 pg AH Workflow SS MCHC 33.7 G/dL Normal 32.0 - 36.0 G/dL AH Workflow SS MCV (RBC) [Entitic vol] 85.1 fL Normal 80.0 - 99.0 fL AH Workflow SS Monocytes (Bld) [#/Vol] 0.5 103/mcL [...] 7.2 fL Normal 6.6 - 10.5 fL AH Workflow SS Platelets (Bld) [#/Vol] 311 103/mcL Normal 150 - 450 10^3/mcL AH Workflow SS Potassium [Moles/Vol] 3.6 mmol/L Normal 3.5 - 5.0 mEq/L AH ADM SS Protein [Mass/Vol] 7.2 G/dL Normal 5.7 - 8.2 G/dL AH ADM SS RBC (Bld) [#/Vol] 3.75 106/mcL Low 4.10 - 5.3 0 10^6/mcL AH Workflow SS Sodium [Moles/Vol] 137 mmol/L Normal 136 - 145 mEq/L AH ADM SS Urea nitrogen [Mass/Vol] 9.0 mg/dL Normal 8.0 - 22.0 mg/dL AH ADM SS Urea nitrogen/Creatinine [Mass ratio] 14.3 ratio Normal 10.0 - 22.0 ratio AH ADM SS WBC (Bld) [#/Vol] 5.7 103/mcL Normal 4.5 - 10.8 10^3/mcL AH Workflow SS LABORATORYOrdered By: Horacio Teague on 06-14-2024 HBV surface Ag IA Ql Non-Reactive (06/14/24 8:24 AM) Normal Non-Reactive AH ADM SS HCV Ab IA Ql Non-Reactive (06/14/24 8:24 AM) Normal Non-Reactive AH ADM SS HCV Ab IA Ql Nonreactive: [...] Ab IA Ql Negative Invalid Interpretation Code Chemistry S HIV 1/2 Ab Non-Reactive (06/14/24 8:24 AM) Normal Non-Reactive AH ADM SS LABORATORYOrdered By: Jossy Matthew on 06-14-2024 Rubella virus Ab LA Ql (S) Positive 4 (06/14/24 8:24 AM) Normal Positive Man Viro/Sero SS Comment on above: Interpretive Data: T his immune status assay detects IgM and/or IgG antibody to Rubella. Interpret results in conjunction with clinical history. POS: Antibody detected; exposure at undetermined recent or distant time. If clinically indicated, order Rubella IGM to rule out recent infection. NEG: No antibody detected. MABOon 06-14-2024 ABO/Rh Interp AB POS Invalid Interpretation Code [facility] Comment on above: Performed By: #### C TPCR, NGPCR1 #### [place] [address] RUBISon 06-14-[address] Positive Normal Positive [facility] Comment on above: Result Comment: This immune status assay detects IgM and/or IgG antibody to Rubella. Interpret results in conjunction with clinical history. POS: Antibody detected; exposure at undetermined recent or distant time. If clinically indicated, order Rubella IGM to rule out recent infection. NEG: No antibody detected. Performed By: #### C TPCR, NGPCR1 #### [place] [address] UAon 06-14-2024 Color (U) Yellow Normal [facility] Comment on above: Performed By: #### U A #### [facility] [address] [place], [place] [address] Glucose (U) [Mass/Vol] Negative Normal Negative AU LTMAN MASSILLON Comment on above: Performed By: #### U A #### [facility] [address] [place], [place] [address] Ketones Ql (U) Negative Normal Neg-Trace [facility] Comment on above: Performed By: #### U A #### [facility] [address] [place], [place] [address] UA Appear Clear Normal [facility] Comment on above: Performed By: #### U A #### [facility] [address] [place], [place] [address] UA Blood Negative Normal Neg-Trace [facility]O [facility] Comment on above: Performed By: #### U A #### [facility] [address] [place] [address] UA Leuk Est Negative Normal Negative [facility] Comment on above: Performed By: #### U A #### [facility] [address] [place] [address] UA Nitrite Negative Normal Negative [facility]O MASSILL[facility] Comment on above: Performed By: #### U A #### [facility] [address] [place] [address] UA pH 7.5 Normal 5.0 - 8.0 [facility] Comment on above: Performed By: #### U A #### [facility] [place] [address] [place] [address] UA Protein Negative Normal Negative [facility] MASSILLON Comment on above: Performed By: #### U A #### [facility] [address] [place] [address] UA Spec Grav 1.020 Normal [facility]LL[facility] Comment on above: Performed By: #### U A #### [facility] [place] [address] [place] [address] UA Specimen Type Clean Catch Normal [facility] Comment on above: Performed By: #### U A #### [facility] [address] [place] [address] UA Urobilinogen 1.0 E.U./dL Normal [facility] Comment on above: Performed By: #### U A #### [facility] [address] [place] [address] Urobilinogen (U) [Mass/Vol] Negative Normal Neg-Trace [facility] Comment on above: Performed By: #### U A #### [facility] [place] [address] [place] [address] Pen Maker Cytology Reporton 2023 Pen Maker Cytology Report . Pathology Reports Accession: Collected Date/Time: Received Date/Time: Pathologist: [id number] 06/05/2024 14:52 EST 06/05/2024 18:00 EST [facility] Cytology Report SPECIMEN: Specimen Description: Liquid Prep [...] and evaluated with the assistance of the Sidekick GamesPrep Test Imaging System. Pathology Reports Accession: Collected Date/Time: Received Date/Time: Pathologist: [id number] 06/05/2024 14:52 EST 06/05/2024 18:00 EST Electronically Signed by Pathology report verified by [facility] Screened by: KK Electronically signed by Raiza SMALLS (ASCP) Sign-Out Date: 06/11/2024 14:39 Performing Lab: [facility], [address] [place] [address] Pathology Dept Disclaimer The Pap test is a screening test for cervical cancer. As evidenced by published data, it is subject to both inherent false negative and false positive results. Your patient's results should be interpreted in context with pertinent clinical history including gynecological examination. Normal [facility] HPVon 06-10-2024 HPV Interp Normal See Interp HPVN [facility] Comment on above: Order Comment: Order placed by AP_HPV_ORDER rule from [id number] Result Comment: High Risk HPV Typing: NEGATIVE [...] HPVN Performed By: #### H PV #### [place] [address] HPV Source Cervix Normal [facility] Comment on above: Order Comment: Order placed by AP_HPV_ORDER rule from [id number] Performed By: #### H PV #### [place] [address] CTPCRon 06-07-2024 C. trachomatis Interp Normal See CT Interp N [facility] Comment on above: Result Comment: C. t rachomatis DNA not detected. Specimen is presumptive negative for C. trachomatis. A negative result does not preclude C. trachomatis infection because results depend on adequate specimen collection, absence of inhibitors, and sufficient DNA to be detected. See CT Interp N Performed By: #### C TPCR, NGPCR1 #### [place] [address] C.trachomatis PCR Negative Normal Negative [facility] Comment on above: Result Comment: Mole cular (PCR) assay performed on the [employer] 4800 system. Performed By: #### C TPCR, NGPCR1 #### [place] [address] Chlam Source Cervix Normal [facility] Comment on above: Performed By: #### C TPCR, NGPCR1 #### [place] [address] [id number] 06-07-2024 GC PCR Source Cervix Normal [facility] Comment on above: Performed By: #### C TPCR, NGPCR1 #### [place] [address] N. gonorrhoeae (PCR) Negative Normal Negative [facility] Comment on above: Result Comment: Sophie hammer (PCR) assay performed on the [employer] 4800 System. Performed By: #### C TPCR, NGPCR1 #### [place] [address] N. gonorrhoeae Interp Normal See NG Interp N [facility] Comment on above: Result Comment: N. g onorrhoeae DNA not detected. Specimen is presumptive negative for N. gonorrhoeae. A negative result does not preclude Neisseria gonorrhoeae infection because results depend on adequate specimen collection, absence of inhibitors, and sufficient DNA to be detected. See Interp N Performed By: #### C TPCR, NGPCR1 #### [place] [address] DRUGUon 06-05-2024 Amphetamine (u) Negative Normal Negative [facility] Comment on above: Performed By: #### D RUGU #### [place] [address] Barbiturate (u) Negative Normal [facility] Comment on above: Performed By: #### D RUGU #### [place] [address] Benzodiazepine (u) Negative Normal Negative [facility] Comment on above: Performed By: #### D RUGU #### [place] [address] Cannabinoid (u) Negative [facility] Comment on above: Performed By: #### D RUGU #### [place] [id number] Cocaine Ql (U) Negative Normal [facility] Comment on above: Performed By: #### D RUGU #### [place] [address] Fentanyl (u) Negative Normal [facility] Comment on above: Result Comment: Test ing has been performed FOR MEDICAL PURPOSES ONLY. Performed By: #### D RUGU #### [address] [address] Methadone Ql (U) Negative Normal Negative [facility] Comment on above: Performed By: #### D RUGU #### [address] [address] Opiate (u) Negative Normal Negative [facility] Comment on above: Performed By: #### D RUGU #### [address] [address] Oxycodone (u) Negative Normal Negative [facility] Comment on above: Result Comment: Test ing has been performed FOR MEDICAL PURPOSES ONLY. Performed By: #### Sharda RUGU #### [address] [address] PCP (u) Negative Normal Negative [facility] Comment on above: Performed By: #### Sharda LUTZU #### [place] [id number] Propoxyphene (u) Negative Normal Negative [facility] Comment on above: Performed By: #### Sharda RUGU #### [address] [address] U pH Drug Scrn 6.0 Normal 5.0-8.0 [facility] Comment on above: Performed By: #### Sharda RUGU #### [place] [id number] Urine Drugs screened: See Below Normal [facility] Comment on above: Result Comment: [...] ONLY. Performed By: #### Sharda RUGU #### [place] [id number] Chlamydia/GC NELLY aptimaon CHLAMY,NUC ACID Negative Normal Negative [facility] Comment on above: Performed By: #### M 100.2200, L7000.1800 #### [facility] [address] [place], [place], [address] GC BY NUC ACID Negative Normal Negative [facility] Comment on above: Result Comment: Perf ormed at: =G - [facility] [address] [place], [place] [id number] Pipelines Laborer: Tiana Hayes MD, Phone: [phone] Performed By: #### M 100.2200, L7000.1800 #### [facility] [address] [place], [address] Urine Cultureon 05-31-2024 URC Culture exhibits no growth. Normal [facility] Comment on above: Performed By: #### M 100.2200, L7000.1800 #### [facility] [address] [place], [address] Marketing Sales Manager Office Visit Reporton 05-30-2024 Marketing Sales Manager Office Visit Report [facility]'[address], [address] [place] [address] OFFICE VISIT Date of Service: 05/30/24 MR#: [id number] Acct: [id number] Name: KALEY FRY Rep #: [id number] : 1990 Provider: ARNOLD Brooks ams Age/Sex: 34/F Location: [facility] Status: Signed Intake Vital Signs 08/16/23 10:04 05/30/24 11:22 05/30/24 11:34 Height 5 ft 3 in 5 ft 3 in 5 ft 3 in Weight: 178 lb BMI 31.5 BP 98/64 Intake Visit Reasons: NOB ELISSA 01/05 Program Director/Air Personality Required: No Is patient in pain?: No [...] occupational status: employed and unemployed current occupation: [employer] current occupational exposures/hazards: No pets and animals: [...] Labor Lgth Anesthesia Del Locatn Provider FOEnzo 05/04/10 Jennifer 40 live - full term Female none Sarina Cross 02/21/21 Gareth 40 live - full term Female none [facility] 05/23/22 Rashida 40 live - full term 7lb6oz Male [facility] Mary ins Delivery Date: 05/04/10 Last Updated [...] Other, Hemophili (more content not included)... Normal [facility] US FEMALE PELV TRANSABD COMP LETEon 12-28-2023 US FEMALE PELV TRANSABD COMPLETE * * *Final [...] and stored in a permanent archive. MQ: [facility]_2021 COMPARISON: None RESULT: Uterus: -Size: 8.6 [...] sonographic features of uterine adenomyosis. Unremarkable ovaries. [facility] Transcribe Date/Time: Dec 28 2023 2:00P Dictated by : DAYSI CAMEJO MD This examination was interpreted and the report reviewed and electronically signed by: DAYSI CAMEJO MD on Dec 28 2023 2:03PM EST [id number] CN [facility] US Pelvison 12-28-2023 IMPRESSION: Trace endometrial fluid, likely physiologic. Otherwise, unremarkable uterus. There are no sonographic features of uterine adenomyosis. Unremarkable ovaries. Emergency Worker: [facility] Transcribe Date/Time: Dec 28 2023 2:00P Dictated by : DAYIS CAMEJO MD This examination was interpreted and the report reviewed and electronically signed by: DAYSI CAMEJO MD on Dec 28 2023 2:03PM [facility] * * *Final Report* * * [...] and stored in a permanent archive. MQ: [facility]_2021 COMPARISON: None RESULT: Uterus: -Size: 8.6 x [...] Fluid: No abnormal free fluid is present. [facility] [facility] Provider, f Imaging Issue - 12/28/2023 * * *Final Report* * [...] and stored in a permanent archive. MQ: [id number] COMPARISON: None RESULT: Uterus: -Size: 8.6 x [...] sonographic features of uterine adenomyosis. Unremarkable ovaries. Emergency Worker: PSCB Transcribe Date/Time: Dec 28 2023 2:00P Dictated by : DAYSI CAMEJO MD This examination was interpreted and the report reviewed and electronically signed by: DAYSI CAMEJO MD on Dec 28 2023 2:03PM [facility] Rad[facility] Study observation (narrative) [facility] US PelvisOrdered By: Mukul Pro vider on 12-28-2023 [facility] CNPVanessa 07-25-2023 CNPN Telephone (CORPMN) KALEY COFFEY ([id number]) 1990 [facility] Date Time Provider Department 07/25/23 IRVIN LAUREANO CORPMN During your visit today, we recorded the following information about you: Diann Lane, RN 07/25/2023 12:21 PM Signed Patient Name: Kaley Coffey Date of : 1990 Primary Care Physician: No primary care provider on file. Service Date: 07/25/2023 Service Time: 12:18 PM Symptomatic Caregiver COVID Call - confirmed: Yes -Caregiver employee ID:[id number] -Symptom onset:07/23/23 Covid Immunization Dates Overdue - Covid-19 Vaccine (1) Never done No completion, postpone, frequency change, or communication history exists for this topic. Recent travel outside [place]: Cares for COVID-19 positive patients: Known positive COVID-19 contacts: Previously positive for COVID: Comorbidities: [] Obesity [] Diabetes Mellitus [] Asthma/COPD [] [] Other: Symptoms: [x] Mild [] Moderate [] Severe Myalgias, GODWIN, dizzy, congestion, runny nose. Cg does not have health insurance. Manager [place] # given. Will schedule after she speaks with them. Kaley meets criteria for Caregiver COVID19 testing. EHP covers the test 100% Testing will be [...] of test/copay. Discussed referral to the Patient Manager [place] if needed ([phone]). CG consents to testing. I will be accessing your [facility] medical record to place the COVID test order and to view the test results. You will be able to view your results in [employer] [facility] will also be communicating with you through [employer] about your COVID test results and your [...] or escalating symptoms -Advised to call the COVID Hotline with outstanding questions/comments/c oncerns Signature: Diann Lane RN Patient Name: Kaley Coffey Date: 07/25/2023 Time: 12:18 PM Pager/Contact: Allergies As of Date: 07/25/2023 (No Known Allergies) Date Reviewed: 06/08/2023 Reviewed by: Rabia Ruggiero APRN.CLAM GROWER - Fully Assessed Reason for Visit: [facility] COVID Outreach [[id number]] Problem List As Of Date: 07/25/2023 (None) Encounter Status:Closed by DIANN LANE on 07/25/23 [facility] XR CHEST 2V FRONTAL/LATon XR CHEST 2V [...] tissues: Unremarkable. IMPRESSION: No acute radiographic abnormality. Emergency Worker: PSCB Transcribe Date/Time: Jul 15 2023 7:40A Dictated by : CECILLE KAUR MD This examination was interpreted and the report reviewed and electronically signed by: CECILLE KAUR MD on Jul 15 2023 7:40AM EST [id number] [facility] CNOVon 06-30-2023 CNOV Office Visit (CCWRNC) KALEY COFFYE ([id number]) 1990 [facility] Date Time Provider Department 06/30/23 10:00 AM [facility] CCWRNC During your visit today, we recorded the following information about you: Referring Provider: SELF [200] Allergies As of Date: 06/30/2023 (No Known Allergies) Date Reviewed: 06/08/2023 Reviewed by: Rabia Ruggiero APRN.CLAM GROWER - Fully Assessed Reason for Visit: Pain [78] Primary Visit Diagnosis:Unspecifie d sprain of left wrist, initial encounter [S63.502A] Problem List As Of Date: 06/30/2023 (None) Encounter Status:Closed by LANDON CHAO on 07/03/23 [facility] MRI WRIST WO IVCON LTon 12-0 MRI WRIST WO IVCON LT * * *Final Report* * * DATE OF EXAM: Jun 27 2023 10:07AM [facility] 0265 - MRI WRIST WO IVCON LT [...] evidence of a ligament or tendon tear. Emergency Worker: PSCB Transcribe Date/Time: Jun 28 2023 7:40A Dictated by : DEXTER SEXTON MD This examination was interpreted and the report reviewed and electronically signed by: DEXTER SEXTON MD on Jun 28 2023 7:53AM EST [id number] [facility] CNOVon 06-21-2023 [facility] Office Visit (CCWRNC) KALEY COFFEY ([id number]) 1990 F [facility] Date Time Provider Department 06/21/23 9:00 AM [facility] During your visit today, we recorded the following information about you: Allergies As of Date: 06/21/2023 (No Known Allergies) Date Reviewed: 06/08/2023 Reviewed by: Rabia Ruggiero APRN.CLAM GROWER - Fully Assessed Reason for Visit: Pain [78] Primary Visit Diagnosis:Left wrist pain [M25.532] Other Visit Diagnosis:Unspecifie d sprain of left wrist, initial encounter [S63.502A] Order(s):MRI WRIST WO IVCON LEFT [[id number]] Order #: [id number] FUTURE Problem List As Of Date: 06/21/2023 (None) Encounter Status:Closed by LANDON CHAO on 06/21/23 [facility] Office Visit (CCWRNC) KALEY COFFEY ([id number]) 1990 F Date Time Provider Department 06/09/23 1:[address] [facility] During your visit today, we recorded the following information about you: Allergies As of Date: 06/09/2023 (No Known Allergies) Date Reviewed: 06/08/2023 Reviewed by: Rabia Ruggiero APRN.CNP - Fully Assessed Reason for Visit: Pain [78] Primary Visit Diagnosis:Unspecifie d sprain of left wrist, initial encounter [S63.502A] Problem List As Of Date: 06/09/2023 (None) Encounter Status:Closed by LANDON CHAO on 06/12/23 [facility] CNOVon 06-08-2023 [facility] Office Visit ([facility]) ALEXXKALEY S ([id number]) 1990 F Date Time Provider Department 06/08/23 7:55 AM RABIA RUGGIERO [facility] During your visit today, we recorded the following information about you: Temperature Pulse Respiration Blood pressure 99.1 degrees 83/minute 16/minute 122/76 Weight Last Period 78.2 kg 06/07/23 Rabia Ruggiero APRN.CNP 06/08/2023 9:21 AM Signed Kaley Michaudsickle is a 33 year old female who presents with Wrist Pain (Left, Work injury, pts that a box bent wrist backwards, appears swollen, pain with movement, no serenity of wrist pain ) Kaley Coffey is a 33 year old female who presents with left Wrist Pain Worker's Comp., patient works for [employer] hand / wrist: Left Location: wrist [...] 172 lb 6.4 oz (78.2kg) SpO2 100% [facility] 06/07/2023 Physical Exam Vitals and nursing note [...] plan of care verbalized understanding instructions. Call [facility] [place] [phone] tomorrow before 9 AM to schedule a follow-up appointment. Follow-up medical condition/release report will be given by the [facility] This note was partially generated using [employer] voice recognition system. FABIAN Corona Veronika, APRN.CNP 06/08/2023 9:11 AM Signed Call [facility] phone number is [phone] tomorrow before 9 AM to schedule a follow-up appointment. Follow-up medical condition/release report will be given by the [facility] SPRAINS / [employer] (more content not included)... Normal [facility] XR WRIST 4V PA/LAT/OBL/SCAPH LTon 06-08-2023 XR [...] IMPRESSION: No acute osseous abnormality. [employer] Emergency Worker: MANOJ Transcribe Date/Time: Jun 10 2023 9:41A Dictated by : JESÚS LE MD This examination was interpreted and the report reviewed and electronically signed by: JESÚS LE MD on Jun 10 2023 9:43AM EST [id number] CN [facility] Absolute lymphocyte countOrd ered By: Ariadna San on 09-07-2022 Lymphocytes Auto (Unsp spec) [#/Vol] 3.17 10*3/uL 0.83-4.51 [facility] Basophil percentageOrdered B y: Ariadna San on 09-07-2022 Basophils/100 WBC (Bld) 0.5 % 0-1 [facility] Bilirubin [Mass/Vol] 0.40 mg/dL 0.20-1.00 [facility] Comment on above: For patients on eltr ombopag therapy, use of Dimension [place] TBIL is not recommended. Eosinophils/100 WBC (Bld) 3.4 % 0-5 [facility] LDH [Catalytic activity/Vol] 202 U/L 84-246 [facility] Neutrophils (Bld) [#/Vol] 2.4 10*3/uL 2.0-7.7 [facility] Neutrophils/100 WBC (Bld) 38.4 % 47-70 [facility] WBC (Bld) [#/Vol] 6.2 10*3/uL 4.4-11.0 [facility] Blood erythrocytes count (nu mber/volume)Ordered By: Ariadna San on 09-07-2022 RBC (Bld) [#/Vol] 4.13 10*6/uL 4.2-5.4 [facility] Blood hemoglobin measurement (mass/volume)Ordered By: Ariadna San on 09-07-2022 Hemoglobin (Bld) [Mass/Vol] 11.0 g/dL 12.0-15.0 [facility] Blood lymphocytes/100 leukoc ytesOrdered By: Ariadna San on 09-07-2022 Lymphocytes/100 WBC (Bld) 51.1 % 19-41 [facility] Blood monocytes/100 leukocyt esOrdered By: Ariadna San on 09-07-2022 Monocytes/100 WBC (Bld) 6.3 % 0-10 [facility] Blood platelet mean volumeOr dered By: Ariadna San on 09-07-2022 Platelet mean volume (Bld) [Entitic vol] 8.7 fL 6.2-12.0 [facility] Determination of erythrocyte mean corpuscular volume (MCV)Ordered By: Ariadna San on 09-07-2022 MCV (RBC) [Entitic vol] 87.7 fL 81-99 [facility] Direct bilirubinOrdered By: Ariadna San on 09-07-2022 Bilirubin.direct [Mass/Vol] 0.15 mg/dL 0.00-0.30 [facility] Hematocrit Auto (Bld) [Volum e fraction]Ordered By: Ariadna San on 09-07-2022 Hematocrit (Bld) [Volume fraction] 36.2 % 37-47 [facility] Laboratory - Hematology and Cell countsOrdered By: Ariadna San on 09-07-2022 Erythrocyte distribution width (RBC) [Entitic vol] 42.6 fL 35.1-43.9 [facility] Erythrocyte distribution width (RBC) [Ratio] 13.3 % 11.6-14.6 [facility] Immature granulocytes/100 WBC (Bld) 0.300 % 0.0-0.9 [facility] Comment on above: IG% - Immature Granu locytes (promyelocytes, myelocytes and metamyelocytes) > 1% indicates that a LEFT SHIFT is Present. MCH (RBC) [Entitic mass] 26.6 pg 27.0-32.0 [facility] Nucleated RBC/100 WBC (Bld) [Ratio] 0 % 0-5 [facility] MCHC Auto (RBC) [Mass/Vol]Or dered By: Ariadna San on 09-07-2022 MCHC (RBC) [Mass/Vol] 30.4 g/dL 32-36 [facility] Platelets bldOrdered By: Elena San on 09-07-2022 Platelets (Bld) [#/Vol] 303 10*3/uL 150-450 [facility] Serum or plasma non-glucuron idated bilirubin measurement (mass/volume)Ordered By: Ariadna San on 09-07-2022 Bilirubin.indirect [Mass/Vol] 0.20 mg/dL 0.00-1.00 [facility] Thin prep Papanicolaou smear with manual screeningOrdered By: Ariadna San on 09-07-2022 Thin prep Papanicolaou smear with manual screening 16 U/L 15-37 [facility] Absolute lymphocyte countOrd ered By: Ariadna San on 05-23-2022 Lymphocytes Auto (Unsp spec) [#/Vol] 3.45 10*3/uL 0.83-4.51 [facility] Basophil percentageOrdered B y: Ariadna San on 05-23-2022 C. trachomatis DNA NELLY+probe Ql (Unsp spec) Negative Negative [facility] Basophils/100 WBC (Bld) 0.4 % 0-1 [facility] Eosinophils/100 WBC (Bld) 0.7 % 0-5 [facility] Neutrophils (Bld) [#/Vol] 5.1 10*3/uL 2.0-7.7 [facility] Neutrophils/100 WBC (Bld) 54.0 % 47-70 [facility] WBC (Bld) [#/Vol] 9.5 10*3/uL 4.4-11.0 [facility] Blood erythrocytes count (nu mber/volume)Ordered By: Ariadna San on 05-23-2022 RBC (Bld) [#/Vol] 3.91 10*6/uL 4.2-5.4 [facility] Blood hemoglobin measurement (mass/volume)Ordered By: Ariadna San on 05-23-2022 Hemoglobin (Bld) [Mass/Vol] 11.0 g/dL 12.0-15.0 [facility] Blood lymphocytes/100 leukoc ytesOrdered By: Ariadna San on 05-23-2022 Lymphocytes/100 WBC (Bld) 36.2 % 19-41 [facility] Blood monocytes/100 leukocyt esOrdered By: Ariadna San on 05-23-2022 Monocytes/100 WBC (Bld) 8.3 % 0-10 [facility] Blood platelet adequacy dete ction by light microscopyOrdered By: Ariadna San on 05-23-2022 Platelets LM Ql (Bld) ADEQUATE ADEQ [facility] Blood platelet mean volumeOr dered By: Ariadna San on 05-23-2022 Platelet mean volume (Bld) [Entitic vol] 10.6 fL 6.2-12.0 [facility] COVID-19 virus antigen assay Ordered By: Ariadna San on 05-23-2022 SARS-CoV-2 (COVID-19) Ag IA.rapid Ql (Resp) [facility] Determination of erythrocyte mean corpuscular volume (MCV)Ordered By: Ariadna San on 05-23-2022 MCV (RBC) [Entitic vol] 85.9 fL 81-99 [facility] Hematocrit Auto (Bld) [Volum e fraction]Ordered By: Ariadna San on 05-23-2022 Hematocrit (Bld) [Volume fraction] 33.6 % 37-47 [facility] Laboratory - Chemistry and C hemistry - challengeon 05-23-2022 Glucose Ql (U) Negative [facility] Laboratory - Hematology and Cell countsOrdered By: Ariadna San on 05-23-2022 Erythrocyte distribution width (RBC) [Entitic vol] 42.6 fL 35.1-43.9 [facility] Erythrocyte distribution width (RBC) [Ratio] 13.8 % 11.6-14.6 [facility] Immature granulocytes/100 WBC (Bld) 0.400 % 0.0-0.9 [facility] Comment on above: IG% - Immature Granu locytes (promyelocytes, myelocytes and metamyelocytes) > 1% indicates that a LEFT SHIFT is Present. MCH (RBC) [Entitic mass] 28.1 pg 27.0-32.0 [facility] Nucleated RBC/100 WBC (Bld) [Ratio] 0 % 0-5 [facility] Laboratory - Urinalysison Protein Ql (U) Negative [facility] MCHC Auto (RBC) [Mass/Vol]Or dered By: Ariadna San on 05-23-2022 MCHC (RBC) [Mass/Vol] 32.7 g/dL 32-36 [facility] Neisseria gonorrhoeae detect ion by PCROrdered By: Ariadna San on 05-23-2022 N. gonorrhoeae DNA NELLY+probe Ql (Cervical mucus) Negative Negative [facility] Platelets bldOrdered By: Elena San on 05-23-2022 Platelets (Bld) [#/Vol] TNP [facility] Comment on above: Test not [...] - challengeon 05-18-2022 Glucose Ql (U) Negative [facility] Laboratory - Urinalysison Protein Ql (U) Negative [facility] Absolute lymphocyte counton 05-02-2022 Lymphocytes Auto (Unsp spec) [#/Vol] 2.81 10*3/uL 0.83-4.51 [facility] Work Phone: Basophil percentageon 2021 Basophils/100 WBC (Bld) 0.4 % 0-1 [facility] Work Phone: Bilirubin [Mass/Vol] 0.50 mg/dL 0.20-1.00 [facility] Work Phone: [phone] Comment on above: For patients on eltr ombopag therapy, use of Dimension [place] TBIL is not recommended. Chloride [Moles/Vol] 108 mmol/L 98-107 [facility] Work Phone: Eosinophils/100 WBC (Bld) 2.1 % 0-5 [facility] Work Phone: Glucose [Mass/Vol] 84 mg/dL 74-106 [facility] Work Phone: Neutrophils (Bld) [#/Vol] 3.5 10*3/uL 2.0-7.7 [facility] Work Phone: Neutrophils/100 WBC (Bld) 48.6 % 47-70 [facility] Work Phone: Potassium [Moles/Vol] 3.5 mmol/L 3.5-5.1 [facility] Work Phone: Protein [Mass/Vol] 6.8 g/dL 6.4-8.2 [facility] Work Phone: Sodium [Moles/Vol] 140 mmol/L 136-145 [facility] Work Phone: WBC (Bld) [#/Vol] 7.1 10*3/uL 4.4-11.0 [facility] Work Phone: Blood erythrocytes count (nu mber/volume)on 05-02-2022 RBC (Bld) [#/Vol] 3.65 10*6/uL 4.2-5.4 [facility] Work Phone: [phone] Blood hemoglobin measurement (mass/volume)on 05-02-2022 Hemoglobin (Bld) [Mass/Vol] 10.1 g/dL 12.0-15.0 [facility] Work Phone: Blood lymphocytes/100 leukoc yteson 05-02-2022 Lymphocytes/100 WBC (Bld) 39.4 % 19-41 [facility] Work Phone: Blood monocytes/100 leukocyt eson 05-02-2022 Monocytes/100 WBC (Bld) 9.1 % 0-10 [facility] Work Phone: Blood platelet mean volumeon 05-02-2022 Platelet mean volume (Bld) [Entitic vol] 9.8 fL 6.2-12.0 [facility] Work Phone: Determination of erythrocyte mean corpuscular volume (MCV)on 05-02-2022 MCV (RBC) [Entitic vol] 87.4 fL 81-99 [facility] Work Phone: Hematocrit Auto (Bld) [Volum e fraction]on 05-02-2022 Hematocrit (Bld) [Volume fraction] 31.9 % 37-47 [facility] Work Phone: Laboratory - Chemistry and C hemistry - challengeon 05-02-2022 ALP [Catalytic activity/Vol] 137 U/L 45-117 [facility] Work Phone: ALT [Catalytic activity/Vol] 24 U/L 13-56 [facility] Work Phone: CO2 [Moles/Vol] 22.0 mmol/L 21.0-32.0 [facility] Work Phone: Globulin (S) [Mass/Vol] 4.1 g/dL 2.2-4.2 [facility] Work Phone: Urea nitrogen/Creatinine [Mass ratio] 7.8 mg/mg 10-20 [facility] Work Phone: Glucose Ql (U) Negative [facility] Work Phone: Laboratory - Hematology and Cell countson 05-02-2022 Erythrocyte distribution width (RBC) [Entitic vol] 41.5 fL 35.1-43.9 [facility] Work Phone: Erythrocyte distribution width (RBC) [Ratio] 13.1 % 11.6-14.6 [facility] Work Phone: Immature granulocytes/100 WBC (Bld) 0.400 % 0.0-0.9 [facility] Work Phone: Comment on above: IG% - Immature Granu locytes (promyelocytes, myelocytes and metamyelocytes) > 1% indicates that a LEFT SHIFT is Present. MCH (RBC) [Entitic mass] 27.7 pg 27.0-32.0 [facility] Work Phone: Nucleated RBC/100 WBC (Bld) [Ratio] 0 % 0-5 [facility] Work Phone: Laboratory - Urinalysison Protein Ql (U) Negative [facility] Work Phone: MCHC Auto (RBC) [Mass/Vol]on 05-02-2022 MCHC (RBC) [Mass/Vol] 31.7 g/dL 32-36 [facility] Work Phone: No Panel Informationon 05-02 Estimated GFR (MDRD) Amer 139 mL/min >60 [facility] Work Phone: Comment on above: GFR Calc Estimated GFR (MDRD) Non-Af Amer 115 mL/min >60 [facility] Work Phone: Comment on above: Non- GFR Calc Platelets bldon 05-02-2022 Platelets (Bld) [#/Vol] 240 10*3/uL 150-450 [facility] Work Phone: Serum or plasma albumin spring urement (mass/volume)on 05-02-2022 Albumin [Mass/Vol] 2.7 g/dL 3.2-5.0 [facility] Work Phone: Serum or plasma albumin/glob ulin mass ratioon 05-02-2022 Albumin/Globulin [Mass ratio] 0.7 {ratio} 0.9-2.4 [facility] Work Phone: Serum or plasma calcium spring urement (mass/volume)on 05-02-2022 Calcium [Mass/Vol] 8.5 mg/dL 8.5-10.1 [facility] Work Phone: Serum or plasma creatinine m easurement (mass/volume)on 05-02-2022 Creatinine [Mass/Vol] 0.64 mg/dL 0.55-1.02 [facility] Work Phone: Comment on above: The validity of the calculated GFR & GFRAA in patients over 70 years has not been determined. Clinical correlation is essential. Serum or plasma urea nitroge n measurement (mass/volume)on 05-02-2022 Urea nitrogen [Mass/Vol] 5 mg/dL 7-18 [facility] Work Phone: Thin prep Papanicolaou smear with manual screeningon 05-02-2022 Thin prep Papanicolaou smear with manual screening 24 U/L 15-37 [facility] Work Phone: Thin prep Papanicolaou smear with manual screening 10 5-15 [facility] Work Phone: Urine creatinine measurement (mass/volume)on 05-02-2022 Creatinine (U) [Mass/Vol] 161.00 mg/dL NO RANGE EST. [facility] Work Phone: Urine protein measurement (m ass/volume)on 05-02-2022 Protein (U) [Mass/Vol] 21.1 mg/dL 0.0-11.8 [facility] Work Phone: [phone] Urine protein/creatinine mas s ratioon 05-02-2022 Protein/Creatinine (U) [Mass ratio] 131 mg/g CRE 0-200 [facility] Work Phone: Laboratory - Chemistry and C hemistry - challengeon 04-25-2022 Glucose Ql (U) Negative [facility] Work Phone: [phone] Laboratory - Urinalysison Protein Ql (U) Negative [facility] Work Phone: [phone] Absolute lymphocyte counton 04-13-2022 Lymphocytes Auto (Unsp spec) [#/Vol] 2.53 10*3/uL 0.83-4.51 [facility] Work Phone: Basophil percentageon 2021 Basophils/100 WBC (Bld) 0.3 % 0-1 [facility] Work Phone: Eosinophils/100 WBC (Bld) 2.3 % 0-5 [facility] Work Phone: Neutrophils (Bld) [#/Vol] 5.1 10*3/uL 2.0-7.7 [facility] Work Phone: Neutrophils/100 WBC (Bld) 59.2 % 47-70 [facility] Work Phone: [phone] WBC (Bld) [#/Vol] 8.7 10*3/uL 4.4-11.0 [facility] Work Phone: [phone] Blood erythrocytes count (nu mber/volume)on 04-13-2022 RBC (Bld) [#/Vol] 3.72 10*6/uL 4.2-5.4 [facility] Work Phone: [phone] Blood hemoglobin measurement (mass/volume)on 04-13-2022 Hemoglobin (Bld) [Mass/Vol] 10.4 g/dL 12.0-15.0 [facility] Work Phone: Blood lymphocytes/100 leukoc yteson 04-13-2022 Lymphocytes/100 WBC (Bld) 29.2 % 19-41 [facility] Work Phone: Blood monocytes/100 leukocyt eson 04-13-2022 Monocytes/100 WBC (Bld) 8.3 % 0-10 [facility] Work Phone: Blood platelet mean volumeon 04-13-2022 Platelet mean volume (Bld) [Entitic vol] 9.4 fL 6.2-12.0 [facility] Work Phone: Determination of erythrocyte mean corpuscular volume (MCV)on 04-13-2022 MCV (RBC) [Entitic vol] 88.4 fL 81-99 [facility] Work Phone: Hematocrit Auto (Bld) [Volum e fraction]on 04-13-2022 Hematocrit (Bld) [Volume fraction] 32.9 % 37-47 [facility] Work Phone: Laboratory - Hematology and Cell countson 04-13-2022 Erythrocyte distribution width (RBC) [Entitic vol] 41.0 fL 35.1-43.9 [facility] Work Phone: Erythrocyte distribution width (RBC) [Ratio] 12.7 % 11.6-14.6 [facility] Work Phone: Immature granulocytes/100 WBC (Bld) 0.700 % 0.0-0.9 [facility] Work Phone: Comment on above: IG% - Immature Granu locytes (promyelocytes, myelocytes and metamyelocytes) > 1% indicates that a LEFT SHIFT is Present. MCH (RBC) [Entitic mass] 28.0 pg 27.0-32.0 [facility] Work Phone: Nucleated RBC/100 WBC (Bld) [Ratio] 0 % 0-5 [facility] Work Phone: MCHC Auto (RBC) [Mass/Vol]on 04-13-2022 MCHC (RBC) [Mass/Vol] 31.6 g/dL 32-36 [facility] Work Phone: Platelets bldon 04-13-2022 Platelets (Bld) [#/Vol] 289 10*3/uL 150-450 [facility] Work Phone: Laboratory - Chemistry and C hemistry - challengeon 03-31-2022 Glucose Ql (U) Negative [facility] Work Phone: Laboratory - Urinalysison Protein Ql (U) Negative [facility] Work Phone: Laboratory - Chemistry and C hemistry - challengeon 03-09-2022 Glucose Ql (U) Negative [facility] Work Phone: Laboratory - Urinalysison Protein Ql (U) Negative [facility] [facility]: Basophil percentageon 2021 Basophil percentage 10-25 SEEN /hpf 0-5 [facility] Work Phone: Bilirubin Test strip Ql (U)o n 02-28-2022 Bilirubin Ql (U) Negative Negative [facility] Work Phone: Ketones Test strip Ql (U)on 02-28-2022 Ketones Ql (U) Negative Negative [facility] Work Phone: Mucus LM Ql (Urine sed)on Mucus Ql (Urine sed) 0 SEEN /hpf [facility] Work Phone: Nitrite Test strip Ql (U)on 02-28-2022 Nitrite Ql (U) Negative Negative [facility] Work Phone: No Panel Informationon 02-28 Vaginal Amniotic Fluid Detection Negative Negative [facility] Work Phone: Comment on above: Amniotic fluid not p resent indicates No Rupture of FetalMembranes at time of specimen collection. Protein Test strip Ql (U)on 02-28-2022 Protein Ql (U) Negative Negative [facility] Work Phone: Squamous epithelial cells de tection in urine sediment by light microscopyon 02-28-2022 Epithelial cells.squamous LM Ql (Urine sed) 5-10 SEEN /hpf 5-10 [facility] Work Phone: Urine blood detectionon -0 RBC Ql (U) Negative Negative [facility] Work Phone: RBC Ql (U) 0 SEEN /hpf 0-5 [facility] Work Phone: Urine clarityon 02-28-2022 Clarity (U) Sl. Cloudy Clear [facility] Work Phone: Urine color determinationon 02-28-2022 Color (U) Yellow Yellow [facility] Work Phone: Urine glucose detectionon Glucose Ql (U) Normal mg/dl Normal [facility] Work Phone: Urine leukocyte esterase det ection by dipstickon 02-28-2022 Leukocyte esterase Test strip Ql (U) 500 /ul Negative [facility] Work Phone: Urine pHon 02-28-2022 pH (U) 6.0 [pH] 5.0 - 8.0 [facility] Work Phone: Urine sediment bacteria coun t by microscopy (number/high power field)on 02-28-2022 Bacteria LM.HPF (Urine sed) [#/Area] 2 /[HPF] None Seen [facility] Work Phone: Urine specific gravity measu rementon 02-28-2022 Specific gravity (U) [Rel density] 1.020 1.002-1.030 [facility] Work Phone: Urobilinogen Auto test strip Ql (U)on 02-28-2022 Urobilinogen Ql (U) Normal mg/dl Normal [facility] Work Phone: Absolute lymphocyte counton 02-26-2022 Lymphocytes Auto (Unsp spec) [#/Vol] 2.56 10*3/uL 0.83-4.51 [facility] Work Phone: Basophil percentageon 2021 Basophils/100 WBC (Bld) 0.4 % 0-1 [facility] Work Phone: [phone] Eosinophils/100 WBC (Bld) 2.0 % 0-5 [facility] Work Phone: Neutrophils (Bld) [#/Vol] 4.5 10*3/uL 2.0-7.7 [facility] Work Phone: Neutrophils/100 WBC (Bld) 55.2 % 47-70 [facility] Work Phone: WBC (Bld) [#/Vol] 8.1 10*3/uL 4.4-11.0 [facility] Work Phone: Blood erythrocytes count (nu mber/volume)on 02-26-2022 RBC (Bld) [#/Vol] 3.50 10*6/uL 4.2-5.4 [facility] Work Phone: Blood hemoglobin measurement (mass/volume)on 02-26-2022 Hemoglobin (Bld) [Mass/Vol] 9.9 g/dL 12.0-15.0 [facility] Work Phone: [phone] Blood lymphocytes/100 leukoc yteson 02-26-2022 Lymphocytes/100 WBC (Bld) 31.5 % 19-41 [facility] Work Phone: Blood monocytes/100 leukocyt eson 02-26-2022 Monocytes/100 WBC (Bld) 10.2 % 0-10 [facility] Work Phone: Blood platelet mean volumeon 02-26-2022 Platelet mean volume (Bld) [Entitic vol] 9.5 fL 6.2-12.0 [facility] Work Phone: Determination of erythrocyte mean corpuscular volume (MCV)on 02-26-2022 MCV (RBC) [Entitic vol] 89.4 fL 81-99 [facility] Work Phone: Gestational diabetes screen 1-hour screen with 50g oral glucose loadon 02-26-2022 Glucose 1 Hr post 50 g glucose PO [Mass/Vol] 120 mg/dL 70-140 [facility] Work Phone: Hematocrit Auto (Bld) [Volum e fraction]on 02-26-2022 Hematocrit (Bld) [Volume fraction] 31.3 % 37-47 [facility] Work Phone: Laboratory - Hematology and Cell countson 02-26-2022 Erythrocyte distribution width (RBC) [Entitic vol] 40.8 fL 35.1-43.9 [facility] Work Phone: Erythrocyte distribution width (RBC) [Ratio] 12.5 % 11.6-14.6 [facility] Work Phone: Immature granulocytes/100 WBC (Bld) 0.700 % 0.0-0.9 [facility] Work Phone: Comment on above: IG% - Immature Granu locytes (promyelocytes, myelocytes and metamyelocytes) > 1% indicates that a LEFT SHIFT is Present. MCH (RBC) [Entitic mass] 28.3 pg 27.0-32.0 [facility] Work Phone: Nucleated RBC/100 WBC (Bld) [Ratio] 0 % 0-5 [facility] Work Phone: MCHC Auto (RBC) [Mass/Vol]on 02-26-2022 MCHC (RBC) [Mass/Vol] 31.6 g/dL 32-36 [facility] Work Phone: Platelets bldon 02-26-2022 Platelets (Bld) [#/Vol] 293 10*3/uL 150-450 [facility] Work Phone: No Panel Information Group B Streptococcus Culture Group B Beta Streptococcus is not isolated. [facility] Work Phone: Vital Signs Date Time Vital Sign Value Performing Clinician Marcos sanchez 12-28-2024 14:03-0400 Body height 162.56 cm No Primary Care Physician [facility] 12-28-2024 14:03-0400 Body mass index (BMI) [Ratio] 34 kg/m2 No Primary Care Physician [facility] 12-28-2024 14:03-0400 Body weight 89.81 kg No Primary Care Physician [facility] 12-28-2024 13:32-0400 Body temperature 99.3 [degF] No Primary Care Physician [facility] 12-28-2024 13:32-0400 Respiratory rate 13 /min No Primary Care Physician [facility] 12-28-2024 13:32-0400 SaO2% (BldA) [Mass fraction] 100 % No Primary Care Physician [facility] 12-28-2024 13:29-0400 Diastolic blood pressure 71 mm[Hg] No Primary Care Physician [facility] 12-28-2024 13:29-0400 Heart rate 101 /min No Primary Care Physician [facility] 12-28-2024 13:29-0400 Systolic blood pressure 117 mm[Hg] No Primary Care Physician [facility] 12-27-2024 09:14-0400 Body height 160.02 cm No Primary Care Physician [facility] 12-27-2024 09:12-0400 Body mass index (BMI) [Ratio] 35.2 kg/m2 No Primary Care Physician [facility] 12-27-2024 09:12-0400 Body weight 90.26 kg No Primary Care Physician [facility] 12-27-2024 09:12-0400 Diastolic blood pressure 68 mm[Hg] No Primary Care Physician [facility] 12-27-2024 09:12-0400 Systolic blood pressure 118 mm[Hg] No Primary Care Physician [facility] 12-20-2024 11:03-0400 Body height 160.02 cm No Primary Care Physician [facility] 12-20-2024 11:03-0400 Body mass index (BMI) [Ratio] 34.5 kg/m2 No Primary Care Physician [facility] 12-20-2024 11:03-0400 Body weight 88.45 kg No Primary Care Physician [facility] 12-20-2024 11:03-0400 Diastolic blood pressure 64 mm[Hg] No Primary Care Physician [facility] 12-20-2024 11:03-0400 Systolic blood pressure 104 mm[Hg] No Primary Care Physician [facility] 12-13-2024 09:46-0400 Body height 160.02 cm No Primary Care Physician [facility] 12-13-2024 09:44-0400 Body mass index (BMI) [Ratio] 34 kg/m2 No Primary Care Physician [facility] 12-13-2024 09:44-0400 Body weight 87.14 kg No Primary Care Physician [facility] 12-13-2024 09:44-0400 Diastolic blood pressure 68 mm[Hg] No Primary Care Physician [facility] 12-13-2024 09:44-0400 Systolic blood pressure 107 mm[Hg] No Primary Care Physician [facility] 12-03-2024 10:27-0400 Body height 160.02 cm No Primary Care Physician [facility] 12-03-2024 10:27-0400 Body mass index (BMI) [Ratio] 33.8 kg/m2 No Primary Care Physician [facility] 12-03-2024 10:27-0400 Body weight 86.74 kg No Primary Care Physician [facility] 12-03-2024 10:27-0400 Diastolic blood pressure 65 mm[Hg] No Primary Care Physician [facility] 12-03-2024 10:27-0400 Systolic blood pressure 99 mm[Hg] No Primary Care Physician [facility] 11-15-2024 11:20-0400 Body mass index (BMI) [Ratio] 33.2 kg/m2 No Primary Care Physician [facility] 11-15-2024 11:20-0400 Body weight 84.99 kg No Primary Care Physician [facility] 11-15-2024 11:20-0400 Diastolic blood pressure 61 mm[Hg] No Primary Care Physician [facility] 11-15-2024 11:20-0400 Systolic blood pressure 101 mm[Hg] No Primary Care Physician [facility] 11-13-2024 10:20-0400 Body mass index (BMI) [Ratio] 33.4 kg/m2 No Primary Care Physician [facility] 11-13-2024 10:20-0400 Body weight 85.53 kg No Primary Care Physician [facility] 11-13-2024 10:20-0400 Diastolic blood pressure 64 mm[Hg] No Primary Care Physician [facility] 11-13-2024 10:20-0400 Systolic blood pressure 114 mm[Hg] No Primary Care Physician [facility] 11-05-2024 09:41-0400 Body mass index (BMI) [Ratio] 33.1 kg/m2 No Primary Care Physician [facility] 11-05-2024 09:41-0400 Body weight 84.93 kg No Primary Care Physician [facility] 11-05-2024 09:41-0400 Diastolic blood pressure 46 mm[Hg] No Primary Care Physician [facility] 11-05-2024 09:41-0400 Systolic blood pressure 84 mm[Hg] No Primary Care Physician [facility] 10-18-2024 10:51-0400 Body height 160.02 cm No Primary Care Physician [facility] 10-18-2024 10:51-0400 Body mass index (BMI) [Ratio] 33 kg/m2 No Primary Care Physician [facility] 10-18-2024 10:51-0400 Body weight 84.48 kg No Primary Care Physician [facility] 10-18-2024 10:51-0400 Diastolic blood pressure 64 mm[Hg] No Primary Care Physician [facility] 10-18-2024 10:51-0400 Systolic blood pressure 98 mm[Hg] No Primary Care Physician [facility] 10-16-2024 11:19-0400 Body temperature 97.8 [degF] No Primary Care Physician [facility] 10-16-2024 11:19-0400 Diastolic blood pressure 58 mm[Hg] No Primary Care Physician [facility] 10-16-2024 11:19-0400 Heart rate 106 /min No Primary Care Physician [facility] 10-16-2024 11:19-0400 Respiratory rate 16 /min No Primary Care Physician [facility] 10-16-2024 11:19-0400 Systolic blood pressure 102 mm[Hg] No Primary Care Physician [facility] 10-16-2024 11:15-0400 Body height 160.02 cm No Primary Care Physician [facility] 10-16-2024 11:15-0400 Body mass index (BMI) [Ratio] 32.4 kg/m2 No Primary Care Physician [facility] 10-16-2024 11:15-0400 Body weight 83 kg No Primary Care Physician [facility] 10-04-2024 10:19-0400 Body mass index (BMI) [Ratio] 31.8 kg/m2 No Primary Care Physician [facility] 10-04-2024 10:19-0400 Body weight 81.41 kg No Primary Care Physician [facility] 10-04-2024 10:19-0400 Diastolic blood pressure 61 mm[Hg] No Primary Care Physician [facility] 10-04-2024 10:19-0400 Systolic blood pressure 99 mm[Hg] No Primary Care Physician [facility] 09-20-2024 15:06-0500 Body mass index (BMI) [Ratio] 31.8 kg/m2 No Primary Care Physician [facility] 09-20-2024 15:06-0500 Body weight 81.41 kg No Primary Care Physician [facility] 09-20-2024 15:06-0500 Diastolic blood pressure 59 mm[Hg] No Primary Care Physician [facility] 09-20-2024 15:06-0500 Systolic blood pressure 93 mm[Hg] No Primary Care Physician [facility] 08-26-2024 14:00-0500 Body mass index (BMI) [Ratio] 31.6 kg/m2 No Primary Care Physician [facility] 08-26-2024 14:00-0500 Body weight 80.96 kg No Primary Care Physician [facility] 08-26-2024 14:00-0500 Diastolic blood pressure 66 mm[Hg] No Primary Care Physician [facility] 08-26-2024 14:00-0500 Systolic blood pressure 98 mm[Hg] No Primary Care Physician [facility] 07-26-2024 14:55-0500 Body mass index (BMI) [Ratio] 31.4 kg/m2 No Primary Care Physician [facility] 07-26-2024 14:55-0500 Body weight 80.45 kg No Primary Care Physician [facility] 07-26-2024 14:55-0500 Diastolic blood pressure 64 mm[Hg] No Primary Care Physician [facility] 07-26-2024 14:55-0500 Systolic blood pressure 98 mm[Hg] No Primary Care Physician [facility] 07-10-2024 12:03-0500 Diastolic Blood Pressure Non-Invasive 80 mm[Hg] RUTH GILLILAND MD [facility] 07-10-2024 12:03-0500 Heart rate 82 /min RUTH GILLILAND MD [facility] 07-10-2024 12:03-0500 Reason For Taking VItal Signs RUTH GILLILAND MD [facility] 07-10-2024 12:03-0500 Respiratory rate 16 /min RUTH GILLILAND MD [facility] 07-10-2024 12:03-0500 Systolic Blood Pressure Non-Invasive 124 mm[Hg] RUTH GILLILAND MD [address] [place] [address] 07-10-2024 11:20-0500 Diastolic Blood Pressure Non-Invasive 72 mm[Hg] RUTH GILLILAND MD [address] [place] [address] 07-10-2024 11:20-0500 Heart rate 86 /min RUTH GILLILAND MD [address] [place] [address] 07-10-2024 11:20-0500 Respiratory rate 18 /min RUTH GILLILAND MD [address] [place] [address] 07-10-2024 11:20-0500 Systolic Blood Pressure Non-Invasive 118 mm[Hg] RUTH GILLILAND MD [address] [place] [address] 07-10-2024 07:41-0500 Body temperature 97.7 [degF] RUTH GILLILAND MD [address] [place] [address] 07-10-2024 07:41-0500 Body weight 80.3 kg RUTH GILLILAND MD [facility] 07-10-2024 07:41-0500 Diastolic Blood Pressure Non-Invasive 76 mm[Hg] RUTH GILLILAND MD [address] [place] [address] 07-10-2024 07:41-0500 Heart rate 93 /min RUTH GILLILAND MD [address] [place] [address] 07-10-2024 07:41-0500 Respiratory rate 18 /min RUTH GILLILAND MD [address] [place] [address] 07-10-2024 07:41-0500 Systolic Blood Pressure Non-Invasive 122 mm[Hg] RUTH GILLILAND MD [address] [place] [address] 06-28-2024 13:23-0500 Body mass index (BMI) [Ratio] 31 kg/m2 No Primary Care Physician [facility] 06-28-2024 13:23-0500 Body weight 79.54 kg No Primary Care Physician [facility] 06-28-2024 13:23-0500 Diastolic blood pressure 59 mm[Hg] No Primary Care Physician [facility] 06-28-2024 13:23-0500 Systolic blood pressure 95 mm[Hg] No Primary Care Physician [facility] 06-08-2023 08:19-0500 Body temperature 99.1 [degF] Rabia Ruggiero [employer] Work Phone: [facility] 06-08-2023 08:19-0500 Body weight 78.2 kg Rabia Ruggiero INTERN[employer]ATIONS PROFESS[employer] Work Phone: [facility] 06-08-2023 08:19-0500 Diastolic blood pressure 76 mm[Hg] Rabia Ruggiero INTERNATIONAL RELATIONS PROFESSOR[employer] Work Phone: [facility] 06-08-2023 08:19-0500 Heart rate 83 /min Rabia Ruggiero INTERNATIONAL RELATIONS PROFESSOR[employer] Work Phone: [facility] 06-08-2023 08:19-0500 Respiratory rate 16 /min Rabia Ruggiero INTERNATIONAL RELATIONS PROFESSOR[employer] Work Phone: [facility] 06-08-2023 08:19-0500 SaO2% (BldA) [Mass fraction] 100 % Rabia Ruggiero INTERNATIONAL RELATIONS PROFESSOR[employer] Work Phone: [facility] 06-08-2023 08:19-0500 Systolic blood pressure 122 mm[Hg] Rabia Ruggiero INTERNATIONAL RELATIONS PROFESSOR[employer] Work Phone: [facility] 09-07-2022 11:24-0500 Body height 160.02 cm No Primary Care Physician [facility] 09-07-2022 11:23-0500 Body mass index (BMI) [Ratio] 29 kg/m2 No Primary Care Physician [facility] 09-07-2022 11:23-0500 Body weight 74.5 kg No Primary Care Physician [facility] 09-07-2022 11:23-0500 Diastolic blood pressure 77 mm[Hg] No Primary Care Physician [facility] 09-07-2022 11:23-0500 Systolic blood pressure 131 mm[Hg] No Primary Care Physician [facility] 06-29-2022 09:42-0500 Body mass index (BMI) [Ratio] 28.3 kg/m2 No Primary Care Physician [facility] 06-29-2022 09:42-0500 Body weight 72.57 kg No Primary Care Physician [facility] 06-29-2022 09:42-0500 Diastolic blood pressure 67 mm[Hg] No Primary Care Physician [facility] 06-29-2022 09:42-0500 Systolic blood pressure 108 mm[Hg] No Primary Care Physician [facility] 05-24-2022 16:00-0400 Body temperature 97.7 [degF] No Primary Care Physician [facility] 05-24-2022 16:00-0400 Diastolic blood pressure 61 mm[Hg] No Primary Care Physician [facility] 05-24-2022 16:00-0400 Heart rate 92 /min No Primary Care Physician [facility] 05-24-2022 16:00-0400 Respiratory rate 16 /min No Primary Care Physician [facility] 05-24-2022 16:00-0400 SaO2% (BldA) [Mass fraction] 99 % No Primary Care Physician [facility] 05-24-2022 16:00-0400 Systolic blood pressure 106 mm[Hg] No Primary Care Physician [facility] 05-23-2022 13:59-0400 Body mass index (BMI) [Ratio] 31.6 kg/m2 No Primary Care Physician [facility] 05-23-2022 13:59-0400 Body weight 81.19 kg No Primary Care Physician [facility] 05-23-2022 09:00-0400 Body mass index (BMI) [Ratio] 31.7 kg/m2 No Primary Care Physician [facility] 05-23-2022 09:00-0400 Body weight 81.3 kg No Primary Care Physician [facility] 05-23-2022 09:00-0400 Diastolic blood pressure 74 mm[Hg] No Primary Care Physician [facility] 05-23-2022 09:00-0400 Systolic blood pressure 115 mm[Hg] No Primary Care Physician [facility] 05-18-2022 13:00-0400 Body mass index (BMI) [Ratio] 31.5 kg/m2 No Primary Care Physician [facility] 05-18-2022 13:00-0400 Body weight 80.73 kg No Primary Care Physician [facility] 05-18-2022 13:00-0400 Diastolic blood pressure 62 mm[Hg] No Primary Care Physician [facility] 05-18-2022 13:00-0400 Systolic blood pressure 118 mm[Hg] No Primary Care Physician [facility] 05-02-2022 08:02-0400 Body height 160.02 cm No Primary Care Physician [facility] Work Phone: 05-02-2022 08:02-0400 Body mass index (BMI) [Ratio] 31.7 kg/m2 No Primary Care Physician [facility] Work Phone: 05-02-2022 08:02-0400 Body weight 81.24 kg No Primary Care Physician [facility] Work Phone: 05-02-2022 08:02-0400 Diastolic blood pressure 66 mm[Hg] No Primary Care Physician [facility] Work Phone: 05-02-2022 08:02-0400 Systolic blood pressure 110 mm[Hg] No Primary Care Physician [facility] Work Phone: 04-25-2022 15:44-0400 Body mass index (BMI) [Ratio] 31.1 kg/m2 No Primary Care Physician [facility] Work Phone: 04-25-2022 15:44-0400 Body weight 79.83 kg No Primary Care Physician [facility] Work Phone: 04-25-2022 15:44-0400 Diastolic blood pressure 72 mm[Hg] No Primary Care Physician [facility] Work Phone: 04-25-2022 15:44-0400 Systolic blood pressure 116 mm[Hg] No Primary Care Physician [facility] Work Phone: 04-13-2022 08:23-0400 Body mass index (BMI) [Ratio] 30.9 kg/m2 No Primary Care Physician [facility] Work Phone: 04-13-2022 08:23-0400 Body weight 79.15 kg No Primary Care Physician [facility] Work Phone: 04-13-2022 08:23-0400 Diastolic blood pressure 76 mm[Hg] No Primary Care Physician [facility] Work Phone: 04-13-2022 08:23-0400 Systolic blood pressure 116 mm[Hg] No Primary Care Physician [facility] Work Phone: 03-31-2022 10:45-0400 Body mass index (BMI) [Ratio] 30.9 kg/m2 No Primary Care Physician [facility] Work Phone: 03-31-2022 10:45-0400 Body weight 79.15 kg No Primary Care Physician [facility] Work Phone: 03-31-2022 10:45-0400 Diastolic blood pressure 70 mm[Hg] No Primary Care Physician [facility] Work Phone: 03-31-2022 10:45-0400 Systolic blood pressure 115 mm[Hg] No Primary Care Physician [facility] Work Phone: 03-09-2022 15:52-0400 Body mass index (BMI) [Ratio] 30.4 kg/m2 No Primary Care Physician [facility] Work Phone: 03-09-2022 15:52-0400 Body weight 78.01 kg No Primary Care Physician [facility] Work Phone: 03-09-2022 15:52-0400 Diastolic blood pressure 66 mm[Hg] No Primary Care Physician [facility] Work Phone: 03-09-2022 15:52-0400 Systolic blood pressure 109 mm[Hg] No Primary Care Physician [facility] Work Phone: 02-28-2022 03:57-0400 Body temperature 98 [degF] No Primary Care Physician [facility] Work Phone: 02-28-2022 03:57-0400 SaO2% (BldA) [Mass fraction] 99 % No Primary Care Physician [facility] Work Phone: 02-28-2022 03:56-0400 Diastolic blood pressure 57 mm[Hg] No Primary Care Physician [facility] Work Phone: 02-28-2022 03:56-0400 Heart rate 91 /min No Primary Care Physician [facility] Work Phone: 02-28-2022 03:56-0400 Systolic blood pressure 108 mm[Hg] No Primary Care Physician [facility] Work Phone: 02-28-2022 03:53-0400 Body height 160.02 cm No Primary Care Physician [facility] Work Phone: 02-28-2022 03:53-0400 Body mass index (BMI) [Ratio] 30.3 kg/m2 No Primary Care Physician [facility] Work Phone: 02-28-2022 03:53-0400 Body weight 77.7 kg No Primary Care Physician [facility] Work Phone: 02-08-2022 16:00-0400 Body mass index (BMI) [Ratio] 30.1 kg/m2 No Primary Care Physician [facility] Work Phone: 02-08-2022 16:00-0400 Body weight 77.16 kg No Primary Care Physician [facility] Work Phone: 02-08-2022 16:00-0400 Diastolic blood pressure 62 mm[Hg] No Primary Care Physician [facility] Work Phone: 02-08-2022 16:00-0400 Systolic blood pressure 100 mm[Hg] No Primary Care Physician [facility] Work Phone: Encounters Encounter Date Encounter Type Care Provider Facility Start: 12-30-2024 ambulatory Rosalva Ridley Facility :[facility] Start: 12-28-2024 End: 12-28-2024 ambulatory No Primary Care Physician [facility] Work Phone: Start: 12-28-2024 End: 12-28-2024 Patient encounter [facility] Work Phone: Start: 12-27-2024 End: 12-27-2024 Patient encounter procedure Ariadna Jaswinder CN -[facility] Work Phone: Start: 12-27-2024 End: 12-27-2024 ambulatory No Primary Care Physician [facility] Work Phone: Start: 12-25-2024 End: 12-25-2024 Patient encounter procedure Dr. Arpita Servin DC -[facility] Work Phone: Start: 12-25-2024 End: 12-25-2024 ambulatory Rosalva Ridley Facility:[facility] Start: 12-20-2024 End: 12-20-2024 ambulatory No Primary Care Physician [facility] Work Phone: Start: 12-20-2024 End: 12-20-[address] Felicity Vaca DO -[facility] Work Phone: Start: 12-20-2024 End: 12-20-2024 Patient encounter procedure Ariadna San CNM -[facility] Work Phone: Start: 12-20-2024 End: 12-20-2024 ambulatory No Primary Care Physician [facility] Work Phone: Start: 12-20-2024 End: 12-20-2024 ambulatory Felicity Vaca Facility:[facility] Start: 12-18-2024 End: 12-18-[address] Arpita Servin DC -[facility] Work Phone: Start: 12-18-2024 End: 12-18-2024 ambulatory No Primary Care Physician [facility] Work Phone: Start: 12-13-2024 End: 12-13-2024 ambulatory No Primary Care Physician [facility] Work Phone: Start: 12-13-2024 End: 12-13-[address] Felicity Vaca DO -[facility] Work Phone: Start: 12-13-2024 End: 12-13-[address] Felicity Vaca DO -[facility] Work Phone: Start: 12-13-2024 End: 12-13-2024 ambulatory No Primary Care Physician Facility:[facility] Start: 12-13-2024 End: 12-13-2024 ambulatory Felciity Vaca Facility:[facility] Start: 12-11-2024 End: 12-11-[address] Arpita Servin DC -[facility] Work Phone: Start: 12-11-2024 End: 12-11-2024 ambulatory No Primary Care Physician [facility] Work Phone: Start: 12-04-2024 End: 12-04-[address] Arpita Servin DC -[facility] Work Phone: Start: 12-04-2024 End: 12-04-2024 ambulatory No Primary Care Physician [facility] Work Phone: Start: 12-03-2024 End: 12-03-2024 Patient encounter procedure Ariadna San [facility] -[facility] Work Phone: Start: 12-03-2024 End: 12-03-2024 ambulatory No Primary Care Physician [facility] Work Phone: Start: 12-03-2024 End: 12-03-2024 ambulatory No Primary Care Physician Facility:[facility] Start: 11-27-2024 End: 11-27-[address] Arpita Servin DC -[facility] Work Phone: Start: 11-27-2024 End: 11-27-2024 ambulatory No Primary Care Physician Facility:[facility] Start: 11-20-2024 End: 11-20-[address] Arpita Servin DC -[facility] Work Phone: Start: 11-20-2024 End: 11-20-2024 ambulatory No Primary Care Physician Facility:[facility] Start: 11-15-2024 End: 11-15-2024 Patient encounter procedure Ariadna San CN[facility] -[facility] Work Phone: Start: 11-15-2024 End: 11-15-2024 ambulatory No Primary Care Physician Facility:[facility] Start: 11-13-2024 End: 11-13-[address] Arpita Servin DC -[facility] Work Phone: Start: 11-13-2024 End: 11-13-2024 ambulatory No Primary Care Physician Facility:[facility] Start: 11-05-2024 End: 11-05-[address] Felicity Vaca DO -[facility] Work Phone: Start: 11-05-2024 End: 11-05-2024 ambulatory Felicity Vaca Facility:[facility] Start: 10-18-2024 End: 10-18-2024 Patient encounter procedure Halina DUVALL -[facility] Work Phone: Start: 10-18-2024 End: 10-18-2024 ambulatory No Primary Care Physician [facility] Work Phone: Start: 10-18-2024 End: 10-18-2024 ambulatory No Primary Care Physician Facility:[facility] Start: 10-16-2024 ambulatory Felicity Verma cility:[facility] Start: 10-16-2024 Non-patient / Non-visit Dr. Felicity Vaca DO -[facility] Start: 10-16-2024 End: 10-16-2024 ambulatory No Primary Care Physician [facility] Work Phone: Start: 10-16-2024 End: 10-16-[address] [facility] Work Phone: Start: 10-04-2024 End: 10-04-[address] Bonnie Noriega MD -[facility] Work Phone: Start: 10-04-2024 End: 10-04-2024 ambulatory No Primary Care Physician Facility:[facility] Start: 09-20-2024 End: 09-20-2024 Patient encounter procedure Ariadna San [facility] -[facility] Work Phone: Start: 09-20-2024 End: 09-20-2024 ambulatory No Primary Care Physician Facility:[facility] Start: 08-30-2024 End: 08-30-[address] Bonnie Noriega MD -[facility] [place], [facility] Work Phone: Start: 08-30-2024 End: 08-30-2024 ambulatory Bonnie Noriega Facility:[facility] Start: 08-26-2024 End: 08-26-[address] Bonnie Noriega MD -[facility] Work Phone: Start: 08-26-2024 End: 08-26-2024 ambulatory No Primary Care Physician Facility:[facility] Start: 08-23-2024 ambulatory ROSALVA K[place]BY[place] Fac ility:[facility] Start: 08-19-2024 End: 08-19-2024 ambulatory ROSALVA KIRBY[place] Facility:[facility] Start: 08-19-2024 End: 08-19-2024 Patient encounter [facility] Start: 08-13-2024 End: 08-13-2024 Emergency department patient visit ROSALVA RIDLEY PA-C Facility:[facility] Start: 07-26-2024 End: 07-26-[address] Bonnie Noriega MD -[facility] Work Phone: Start: 07-26-2024 End: 07-26-2024 ambulatory No Primary Care Physician Facility:[facility] Start: 07-10-2024 End: 07-10-2024 Emergency department patient visit RUTH GILLILAND MD [facility] Start: 06-28-2024 End: 06-28-[address] Felicity Vaca DO -[facility] Work Phone: Start: 06-28-2024 End: 06-28-2024 ambulatory No Primary Care Physician Facility:[facility] Start: 06-28-2024 End: 06-28-2024 ambulatory Felicity Vaca Facility:[facility] Start: 06-14-2024 End: 06-14-2024 Emergency department patient visit JOSÉ BACH MD Facility:A Start: 06-14-2024 End: 06-14-2024 ambulatory ROSALVA RIDLEY PA-C Facility:[facility] Start: 06-14-2024 End: 06-14-2024 Patient encounter procedure LORI BELL INTERNATIONAL RELATIONS PROFESSOR-[facility] Start: 06-05-2024 End: 06-09-2024 ambulatory ROSALVA RIDLEY PA-C Facility:[facility] Start: 05-30-2024 End: 05-30-2024 ambulatory No Primary Care Physician Facility:[facility] Start: 05-30-2024 End: 05-30-2024 ambulatory No Primary Care Physician Facility:[facility] Start: 12-28-2023 ambulatory ROSALVA RIDLEY Facility :[id number] Start: 12-28-2023 End: 12-28-2023 Subsequent hospital visit by physician [facility] Comment on above: Adenomyosis of the u terus [N80.03] Start: 07-14-2023 ambulatory RABIA Perry y:[id number] Start: 06-30-2023 End: 06-30-2023 Patient encounter procedure [facility] Comment on above: Unspecified sprain o f left wrist, initial encounter (Primary Dx) Start: 06-30-2023 End: 06-30-2023 ambulatory RABIA RUGGIERO Facility:[id number] Start: 06-27-2023 ambulatory DAYSI Villa ity:[facility] Start: 06-27-2023 End: 06-27-2023 Subsequent hospital visit by physician [facility] (I-Stat/Lg Bore/1.5t) Work Phone: [facility] Comment on above: Left wrist pain [M25 .532] Start: 06-21-2023 End: 06-21-2023 Patient encounter procedure [facility] Comment on above: Left wrist pain (Tiffanie stepan Dx); Unspecified sprain of left wrist, initial encounter Start: 06-21-2023 End: 06-21-2023 ambulatory RABIA RUGGIERO Facility:[id number] Start: 06-09-2023 End: 06-09-2023 Patient encounter procedure [facility] Comment on above: Unspecified sprain o f left wrist, initial encounter (Primary Dx) Start: 06-09-2023 End: 06-09-2023 ambulatory RABIA RUGGIERO Facility:[id number] Start: 06-08-2023 End: 06-08-2023 Subsequent hospital visit by physician Rodger Magallon Work Phone: [facility] Comment on above: LEFT WRIST PAIN Start: 06-08-2023 End: 06-08-2023 ambulatory RABIA RUGGIERO Facility:[id number] Start: 06-08-2023 End: 06-08-2023 Patient encounter procedure Rabia Ruggiero INTERNATIONAL RELATIONS PROFESSOR.[facility] Work Phone: [facility] Comment on above: Wrist sprain, left, initial encounter (Primary Dx); Wrist injury, left, initial encounter; Forearm joint pain, left Start: 09-07-2022 End: 09-07-2022 ambulatory No Primary Care Physician [facility] Work Phone: Start: 09-07-2022 End: 09-07-2022 Patient encounter procedure No Primary Care Physician [facility] Start: 06-29-2022 End: 06-29-2022 Patient encounter procedure No Primary Care Physician [facility] Start: 05-25-2022 End: 05-25-2022 Patient encounter procedure No Primary Care Physician [facility] Start: 05-24-2022 Non-patient / Non-visit No Primary Care Physician [facility] Start: 05-23-2022 Non-patient / Non-visit No Primary Care Physician [facility] Start: 05-23-2022 End: 05-24-2022 Evaluation and management of inpatient No Primary Care Physician [facility] Start: 05-23-2022 End: 05-23-2022 Patient encounter procedure No Primary Care Physician [facility] Start: 05-18-2022 End: 05-18-2022 Patient encounter procedure No Primary Care Physician [facility] Start: 05-02-2022 End: 05-02-2022 ambulatory No Primary Care Physician [facility] Work Phone: Start: 05-02-2022 End: 05-02-2022 Patient encounter procedure No Primary Care Physician [facility] Start: 04-25-2022 End: 04-25-2022 Patient encounter procedure No Primary Care Physician [facility] Start: 04-13-2022 End: 04-13-2022 Patient encounter procedure No Primary Care Physician [facility] Start: 03-31-2022 End: 03-31-2022 Patient encounter procedure No Primary Care Physician [facility] Start: 03-12-2022 Non-patient / Non-visit No Primary Care Physician [facility] Start: 03-09-2022 End: 03-09-2022 Patient encounter procedure No Primary Care Physician [facility] Start: 02-28-2022 End: 02-28-2022 Patient encounter procedure No Primary Care Physician [facility] Out[facility] Start: 02-26-2022 End: 02-26-2022 Patient encounter procedure No Primary Care Physician [facility]Labor[facility] Start: 02-22-2022 End: 02-22-2022 Patient encounter procedure No Primary Care Physician [facility]patient [facility] Ultrasound Start: 02-08-2022 End: 02-08-2022 Patient encounter procedure No Primary Care Physician [facility] Procedures Date Procedure Procedure Detail Performing Clinician [...] P,Tdap,Td Vaccine (2 - Td or Tdap) [facility] Start: 12-28-2024 Nonstress test [facility] Start: 12-28-2024 Obstetric monitoring [facility] Start: 12-28-2024 Vital signs measurements [facility] Start: 12-28-2024 [facility] Start: 12-28-2024 Patient discharge [facility] Start: 10-16-2024 Bacteria identified in Urine by Culture Urine Culture [facility] Start: 10-16-2024 End: 10-16-2024 [facility] Start: 10-16-2024 Nonstress test [facility] Start: 10-16-2024 Obstetric monitoring [facility] Start: 10-16-2024 Vital signs measurements [facility] Start: 09-07-2023 Hepatitis B Vaccine (2 of 3 - 19+ 3-dose series) Hepatitis B Vaccine (2 of 3 - 19+ 3-dose series) [facility] Start: 07-24-2023 Behavioral Health Screening Behavioral Health Screening [facility] Start: 07-24-2022 Depression Assessment Depression Ass essment [facility] Start: 05-24-2022 [facility] Start: 05-24-2022 Patient discharge [facility] Start: 05-23-2022 Admission procedure [facility] Start: 05-23-2022 Anesthesia consultation [facility] Start: 05-23-2022 acoustic stimu lation test [facility] Start: 05-23-2022 Insertion of cathete r into peripheral vein [facility] Start: 05-23-2022 Intrauterine catheterization [facility] Start: 05-23-2022 Introduction of urin nitesh catheter [facility] Start: 05-23-2022 Obstetric monitoring [facility] Start: 05-23-2022 Provision of activit y privileges [facility] Start: 05-23-2022 Vital signs measurements [facility] Start: 05-23-2022 [facility] Start: 05-23-2022 Consultation [facility] Start: 02-28-2022 Nonstress test [facility] Work Phone: Start: 02-28-2022 Obstetric monitoring [facility] Work Phone: Start: 02-28-2022 Vital signs measurements [facility] Work Phone: Start: 02-28-2022 [facility] Work Phone: Start: 02-28-2022 Patient discharge [facility] Work Phone: Start: 2021 HPV Testing HPV Testing [facility] Start: 2021 Screening for malign ant neoplasm of cervix HPV Testing [facility] Start: 02-14-2012 Pap Testing Pap Testing [facility] Start: 02-14-2012 Screening for malign ant neoplasm of cervix Pap Testing [facility] Start: 2009 Hepatitis C Screening Hepatitis C [facility] Start: 2009 Hepatitis C screening Hepatitis C [facility] Start: 2009 HIV Screening HIV Screening [facility] Start: 2009 HIV screening HIV Screening [facility] Start: 1991 Covid-19 Vaccine (#1) Covid-19 Vacci ne (#1) [facility] Start: 1991 Hepatitis B Vaccine (1 of 3 - 3-dose series) Hepatitis B Vaccine (1 of 3 - 3-dose series) [facility] CBC W Auto Different ial panel - Blood [facility] CBC W Auto Different ial panel - Blood [facility] Chlamydia deoxyribon ucleic acid detection [facility] Measurement of gluco se 2 hours after glucose challenge for glucose tolerance test [facility] End: 07-21-2024 MRI WRIST WO IVCON LEFT MRI WRIST WO IVCON LEFT Radiology Routine Left wrist pain 1 Occurrences starting 06/21/2023 until 07/21/2024 [facility] Work Phone: Comment on above: 1 Occurrences starti ng 06/21/2023 until 07/21/2024 MRI WRIST WO IVCON LEFT MRI WRIS T WO IVCON LEFT Radiology Routine Left wrist pain 06/27/2023 10:07 AM EST [facility] Work Phone: Patient Education [facility] ED False Labor OB Triage: Return to Hospital or Notify Physician if you Experience: [facility] Work Phone: Patient referral [facility] Work Phone: Serologic test for syphilis [facility] Ultrasound scan for growth [facility] Urine culture [facility] Pelvis transvaginal [facility] End: 07-08-2024 XR WRIST INJURY 4V PA/LAT/OBL/SCAPH LEFT XR WRIST INJURY 4V PA/LAT/OBL/SCAPH LEFT Radiology Routine Wrist injury, left, initial encounter 1 Occurrences starting 06/08/2023 until 07/08/2024 [facility] Work Phone: Comment on above: 1 Occurrences starti ng 06/08/2023 until 07/08/2024 XR WRIST INJURY 4V PA/LAT/OBL/SCAPH LEFT XR WRIST INJURY 4V PA/LAT/OBL/SCAPH LEFT Radiology Routine Wrist injury, left, initial encounter 06/08/2023 9:17 AM EST [facility] Work Phone: [facility] Immunizations Immunization Date Immunization Notes Care Provider Nura bellaty 05-30-2023 influenza virus vacc ine, unspecified formulation Us 2 [facility] Payers Date Payer Category Payer Medicaid [id number] 2024 Self-pay 2023 Unknown [id number] 2023 Unknown [id number] 1991 Unknown [id number] 2.16.8 40.1.000935.3.579.2.627 1991 Unknown [id number] 2.16.8 40.1.322587.3.579.2.627 1991 Unknown [id number] 2.16.8 40.1.087792.3.579.2.627 1991 Unknown [id number] 2.16.8 40.1.287744.3.579.2.627 1991 Unknown [id number] 2.16.8 40.1.512322.3.579.2.627 1991 Unknown [id number] 2.16.8 40.1.470870.3.579.2.627 1991 Unknown [id number] 2.16.8 40.1.247042.3.579.2.627 1991 Unknown [id number] 2.16.8 40.1.350697.3.579.2.627 Unknown [id number] 2.16.8 40.1.424960.3.579.2.462 Unknown [id number] 2.16.8 40.1.985305.3.579.2.462 Unknown [id number] 2.16.8 40.1.926049.3.579.2.462 Unknown [id number] 2.16.8 40.1.712314.3.579.2.462 Unknown [id number] 2.16.8 40.1.141790.3.579.2.462 Unknown [id number] 2.16.8 40.1.137494.3.579.2.462 Unknown [id number] 2.16.8 40.1.956438.3.579.2.462 Unknown [id number] 2.16.8 40.1.831661.3.579.2.462 Unknown [id number] 2.16.8 40.1.871692.3.579.2.462 Unknown [id number] 2.16.8 40.1.452676.3.579.2.462 Unknown [id number] 2.16.8 40.1.331383.3.579.2.462 Unknown [id number] 2.16.8 40.1.155583.3.579.2.462 Unknown [id number] 2.16.8 40.1.449020.3.579.2.462 Unknown [id number] 2.16.8 40.1.522858.3.579.2.462 Unknown [id number] 2.16.8 40.1.066939.3.579.2.462 Unknown [id number] 2.16.8 40.1.718299.3.579.2.462 Unknown [id number] 2.16.8 40.1.927303.3.579.2.462 Unknown [id number] 2.16.8 40.1.315071.3.579.2.462 Unknown [id number] 2.16.8 40.1.038253.3.579.2.462 Unknown [id number] 2.16.8 40.1.094383.3.579.2.462 Unknown [id number] 2.16.8 40.1.239891.3.579.2.462 Unknown [id number] 2.16.8 40.1.929894.3.579.2.462 Unknown [id number] 2.16.8 40.1.787444.3.579.2.462 Unknown [id number] 2.16.8 40.1.135409.3.579.2.462 Unknown [id number] 2.16.8 40.1.388800.3.579.2.462 Unknown [id number] 2.16.8 40.1.586981.3.579.2.462 Unknown [id number] 2.16.8 40.1.189329.3.579.2.462 Unknown [id number] 2.16.8 40.1.879647.3.579.2.462 Unknown [id number] 2.16.8 40.1.244258.3.579.2.462 Unknown [id number] 2.16.8 40.1.795399.3.579.2.462 Unknown [id number] 2.16.8 40.1.030349.3.579.2.462 Social History Date Type Detail Facility Start: 02-08-2022 End: 09-07-2022 Tobacco smoking status [facility] Unknown if ever smoked [facility] Start: 1990 Sex Assigned At Female W [facility] Start: 06-08-2023 End: 05-30-2024 Tobacco smoking status KYIS Ex-smoker [facility] History of tobacco use Current smoker [facility] History of tobacco use Cigarette Smoker [facility] Start: 06-08-2023 Tobacco use and exposure Smoke less tobacco non-user [facility] Start: 06-08-2023 End: 06-19-2023 History of [address] function [facility] Start: 06-08-2023 End: 06-19-[address] [facility] Start: 1990 Sex Assigned At Not on file [facility] National Score (1-10 0), lower number is lower risk [address] [facility] Start: 06-05-2024 Tobacco smoking status Never s moked tobacco (finding) [facility] [place] [facility] O[facility] Start: 10-16-2024 End: 10-22-2024 Sex Female (finding) [facility] Goals Date Patient Goal Desired Activity /State Functional Status Date Assessment Result Facility 07-10-2024 Functional Status Repositions self [facility] Mental Status Date Assessment Result Facility 07-10-2024 Mental Status Oriented x 4 [facility] 05-24-2022 Cognitive function Speech Pattern Clear [facility] Work Phone: Clinical Notes 06-08-2023 to 12-21-2024 Note Date & Type Note Facility 12-21-2024 Radiology Diagnostic study note [facility] Imaging Services [address] [place], [place] [address] OB Limited With Biometrics MR#: [id number] Acct: [id number] Name: KALEY FRY Rep #: [id number] : 1990 F 34 From: Brendon Paulson MD PCP: KOFI Juan Status: REG CLI Study:OB Limited With Biometrics Date of Exam : 12/20/24 Exam# [id number] Ordering Dr: Felicity Rider DO PROCEDURE: OB [...] intrauterine with biometry as above. Reading Location: [id number] CC: Dr. Felicity Vaca DO; KOFI Juan ~ Emergency Worker: Signed [facility] 10-16-2024 History and physi gi note [facility] 09-20-2024 Evaluation note Diagnosis Onset Date Resolution [...] of high-risk acute December 20, 2024 10:44am [facility] Work Phone: 1(123) 704-723302-28-2025 Evaluation note* Diagnosis Onset Date Resolution Status [...] high-risk acute December 27, 2024 9 :05am [facility] Work Phone: 1(850) 433-200102-03-2025 Evaluation note* Diagnosis Onset Date Resolution Status Admit Date Anemia acute August 26, 2024 1:55pm Asthma acute August 26, 2024 1:55pm acute August 26, 2024 1:55pm Supervision of high-risk acute August 26 1:55pm Anemia acute September 20, 2024 3:00pm Asthma acute September 20, 2024 3:00pm acute February 28th, 2025 3:00pm Supervision of high-risk acute September 20, [...] high-risk acute December 03, 2024 1 0:24am [facility] Work Phone: 1(961) 783-616402-03-2025 Evaluation note* Diagnosis Onset Date Resolution Status [...] region acute December 04, 2024 1 0:28am [facility] Work Phone: 1(215) 433-444402-03-2025 Evaluation note* Diagnosis Onset Date Resolution Status [...] region acute December 11, 2024 1 0:17am [facility] Work Phone: 1(575) 546-725202-03-2025 Evaluation note* Diagnosis Onset Date Resolution Status [...] high-risk acute December 13, 2024 9 :37am [facility] Work Phone: 1(784) 520-628002-03-2025 Evaluation note* Diagnosis Onset Date Resolution Status [...] acute December 13, 2024 9:37am Asthma acute May 23rd, 2025 9:37am Back pain acute December 13, 2024 [...] region acute December 18, 2024 1 0:30am [facility] Work Phone: 1(886) 303-306102-03-2025 Evaluation note* Diagnosis Onset Date Resolution Status [...] high-risk acute December 20, 2024 1 0:44am [facility] Work Phone: 1(394) 693-977712-18-2024 Hospital Discharge instructions Patient Education 07/10/2024 11:45:36 [...] smoke. Don t breathe fumes from nail citizen [place], hair spray, cleansers, or other chemicals. [phone] [employer] [address] [place] [address], [place] [address]. All rights reserved. This information is not [...] Black, tarry stool Involuntary weight loss Weakness [phone] [employer] [address] [place] [address], [place] [address]. All rights reserved. This information is not intended as a substitute for professional medical care. Always follow yourhealthcare professional's instructions. Follow Up Care 07/10/2024 07:29:18 With:ROSALVA RIDLEY PA-C Address: [address] [place] [phone] When:2-4 days [facility] 12-18-2024 Emergency department Discharge summary Discharge Instructions Thank you for allowing [facility] to assist you with your healthcare needs. [...] with ROSALVA RIDLEY PA-C When:Within 2-4 days Where:[address] [place] [phone] Allergies NKA Medications Please ask your primary [...] smoke. Don t breathe fumes from nail citizen [place], hair spray, cleansers, or other chemicals. 5812-0717 [employer] [address] [place] [address]. All rights reserved. This information is not [...] Black, tarry stool Involuntary weight loss Weakness [phone] [employer] [address] [place] [address], [place] [address]. All rights reserved. This information is not intended as a substitute for professional medical care. Always follow yourhealthcare professional's instructions. Additional Information VACCINATE! IT SAVES LIVES! Members of the community who have not yet received the COVID-19 vaccine and would like to receive it can visit one of [facility] vaccine clinics. There are many vaccine clinic locations within the [facility]. For locations and available times, please visit www.[email or web address].[place].gov/. It is important to note that some COVID mobile vaccine clinics are held outdoors and may be canceled in rainy or stormy conditions. To learn more about pediatric vaccinations (ages 5-11), we invite you to visit the [employer] [facility] webpage. [email or web address] [email or web address] learn more about the COVID-19 vaccine, we invite you to visit the CDC website for a list of frequently asked questions. https://www.cdc.gov/coronavirus/2019-ncov/vaccines/faq.html [facility] Patient Portal Access Instructions: Stay connected with your healthcare team and access your personal medical information anytime with the [employer] Patient Portal. If you would like a full copy of your medical records please contact the [facility] Medical Records Department Monday through Monday between 8a.m. and 4:30p.m. Please follow the directions below to access the portal: 1.Access the email account you provided upon registration to the [facility].2.Look for an invitation email from [facility].3.Open the email and access the invitation link: Accept Invitation to [facility]4.Fill in the required chamberlain to create your account. Sign into [email or web address] with your username and password that you [...] you will allow to register on the [employer] Patient Portal for access to your information. You can also access the [employer] Patient Portal on the [employer] (T[employer]). Simply click on Health Records under StyleFeeder and then click on the Fitwall logo. HOW TO SAFELY DISPOSE OF PRESCRIPTION [...] Call your local pharmacy or go to [email or web address] to find one close to you.3.Make use of household items: Use cat litter or old coffee grounds to dispose medications if other options arenot available. Mix your drugs with these household products, seal them in an airtight container andthrow it into the garbage. Call [facility]: [phone] to be sure your drugs can be [...] reviewed and explained to me and I,KALEY FRY my current condition and have read and understand these discharge instructions. I have received a written copy of the plan/instructions. If I have questions, I am aware that I should contact my doctor. 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 MICRO - Microbiology PROCEDURE: Urine Culture [...] Locations *1: This test was performed at: [address] [id number] Note. MICRO - Microbiology PROCEDURE: Affirm Pathogens [...] Locations *1: This test was performed at: [address] [id number] NoteHNO ID: [id number] Author: Channing Gill RT(R) Service: Radiology Author Type: Technologist Type: Progress Notes Filed: 07/14/2023 12:59 PM Note Text: Radiology Service Progress Note PATIENT NAME: Kalye Coffey DATE OF SERVICE: July 14, 2023 [...] BY: RT Song(R) July 14, 2023 12:58 [facility] NoteHNO ID: [id number] Author: Juju Pan RT(Tamra) Service: Radiology Author [...] BY: RT Alva(R) June 27, 2023 9:29 [facility] History of Present illness Narrative* Juju [...] IV DATA: Not applicable SIGNED BY: RT Alva(Tamra) June 27, 2023 9:29 AM documented [facility]23 Instructions* Patient Instructions* Rabia Ruggiero APRN.CNP - 06/08/2023 9:11 AM EST Call [facility]mittor health and safety center phone number is [phone] tomorrow before 9 AM to schedule a follow-up appointment. Follow-up medical condition/release report will be given by the [facility] GENERAL INFORMATION: A [...] on site of injury). documented in this encounterSt. [facility]11-16-2023 History of Present illness Narrative* Cecille [...] IV DATA: Not applicable SIGNED BY: RT Anegla(R) June 08, 2023 8:47 AM documented in this encounterSt. [facility]11-16-2023 NoteHNO ID: [id number] Author: Cecille Daigle RT(R) Service: Radiology Author Type: Technologist Type: [...] IV DATA: Not applicable SIGNED BY: Cecille Daigle, RT(R) June 08, 2023 8:47 [facility]11-16-2023 NoteHNO ID: [id number] Author: Rabia Ruggiero APRN.CLAM GROWER Service: ? 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 Call [facility]'s work health and safety center phone number is [phone] tomorrow before 9 AM to schedule a follow-up appointment. Follow-up medical condition/release report will be given by the [facility] This note was partially generated using Dragon voice recognition system. Rabia Ruggiero APRN.[facility]11-16-2023 History of Present illness Narrative* Rabia Ruggiero APRN.[facility] - 06/08/2023 8:26 AM EST Kaley Coffey [...] plan of care verbalized understanding instructions. Call [facility]'s work health and safety center phone number is [phone] tomorrow before 9 AM to schedule a follow-up appointment. Follow-up medical condition/release report will be given by the [facility] This note was partially generated using Adzuna voice recognition system. Rabia Ruggiero APRN.COLLETTE documented in this encounterSt. Charles HospitalEvaluation + Plan note Future Appointments Appointment Date:07/03/2024 09:00:00 AM Scheduled Provider:LORI BELL Location:[facility] Appointment Type: OV OB Routine Follow Up Diagnostic Tests Pending * Urinalysis w/ C&S if Indicated 06/14/24 Future Scheduled Tests Laboratory* Type and Screen 06/05/24 [facility] Evaluation + Plan note Future Appointments Appointment Date:07/03/2024 09:00:00 AM Scheduled Provider:LORI BELL Location:[facility] Appointment Type: OV OB Routine Follow Up Diagnostic Tests Pending * [facility] Send out (Blood Specimens) 06/14/24 * Rapid Plasma Reagin Test 06/14/24 * Varicella Zoster Antibody 06/14/24 Future Scheduled Tests Laboratory* Type and Screen 06/05/24 [facility] Evaluation + Plan note Future Appointments Appointment Date:07/31/2024 02:45:00 PM Scheduled Provider:LORI BELL Location:[facility] Appointment Type: OV OB Routine Follow Up Appointment Date:08/19/2024 10:00:00 AM Scheduled Provider: Location:[facility] Appointment Type:US OB > 14 wks Future Scheduled Tests Laboratory* Type and Screen 06/05/24 Radiology* US OB > 14 weeks 08/19/24 [facility] evaluation + Plan note Future Appointments Appointment Date:08/29/2024 02:30:00 PM Scheduled Provider:JUJU GILLILAND MD Location:[facility] Appointment Type: OV OB Routine Follow Up Future Scheduled Tests Laboratory* Type and Screen 06/05/24 [facility] evaluation note* Diagnosis Onset Date Resolution Status acute Supervision of high-risk [facility] Work Phone: evaluation note* Diagnosis Onset Date [...] affecting acute acute Supervision of high-risk acute [facility] Work Phone: Evaluation note* Diagnosis Onset Date Resolution Status Anemia acute Headache resolved resolved Supervision of high-risk resolved Anemia acute Headache resolved resolved Supervision of high-risk resolved Headache resolved resolved Supervision of high-risk resolved nipple pain nonea ctive Care and examination of lactating mother noneactive Anemia acute Contraception management acu te Normal course acu te LUQ abdominal pain acute Pelvic pain acute [facility] Work Phone: Evaluation note* Diagnosis Wrist sprain, left, initial encounter- Primary Wrist injury, left, initial encounter Forearm joint pain, left [facility]* Diagnosis Wrist injury, left, initial encounter [facility]* Diagnosis Unspecified sprain of left wrist, initial encounter- Primary documented in this encounter [facility] note* Diagnosis Left wrist pain- Primary Pain in joint, forearm Unspecified sprain of left wrist, initial encounter [facility]* Diagnosis Left wrist pain Pain in joint, forearm documented in this encounter [facility] note* Diagnosis Unspecified sprain of left wrist, initial encounter- Primary documented in this encounter [facility] Author Felicity Cortes [facility] Note Date/Time October 16, 2024 12: 40pm [facility] Medical Records Department [address] [place] [address] OB Triage Physician Note 10/16/24 1238 MR#: [id number] Acct: [id number] Name: EDWARD ROSSKALEY JUJU L Rep # :[id number] : 1990 34 From: Felicity Vaca DO PCP: Care Physician,No Primary Status :REG CLI Y Location: UN449-6 HPI - General HPI Narrative KALEY EDWARD ROSS, is a 34 y/o who presents to [...] occupational status: employed and unemployed current occupation: [employer] current occupational exposures/hazards: No pets and animals: [...] safe at home: Yes additional social history: Yue Grimaldo History 6 Elective abortions Hx Para [...] 40 live - full term 7lb6oz Male DEL San Delivery Date: 05/04/10 Last Updated by: Sandhya Hart No issues during or delivery Delivery Date: 02/21/21 Last Updated by: Sandhya Hart No issues during or delivery. 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 LC-no vb/cramping. normal an atomy. 28 week labs ordered. plans to decline tdap. 10/04/24 -?-?-?-?-?-?-?-?-?-?-?-?- 26w 5d 179 lb 8 oz (+1 lb 8 oz) 179 lb 8 oz (+1 lb 8 oz) 99/61 99/61 Negative -?-?-?-?-?-?-?-?-?-?-?-?- Negative 145 27 -?-?-?-?-?-?-?-?-?-?-?-?- SM- [...] Multi Select Codes Urinary/Genital Urinary/Genital CPT Codes: 94470-01 non-stress test Interp 10/16/24 1240 <Electronically signed by Felicity Norris DO> Date _ Felicity Vaca DO Cosigner Signature (if applicable): Date CC: Dr. Felicity Vaca, DO; No Primary Care Physician ~ Signed [facility] Work Phone: Hospital course Narrative No data available for this section [facility] Hospital Discharge instructions No data available for this section [facility] Progress note No data available for this section [facility] Reason for referral (narrative)* Diagnostic Procedure Only (Routine) - Pending Review Specialty Diagnoses / Procedures Referred By Contac t Referred To Contact XR IMAGING Diagnoses Wrist injury, left, initial encounter Procedures XR WRIST INJURY 4V PA/LAT/OBL/SCAPH LEFT RADEX WRIST COMPLETE MINIMUM 3 VIEWS Rabia Ruggiero APRN.CNP [address] [place] [address] [place] [address] Referral ID Status Reason Start Date Expiration Date Visits Requested Visits Authorized [id number] Pending Review Auto-Generate d Referral Clearance Not Met -Financial Clearance Bypassed 3 07/07/2024 1 1 [facility] for referral (narrative)No reason for referral information availableWUniversity [facility]als [facility] Work Phone: Reason for visit Narrative* Diagnostic Procedure Only (Routine) - Pending Review Specialty Diagnoses / Procedures Referred By Contac t Referred To Contact XR IMAGING Diagnoses Wrist injury, left, initial encounter Procedures XR WRIST INJURY 4V PA/LAT/OBL/SCAPH LEFT RADEX WRIST COMPLETE MINIMUM 3 VIEWS Rabia Ruggiero APRN.CNP [address] [place] [address] [place] [address] Referral ID Status Reason Start Date Expiration Date Visits Requested Visits Authorized [id number] Pending Review Auto-Generate d Referral Clearance Not Met -Financial Clearance Bypassed 3 07/07/[address] [facility] Chief Complaint and Reason for Visit [...] 2024 2: 50pm Supervision of high-risk Janua ry 2024 2:50pm Anemia August 26, 2024 1 :55pm Asthma August 26, 2024 1 :55pm August 26, 2024 1 :55pm Supervision of high-risk Febru nitesh 2024 1:55pm Anemia September 20, 2024 3:00pm Asthma September 20, 2024 3:00pm September 20, 2024 3:00pm Supervision of high-risk Febru nitesh 2024 3:00pm Anemia October 04, 2024 10: 11am Asthma October 04, 2024 10: 11am Nausea and vomiting during [facility] 2024 10:11am October 04, 2024 10: 11am [...] 2024 1 :16pm Supervision of high-risk Decem flaco 2023 1:16pm Anemia July 26, 2024 2: 50pm Asthma July 26, 2024 2: 50pm July 26, 2024 2: 50pm Supervision of high-risk Janua ry 2024 2:50pm Anemia August 26, 2024 1 :55pm Asthma August 26, 2024 1 :55pm August 26, 2024 1 :55pm Supervision of high-risk Febru nitesh 2024 1:55pm Anemia September 20, 2024 3:00pm Asthma September 20, 2024 3:00pm September 20, 2024 3:00pm Supervision of high-risk Febru nitesh 2024 3:00pm Anemia October 04, 2024 10: 11am Asthma October 04, 2024 10: 11am Nausea and vomiting during [facility] 2024 10:11am October 04, 2024 10: 11am [...] 05 9:38am Nausea and vomiting during Apr sc 2024 9:38am November 05, 2024 9:3 8am [...] 2024 10:30am Segmental dysfunction of lumbar region ay 2024 10:30am Chief Complaint Admit Date [...] 2024 10: 11am Nausea and vomiting during [facility] 2024 10:11am October 04, 2024 10: 11am [...] and somatic dysfunction of sac ral region May 30th, 2025 10:44am Segmental dysfunction of lumbar region M [...] Supervision of high-risk December 27, 2024 9:05am Chief Complaint Admit Date August 30, 2024 [...] wk ob December 27, 2024 9:05a m RULE OUT LABOR December 28, 2024 1:15p m Advance Directives No Advanced Directives Records Found Advance Directive Response Recorded Date/ Time Living Will No May 23 1:18pm Power of Safety Physician No May 23, 2022 1:18pm Reason for Referral Specialty Diagnoses / Procedures Referred By Jennifer t Referred To Contact MR IMAGING Diagnoses Left wrist pain Procedures MRI WRIST WO IVCON LEFT MRI ANY JT UPPER EXTREMITY W/O CONTRAST REIDL Daysi Hartman PA-C [address] [place] [address] [place] [address] [address] Referral ID Status Reason Start Date Expiration Date Visits Requested Visits Authorized [id number] Pending Review Auto-Generat ed Referral 3 07/20/2024 [...] ferring Provider, Other Provider Active Halina Butler OUTSIDE REPAIRER SPECIAL, OUTSIDE REPAIRER SPECIAL-C Attending Provider Active Team Status: Inactive Member Role Status Dates No Primary Care Physician Primary Care Provider, Refer ring Provider Active Alicia Jimenez OUTSIDE REPAIRER SPECIAL, OUTSIDE REPAIRER SPECIAL-C Attending Provider Active Team Status: Inactive Member Role Status Dates No Primary Care Physician Primary Care Provider Active Ariadna San CNM Admit Provider, At tending Provider, Referring Provider Active Team Status: Inactive Member Role Status Dates No Primary Care Physician Primary Care Provider Active Ariadna San CNM Attending Provider, Referring Pr ovider Active 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 Felicity Vaca , DO Referring Provider Activ e Start: October 16, 2024 End: October 16, 2024 Team Status: Active Member Role Status Dates No Primary Care Physician Primary Care Provider Active Start: October 16, 2024 Dr. Felicity Vaca , DO Attending Provider Activ e Start: October 16, 2024 Dr. Felicity Vaca , Referring Provider Activ e Start: October 16, 2024 Dr. Felicity Vaca , DO Other Provider Active Start: October 16, 2024 Team Status: Inactive Member Role Status Dates No Primary Care Physician Primary Care Provider Active Start: October 18, 2024 End: October 18, 2024 No Primary Care Physician Referring Provider Active Start: October 18, 2024 End: October 18, 2024 Halina Butler NP, KATELYN-C Attending Provider Active Start: October 18, 2024 [...] End: November 05, 2024 Dr. Felicity Vaca , Attending Provider Activ e Start: November 05, [...] 15, 2024 End: November 15, 2024 Ariadna San CNM Attending Provider Active Start: November 15, [...] End: November 13, 2024 Dr. Felicity Vaca DO Referring Provider Activ e Start: November [...] Member Role Status Dates Dr. Felicity Vaca , Attending Provider Activ e Start: December 20, 2024 End: December 20, 2024 Dr. Felicity Vaca , DO Referring Provider Activ e Start: December 20, 2024 End: December 20, 2024 KOFI Juan Primary Care Provider Active Start: December 20, 2024 End: December 20, 2024 Team Status: Inactive Member Role Status Dates No Primary Care Physician Referring Provider Active Start: December 25, 2024 End: December 25, 2024 Dr. Arpita Servin , RUDDY Attending Provider Active S tart: December 25, [...] December 27, 2024 End: December 27, 2024 Team Status: Inactive Member Role Status Dates KOFI Juan Primary Care Provider Active Start: December 28, 2024 End: December 28, 2024 Ariadna San CNM Attending Provider Active Start: December 28, 2024 End: December 28, 2024 Ariadna San CNM Referring Provider Active Start: December 28, 2024 End: December 28, 2024 Source Comments (unrecognize d section and content) In the event this informatio n is protected by the Federal Confidentiality of Alcohol and Drug Abuse Patient Records regulations: The Federal rules restrict any use of the information to criminally investigate or prosecute any alcohol or drug abuse patient.[facility] the event this information is protected by the Federal Confidentiality of Alcohol and Drug Abuse Patient Records regulations: The Federal rules restrict any use of the information to criminally investigate or prosecute any alcohol or drug abuse patient.[facility] HospitalIn the event this information is protected by the Federal Confidentiality of Alcohol and Drug Abuse Patient Records regulations: The Federal rules restrict any use of the information to criminally investigate or prosecute any alcohol or drug abuse patient.[facility] HospitalIn the event this information is protected by the Federal Confidentiality of Alcohol and Drug Abuse Patient Records regulations: The Federal rules restrict any use of the information to criminally investigate or prosecute any alcohol or drug abuse patient.[facility] HospitalIn the event this information is protected by the Federal Confidentiality of Alcohol and Drug Abuse Patient Records regulations: The Federal rules restrict any use of the information to criminally investigate or prosecute any alcohol or drug abuse patient.[facility] HospitalIn the event this information is protected by the Federal Confidentiality of Alcohol and Drug Abuse Patient Records regulations: The Federal rules restrict any use of the information to criminally investigate or prosecute any alcohol or drug abuse patient.[facility] HospitalIn the event this information is protected by the Federal Confidentiality of Alcohol and Drug Abuse Patient Records regulations: The Federal rules restrict any use of the information to criminally investigate or prosecute any alcohol or drug abuse patient.[facility] Reason for Visit (unrecogniz ed section and content) Reason Comments Pain Specialty Diagnoses / Procedures Referred By Jennifer anna Referred To Contact OCCUPATIONAL MEDICINE Diagnoses follow up Procedures EST WORKERS COMP Self Cc Atwork [address] [address] Referral ID Status Reason Start Date Expiration Date Visits Re quested Visits Authorized [id number] Closed 06/30/2023 06/30/2023 1 1 Reason Comments Wrist Pain Left, Work injury, p ts that a box bent wrist backwards, appears swollen, pain with movement, no serenity of wrist pain Reason Comments Pain Specialty Diagnoses / Procedures Referred By Jennifer anna Referred To Contact MR IMAGING Diagnoses Left wrist pain Procedures MRI WRIST WO IVCON LEFT MRI ANY JT UPPER EXTREMITY W/O CONTRAST MATRL REFERRAL TO [facility] FINANCIAL COUNSELOR Daysi Hartman PA-C [address] [place] [address] [place] [address] Referral ID Status Reason Start Date Expiration Date Visits Requested Visits Authorized [id number] Pending Review Auto-Generat ed Referral 3 07/20/2024 1 1 Specialty Diagnoses / Procedures Referred By Lucilaac t Referred To Contact [facility] DEPARTMENT Diagnoses HCAP 100% Procedures HCAP 100% [place] [address] Referral ID Status Reason Start Date Expiration Date Visits Requested Visits Authorized [id number] Authorized Financial Clearance Required - Self Pay Patient Cleared - Qualified HCAP/501/FA 12/14/2023 03/13/2024 99 99 INFORMATION SOURCE (unrecogn ized section and content) DATE CREATED AUTHOR 06/29/2023 [facility] DATE CREATED AUTHOR AUTHOR'S ORGANIZ ATION 07/26/2023 [facility] DATE CREATED AUTHOR AUTHOR'S ORGANIZ ATION 12/29/2023 [facility] DATE CREATED AUTHOR AUTHOR'S ORGANIZ ATION 08/25/2024 [facility] DATE CREATED AUTHOR AUTHOR'S ORGANIZ ATION 09/01/2024 [facility] DATE CREATED AUTHOR AUTHOR'S ORGANIZ ATION 12/29/2024 [facility] FOR RECORDS PERTAINING TO PATIENTS WHO ARE [...] BE BASED ON THE PRIMARY CLINICAL RECORDS. [employer] provides no warranty or guarantee of the accuracy or completeness of information in this document.
[2024-12-30] MEDS: Lactated Ringers 1,000 ML 50 ML IV (03:30)
[2024-12-30 03:33] LABS: Absolute Lymphocyte Count 3.65 X10^3/uL (0.83-4.51); Absolute Neutrophil Count 4.9 X10^3/uL (2.0-7.7); Basophil# 0.02 X10^3/uL; Basophil% 0.2 % (0-1); Eosinophil# 0.13 X10^3/uL; Eosinophils% 1.4 % (0-5); Hematocrit 28.6 % (37-47); Lymphocyte # 3.65 X10^3/ul (0.83-4.51); Lymphocyte % 38.1 % (19-41); Mean Corp Hgb Conc 31.5 g/dL (32-36); Mean Corpuscular Hgb 25.9 pg (27.0-32.0); Mean Corpuscular Volume 82.4 fL (81-99); Mean Platelet Vol. 10.5 fl (6.2-12.0); Monocyte# 0.81 X10^3/uL; Monocyte% 8.4 % (0-10); NRBC Flagged by Analyzer 0 % (0-5); Neutrophil # 4.91 X10^3/uL (2.7-7.7); Neutrophil % 51.2 % (47-70); Platelet Count 234 K/mm3 (150-450); RBC Distribution Width CV 15.2 % (11.6-14.6); RBC Distribution Width SD 44.7 fl (35.1-43.9); Red Blood Count 3.47 M/mm3 (4.2-5.4); White Blood Count 9.6 K/mm3 (4.4-11.0)
--- NOTE | 2024-12-30 03:52 | HP.PCM.OB_ITS ---
HPI - General General Date of Admission: 12/30/24 HPI Narrative CHERYL FRY, is a 34 F who presents at 39 weeks with worsening contractions since 10pm.no lof/vb. good fm gbs neg. Maternal Data Information ELISSA Calculator Estimated Delivery Date Method Current WG Current Estimate 01/05/25 Ultrasound #1 39w 1d PFSH PFSH Medical History (Updated 12/30/24 @ 03:54 by Ariadna San CNM) Asthma Adenomyosis of uterus Pelvic pain (spontaneous vaginal delivery) Pelvic pain affecting Anemia Supervision of high-risk Home Medications ?Medication ?Instructions ?Recorded ?Last Taken ?Type docosahexaenoic acid 200 mg 200 mg PO DAILY Check with primary 02/08/22 12/29/24 History capsule ( DHA) doctor hydroxyzine pamoate 50 mg capsule 50 mg PO QHS insomni a #30 caps 11/05/24 12/29/24 Rx breast pump #1 ea 11/29/24 Unknown Rx ferrous sulfate 300 mg (60 mg 300 mg PO QDAY 12/28/24 12/29/24 History iron)/5 mL oral liquid prenat.vits,gi,[id number]-[id number] tab 12/28/24 Unknown Hi story Allergy/AdvReac Type Severity Reaction Status Date / Time No Known Allergies Allergy Verified 12/30/24 03:18 Family History Mother Hypertension Uncle CVA (cerebral vascular accident) Social History adopted: No household members: family housing: house number of children: 3 current occupational status: employed and unemployed current occupation: [employer] current occupational exposures/hazards: No pets and animals: Yes history of recent travel: No sexually active: Yes Smoking Status: Never smoker second hand exposure: No alcohol intake: never details: not while substance use type: does not use well-balanced diet: rarely or never caffeine: Yes what type of physical activity do you participate in: none seatbelt use: always do you feel safe at home: Yes additional social history: - Dillan History 6 Elective abortions Hx Para 4 Spontaneous abortions 1 Hx # Term Pregnancies Ectopic pregnancies Hx # Pregnancies Multiple births # of living children 4 Past Pregnancies Del. Date Name GA/Weeks Outcome Route Bth Weight Infant Gen Labor Lgth Anesthesia Del [place]n Provider FOB 07/24/08 delivered 2009 son 1 week 40 live - full term 05/04/10 Jennifer 40 live - full term Female none Sarina Cross 02/21/21 Gareth 40 live - full term Female none CT Dillan 05/23/22 Rashida 40 live - full term 7lb6oz Male [facility] San Delivery Date: 05/04/10 Last Updated by: Sandhya Hart No issues during or delivery Delivery Date: 02/21/21 Last Updated by: Sandhya Hart No issues during or delivery. Per patient child had water in kidney Delivery Date: 05/23/22 Last Updated by: Zee BEEBE Visit Details Expected Delivery Route/Plan Labor Preferences- CB/BF classes: no labor support person: Dillan labor intervention preferences: [] pain management options preferred: limited intervention/nitrous cut cord/dad catch: cord : yes PP control planned:pp tubal desired. discussed possible routes of delivery and associated risks: [] special requests: Ariadna at delivery Plans Covid status: declines Flu vaccine: declines Tdap vaccine: declines Rhogam: na LARC form signed: yes Problem list reviewed and updated with the most current plan of care details and appropriate orders placed. Relevant counseling for the gestational age provided. Continue routine care and follow up unless otherwise noted in visit notes/problem list details OB Flowsheet Initial Weight: 178 lb Date -?-?-?-?-?-?-?-?-?-?-?-?- EGA Weight BP Urine Prot -?-?-?-?-?-?-?-?-?-?-?-?- Glucose FHR FuHt Pres Dilation -?-?-?-?-?-?-?-?-?-?-?-?- Effaced St Visit Note 05/30/24 -?-?-?-?-?-?-?-?-?-?-?-?- 8w 4d 178 lb (+0 oz) 98/64 -?-?-?-?-?-?-?-?-?-?-?-?- 175 -?-?-?-?-?-?-?-?-?-?-?-?- KW- CRL cons wit h PCC US per pt. Accepts NIPT. 06/28/24 -?-?-?-?-?-?-?-?-?-?-?-?- 12w 5d 175 lb 6 oz (-2 lb 10 oz) 95/59 Trace -?-?-?-?-?-?-?-?-?-?-?-?- Negative 157 -?-?-?-?-?-?-?-?-?-?-?-?- JV- pt complains of lower pelvic cramping and nausea. sending in zofran and recommending tylenol. ultrasound today appears normal. CRL measuring 13 weeks. nipt and carrier screen ordered. 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 no uti symptoms. 09/20/24 -?-?-?-?-?-?-?-?-?-?-?-?- 24w 5d 179 lb 8 oz (+1 lb 8 oz) 93/59 Negative -?-?-?-?-?-?-?-?-?-?-?-?- Negative 150 24 -?-?-?-?-?-?-?-?-?-?-?-?- LC-no vb/crampin g. LC-no vb/cramping. normal an atomy. 28 week labs ordered. plans to decline tdap. 10/04/24 -?-?-?-?-?-?-?-?-?-?-?-?- 26w 5d 179 lb 8 oz (+1 lb 8 oz) 179 lb 8 oz (+1 lb 8 oz) 99/61 99/61 Negative -?-?-?-?-?-?-?-?-?-?-?-?- Negative 145 27 -?-?-?-?-?-?-?-?-?-?-?-?- SM- no vb lof go od fm no regualr ctx co pelvic pubic symphi=ysis pain and low back pain, unable to do exercises suggested, declined PT consult, recommend chiropractor. 10/18/24 -?-?-?-?-?-?-?-?-?-?-?-?- 28w 5d 186 lb 4 oz (+8 lb 4 oz) 98/64 Negative -?-?-?-?-?-?-?-?-?-?-?-?- Negative 157 29 -?-?-?-?-?-?-?-?-?-?-?-?- MH-No VB, LOF. G ood Fm. 28 wk labs pending with Fe studies. Declines tdap. Larc done 11/05/24 -?-?-?-?-?-?-?-?-?-?-?-?- 31w 2d 187 lb 4 oz (+9 lb 4 oz) 84/46 Negative -?-?-?-?-?-?-?-?-?-?-?-?- Negative 158 32 -?-?-?-?-?-?-?-?-?-?-?-?- JV- no lof, vagi nal bleeding, or dec fm. has some hip pain. may want PT eval. 11/15/24 -?-?-?-?-?-?-?-?-?-?-?-?- 32w 5d 187 lb 6 oz (+9 lb 6 oz) 101/61 Negative -?-?-?-?-?-?-?-?-?-?-?-?- Negative 140 33 -?-?-?-?-?-?-?-?-?-?-?-?- LC- no vb/ctx/lo f. good fm. declines pt, lead care manager is helping. 12/03/24 -?-?-?-?-?-?-?-?-?-?-?-?- 35w 2d 191 lb 4 oz (+13 lb 4 oz) 99/65 Negative -?-?-?-?-?-?-?-?-?-?-?-?- Negative 151 35 -?-?-?-?-?-?-?-?-?-?-?-?- LC-pain improved with weekly lead care manager. no vb/ctx/lof. good fm. desires pp tubal with JV.has appt with her next week to discuss. LC-pain improved with weekly lead care manager. no vb/ctx/lof. good fm. repeat cbc ordered today. asymptomatic anemia currently. 12/13/24 -?-?-?-?-?-?-?-?-?-?-?-?- 36w 5d 192 lb 2 oz (+14 lb 2 oz) 107/68 Negative -?-?-?-?-?-?-?-?-?-?-?-?- Negative 155 36 Cephalic 1 -?-?-?-?-?-?-?-?-?-?-?-?- 50 -2 JV_ no lof , vaginal bleeding, or dec fm. wants tubal ligation after this . 12/20/24 -?-?-?-?-?-?-?-?-?-?-?-?- 37w 5d 195 lb (+17 lb) 104/64 Negative -?-?-?-?-?-?-?-?-?-?-?-?- Negative 155 37 1.5 -?-?-?-?-?-?-?-?-?-?-?-?- 60 -2 LC- no lof /vb/ctx. good fm. gc/ct recollected per pt request for sti screening today. has growth us scheduled for this afternoon. desires elective iol at 39 weeks on 12/30. consent signed. 12/27/24 -?-?-?-?-?-?-?-?-?-?-?-?- 38w 5d 199 lb (+21 lb) 118/68 Negative -?-?-?-?-?-?-?-?-?-?-?-?- Negative 153 38 Cephalic 2 -?-?-?-?-?-?-?-?-?-?-?-?- 60 -2 LC- no vb/ ctx/lof. good fm. iol set for monday. NST FHR Rate Baby A Baseline: 130-135 Variability:: Moderate Accelerations:: 15 x 15 Decelerations:: None NST Reactive:: Yes FHR Category:: Category I Uterine Activity:: q2-3 ROS Cardiovascular Cardiovascular: Denies abdominal pain, chest pain, diaphoresis or dyspnea Respiratory/Chest Respiratory/Chest: Denies change in mental status, chest congestion, chest tightness, cough, shortness of breath at rest, shortness of breath with exertion, breast mass, breast pain, breast skin changes, breast swelling, change in breast shape or nipple discharge Genitourinary Genitourinary: Reports change in urinary stream Musculoskeletal Musculoskeletal: Reports none Integumentary Integumentary: Reports none Neurologic Neurologic: Reports none Psychiatric Psychiatric: Reports none Endocrine Endocrinology: Reports none Hematologic/Lymphatic Hematologic/Lymphatic: Reports none Allergic/Immunologic Allergic/Immunologic: Reports none Vital Signs Vital Signs Vital Signs: 12/30/24 03:16 12/30/24 03:16 12/30/24 03:16 Temperature 98.6 F Temperature Source Temporal Pulse Rate Respiratory Rate 16 Blood Pressure BP Systolic BP Diastolic 12/30/24 03:17 12/30/24 03:17 Temperature Temperature Source Pulse Rate 101 H Respiratory Rate Blood Pressure 133/72 H BP Systolic 133 BP Diastolic 72 Weight Weight: 199 lb Body Mass Index (BMI) 34.1 Physical Exam Const alert, oriented x3 and no apparent distress General Appearance: cooperative, comfortable and well kempt Orientation / Consciousness: awake and oriented to person Exam Limitations: no limitations HEENT normocephalic Neck full ROM Chest inspection of chest normal Resp normal respiratory effort, normal air movement and no retractions Effort and Inspection: able to speak in complete sentences and symmetric chest movement GI normal to inspection, nondistended, normoactive bowel sounds Inspection: gravid no CVA tenderness and appearance of the vagina normal External Female Exam: normal appearance of the urethra; Negative for external lesion OB / External & Speculum: external exam normal Manual OB Exam: estimated gestational size appropriate and presentation cephalic Uterus Palpation: Negative for uterus tender Extremity normal to inspection Skin no rashes or lesions noted Psych Activity / Motor Behavior: appropriate eye contact Speech: normal speech Labs Labs Labs: Blood Type AB POSITIVE Antibody Screen NEGATIVE Hct 28.6 % (37-47) L Hgb 9.0 g/dL (12.0-15.0) L Pap Smear Negative Obstetrics Ultrasound Syphilis Total Ab Nonreactive (Nonreactive) Rubella IgG Antibody Reactive (Nonreactive) Hep Bs Antigen Non-Reactive (Nonreactive) Hepatitis C Antibody Non-Reactive (Nonreactive) Chlamydia DNA (NELLY) Negative (Negative) N.gonorrhoeae DNA (NELLY) Negative (Negative) HIV 1&2 Antibody Nonreactive (Nonreactive) Glucose 1 Hr 50 gm 130 mg/dL (70-140) Assessment & Plan (1) Spontaneous onset of labor: PLAN: Patient presents IAL, plan expectant management for , pitocin/AROM PRN if needed. Pain management: plans unmedicated, open to nitrous/hydrotherapy. GBS neg. Management of any complications: anemia I have reviewed the [facility] and made any clinically relevant updates. Dr. Polanco updated on admisison, exam and poc.
[2024-12-30 04:18] LABS: Syphilis Antibodies Nonreactive (Nonreactive)
[2024-12-30] MEDS: Oxytocin 15 Units/NS 250ml 15 UNITS/250 ML IV.SOLN 334 UNITS IV (04:40)
--- NOTE | 2024-12-30 04:53 | EX.PCM.OBVAG ---
Assessment & Plan (1) (spontaneous vaginal delivery): COMMENT: LC girl Maternal Data Information ELISSA Calculator Estimated Delivery Date Method Current WG Current Estimate 01/05/25 Ultrasound #1 39w 1d Final ELISSA: 01/05/25 Final ELISSA Source: LMP Vaginal Delivery Maternal Presentation Maternal Presentation: Active Labor Maternal Presentation: at 39 weeks presenting in active labor. nitrous used for pain management. AROM for clear fluid with good descent of head. progressed with urge to push. Vaginal Delivery Information Procedure Performed: Spontaneous Vaginal Delivery Type of anesthesia: None Estimated Blood Loss: 400 Time of Delivery: 04:37 Findings Description of procedure: Patient began pushing and delivered the head in the EUGENE presentation. The head was delivered atraumatically. The anterior and posterior shoulders delivered without complication followed by the rest of the and the infant was placed on the maternal abdomen. Delayed cord clamping was employed for approximately 2minutes. Cord was clamped and cut and gentle traction was applied to the cord and the placenta delivered spontaneously immediately following it was noted to be intact with three-vessel cord. The perineum and vagina were inspected and noted to have no laceration. EBL was 400cc. Patient and tolerated delivery well. Presentation: Vertex Amniotic Fluid Description: Clear Placental Delivery Description: Spontaneous Placenta Disposition: [facility] Specimen collected: No Cord Vessel Description: 3 Vessels Cord Entanglement: None Infant A Gender: Female (1 minute): 8 (5 minute): 9 Delayed Cord Clamping: Yes Post Vaginal Deli Medications given after delivery: IV Pitocin Episiotomy Description: None Laceration: None Complication Complications: No Procedures Urinary/Genital [id number]: [id number] Vaginal Delivery [facility]
--- NOTE | 2024-12-30 04:57 | DCINST_ITS ---
Discharge Instructions Diet Discharge Diet: No restrictions DC O2, CPAP, BIPAP needs Home O2 Discharge instructions: No Dressing / Incision Discharge Activity: May Not Drive and May Shower May resume sexual activity in: 6 weeks Weight Bearing Status: Full weight bearing Dressing / Incision Call your doctor if your incision/area has: Sudden Increased Bleeding, Increased Pain/ Swelling and Foul Smelling Discharge Call your doctor if you observe: Fever of 101 or Higher, Numbness or Tingling, Change in Color, Inability to urinate, Inability to have a bowel movement, Using more than 1 pad per hour, Shortness of breath, Dizziness, Fainting spells, Chest pain, Calf discomfort and Uncontrolled pain Follow Up Care Please Follow Up With: Ariadna San CNM When: 6 weeks , please call office to make an appointment. Congratulations on the of your baby! Test Results: Test results from this visit will be discussed in further detail at your follow- up appointment, if applicable. Discharge Plan Admission Admit Date/Time: 12/30/24 03:11 Attending Provider: Ariadna San Primary Care Provider: Dmitry Ridley Discharge Orders/Prescriptions Prescriptions: No Action DHA 200 mg capsule 200 mg PO DAILY hydroxyzine pamoate 50 mg capsule 50 mg PO QHS Qty: 30 4RF prenat.vits,gi,[id number] Tablet ferrous sulfate 300 mg (60 mg iron)/5 mL liquid 300 mg PO QDAY (DME) breast pump Device See Rx Instructions .ROUTE .MEDSUPPLY Qty: 1 0RF Rx Instructions: As directed Referrals / Follow Up: Dmitry Ridley, PA [Primary Care Provider] - Disposition Disposition (needs filled in before D/C Order can be placed): Home, Self Care
[2024-12-30] MEDS: Oxytocin 15 Units/NS 250ml 15 UNITS/250 ML IV.SOLN 83 UNITS IV (05:11)
[2024-12-30] MEDS: Acetaminophen 500 MG Tablet 1000 MG PO ×3 (06:34→19:13)
[2024-12-30] MEDS: Naproxen 500 MG Tablet PO ×2 (09:02→18:43)
[2024-12-30 10:24] LABS: Absolute Lymphocyte Count 2.47 X10^3/uL (0.83-4.51); Absolute Neutrophil Count 8.5 X10^3/uL (2.0-7.7); Basophil# 0.01 X10^3/uL; Basophil% 0.1 % (0-1); Eosinophil# 0.03 X10^3/uL; Eosinophils% 0.3 % (0-5); Hematocrit 25.7 % (37-47); Hemoglobin 8.2 g/dL (12.0-15.0); Lymphocyte # 2.47 X10^3/ul (0.83-4.51); Lymphocyte % 20.6 % (19-41); Mean Corp Hgb Conc 31.9 g/dL (32-36); Mean Corpuscular Hgb 26.2 pg (27.0-32.0); Mean Corpuscular Volume 82.1 fL (81-99); Mean Platelet Vol. 10.8 fl (6.2-12.0); Monocyte# 0.96 X10^3/uL; NRBC Flagged by Analyzer 0 % (0-5); Neutrophil # 8.45 X10^3/uL (2.7-7.7); Neutrophil % 70.3 % (47-70); Platelet Count 222 K/mm3 (150-450); RBC Distribution Width SD 44.5 fl (35.1-43.9); Red Blood Count 3.13 M/mm3 (4.2-5.4)
[2024-12-30] MEDS: Iron Sucrose Complex 200 MG in 0.9% Normal Saline (100mL Bag) 100 ML 220 MG IV (13:24)
[2024-12-30] MEDS: 0.9% Saline Lock 10 ML Syringe IV (13:24)
[2024-12-31 00:06] VITALS: BP 127/60; PULSE 80; PULSE 84; O2SAT 97
[2024-12-31 00:07] VITALS: BP 126/60; PULSE 82; RESP 16; TEMP 36.8; O2SAT 99
[2024-12-31] MEDS: Acetaminophen 500 MG Tablet 1000 MG PO ×2 (02:24→08:59)
[2024-12-31] MEDS: Naproxen 500 MG Tablet PO (04:39)
[2024-12-31 05:02] VITALS: BP 117/69; PULSE 88; O2SAT 98
[2024-12-31 05:03] VITALS: BP 117/69; PULSE 86; RESP 15; TEMP 36.8; O2SAT 98
[2024-12-31 07:28] VITALS: BP 119/67; PULSE 90; O2SAT 99
[2024-12-31 07:45] VITALS: BP 119/67; PULSE 86; RESP 16; TEMP 36.8; O2SAT 98
--- NOTE | 2024-12-31 08:12 | PCM.PN.OB ---
Subjective Subjective Patient doing well without complaints. Tolerating PO. Ambulating and voiding without difficulty. Feeding well. Denies chest pain, shortness of breath, calf pain/swelling, fevers, chills, lightheadedness. Objective Data Objective Data Vital Signs: Vital Signs Temp Pulse Resp BP Pulse Ox O2 Del Method 98.2 F 86 16 119/67 98 Room Air 12/31/24 07:45 12/31/24 07:45 12/31/24 07:45 12/31/24 07:45 12/31/24 07:45 12/31/24 07:45 Oxygen Delivery Method Room Air Weight: 199 lb Body Mass Index (BMI) 34.1 Intake & Output: Intake and Output for Last 24 Hours 12/29/24 12/30/24 12/31/24 23:59 23:59 23:59 Intake Total 683.30 / 683.30 Output Total 400 / 400 Balance 283.30 / 283.30 Lab / Micro Data 12/30/24 10:05 Labs: Laboratory Results - last 24 hr 12/30/24 10:05: WBC 12.0 H, RBC 3.13 L, Hgb 8.2 L, Hct 25.7 L, MCV 82.1, MCH 26.2 L, MCHC 31.9 L, RDW Std Deviation 44.5 H, RDW Coeff of Bee 15.0 H, Plt Count 222, MPV 10.8, Immature Gran % (Auto) 0.700, Neut % (Auto) 70.3 H, Lymph % (Auto) 20.6, [place] % (Auto) 8.0, Eos % (Auto) 0.3, Baso % (Auto) 0.1, Absolute Neuts (auto) 8.5 H, Absolute Lymphs (auto) 2.47, Nucleated RBC % 0 ROS Constitutional Constitutional: Denies chills, fatigue, fever(s), poor appetite or weakness Eyes Eyes: Denies blurry vision, change in vision, seeing flashes or spots in vision ENT HEENT: Denies dizziness, headache(s), loss taste/smell or sore throat Cardiovascular Cardiovascular: Denies chest pain, dizziness, dyspnea, irregular heart rhythm, palpitations or rapid heart rate Respiratory/Chest Respiratory/Chest: Denies chest tightness, cough, dyspnea or breast pain Gastrointestinal Gastrointestinal: Denies abdominal pain, constipation or vomiting Genitourinary Genitourinary: Denies dysuria or flank pain Musculoskeletal Musculoskeletal: Denies difficulty walking, joint pain, limited range of motion or numbness Neurologic Neurologic: Denies abnormal movements, abnormal speech, dizziness, numbness, seizure-like activity or syncope Psychiatric Psychiatric: Denies anxiety, behavioral changes, change in appetite, confusion, depression or suicidal thoughts Physical Exam Const alert, oriented x3 and no apparent distress General Appearance: cooperative and comfortable Resp normal respiratory effort Cardio regular rate GI normal to inspection, nondistended, normoactive bowel sounds GI Narrative: uterus is firm below umbilicus Palpation: soft Back/Spine no CVA tenderness and thoraco-lumbar ROM normal Extremity normal to inspection, no clubbing, cyanosis or edema, no calf tenderness and no pedal edema Psych mental status grossly normal, thought process normal, cooperative, affect normal, speech normal, activity/motor behavior normal, denies homicidal ideation and denies suicidal ideation Assessment & Plan (1) (spontaneous vaginal delivery): COMMENT: LC girl PLAN: Plan s/p PPD # 1 1. routine post delivery care 2. breast feeding- support given 3. rh positive 4. rubella immune 5. ok to dc to home today
--- NOTE | 2024-12-31 11:28 | CASEMGMT ---
Social Work Assessment Labor and Delivery Unit Patient Address: [facility] [place] [address] Phone number: [phone] Date of Referral: 12/30/24 Time of Referral:? 334 Referred By: Ariadna San Date of Intervention: ??12/31/24 Time of Intervention:? 1029 Reason for Referral:? resources, pt states concern with housing/ food Sw completed chart review and acknowledges social work consult due to need for resources. Sw presented to bedside and introduced self to mother of baby (MOB- Kaley) and father of baby (FOB- Dillan). Sw explained reason for sw involvement and completed psychosocial assessment. History obtained from: medical records, MOB and FOB Household composition: Currently residing in the family home is MOB, ROSA, MOB's older daughter- Jennifer (14), MOB and FOEnzo's two older children: Gareth (3) and Juanjo (2). [place] baby to be included in residence when ready for discharge. Parents report that there are housing concerns. ROSA states that he had a part of the roof replaced about a year ago, however there is a part of the roof that was not replaced and now it is leaking into the children's bedroom, causing mold to be in the room an the ceiling is bowing. ROSA states that their washing machine is also broken along with their hot water tank. - FOB states that he has looked at several places to seek assistance, however he has been told that he is over income. - Sw provided parents with other resources including: [employer], [facility], [facility] and the Health Department. Patient's parent/guardian status:? ?MOB states that she and ROSA met on a dating breanna in 2019 and have been since 2020. No concerns reported regarding domestic violence or intimate partner violence. [place] baby is third child for parents together. Medical History: ?HOWARD is 34 year old [place] female who is 6, para 4- now 5 following labor and delivery of . HOWARD did experience a loss of her first baby one week after they were born. HOWARD received routine care during with [facility]. HOWARD presented to hospital in active labor and delivered baby via vaginal delivery at 39 weeks gestation. Baby girl, named Sherry, was born weighing 8lb 4oz with apgars of 8 and 9 at one and five minutes of life, respectfully. HOWARD states that she is bottle and breast feeding and baby will be followed by Dr. Richards. Educational Status:? Both parents report that they graduated high school, no college education. Parents deny problems with reading, learning or comprehension. Financial Status: ROSA is gainfully employed in a [employer] company. 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 HOWARD states that when she is ready, following delivery, she would like to return to working for [employer]. Infant Supplies:?? Parents report to having all necessary baby items, including: car seat, safe sleep space, clothes, diapers and wipes. Childcare/Caregiver(s):? HOWARD reports that she will be the primary caregiver to baby. While parents have been at the hospital, their next door neighbor has been helping with their other children. Transportation:?? ROSA states that he has his drivers license and reliable means of transportation- aside from times when he has had a flat tire. HOWARD does not drive and receives help with transportation to her medical appointments. Programs/Agencies Involved: ??HOWARD is connected to insurance through [employer] ([employer]) and [employer]. HOWARD states that she is not receiving SNAP benefits. - ROSA states that in the past he reached out to [employer] and was informed that he is over income. ? Children Services/Legal Issues:???No prior children Services involvement, no issues or concerns warranting referral to be made at this time. Behavioral Health Issues: ??Mental Health History:?Parents deny mental health history or diagnoses. ?? Substance Use History: Parents deny substance use prior to and during . ?? Family History: Parents deny family history of substance use or significant mental health diagnoses. MOB states that paternal grandmother takes happy pills but is inconsistent with them. ? Drug Screens: ??No drug screens observed in chart review. Family/Social Stressors:?Parents report that they have housing and financial distress. MOB states that paternal grandparents are not supportive, although they do help when asked for grocery money. ROSA states that no one is ever good enough for him, and his mom provides only conditional love when he talks to her. Support Systems: HOWARD states that her cousin in [place] is her biggest support. MOB states that when she feels overwhelmed or stressed she can call and talk to her. MOB states that she talks to her regularly because she misses home. Depression/Shaken Baby/Safe Sleeping:? Sw educated parents on signs and symptoms of baby blues and depression and anxiety. MOB states that she never experienced any issues with her mental health following her other pregnancies. FOB states that if MOB were to struggle during this period he would be able to recognize and would know how to help and support her. MOB states that if she were to struggle she thinks that she would have people she can talk to. Sw educated parents on shaken baby prevention and ABCs of safe sleep, parents express understanding. ASSESSMENT:? MOB and baby admitted following labor and delivery of . MOB and FOB both present for conversation and completion of assessment. MOB has expressed concern with finances and food insecurities. Resources provided and parents state they are open to looking into what help is accessible to them. MOB was observed laying in bed comfortably and holding baby in attentive and loving manner. FOB laying/ sitting on couch comfortably and engaging in conversation. Parents observed to have positive rapport with one another. FOB understandably stressed regarding their financial situation and lack of resources. Parents deny mental health history and state that they have some positive supports available to them. PLAN:? No other services requested or indicated. MOB and baby to be discharged when medically ready. Parents were provided literature regarding: signs and symptoms of baby blues and mood and anxiety disorders, Help Me Grow, shaken baby prevention, ABCs of safe sleep and a list of county resources that are available for them should any needs present themselves. Jaz Jaime, MANAGEMENT PSYCHOLOGIST, DRYING SUPERVISOR
--- NOTE | 2025-01-08 14:37 | NURSING ---
Follow up phone call: Patient is doing well but has a lot of pelvic pain, patient was advised to call her OB. Patient stated things are going well she is pumping and feeding. Patient had no questions or concerns regarding . Patient reports no s+s of pp complications just that she has pelvic pain and again CBS encouraged her to call her provider. Patient was satisfied with her care while in the hospital.
== END 2024-12-31 11:45 | disposition home or self-care (01) | DRG 560 ==
PROVIDERS: Admitting Provider Registered Nurse; PCP Physician Assistant; Visit Provider Registered Nurse
DX: O99.02 Anemia complicating childbirth (principal); Z37.0 Single live birth; Z3A.39 39 weeks gestation of pregnancy
CPT/HCPCS: 59025; 59050; 85025; 86780; 86850; 86900; 86901; 99221; J1756; A4216; G0378